=== PATIENT | male | born 1965 | race Caucasian/White ===

== ENCOUNTER 2017-01-15 14:51 | Inpatient (IN) | payer BC, OTHER ==
[2017-01-15 15:16] LABS: #Lymphocytes 0.6 thou/uL (1.20-3.40); #Monocytes 0.5 thou/uL (0.11-0.59); #Neutrophils 7.9 thou/uL (1.40-6.50); %Basophils 0.4 % (0.0-1.0); %Eosinophils 0.2 % (0.0-10.0); %Lymphocytes 6.9 % (21.0-51.0); Hematocrit 32.2 % (42.0-52.0); Mean Platelet Volume 7.2 fL (7.4-10.4); Red Blood Cell (RBC) Count 3.68 mill/uL (4.70-6.10); White Blood Cell (WBC) Count 9.1 thou/uL (4.8-10.8)
[2017-01-15 15:39] LABS: ALT (SGPT) 13 U/L (8-55); AST (SGOT) 13 U/L (5-34); Alkaline Phosphatase 118 U/L (40-150); Anion Gap 12 mmol/L (10-20); BUN (Urea Nitrogen) 31 mg/dL (8.9-20.6); Bilirubin, Total 1.4 mg/dL (0.2-1.2); Calc. Creatinine Clearance 0 mL/min (70-130); Calcium 8.9 mg/dL (7.8-10.44); Carbon Dioxide 18 mmol/L (22-29); Chloride 101 mmol/L (98-107); Estimated GFR-MDRD 32; Globulin 3.8 g/dL (2.4-3.5); Lipase 8 U/L (8-78); Protein, Total 7.1 g/dL (6.0-8.3)
[2017-01-15 17:23] LABS: Bilirubin Negative (Negative); Blood, Urine Large (Negative); Glucose, Urine (Dipstick) >=1000 mg/dL (Negative); Ketone, Urine Negative (Negative); Nitrite Negative (Negative); Protein, Urine (Dipstick) 300 mg/dL (Neg-Trace); Urobilinogen 0.2 mg/dL (0.2-1.0)
[2017-01-15 17:25] LABS: Squamous Epithelial 0-3 HPF (0-3); WBC/HPF 0-3 HPF (0-3)
[2017-01-15 17:35] LABS: Bacteria/HPF 1+ HPF (None Seen); Hyaline Casts/LPF 0-3 HYALINE CAST LPF (0-3 Hyaline); Yeast-All Forms None Seen HPF (None Seen)
[2017-01-15 17:51] LABS: PTT 38.9 SEC (22.9-36.1); Prothrombin Time 15.1 SEC (12.0-14.7)
[2017-01-15 17:53] LABS: Lactic Acid - Sepsis 1.8 mmol/L (0.5-2.2)
[2017-01-15] MEDS ORDERED: Insulin Regular 300 UNITS/3 ML VIAL ONE (17:59)
[2017-01-15] MEDS ORDERED: Piperacillin/Tazobactam 4.5 GM VIAL ONE ×2 (18:33→18:34)
[2017-01-15] MEDS ORDERED: Sodium Chloride 0.9% 100 ML ONE (18:35)
[2017-01-15] MEDS ORDERED: Vancomycin HCl 1.5 GM in Sodium Chloride 0.9% 250 ML 300 ML IVPB SCH (18:45)
--- NOTE | 2017-01-15 19:16 | RAD ---
SINGLE VIEW OF THE CHEST: 01/15/17 COMPARISON: 10/31/16 HISTORY: Vomiting and fever. FINDINGS: Single view of the chest shows a normal sized cardiomediastinal silhouette. There is no evidence of consolidation, mass, or pleural effusion. The bones are unremarkable. IMPRESSION: No evidence of acute cardiopulmonary disease. POS: [facility]
--- NOTE | 2017-01-15 19:39 | RAD ---
THREE VIEWS OF THE LEFT TOES: 01/15/17 COMPARISON: None. HISTORY: Ulcers on the toes with fever. FINDINGS: Three views of the left toes shows slight absence of the lateral aspect of the tuft of the distal ph alanx of the great toe. No other areas of potential osseous erosion are seen. There are soft tissue swelling of the toes. Vascular calcifications are present. IMPRESSION: Possible bone loss of the tuft of the distal phalanx of the great toe. POS: [facility]
--- NOTE | 2017-01-15 19:58 | RAD ---
THREE VIEWS RIGHT KNEE: 01/15/17 COMPARISON: None. HISTORY: Fever with ulcers on both legs. FINDINGS: Three views of the right knee shows the patient to be status post right below the knee amputation. H ypertrophic bone formation is seen at the amputation sites in the tibia and fibula. No obvious osseo us erosion is seen. Vascular calcifications are seen. There are mild degenerative changes in the rig ht knee joint. IMPRESSION: No evidence of acute osseous abnormality status post right below the knee amputation.. POS: [facility]
[2017-01-15] MEDS ORDERED: Dextrose 50% Abboject 50 ML SYRINGE IVP PRN (22:21)
[2017-01-15] MEDS ORDERED: Insulin Regular 300 UNITS/3 ML VIAL SC PRN (22:21)
[2017-01-15] MEDS ORDERED: Dextrose 5% in Water 1,000 ML IV PRN (22:21)
[2017-01-15 23:07] VITALS: BMI 34.4
[2017-01-16] MEDS: Piperacillin/Tazobactam 4.5 GM in Sodium Chloride 0.9% 100 ML IVPB SCH ×2 (00:05→05:30)
[2017-01-16] MEDS: Sodium Chloride 0.9% 1,000 ML IV SCH ×2 (00:05→02:51)
[2017-01-16] MEDS ORDERED: Vancomycin HCl 1.5 GM in Sodium Chloride 0.9% 250 ML 300 ML IVPB SCH (08:00)
[2017-01-16] MEDS ORDERED: Nystatin Powder 15 GM BOT TOP PRN (08:15)
--- NOTE | 2017-01-16 09:06 | HP ---
CHIEF COMPLAINT: Fever, nausea. HISTORY OF PRESENT ILLNESS: This is a 51-year-old gentleman with a history of uncontrolled type 2 d iabetes, hypertension, hyperlipidemia, history of diabetic retinopathy, neuropathy, peripheral vascu lar disease, history of Charcot joints in his right foot, status post right below knee amputation in June 2016 who presents to the emergency department with 2-3 days of weakness, nausea, and fever up to 103. He was seen by Dr. Livingston in the primary care office yesterday and was told to go to the hospital immediately due to his infected toe and skin infection in his right stump. The patient st ates that he was last seen by Dr. Tanner and Dr. Paniagua 2-3 weeks ago and he had no infections at th at time. He was started on IV vancomycin and Zosyn in the emergency department. He states that he is feeling some better now with no further nausea and his fever has resolved as well. PAST MEDICAL HISTORY: Type 2 diabetes insulin-dependent, poorly controlled blood pressure, hyperlip idemia, diabetic retinopathy, neuropathy, Charcot joints. History of depression and anxiety. MEDICATIONS: Amlodipine 10 mg daily, Levemir 30 units b.i.d., Humalog p.r.n., Nystatin p.r.n., Paxi l 40 mg daily, hydrochlorothiazide 25 mg daily. ALLERGIES: METFORMIN. PAST SURGICAL HISTORY: Right eye surgery for retinopathy, abdominal I\T\D, scleral I\T\D, I\T\D of right foot, right below knee amputation. 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 Denies smoking or alcohol use. FAMILY HISTORY: Positive for diabetes and hypertension. REVIEW OF SYSTEMS: As per the history of present illness. GENERAL: Positive for fevers. Positive for weakness. SKIN: Infections as described above. HEENT: Denies headache. Positive for blurred vision. He is followed by Dr. Francisco. CARDIOVASCULAR: Denies chest pain, shortness of breath. PULMONARY: Denies cough or hemoptysis. GASTROINTESTINAL: Positive for nausea and vomiting. No melena, no hematochezia, no diarrhea. GENITOURINARY: No dysuria or hematuria. MUSCULOSKELETAL: Positive for weakness. NEUROLOGIC: Positive for neuropathy. PSYCHIATRIC: Positive for anxiety and depression. PHYSICAL EXAMINATION: VITAL SIGNS: Temperature 98.0, pulse of 86, respirations 16, blood pressure 164/80, pulse ox is 99% on room air. GENERAL: He is awake and alert, no acute distress. HEENT: Mucosa is moist. NECK: Supple. HEART: Regular rate and rhythm. LUNGS: Clear. ABDOMEN: Obese, soft, nontender, nondistended. No hepatosplenomegaly. EXTREMITIES: He has a shallow ulcerated lesion in his right leg behind his knee, base of his left g reat toe and base of his second toe on the left with ulcerative lesions which are dark and black. N o discharge at this time but on his sock and dressing. LABORATORY AND X-RAY FINDINGS: White blood cell count 9.1, hemoglobin hematocrit 11.2 and 32.2, kareem telets of 223. PT, PTT elevated at 15.1 and 38.9, sodium 127, potassium 4.3, chloride 101, CO2 of 1 8, BUN and creatinine 31 and 2.19 with a GFR of 32. Serum glucose was elevated at 456. Last Accu-C hek was 250. Lactic acid was normal at 1.8, calcium 8.9, albumin 3.3, AST and ALT are normal. Toe x-ray revealed possible bone loss on the tuft of the distal phalanx of the great toe. Knee x-ra y reveals no evidence of osseous abnormality, status post right below knee amputation. ASSESSMENT AND PLAN: 1. This is a 51-year-old gentleman with uncontrolled diabetes, noncompliance, hypertension, status post right [id number] amputation for persistent osteomyelitis, now with a left toe infection. C stewart Paniagua and Dr. Vargas for evaluation for Orthopedics and Infectious Disease. We will con tinue Zosyn and vancomycin for methicillin-resistant Staphylococcus aureus coverage. We will obtain an MRI of his left foot, rule out osteomyelitis. 2. Type 2 diabetes. We will continue aggressive insulin therapy to try to keep his sugars under co ntrol. 3. Hypertension. We will continue his medications and follow closely. 4. Anxiety, depression. We will continue his Paxil.
[2017-01-16] MEDS: Multivit, Therapeutic 1 TAB PO SCH (10:14)
[2017-01-16] MEDS: PARoxetine 20 MG TAB PO SCH (10:15)
[2017-01-16] MEDS: Losartan Potassium 25 MG TAB PO SCH (10:15)
[2017-01-16] MEDS: Insulin Detemir 100 UNITS/ML 30 UNITS in Pre-Filled Syringe 1 EACH SC SCH ×2 (10:15→21:11)
[2017-01-16] MEDS: HumaLOG 300 UNITS/3 ML VIAL SC SCH ×3 (12:00→21:12)
--- NOTE | 2017-01-16 15:54 | MRI ---
LEFT LOWER EXTREMITY MRI WITHOUT IV CONTRAST: HISTORY: Nonhealing ulcer on great left toe with history of diabetes mellitus and fever. FINDINGS: There is some minimal nonspecific soft tissue swelling of the distal great toe. There is abnormal m arrow signal with T1 hypointensity and T2 and STIR hyperintensity in the distal phalanx, evidence fo r osteomyelitis. No evidence of a drainable abscess. There are some generalized degenerative and o steoarthrosis changes of the forefoot. The first metatarsophalangeal joint sesamoid bones appear wi thin normal limits. Minimal nonspecific subcutaneous fat stranding. There is some nonspecific T2 h yperintensity within the intrinsic muscles of the foot. No evidence for other significant acute int ernal derangement. IMPRESSION: 1. Abnormal T1 and T2 and STIR signal associated with the distal phalanx of the great toe, evidence for osteomyelitis. 2. Minimal soft tissue swelling. 3. No evidence for a drainable abscess. 4. Nonspecific STIR and T2 hyperintensity within the intrinsic muscles of the foot. POS: [facility]
[2017-01-16] MEDS ORDERED: metroNIDAZOLE 500 MG TAB PO SCH (16:00)
[2017-01-16] MEDS ORDERED: cloNIDine HCl 0.1 MG TAB ONE (16:52)
[2017-01-16] MEDS: cefTRIAXone\\ROCEPHIN 2 GM in Sodium Chloride 0.9% 100 ML IVPB SCH (16:56)
[2017-01-16] MEDS: cloNIDine HCl 0.1 MG TAB PO PRN (17:00)
[2017-01-16] MEDS: metroNIDAZOLE 500 MG TAB PO SCH (21:10)
--- NOTE | 2017-01-16 23:37 | CON ---
DATE OF CONSULTATION: 01/16/2017 REASON FOR CONSULTATION: Toe ulcer, possible osteomyelitis. HISTORY OF PRESENT ILLNESS: A 51-year-old is known to us from recent visit when he presented with a history of type 2 diabetes, neuropathy and right foot inflammatory process. The patient underwent fusion, but then this became infected and was treated with protracted antimicrobial therapy when unfortunately, the patient required a below knee amputation, which was carried out by Dr. Paniagua at [facility] recently I believe in September. Patient now presents with new onset of weakness, nausea, fever up to 103. Patient had been taking care of ulceration at the tip of the first and second toes of left foot in the outpatient setting until he developed the above symptoms. No headaches. No change in visual symptoms, sore throat, odynophagia, dysphagia. No cough or sputum production or chest pain. No abdominal pain. Voiding without difficulty. No back pain. PAST MEDICAL HISTORY: Type 2 diabetes mellitus, neuropathy, retinopathy, hypertension, Charcot's arthropathy, prior right BKA amputation after failure of foot fusion due to the infection superimposed. ALLERGIES: METFORMIN. MEDICATIONS: Norvasc, Levemir, Humalog, nystatin, Paxil, and hydrochlorothiazide. 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 FAMILY HISTORY: Diabetes. PHYSICAL EXAMINATION: VITAL SIGNS: T-max 99.1, blood pressure 170/80, pulse 78, respirations 16, O2 sat 97%. SKIN: Shows the areas of ulceration at the tip of the first and second toes with yellow base. I could not probe bone with a Q-tip, similar ulceration in the second toe distal aspect, again no bone appears exposed and he has the medial aspect ulceration with yellow tissue at the base, irregular shaped medial aspect of the BKA site skin proximal to the knee, probably from pressure and abrasion resulting from the prosthesis, peripheral IV access. No Glover catheter. HEENT: Ocular movements are conjugate. Oral cavity moist. Numerous teeth in place with some decay. NECK: Supple. No jugular venous distention or carotid bruits. LUNGS: With symmetric clear breath sounds. HEART: S1, S2, regular rate. ABDOMEN: Soft, not distended or tender. No ascites. No bladder distention. EXTREMITIES: No joint inflammatory activity. Pulses are 2+ in dorsalis pedis. LABORATORY AND X-RAY FINDINGS: Cap refill is normal. WBC count 9.1, hemoglobin 11, platelets 223,000 with 86% neutrophils. INR 1.2. Sodium 127, creatinine is 2.19, which is higher than his baseline of 1.06 in 08/2016. Urinalysis with 0-3 wbc's and protein 300. MRI of the lower extremity is pending. Toe x-ray showed irregularity at the tuft of the first toe left foot. Chest x-ray with no evidence of acute cardiopulmonary disease. ASSESSMENT: 1. Type 2 diabetes and neuropathy. 2. Ulceration tip of the first and second toes with inflammatory changes and systemic inflammatory response syndrome. DISCUSSION: MRI is pending and we will review the results of the study, but if there is evidence of osteomyelitis, then the patient will probably need amputation of the distal phalanx of the left foot. He was given Zosyn and vancomycin, but the doses being changed by the pharmacist, I believe, and will continue current regime. Since there is not extensive bone destruction and pt has excellent blood supply, one could attempt conservative treatment but it would require protracted IV antimicrobial administration and with uncertain results. MTDD
[2017-01-17 05:29] LABS: #Eosinphils 0.4 thou/uL (0.0-0.7); #Lymphocytes 1.2 thou/uL (1.20-3.40); #Monocytes 0.7 thou/uL (0.11-0.59); %Basophils 0.9 % (0.0-1.0); %Eosinophils 7.8 % (0.0-10.0); %Lymphocytes 21.6 % (21.0-51.0); %Monocytes 13.9 % (0.0-10.0); Hematocrit 28.8 % (42.0-52.0); Mean Platelet Volume 7.9 fL (7.4-10.4); Red Blood Cell (RBC) Count 3.24 mill/uL (4.70-6.10); White Blood Cell (WBC) Count 5.4 thou/uL (4.8-10.8)
[2017-01-17] MEDS: Insulin Detemir 100 UNITS/ML 30 UNITS in Pre-Filled Syringe 1 EACH SC SCH ×2 (08:22→19:59)
[2017-01-17] MEDS: PARoxetine 20 MG TAB PO SCH (08:22)
[2017-01-17] MEDS: Losartan Potassium 25 MG TAB PO SCH (08:22)
[2017-01-17] MEDS: HumaLOG 300 UNITS/3 ML VIAL SC SCH ×4 (08:23→20:00)
[2017-01-17] MEDS: Multivit, Therapeutic 1 TAB PO SCH (08:23)
[2017-01-17] MEDS: metroNIDAZOLE 500 MG TAB PO SCH ×3 (08:24→19:59)
--- NOTE | 2017-01-17 08:51 | PRG ---
DATE OF SERVICE: 01/17/2017 SUBJECTIVE: The patient is feeling some better. He denies fevers or chills. He has had improved pain in his foot. He is tolerating antibiotics. OBJECTIVE: VITAL SIGNS: Temperature 98.1, pulse 71, respirations 18, blood pressure 152/78 , pulse ox is 97% on room air. GENERAL: He is awake and alert, in no acute distress. Speech is clear. NECK: Supple. HEART: Regular rate and rhythm. LUNGS: Clear. ABDOMEN: Obese, soft, nontender, nondistended. EXTREMITIES: Right stump with a superficial abrasion with granulation tissue, slight redness. Left foot with dressing in place, discharge on the dressing. LABORATORY DATA: White blood cell count 5.4, hemoglobin and hematocrit 9.8 and 28.8, platelets 193. Accu-Cheks 158, 188. Microbiology; bacterial culture of the wound is growing moderate gram positive rods, gram negative coccobacilli, ID is pending. MRI of the lower extremity revealed abnormal signal of the distal phalanx of the great toe with evidence of osteomyelitis. ASSESSMENT AND PLAN: 1. This is a 51-year-old gentleman with a long history of uncontrolled type 2 diabetes, status post right below the knee amputation for persistent osteomyelitis status post scrotal abscesses with MRSA, now with a left great toe infection with osteomyelitis. I appreciate Dr. Vargas who has adjusted his antibiotics, awaiting Dr. Paniagua's evaluation for possible long-term antibiotics versus amputation. 2. Type 2 diabetes. We will continue aggressive insulin therapy. Sugars seem to be under control. 3. Hypertension. We will continue oral medicines as well as clonidine p.r.n. 4. Anxiety and depression, stable on Paxil. We will continue that as well. 5. We will hold off on Lovenox at this time in case of surgical intervention. 6. Anemia. Likely multifactorial. Will follow. Consider transfusion if worsens or he becomes symptomatic MTDD
[2017-01-17] MEDS: cefTRIAXone\\ROCEPHIN 2 GM in Sodium Chloride 0.9% 100 ML IVPB SCH (17:14)
[2017-01-17] MEDS ORDERED: Vancomycin HCl 1 GM in Premix Bag 1 BAG IVPB SCH (19:30)
--- NOTE | 2017-01-17 21:55 | PRG ---
DATE OF SERVICE: 01/17/2017 SUBJECTIVE: Mr. Ferraar is without any changes in symptoms, no shortness of breath or chest pain, n o abdominal pain or diarrhea. No genitourinary symptoms. PHYSICAL EXAMINATION: VITAL SIGNS: Normal: LUNGS: Clear. HEART: S1 and S2, regular rate. ABDOMEN: Soft, not distended. EXTREMITIES: Foot is unchanged, except for less erythema. LABORATORY DATA: White cell count is 5.4 and hemoglobin 9.8. No new chemistry. Microbiology with Staph aureus and Streptococcus viridans from the ulceration. IMAGINGS: The MRI showed abnormal T1 and T2 signal in the distal phalanx consistent with oste omyelitis. No abscess. ASSESSMENT AND DISCUSSION: Type 2 diabetes with neuropathy and ulceration at the tip of the first a nd second toes with first toe distal osteomyelitis. I discussed options for management. The patien t would like to try initially conservative management since there is not a lot of destruction of the bone on plain films that seems to be an early process, he has excellent blood supply and I think we could give it a shot. If that fails, then he will eventually need a distal left first toe amputati on. We will start probably with Rocephin unless it is methicillin-resistant Staphylococcus aureus, now we will have to switch him to daptomycin. He is currently receiving ceftriaxone and we will giv e him a dose of vancomycin until we have susceptibility results of few organism.
[2017-01-18 06:11] LABS: #Basophils 0.1 thou/uL (0.0-0.2); #Eosinphils 0.4 thou/uL (0.0-0.7); #Lymphocytes 1.4 thou/uL (1.20-3.40); #Monocytes 0.8 thou/uL (0.11-0.59); #Neutrophils 4.3 thou/uL (1.40-6.50); %Basophils 1.1 % (0.0-1.0); %Lymphocytes 19.8 % (21.0-51.0); Hematocrit 30.9 % (42.0-52.0); Mean Platelet Volume 7.2 fL (7.4-10.4); Red Blood Cell (RBC) Count 3.48 mill/uL (4.70-6.10); White Blood Cell (WBC) Count 6.9 thou/uL (4.8-10.8)
[2017-01-18 06:48] LABS: Anion Gap 14 mmol/L (10-20); BUN (Urea Nitrogen) 19 mg/dL (8.9-20.6); Calc. Creatinine Clearance 99 mL/min (70-130); Calcium 8.7 mg/dL (7.8-10.44); Carbon Dioxide 18 mmol/L (22-29); Chloride 112 mmol/L (98-107); Estimated GFR-MDRD 53
[2017-01-18] MEDS: HumaLOG 300 UNITS/3 ML VIAL SC SCH ×4 (07:02→20:10)
--- NOTE | 2017-01-18 08:06 | PRG ---
DATE OF SERVICE: 01/18/2017 SUBJECTIVE: The patient is feeling fine. He denies any complaints, denies chest pain, shortness of breath or palpitations. He is tolerating wound care to his foot, tolerating antibiotics with no co mplications. Has a good appetite. OBJECTIVE: VITAL SIGNS: Temperature 97.9, pulse of 76, respirations 18, blood pressure 157/85, pulse ox is 98% on room air. GENERAL: He is awake and alert, in no acute distress. Speech is clear. NECK: Supple. HEART: Regular rate and rhythm. LUNGS: Clear. ABDOMEN: Obese, soft. EXTREMITIES: Right stump with a healing superficial wound with granulation tissue, dressing was in placed, left toe continues with an ulcerative lesion with a foul odor. LABORATORY DATA: White blood cell count 6.9, hemoglobin and hematocrit 10.5 and 30.9, platelets of 234. Sodium 140, potassium 3.5, chloride 112, CO2 of 18, BUN and creatinine 19 and 1.41 with a GFR of 53, which is improved from yesterday when it was 32. Accu-Chek of 123. Serum glucose of 110. W ound cultures growing Staph aureus and Strep viridans with sensitivities pending. MEDICATIONS: He is continuing on his IV vancomycin and ceftriaxone until wound culture sensitivitie s result. ASSESSMENT AND PLAN: 1. This is a 51-year-old gentleman with type 2 diabetes, hypertension, hyperlipidemia, peripheral v ascular disease, status post right below knee amputation for persistent osteomyelitis, now with left great toe infection with distal tip osteomyelitis. Dr. Vargas is adjusting antibiotics based on his wound culture. We will attempt for conservative therapy with IV antibiotics long-term prior to any surgical procedure or amputation, IV antibiotics arranged for her outpatient therapy per Dr. Vargas. 2. Type 2 diabetes. We will continue insulin therapy. 3. Hypertension, stable on medications. 4. Anemia is improved. We will continue to follow as an outpatient. DISPOSITION: Possible discharge home if okay with Surgery and Infectious Disease once his IV antibi otics are arranged.
[2017-01-18] MEDS: Insulin Detemir 100 UNITS/ML 30 UNITS in Pre-Filled Syringe 1 EACH SC SCH ×2 (08:10→20:09)
[2017-01-18] MEDS: metroNIDAZOLE 500 MG TAB PO SCH ×3 (08:11→20:08)
[2017-01-18] MEDS: Losartan Potassium 25 MG TAB PO SCH (08:11)
[2017-01-18] MEDS: PARoxetine 20 MG TAB PO SCH (08:12)
[2017-01-18] MEDS: Multivit, Therapeutic 1 TAB PO SCH (08:12)
--- NOTE | 2017-01-18 12:51 | SPC ---
ULTRASOUND GUIDED LEFT UPPER EXTREMITY PICC LINE PLACEMENT: 01/18/2017 HISTORY: Sepsis. Toe infection. FLUOROSCOPY: Total fluoroscopy time is 1 minute with a total dose of 2731 mGy per cm2. TECHNIQUE: After informed consent was obtained, the patient was placed on the angiography table in the supine p osition. The left upper extremity was meticulously prepped and draped in the usual sterile fashion. The skin and subcutaneous tissues were infiltrated with buffered 1% Lidocaine for local anesthesia . The left basilic vein was accessed utilizing a micropuncture technique and concurrent real-time u ltrasound guidance. A 5 Martiniquais sheath was unable to be placed. As a result, a 5 Martiniquais introducer sheath was placed, fo llowed by the dilator for the introducer sheath, followed by placement of the 5 Martiniquais peel-away she ath. The catheter was measured and cut to the appropriate length. The catheter was placed over the guide wire with the tip position overlying the cavoatrial junction. The guide wire and peel-away s jose carlos were removed. The catheter was accessed and aspirated/flushed easily. The catheter was secur ed to the skin utilizing a StatLock device, and a dry, sterile dressing was placed. The patient tolerated the procedure well and without immediate complication. FINDINGS: Technically successful placement of a single lumen, 5 Martiniquais, 39 cm PICC via the left basilic vein. The tip of the catheter overlies the cavoatrial junction. The PICC line at the skin surface was pl aced at the zero patito on the PICC line. IMPRESSION: Technically successful left upper extremity peripherally inserted central catheter line placement. POS: [facility]
--- NOTE | 2017-01-18 13:42 | PQF ---
CLINICAL DOCUMENTATION IMPROVEMENT CLARIFICATION FORM: ICD-10 Updated PLEASE DO AN ADDENDUM TO THE PROGRESS NOTE WITH ANY DOCUMENTATION UPDATES OR ADDITIONS AND CARRY THROUGH TO DC SUMMARY. THANK YOU. DATE: 01/18/17 ATTN: Dr. Hill 01/21/17 Please exercise your independent, professional judgment in responding to the clarification form. Clinical indicators are provided on the bottom of this form for your review Please check appropriate box(s): ___x___ I (concur) with the Wound Care findings as stated below. [ ] Pressure Ulcer: (Stage I: Erythema; Stage II: Partial thickness; Stage III : Full thickness; Stage IV: Necrosis to muscle/bone) [ ] Location: POA: [ ] Yes [ ] No[ ] Unable to determine Stage (I to IV): (Left Right Bilateral N /A ) [ ] Location: POA: [ ] Yes [ ] No[ ] Unable to determine Stage (I to IV): (Left Right Bilateral N/ A ) [ ] No pressure ulcer diagnosis [ ] Deep tissue injury [ ] Other diagnosis [ ] Unable to determine For continuity of documentation, please document condition throughout progress notes and discharge summary. Thank You. The following CLINICAL INDICATORS - SIGNS / SYMPTOMS are present in the medical record: WOUND CARE ASSESS. 01/17: R POSTERIOR UPPER THIGH PRESSURE ULCER. STAGE III RISKS: H&P: S/P R BKA IN JUNE 2016. HX OF UNCONTROLLED TYPE 2 DM, HTN, DIABETIC RETINOPATHY, NEUROPATHY, PVD. CHARCOT JOINTS. HE HAS A SHALLOW ULCERATED LESION IN HIS R LEG BEHIND HIS KNEE TREATMENT: CONSULT 01/16: WOUND CARE EVAL/ TREAT. (This form is maintained as a part of the permanent medical record) 2014 [employer]. All Rights Reserved Yue Bryan, RN, [email or web address] [email or web address] Office: [phone] CARIDAD
[2017-01-18] MEDS: cefTRIAXone\\ROCEPHIN 2 GM in Sodium Chloride 0.9% 100 ML IVPB SCH (14:44)
[2017-01-18] MEDS ORDERED: Mag-Al Plus 1200 MG/1200 MG/120 MG/30 ML UDCUP PO PRN (17:54)
[2017-01-18] MEDS: Vancomycin HCl 1.75 GM in Sodium Chloride 0.9% 500 ML IVPB SCH (20:08)
[2017-01-19 05:07] LABS: #Basophils 0.1 thou/uL (0.0-0.2); #Eosinphils 0.4 thou/uL (0.0-0.7); #Lymphocytes 1.6 thou/uL (1.20-3.40); #Monocytes 0.7 thou/uL (0.11-0.59); #Neutrophils 3.7 thou/uL (1.40-6.50); %Basophils 1.2 % (0.0-1.0); %Eosinophils 6.3 % (0.0-10.0); %Lymphocytes 24.8 % (21.0-51.0); %Monocytes 10.8 % (0.0-10.0); Mean Platelet Volume 8.2 fL (7.4-10.4); Red Blood Cell (RBC) Count 3.36 mill/uL (4.70-6.10); White Blood Cell (WBC) Count 6.4 thou/uL (4.8-10.8)
[2017-01-19] MEDS: HumaLOG 300 UNITS/3 ML VIAL SC SCH ×4 (07:30→20:17)
[2017-01-19] MEDS: Insulin Detemir 100 UNITS/ML 30 UNITS in Pre-Filled Syringe 1 EACH SC SCH ×2 (10:47→20:10)
[2017-01-19] MEDS: Losartan Potassium 25 MG TAB PO SCH (10:47)
[2017-01-19] MEDS: Multivit, Therapeutic 1 TAB PO SCH (10:47)
[2017-01-19] MEDS: metroNIDAZOLE 500 MG TAB PO SCH ×3 (10:47→20:10)
[2017-01-19] MEDS: PARoxetine 20 MG TAB PO SCH (10:47)
[2017-01-19] MEDS: cefTRIAXone\\ROCEPHIN 2 GM in Sodium Chloride 0.9% 100 ML IVPB SCH (17:05)
--- NOTE | 2017-01-19 17:30 | CON ---
DATE OF CONSULTATION: 01/19/2017 CHIEF COMPLAINT: Left foot infection. HISTORY OF PRESENT ILLNESS: This is a 51-year-old male previously known to me from right below knee amputation for right foot osteomyelitis. He had been doing relatively well with his below knee amp utation, has had a temporary prosthesis, minor skin irritation behind the knee. He has developed so me blister lesions under the great toe and second toe distally which became erythematous and with in creased drainage. The patient was admitted to the hospital, has been on IV antibiotic therapy. Den ies any fever or chills. No other constitutional symptoms. PAST MEDICAL HISTORY: Documented significant for neuropathy in lower extremities secondary to diabe burt along with longstanding adult onset diabetes. CURRENT MEDICATIONS: Listed. ALLERGIES: Listed. FAMILY HISTORY: Noncontributory. SOCIAL HISTORY: Noncontributory. PHYSICAL EXAMINATION: GENERAL: He is alert, in no distress. VITAL SIGNS: Stable. He is afebrile. EXTREMITIES: His left lower extremity has minimal swelling in ankle and foot. Alignment is neutral . The midfoot has normal transmetatarsal motion with no skin lesions or deformity. In the forefoot , he has hammertoe deformities of the lesser toes, he has second and third are fairly fixed, rigid. The second toe has bolus lesions with erythema to the base. There is some purulent drainage in dis jose callus with central ulceration. The great toe has a mallet deformity with similar large callus on the distal phalanx with a central ulceration and purulent drainage. No significant fluctuance, n o proximal erythema. His vascular is intact. NEUROLOGIC: He has no protective sensation in the foot. X-RAY FINDINGS: Radiographs are reviewed which shows some lytic changes in the distal phalanx of th e great toe, possibly on the second toe. There are hammertoe deformities. No other acute changes. MRI also shows evidence of bone involvement of the great and second toe with infectious etiology. IMPRESSION AND PLAN: Neuropathic ulcers, left great and second toe with evidence of bone involvemen t. The patient is currently on IV antibiotic therapy with no progression of the infection proximall y. I discussed options with him, he most likely require partial amputation of the great and second toes. Would also consider flexor tenotomies to avoid additional distal erosions in the future. The patient would like to continue IV therapy at this time and would recommend that he follow up in the office in 3-4 days. We will assess the progression if no improvement. We will schedule for amputa tion. Prognosis is guarded.
[2017-01-19 19:25] LABS: Vancomycin, Trough 15.4 ug/mL
[2017-01-19] MEDS: Vancomycin HCl 1.75 GM in Sodium Chloride 0.9% 500 ML IVPB SCH (20:09)
[2017-01-20] MEDS: Losartan Potassium 25 MG TAB PO SCH (09:01)
[2017-01-20] MEDS: metroNIDAZOLE 500 MG TAB PO SCH ×3 (09:01→20:21)
[2017-01-20] MEDS: PARoxetine 20 MG TAB PO SCH (09:02)
[2017-01-20] MEDS: Multivit, Therapeutic 1 TAB PO SCH (09:02)
[2017-01-20] MEDS: Insulin Detemir 100 UNITS/ML 30 UNITS in Pre-Filled Syringe 1 EACH SC SCH ×2 (09:03→20:28)
[2017-01-20] MEDS: HumaLOG 300 UNITS/3 ML VIAL SC SCH ×4 (09:04→20:30)
[2017-01-20] MEDS: cefTRIAXone\\ROCEPHIN 2 GM in Sodium Chloride 0.9% 100 ML IVPB SCH (16:28)
[2017-01-20] MEDS ORDERED: Loperamide HCl 2 MG CAP PO PRN ×2 (19:54)
[2017-01-20] MEDS ORDERED: Acetaminophen 325 MG TAB PO PRN ×2 (19:58)
[2017-01-20] MEDS: Vancomycin HCl 1.75 GM in Sodium Chloride 0.9% 500 ML IVPB SCH (20:21)
[2017-01-20] MEDS: cloNIDine HCl 0.1 MG TAB PO PRN (20:28)
[2017-01-20] MEDS ORDERED: Loratadine 10 MG TAB PO SCH (21:00)
[2017-01-21] MEDS: HumaLOG 300 UNITS/3 ML VIAL SC SCH ×2 (07:11→14:00)
[2017-01-21] MEDS ORDERED: Ondansetron HCl/PF 4 MG/2 ML Vial SLOW IVP PRN (08:01)
[2017-01-21] MEDS: metroNIDAZOLE 500 MG TAB PO SCH ×2 (08:07→14:36)
[2017-01-21] MEDS: Losartan Potassium 25 MG TAB PO SCH (08:07)
[2017-01-21] MEDS: Multivit, Therapeutic 1 TAB PO SCH (08:07)
[2017-01-21] MEDS: PARoxetine 20 MG TAB PO SCH (08:07)
[2017-01-21] MEDS ORDERED: Citrucel 500 MG TAB PO SCH (09:00)
[2017-01-21] MEDS ORDERED: Loratadine 10 MG TAB PO SCH (09:00)
[2017-01-21] MEDS ORDERED: Isosorbide Mononitrate 20 MG TAB PO SCH (09:00)
[2017-01-21] MEDS: Insulin Detemir 100 UNITS/ML 30 UNITS in Pre-Filled Syringe 1 EACH SC SCH (09:56)
--- NOTE | 2017-01-21 12:17 | DIS ---
DATE OF ADMISSION: 01/16/2017 DATE OF DISCHARGE: 01/21/2017 ADMISSION DIAGNOSES: 1. Left toe infection, rule out sepsis syndrome. 2. Uncontrolled diabetes. 3. Noncompliance. 4. Status post right below-knee amputation. 5. History of Staph aureus osteomyelitis. DISCHARGE DIAGNOSES: 1. Left toe infection, rule out sepsis syndrome. 2. Uncontrolled diabetes. 3. Noncompliance. 4. Status post right below-knee amputation. 5. History of Staph aureus osteomyelitis. OTHER DIAGNOSES 1. Clostridium difficile antigen positive. 2. Diarrhea. 3. Hypertension. CONSULTATIONS: Dr. Huan Vargas for Infectious Disease. Dr. Austen Paniagua for Orthopedics. PROCEDURE: IV antibiotics. HOSPITAL COURSE: This is a 51-year-old gentleman with a history of uncontrolled type 2 diabetes, hy pertension, hyperlipidemia, diabetic retinopathy, neuropathy, peripheral vascular disease, history o f Charcot joint in his right foot, status post right below knee amputation in 06/2016, and history o f MRSA, who presented to the Emergency Department with 2-3 days of weakness, nausea, and fever up to 103. He was admitted and he was started on IV vancomycin and Zosyn. He was followed by Dr. Vargas, who adjusted his antibiotics and had been improving on IV vancomycin and Rocephin. His cultures of his wounds have grown MRSA and Strep viridans. He was seen by Dr. Paniagua, who agreed with therapy , feels like he was likely going to need an amputation, but not imminent at this time and agrees wit h conservative therapy with outpatient antibiotics for the osteomyelitis and close followup. During his hospitalization, his diabetes was better controlled on increasing doses of insulin and diet con trol. His blood pressure remained difficult to control and medications for added. He is stable for discharge on the day of discharge, once outpatient antibiotics were arranged. DISCHARGE PHYSICAL EXAMINATION: VITAL SIGNS: Temperature 98.1, pulse of 76, respirations 16, blood pressure 162/78, and pulse ox 98 % on room air. GENERAL: He is awake and alert, in no acute distress. Speech is clear. NECK: Supple. HEART: Regular rate and rhythm. LUNGS: Clear. ABDOMEN: Obese, soft. EXTREMITIES: Left foot with dressing in place, clean, dry, and intact. Right stump has improving w ound. DISCHARGE LABORATORY DATA: White blood cell count 6,400, hemoglobin and hematocrit are 10.2 and 31. 0, and platelets of 215. Microbiology was growing MRSA and Strep viridans from his stump wound. C. diff antigen was positive and toxin was negative. DISCHARGE MEDICATIONS: Include, IV vancomycin per Dr. Huan Vargas, oral Flagyl 500 mg t.i.d. for 10 more days, Tylenol p.r.n., Maalox p.r.n., Norvasc 10 mg daily, Catapres 0.1 mg p.r.n., Levemir 30 units b.i.d., Humalog p.r.n., Imdur 30 mg daily, losartan 25 mg daily, and Paxil 40 mg daily. FOLLOWUP INSTRUCTIONS: The patient to follow up with Dr. Austen Paniagua in 3-4 days, Dr. Huan Britt for outpatient antibiotics and with myself in 2 weeks.
--- NOTE | 2017-01-21 14:00 | PQF ---
CLINICAL DOCUMENTATION IMPROVEMENT CLARIFICATION FORM: ICD-10 Updated PLEASE DO AN ADDENDUM TO THE PROGRESS NOTE WITH ANY DOCUMENTATION UPDATES OR ADDITIONS AND CARRY THROUGH TO DC SUMMARY. THANK YOU. DATE: 01/21/17 ATTN: Dr. Hill Please exercise your independent, professional judgment in responding to the clarification form. Clinical indicators are provided on the bottom of this form for your review Please check appropriate box(s): [ ] Sepsis due to: (Pna, UTI, gangrenous gall bladder, etc.) [ x ] SIRS due to non-infectious process (please specify etiology) __left toe infection with osteomyelitis [ ] with organ dysfunction [ ] without organ dysfunction [ ] Localized infection without sepsis [ ] Other diagnosis [ ] Unable to determine The following CLINICAL INDICATORS - SIGNS / SYMPTOMS are present in the medical record: ER RECORD: SEPSIS H&P: FEVER UP TO 103 INFECTED TOE & SKIN INFECTION R STUMP LEFT TOE INFECTION ID CONSULT: ULCERATION TIP OF FIRST AND SECOND TOES W/ INFLAMMATORY CHANGES & SIRS DC SUMMARY 01/21: ADMISSION DX: LEFT TOE INFECTION R/O SEPSIS SYNDROME DISCHARGE DX: LEFT TOE INFECTION R/O SEPSIS SYNDROME RISKS: H&P: HX OF UNCONTROLLED TYPE 2 DIABETES, HTN, PVD, S/P R BKA IN JUNE 2016. PN 01/17: BACTERIAL CULTURE OF WOUND GROWING MODERATE GRAM POSITIVE RODS, GRAM NEGATIVE COCCOBACILLI TREATMENTS: ID CONSULT. CPOE 01/16: ROCEPHIN 2 GM IV CPOE 01/16: FLAGYL 500 MG PO TID ORDER 01/17: IV VANCOMYCIN (This form is maintained as a part of the permanent medical record) 2014 [employer]. All Rights Reserved Yue Bryan RN, BSN [email or web address] Office: [phone] [facility]
[2017-01-21 16:11] VITALS: BP 167/85; TEMP 97.6
== END 2017-01-21 16:45 | disposition home or self-care (01) | DRG 637 ==
LOC: ERS 14:51 → T4-A 22:15
PROVIDERS: ADMIT Family Medicine; ATTEND Family Medicine
PROC: 02HV33Z Insertion of Infusion Device into Superior Vena Cava, Percutaneous Approach (ICD-10-PCS; principal; 2017-01-18)
PROC: B548ZZA Ultrasonography of Superior Vena Cava, Guidance (ICD-10-PCS; 2017-01-18)
DX: E11.69 Type 2 diabetes mellitus with other specified complication (principal); L89.893 Pressure ulcer of other site, stage 3; M86.8X7 Other osteomyelitis, ankle and foot; E11.40 Type 2 diabetes mellitus with diabetic neuropathy, unspecified; R65.10 Systemic inflammatory response syndrome (SIRS) of non-infectious origin without acute organ dysfunction; E11.65 Type 2 diabetes mellitus with hyperglycemia; Z91.14 Patient's other noncompliance with medication regimen; I10 Essential (primary) hypertension; E78.5 Hyperlipidemia, unspecified; E11.319 Type 2 diabetes mellitus with unspecified diabetic retinopathy without macular edema; I73.9 Peripheral vascular disease, unspecified; Z86.14 Personal history of Methicillin resistant Staphylococcus aureus infection; Z89.511 Acquired absence of right leg below knee
CPT/HCPCS: 36415; 36416; 36569; 71010; 80048; 80053; 80202; 81003; 81015; 83605; 83690; 85025; 85610; 85652; 85730; 87040; 87070; 87077; 87086; 87186; 87205; 87324; 87449; 96361; 96365; 96366; 96367; 96372; C1751; J0696; J1815; J2543; J3370; J7050

== ENCOUNTER 2017-05-17 09:40 | Outpatient (CLI) | payer BC ==
--- NOTE | 2017-05-17 11:27 | RAD ---
UPPER GI AIR CONTRAST: History: Vomiting, abdominal pain. FINDINGS: Air contrast and single column barium evaluation shows normal anatomic appearance of the esophagus, s tomach, and duodenum. Mild tertiary contractions of the distal esophagus are apparent. There is a lar ge amount of gastroesophageal reflux. While esophageal peristalsis is within normal limits, there is marked decrease in motility of the stomach and proximal bowel. No filling defect is apparent. Fluoro time = 1.6 minutes. IMPRESSION: 1. Large amount of gastroesophageal reflux without significant hernia apparent. 2. Marked decrease in motility of the stomach and proximal small bowel. POS: [facility]
== END 2017-05-17 09:41 | disposition home or self-care (01) ==
LOC: RAD 09:40
PROVIDERS: ATTEND Family Medicine
DX: G43.A1 Cyclical vomiting, in migraine, intractable (principal); K21.9 Gastro-esophageal reflux disease without esophagitis
CPT/HCPCS: 74247

== ENCOUNTER 2017-07-17 08:22 | Outpatient (CLI) | payer BC | END 2017-07-17 08:23 | disposition home or self-care (01) | LOC: BICCT 08:22 | PROVIDERS: ATTEND Family Medicine | DX: R41.0 Disorientation, unspecified (principal) | CPT/HCPCS: 70450 ==

== ENCOUNTER 2017-10-25 12:25 | Outpatient (CLI) | payer BC | END 2017-10-25 12:26 | disposition home or self-care (01) | LOC: ULT 12:25 | PROVIDERS: ATTEND Family Medicine | DX: I50.21 Acute systolic (congestive) heart failure (principal); R06.09 Other forms of dyspnea; I08.1 Rheumatic disorders of both mitral and tricuspid valves | CPT/HCPCS: 93306 ==

== ENCOUNTER 2017-11-15 14:32 | Outpatient (CLI) | payer BC | END 2017-11-15 14:33 | disposition home or self-care (01) | LOC: BICULT 14:32 | PROVIDERS: ATTEND Family Medicine | DX: N18.4 Chronic kidney disease, stage 4 (severe) (principal); K80.20 Calculus of gallbladder without cholecystitis without obstruction; J90 Pleural effusion, not elsewhere classified | CPT/HCPCS: 76770 ==

== ENCOUNTER 2018-03-26 09:28 | Day surgery (SDC) | payer BC ==
[2018-03-25 17:31] VITALS: BMI 33.0
[2018-03-26] MEDS ORDERED: CEFAZOLIN 2 GM/50 ML BAG ONE (10:55)
[2018-03-26] MEDS ORDERED: PROPOFOL 200 MG/20 ML VIAL ONE (11:02)
[2018-03-26] MEDS ORDERED: Glycopyrrolate 0.2 MG/ML 5 ML SYRINGE ONE (11:02)
[2018-03-26] MEDS ORDERED: Heparin 10,000 UNITS/ 10 ML VIAL ONE ×2 (11:02→21:48)
[2018-03-26] MEDS ORDERED: Lidocaine 1% PF 5 ML VIAL ONE (11:02)
[2018-03-26 11:21] LABS: #Basophils 0.1 thou/uL (0.0-0.2); #Eosinphils 0.4 thou/uL (0.0-0.7); #Lymphocytes 1.3 thou/uL (1.20-3.40); #Monocytes 0.9 thou/uL (0.11-0.59); #Neutrophils 8.6 thou/uL (1.40-6.50); %Basophils 0.8 % (0.0-1.0); %Eosinophils 3.7 % (0.0-10.0); %Lymphocytes 11.3 % (21.0-51.0); %Monocytes 8.1 % (0.0-10.0); %Neutrophils 76.1 % (42.0-75.0); Hemoglobin 12.4 g/dL (14.0-18.0); Mean Corpuscular HGB CONC 31.7 g/dL (32.0-36.0); Mean Corpuscular Hemoglobin 29.6 pg (27.0-31.0); Mean Corpuscular Volume 93.4 fL (78.0-98.0); Mean Platelet Volume 8.3 fL (7.4-10.4); Platelet Count 249 thou/uL (130-400); RBC Distribution Width 14.6 % (11.5-14.5); White Blood Cell (WBC) Count 11.3 thou/uL (4.8-10.8)
[2018-03-26 11:36] LABS: Anion Gap 13 mmol/L (10-20); BUN (Urea Nitrogen) 31 mg/dL (8.4-25.7); Calc. Creatinine Clearance 26 mL/min (70-130); Calcium 8.4 mg/dL (7.8-10.44); Carbon Dioxide 25 mmol/L (22-29); Chloride 106 mmol/L (98-107); Estimated GFR-MDRD 12; Glucose 111 mg/dL (70-105); Potassium 3.6 mmol/L (3.5-5.1); Sodium 140 mmol/L (136-145)
[2018-03-26] MEDS ORDERED: Bacitracin Zinc Ointment 30 gm TUBE ONE (17:49)
[2018-03-26] MEDS ORDERED: Lidocaine 2% PF 5 ML VIAL ONE (18:24)
[2018-03-26] MEDS ORDERED: Bupivacaine HCl 0.5%/Epinephrine 1:200,000/PF 30 ml Vial ONE (18:24)
[2018-03-26] MEDS ORDERED: Heparin 5,000 UNITS/ML VIAL ONE (18:24)
[2018-03-26] MEDS ORDERED: Heparin 10,000 UNITS/1 ML VIAL ONE (18:24)
[2018-03-26] MEDS ORDERED: Bupivacaine/Epinephrine 0.25% 30 ML VIAL ONE (18:24)
[2018-03-26] MEDS ORDERED: Protamine Sulfate 50 MG/5 ML VIAL ONE (18:24)
[2018-03-26] MEDS ORDERED: Midazolam HCl 2 mg/2 ml Vial ONE (18:26)
[2018-03-26] MEDS ORDERED: Fentanyl 100 MCG/2 ML VIAL ONE ×2 (18:26→21:11)
[2018-03-26] MEDS ORDERED: SUGAMMADEX SODIUM 200 MG/2 ML VIAL ONE (20:36)
[2018-03-26] MEDS ORDERED: Promethazine HCl 25 MG/ML VIAL ONE (21:11)
--- NOTE | 2018-03-28 09:56 | OP ---
DATE OF PROCEDURE: 03/26/2018 PREOPERATIVE DIAGNOSIS: End-stage renal disease. POSTOPERATIVE DIAGNOSIS: End-stage renal disease. PROCEDURE PERFORMED: Laparoscopic peritoneal dialysis catheter, laparoscopic omentopexy, laparoscopic sling suture and direct the peritoneal dialysis catheter into the pelvis. Left Rick fistula. Note, thrombus from prior IV access cleaned out and hopefully this will mature. ANESTHESIA: General and local 0.25% Marcaine with epinephrine 30 mL mixed with 2% Xylocaine 10 mL. DESCRIPTION OF PROCEDURE: The patient was taken to the operating room where under general anesthesia, abdomen was prepared with ChloraPrep and left upper extremity was prepared with ChloraPrep and draped in routine fashion. Bilateral subcostal on incision was made and pneumoperitoneum to 15 mmHg was obtained with a Veress needle contralateral 5 mm port was placed. A stab incision was made in the planned exit site in the left lower quadrant for the peritoneal dialysis catheter. Just superior to this immediately slightly above the umbilical level, a counterincision was made with an 11 blade and an 8 mm port directed through the subcutaneous tissue caudally into the rectus sheath, visualized laparoscopically abdominal cavity caudally into the pelvis. Peritoneal dialysis catheter was inserted, an internal cuff placed in the rectus sheath and the port removed through the planned exit site. A [place] dissector was inserted and connected to the counterincision, grasping the catheter and pulling out through the planned exit site. External cuff was placed beneath the skin. Subcutaneous tissue was approximated with 3-0 Monocryl and skin with subdermal 4-0 Monocryl. The port was then flushed with heparinized saline solution and flushed well. A sling suture of 2-0 Ethilon was placed, transabdominal fixation to fixate the directed catheter into the pelvis. Laparoscopic omentopexy was performed with a 2-0 Vicryl suture, fixating the omentum to the upper abdomen with transabdominal wall fixation suture. Good hemostasis was noted. Pneumoperitoneum was reduced. All instruments removed. No hernias noted. The patient tolerated the procedure well. All laparoscopic incisions were closed with interrupted subdermal 4-0 Monocryl and [place] glue, and sterile dressings applied. Incision was made in the proximal volar forearm below the antecubital fossa longitudinally and carried down the skin and subcutaneous tissue, and excellent size cephalic and antecubital vein identified. This wound was thus closed by approximating the subcutaneous tissue with 3-0 Monocryl, skin with subdermal 4-0 Monocryl and then stab incision was made in left wrist longitudinally freeing the radial artery and cephalic vein, finding the cephalic vein to be adequate despite vein mapping. Vein dissected free with a silastic vessel loop. The patient was given 6000 units of heparin intravenously and the vein was dissected free and on the hand side, the vein was ligated with 3-0 silk suture. Vein spatulated and interrogated with coronary dye 2 mm to a 3.5 mm coronary dye unobstructed. It was flushed with heparinized saline solution. After adequate heparin circulation time, the radial artery, which was of good quality, although small, was clamped proximally and distally with vascular clamp made sharply for a anastomosis. There were some thrombus removed from the cephalic vein, but hopefully this will function well. End vein to side radial artery anastomosis was created with hand suture of 6-0 Prolene. Good Doppler signal was noted in the cephalic vein outflow. Subcutaneous tissue was approximated with 3-0 Monocryl, skin with subdermal 4-0 Monocryl, and [place] glue applied. thrombosis, then a more proximal fistula could be formed as he has excellent veins more proximally. Job ID: [id number]
== END 2018-03-26 22:10 | disposition home or self-care (01) ==
LOC: SDC 09:28
PROVIDERS: ATTEND Specialist
PROC: 0WHG43Z Insertion of Infusion Device into Peritoneal Cavity, Percutaneous Endoscopic Approach (ICD-10-PCS; principal; 2018-03-26)
DX: I12.0 Hypertensive chronic kidney disease with stage 5 chronic kidney disease or end stage renal disease (principal); E11.22 Type 2 diabetes mellitus with diabetic chronic kidney disease; N18.6 End stage renal disease; Z89.519 Acquired absence of unspecified leg below knee; Z79.4 Long term (current) use of insulin; Z79.899 Other long term (current) drug therapy; Z88.8 Allergy status to other drugs, medicaments and biological substances
CPT/HCPCS: 36415; 36416; 80048; 85025; 96374; J0670; J1644; J2001; J2250; J2550; J2704; J2720; J3010

== ENCOUNTER 2018-03-29 15:09 | Emergency (ER) | payer BC | END 2018-03-29 16:58 | disposition home or self-care (01) | LOC: ERS 15:09 | DX: K91.841 Postprocedural hemorrhage of a digestive system organ or structure following other procedure (principal); I12.0 Hypertensive chronic kidney disease with stage 5 chronic kidney disease or end stage renal disease; N18.6 End stage renal disease; Z99.2 Dependence on renal dialysis; E11.9 Type 2 diabetes mellitus without complications; F32.9 Major depressive disorder, single episode, unspecified; Z79.4 Long term (current) use of insulin; Z79.899 Other long term (current) drug therapy | CPT/HCPCS: 99283 ==

== ENCOUNTER 2018-06-11 15:02 | Observation (INO) | payer BC ==
[2018-06-11 16:25] LABS: #Basophils 0.1 thou/uL (0.0-0.2); #Eosinphils 0.1 thou/uL (0.0-0.7); #Lymphocytes 0.6 thou/uL (1.20-3.40); #Monocytes 0.5 thou/uL (0.11-0.59); #Neutrophils 5.5 thou/uL (1.40-6.50); %Basophils 0.8 % (0.0-1.0); %Lymphocytes 9.6 % (21.0-51.0); %Neutrophils 81.6 % (42.0-75.0); Mean Corpuscular HGB CONC 33.6 g/dL (32.0-36.0); Mean Corpuscular Hemoglobin 30.3 pg (27.0-31.0); Mean Corpuscular Volume 90.4 fL (78.0-98.0); Mean Platelet Volume 8.7 fL (7.4-10.4); Platelet Count 207 thou/uL (130-400); RBC Distribution Width 13.4 % (11.5-14.5); Red Blood Cell (RBC) Count 2.98 mill/uL (4.70-6.10); White Blood Cell (WBC) Count 6.7 thou/uL (4.8-10.8)
[2018-06-11 16:53] LABS: ALT (SGPT) 11 U/L (8-55); AST (SGOT) 17 U/L (5-34); Albumin 3.1 g/dL (3.5-5.0); Alkaline Phosphatase 72 U/L (40-150); Anion Gap 21 mmol/L (10-20); BUN (Urea Nitrogen) 95 mg/dL (8.4-25.7); Calc. Creatinine Clearance 0 mL/min (70-130); Calcium 8.4 mg/dL (7.8-10.44); Carbon Dioxide 14 mmol/L (22-29); Chloride 100 mmol/L (98-107); Estimated GFR-MDRD 5; Globulin 3.6 g/dL (2.4-3.5); Glucose 101 mg/dL (70-105); Lipase 13 U/L (8-78); Magnesium 1.5 mg/dL (1.6-2.6); Potassium 5.1 mmol/L (3.5-5.1); Protein, Total 6.7 g/dL (6.0-8.3); Sodium 130 mmol/L (136-145)
--- NOTE | 2018-06-11 16:53 | RAD ---
FOUR VIEWS RIGHT KNEE: 06/11/18 HISTORY: Erythema. Wound infection. FINDINGS: There is soft tissue swelling at the level of the amputation. The visualized proximal tibia and fibul a do not demonstrate any erosive or destructive changes. No periosteal reaction. Extensive vascular c alcifications. No joint effusion. There appears to be an ulcerative focus in the soft tissues measuri ng approximately 2 cm. IMPRESSION: Soft tissue swelling with ulceration. No radiographic evidence of osteomyelitis. POS: [facility]
[2018-06-11 17:32] LABS: Bilirubin Negative (Negative); Blood, Urine Large (Negative); Clarity TURBID (Clear); Glucose, Urine (Dipstick) Negative (Negative); Leukocyte Moderate (Negative); Nitrite Negative (Negative); Protein, Urine (Dipstick) 300 mg/dL (Neg-Trace); Specific Gravity, Urine 1.015 (1.002-1.036); Urobilinogen 0.2 mg/dL (0.2-1.0); pH, Urine 5.5 (5.0-9.0)
[2018-06-11 17:34] LABS: Bacteria/HPF 4+ HPF (None Seen); Hyaline Casts/LPF 0-3 HYALINE CAST LPF (0-3 Hyaline); RBC/HPF GREATER THAN 50-TNTC HPF (0-3); Squamous Epithelial 0-3 HPF (0-3)
[2018-06-11] MEDS ORDERED: Sodium Chloride 0.9% 100 ML ONE (17:59)
[2018-06-11] MEDS ORDERED: cefTRIAXone\\ROCEPHIN 1 GM VIAL ONE (17:59)
[2018-06-11] MEDS ORDERED: traMADol HCl 50 MG TAB ONE (19:50)
[2018-06-11] MEDS ORDERED: Epoetin (ESRD) 20,000 UNITS/ML SC SCH (22:00)
[2018-06-11 22:42] VITALS: BMI 32.5
[2018-06-12] MEDS ORDERED: traMADol HCl 50 MG TAB PO PRN (00:24)
--- NOTE | 2018-06-12 01:28 | CON ---
DATE OF CONSULTATION: HISTORY OF PRESENT ILLNESS: Mr. Ferrara is a 53-year-old white male with known history of ESRD and admitted for possible right stump foot infection. The patient has not been doing well for the last 2 days. He has been lethargic and essentially no energy. He noted his right thigh stump, where he had a right BKA, looks infected. However, he denies any overt fever. X-ray of the right knee showed a soft tissue swelling with ulceration, but no radiographic evidence of osteomyelitis. He is now being admitted for initiation of IV antibiotics. Furthermore, we are being consulted for his maintenance peritoneal dialysis. Of note, the patient has not done his peritoneal dialysis for the last 2 days. REVIEW OF SYSTEMS: Positive for decreased appetite, decreased energy level. Denies any fever. No syncopal episode. No productive cough. No gross hematuria. No dysuria. Right thigh stump erythema. No abdominal pain. No chest pain. No headache. No diplopia. No shortness of breath. No gross hematuria. No dysuria. No urinary frequency. No melena. No hematemesis. MEDICATIONS: 1. Hydralazine 25 mg two tablets p.o. t.i.d. 2. Clonidine 0.1 mg p.o. t.i.d. 3. Protonix 40 mg tablet once a day. 4. Reglan 10 mg p.o. t.i.d. 5. Losartan 50 mg daily. 6. Lantus insulin 20 units subcu q.p.m. and 24 units subcu q.a.m. 7. Humalog sliding scale. 8. Cymbalta 60 mg daily. 9. Calcitriol 0.25 mcg daily. 10. Amlodipine 10 mg tablet once a day. PAST MEDICAL HISTORY: 1. ESRD from diabetic nephropathy. 2. Type 2 diabetes mellitus. 3. Long-standing hypertension. 4. Peripheral vascular disease. 5. Diabetic gastroparesis. 6. Diabetic retinopathy. 7. Hypertension. 8. History of sarcoidosis. 9. Cholelithiasis. 10. Depression. 11. Status post scrotal abscess. 12. Hypogonadism. 13. Status post nephrolithiasis. PAST SURGICAL HISTORY: Status post right BKA, status post cuffed hemodialysis catheter placement, status post PD catheter placement, status post I and D of scrotal abscess, status post colonoscopy, and status post left toe amputation. ALLERGIES: NONE, BUT ADVERSE REACTION TO METFORMIN, LISINOPRIL. TRAUMA: None. IMMUNIZATION: Up-to-date. HOSPITALIZATIONS: Please see past medical history. FAMILY HISTORY: No family history of ESRD. SOCIAL HISTORY: The patient originally from [place], but currently lives in [place]. He is single. No children. 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 No cigarette smoking. Alcohol rarely. No blood transfusion. Education, master's degree. No IV drug abuse. PHYSICAL EXAMINATION: VITAL SIGNS: Blood pressure is noted at 150/70 and heart rate 70. GENERAL: Awake, alert, comfortable, not in overt distress. SKIN: Adequate turgor. HEENT: He has had slightly pale conjunctivae. Anicteric sclerae. No neck mass. No carotid bruits. No JVD. CHEST: No deformities. LUNGS: Clear breath sounds. No wheezing. No crackles. HEART: Normal sinus rhythm. No murmurs, gallops, or rubs. ABDOMEN: Globular, soft, nontender. No masses. Positive for PD catheter. EXTREMITIES: No edema, status post right BKA. NEUROLOGIC: Oriented to 3 spheres. Moving all extremities. No tremors. No asterixis. IMAGING STUDIES: X-ray of the right knee shows soft tissue swelling with ulceration with no evidence of osteomyelitis. LABORATORY DATA: On 06/11/2018; white count 6.7 and hemoglobin 9. Sodium 130, potassium 5.1, chloride 100, carbon dioxide 14, BUN 95, creatinine 11.66, glucose 101, magnesium 1.5, and calcium 8.4. AST 17, ALT 11. ASSESSMENT AND PLAN: 1. Infected right knee stump - status post ceftriaxone 1 g. 2. End-stage renal disease, stable. We will continue current CCPD regimen. We will do a 9-hour peritoneal dialysis treatment using 2 L fill volume and using a 2.5% PD solution. Ultrafiltration will be done as depending if the patient is able to tolerate this. If he is unable to tolerate ultrafiltration, we can adjust the PD solution. 3. Anemia. We will start Epogen 7500 units subcu every week. Start ferrous sulfate 325 mg p.o. b.i.d. 4. Type 2 diabetes mellitus. Continue current insulin regimen. Thank you for the consult. We will continue to follow. Job ID: [id number]
[2018-06-12] MEDS ORDERED: HumaLOG 300 UNITS/3 ML VIAL SC PRN (07:49)
--- NOTE | 2018-06-12 08:45 | HP ---
CHIEF COMPLAINT: Weakness, chills, and possible infection. HISTORY OF PRESENT ILLNESS: This is a 53-year-old male with a history of type 2 diabetes, hypertension, end-stage renal disease, on peritoneal dialysis, gastroesophageal reflux disease, diabetic retinopathy, status post amputation of his right lower extremity due to a Charcot foot with gangrene, presents to my office yesterday with increased weakness, chills. No fevers, but some nausea and vomiting. As an outpatient, he had been started on Reglan in the past for possible gastroparesis and this has not been helping. In my office, his right stump appeared to be infected with a foul odor. He was then sent to the emergency department for further evaluation. In the ED, he was found to have urinary tract infection as well as possible wound on his right stump and has been started on antibiotics including IV Rocephin. He has some improvement of his symptoms now. He was dialyzed last night as well. He is feeling some better, but his cultures are still pending. PAST MEDICAL HISTORY: 1. Type 2 diabetes with complications including retinopathy, neuropathy, nephropathy, coronary artery disease, peripheral vascular disease, and history of Charcot foot leading to amputation of his right below-knee. 2. Hyperlipidemia. 3. History of scrotal abscess. 4. Depression and anxiety. 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 Francisco for retinopathy, and peritoneal dialysis catheter placement. MEDICATIONS: Include; 1. Norvasc 10 mg daily. 2. Calcitriol 0.25 mcg daily. 3. Clonidine 0.1 mg t.i.d. 4. Cymbalta 60 mg daily. 5. Iron sulfate 325 b.i.d. 6. Hydralazine 50 mg t.i.d. 7. Lantus insulin 24 units in the morning, 20 units in the evening. 8. Cozaar 50 mg daily. 9. Protonix 40 mg daily. 10. Tramadol 50 mg p.r.n. pain. ALLERGIES: TO METFORMIN AND LISINOPRIL. SOCIAL HISTORY: No smoking. Rare alcohol. He lives at home with his family in [place]. 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 FAMILY HISTORY: Positive for diabetes and hypertension. REVIEW OF SYSTEMS: As per the history of present illness. GENERAL: He admits to increased weakness, difficulty even caring his peritoneal bags at home. No fevers or chills. No upper respiratory symptoms. HEENT: Decreased vision due to his retinopathy. No hearing changes. No upper respiratory symptoms. CARDIAC: Denies chest pain, shortness of breath, or palpitations. PULMONARY: Denies cough or hemoptysis. GASTROINTESTINAL: Some nausea on and off. No melena. No hematochezia. GENITOURINARY: History of infections. Denies dysuria or hematuria. NEUROLOGIC: Positive weakness. No seizures or syncope. MUSCULOSKELETAL: Pain in his right stump at times. PSYCHIATRIC: History of depression, feels overwhelmed often. OBJECTIVE: VITAL SIGNS: Temperature now 97.5, pulse is 72, respirations 18, blood pressure 162/83, and pulse ox is 98% on room air. GENERAL: He is awake and alert. No acute distress. Yesterday, he appeared pale and acutely ill. HEENT: Mucosa is moist. NECK: Supple. HEART: Regular rate and rhythm with 2/6 systolic ejection murmur. LUNGS: Clear. ABDOMEN: Soft, nontender, and nondistended. Peritoneal catheter sites appear clear. Right upper chest has a little bit of redness around the catheter. No discharge. No oozing. No sign of infection. EXTREMITIES: Right leg stump with foul odor, yesterday was macerated with surrounding redness and open wound, today is more dry. Continues to have the open wound. NEUROLOGIC: Decreased sensation in his left leg. LABORATORY DATA: White blood cell count 6.7, hemoglobin and hematocrit of 9.0 and 26.9, and platelets of 207. Sodium 130, potassium 5.1, chloride 100, CO2 of 14, BUN and creatinine 95 and 11.66 with a GFR of 5, serum glucose of 101. AST and ALT are normal. Albumin of 3.1. Lipase of 13. Urinalysis was positive for protein and large blood, moderate leukocyte esterase, 4+ bacteria. IMAGING DATA: Knee x-ray showed soft tissue ulceration, but no signs of osteomyelitis. ASSESSMENT AND PLAN: This is a 53-year-old gentleman with multiple medical problems, mostly resulting from complications of his type 2 diabetes, now with acute illness, likely secondary to infectious origin either or both of his right stump wound and urinary tract infection. 1. We will continue IV Rocephin until cultures from both urine and the wound return. 2. End-stage renal disease. We will continue peritoneal dialysis as per Dr. Tuttle. I will consult Dr. Singh for removal of his right peritoneal catheter, which is not used and cultured the catheter as well. 3. Type 2 diabetes. We will continue his outpatient regimen. 4. Hypertension. We will continue his oral medications. 5. Right stump wound. We will consult Wound Care and arrange for followup for outpatient wound care. Job ID: [id number]
[2018-06-12] MEDS ORDERED: Lidocaine 1% (PF) 30 ML VIAL ONE (08:49)
[2018-06-12] MEDS ORDERED: Non-Formulary Item 1 EACH (Insulin Glargine,Hum.Rec.Anlog [Lantus Solostar] 24 UNIT) SQ SCH (09:00)
[2018-06-12] MEDS ORDERED: Non-Formulary Item 1 EACH (Losartan Potassium [Cozaar] 50 MG) PO SCH (09:00)
[2018-06-12] MEDS ORDERED: hydrALAZINE 25 MG TAB PO SCH (09:00)
[2018-06-12] MEDS: DULoxetine 60 MG CAP PO SCH (09:14)
[2018-06-12] MEDS: cloNIDine 0.1 MG TAB PO SCH ×3 (09:14→20:59)
[2018-06-12] MEDS: hydrALAZINE 25 MG TAB PO SCH ×3 (09:14→20:59)
[2018-06-12] MEDS: Calcitriol 0.25 MCG CAP PO SCH (09:14)
[2018-06-12] MEDS: Ferrous Sulfate 325 MG TAB PO SCH ×2 (09:14→16:55)
[2018-06-12] MEDS: Amlodipine 10 MG TAB PO SCH (09:14)
[2018-06-12] MEDS: Losartan 25 MG TAB PO SCH (09:15)
[2018-06-12] MEDS: Insulin Glargine 24 UNITS in Pre-Filled Syringe 1 EACH SC SCH (09:16)
--- NOTE | 2018-06-12 10:22 | HP ---
HISTORY OF PRESENT ILLNESS: Zacarias Ferrara is a 53-year-old male, status post right BKA by Dr. Paniagua, has a wound over his BKA stump. This is about 2.5 cm in diameter, healthy, granulating. It is not in need of debridement. He needs to see his vocational teacher regarding evaluation of his prosthetic below the knee to prevent this friction problem. Current wound care, washing with soap and water daily and apply antibiotic ointment, Band-Aid, or other dressings, such as silver can be performed appropriate. The patient was seen by me in 02/2018, underwent left Rick fistula, laparoscopic peritoneal dialysis catheter, and omentopexy. He is effectively doing dialysis. He was to have an appointment to see me this week to remove his hemodialysis catheter in the office; however, he is admitted to the hospital. Urine cultures are not reported this hospitalization. Blood cultures not reported this hospitalization. Dr. Tuttle has seen him in consultation and management of peritoneal dialysis during this hospitalization. There is suspect UTI. I do not have any records of fevers as an outpatient nor positive cultures as an outpatient. He has been afebrile in the hospital. ALLERGIES: 1. METFORMIN. 2. LISINOPRIL. TOBACCO: None. ALCOHOL: None. PAST SURGICAL HISTORY: 1. Right below-knee amputation by Dr. Paniagua [facility]. 2. Previous amputations of toes and partial foot. 3. On 03/26/2018, left Rick fistula, laparoscopic peritoneal dialysis catheter. PAST MEDICAL HISTORY: 1. Diabetes mellitus, insulin dependent. 2. Hypertension. 3. BKA status prosthesis. 4. 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 MEDICATIONS: 1. Calcitriol. 2. Amlodipine 10 mg daily. 3. Insulin. 4. Cymbalta 60 mg daily. 5. Protonix daily. 6. Reglan t.i.d. 7. Losartan. 8. Cozaar 50 mg daily. 9. Hydralazine two tablets t.i.d. 10. Catapres 0.1 mg t.i.d. PHYSICAL EXAMINATION: VITAL SIGNS: Height 5 feet 9 inches, 220 pounds, 32 BMI, temperature 97.5, heart rate 72, and blood pressure 162/83. HEAD, EARS, EYES, NOSE, AND THROAT: Unremarkable. LUNGS: Clear to auscultation. CARDIAC: Regular rate and rhythm without murmur or gallop. ABDOMEN: Soft and nontender. EXTREMITIES: Right BKA amputation stump fairly well healed. No evidence of infection. He has an open wound just above his incision, made an amputation stump anteriorly. It is about 2.5 to 3 cm in diameter. He has healthy granulation tissue. There is no purulence. No infection. No need for debridement. Good thrill and bruit in left Rick fistula. It is available for use in the future. Peritoneal dialysis catheter in place and functional. LABORATORY DATA: White count 6 and hemoglobin 9. Basic metabolic profile unremarkable with changes of chronic renal failure, end-stage renal disease, on dialysis. Sodium 130 and potassium 5.1. ASSESSMENT AND PLAN: 1. Right below-knee amputation wound. A visit to his vocational teacher to adjust his below-knee amputation prosthesis is in order. There is no evidence of infection. No need to debride the right below-knee amputation wound. We will wash daily with soap and water, apply antibiotic ointment, Band-Aid, or silver. This is not the source of any infection. Antibiotics not required for the below-knee amputation stump. 2. Functioning left Rick fistula, available for use in the future. This has not been accessed today. 3. Functioning peritoneal dialysis catheter and now not in need of hemodialysis catheter right IJ. We will plan removal at bedside under local today. Job ID: [id number]
[2018-06-12] MEDS ORDERED: Ondansetron ODT 8 MG TAB SL PRN (12:25)
[2018-06-12] MEDS ORDERED: cefTRIAXone\\ROCEPHIN 1 GM in Sodium Chloride 0.9% 100 ML IVPB SCH (17:00)
[2018-06-12] MEDS ORDERED: Insulin Glargine 20 UNITS in Pre-Filled Syringe 1 EACH SC SCH (21:00)
[2018-06-13 05:59] LABS: Anion Gap 19 mmol/L (10-20); BUN (Urea Nitrogen) 84 mg/dL (8.4-25.7); Calc. Creatinine Clearance 11 mL/min (70-130); Calcium 8.1 mg/dL (7.8-10.44); Carbon Dioxide 18 mmol/L (22-29); Chloride 101 mmol/L (98-107); Estimated GFR-MDRD 5; Glucose 98 mg/dL (70-105); Potassium 3.7 mmol/L (3.5-5.1); Sodium 134 mmol/L (136-145)
[2018-06-13 06:18] LABS: Band 15 % (5-11); Eosinophils 5 % (0-10); Hemoglobin 9.9 g/dL (14.0-18.0); Lymphocytes 12 % (21-51); MDiff Complete? YES; Mean Corpuscular HGB CONC 33.6 g/dL (32.0-36.0); Mean Corpuscular Hemoglobin 30.6 pg (27.0-31.0); Mean Platelet Volume 8.2 fL (7.4-10.4); Monocytes 12 % (0-10); Neutrophil 56 % (42-75); Platelet Count 219 thou/uL (130-400); RBC Distribution Width 13.6 % (11.5-14.5); Red Blood Cell (RBC) Count 3.23 mill/uL (4.70-6.10); White Blood Cell (WBC) Count 6.3 thou/uL (4.8-10.8)
[2018-06-13 08:03] VITALS: BP 163/73; TEMP 97.5
--- NOTE | 2018-06-13 08:22 | OP ---
DATE OF PROCEDURE: 06/12/2018 PREOPERATIVE DIAGNOSES: End-stage renal disease, functioning left Rick fistula that has not been accessed, functioning peritoneal dialysis catheter, urinary tract infection, in need of removal of hemodialysis catheter (was to see me in my office soon to have this done, but has been hospitalized). POSTOPERATIVE DIAGNOSES: End-stage renal disease, functioning left Rick fistula that has not been accessed, functioning peritoneal dialysis catheter, urinary tract infection, in need of removal of hemodialysis catheter (was to see me in my office soon to have this done, but has been hospitalized). PROCEDURE PERFORMED: Removal of right IJ cuffed tunneled hemodialysis catheter. ANESTHESIA: 1% Xylocaine. DESCRIPTION OF PROCEDURE: With the patient at bedside, the exit site of the hemodialysis catheter was prepared with alcohol. Local anesthetic was infiltrated into the skin and subcutaneous tissue. Catheter and cuff were resected intact and hemostasis gained with local pressure. Catheter removed, discarded. The patient tolerated the procedure well. There was no evidence of exit site infection. Job ID: [id number]
[2018-06-13] MEDS: Amlodipine 10 MG TAB PO SCH (09:11)
[2018-06-13] MEDS: Ferrous Sulfate 325 MG TAB PO SCH (09:11)
[2018-06-13] MEDS: DULoxetine 60 MG CAP PO SCH (09:12)
[2018-06-13] MEDS: hydrALAZINE 25 MG TAB PO SCH (09:12)
[2018-06-13] MEDS: Losartan 25 MG TAB PO SCH (09:12)
[2018-06-13] MEDS: Calcitriol 0.25 MCG CAP PO SCH (09:12)
[2018-06-13] MEDS: cloNIDine 0.1 MG TAB PO SCH (09:12)
[2018-06-13] MEDS: Insulin Glargine 24 UNITS in Pre-Filled Syringe 1 EACH SC SCH (09:13)
--- NOTE | 2018-06-13 10:52 | DIS ---
DATE OF ADMISSION: 06/11/2018 DATE OF DISCHARGE: 06/13/2018 ADMISSION DIAGNOSES: 1. Fever and chills, rule out sepsis. 2. Right leg stump wound. DISCHARGE DIAGNOSIS: Urinary tract infection. OTHER DIAGNOSES: End-stage renal disease on dialysis, type 2 diabetes, hypertension, and hyperlipidemia. CONSULTATIONS: Dr. Singh for surgery. PROCEDURES: IV antibiotics and peritoneal dialysis catheter removal. HOSPITAL COURSE: This is a 53-year-old gentleman with a history of type 2 diabetes, hypertension, hyperlipidemia with diabetic complications including end-stage renal failure, diabetic retinopathy, diabetic nephropathy, and right below-knee amputation, who presented to my office with worsening weakness, chills, nausea, and vomiting. He had noted an increased odor from his right stump, where the amputation was. He has a history of infections in the past. He was seen in my office and transferred to the Emergency Department for admission for rule out sepsis. He was started on IV Rocephin, had significant improvement of his symptoms. He was seen by Dr. Singh for surgery to check the wound and ensure that debridement was not necessary. He removed the right subclavian peritoneal dialysis catheter due to nonuse. Debridement was not needed. His cultures returned. His urine culture was positive for E. coli, which was sensitive to cephalosporins. Blood cultures were negative x2. Wound culture was negative and he was stable for discharge on the day of discharge. DISCHARGE PHYSICAL EXAMINATION: VITAL SIGNS: Temperature 97.6, pulse is 62, respirations 18, blood pressure 170/63, and pulse ox 98% on room air. GENERAL: He is awake and alert. No acute distress. He is well appearing. Mucosa is moist. NECK: Supple. HEART: Regular rate and rhythm. LUNGS: Clear. Chest wall with dressing on right upper chest. No sign of infection. ABDOMEN: Soft. Peritoneal catheter in his left lower abdomen was clean and intact. EXTREMITIES: Left extremity with no edema. Right stump with no redness. Continues to have open wound. DISCHARGE LABS: Again, blood cultures are negative x2. Urine culture growing E. coli. Flu tests were negative. Wound culture was negative. X-ray of the right knee revealed soft tissue wound, but no signs of osteomyelitis. DISCHARGE MEDICATIONS: Include; 1. Norvasc 10 mg daily. 2. Calcitriol 0.25 mcg daily. 3. Clonidine 0.1 mg t.i.d. 4. Cymbalta 60 mg daily. 5. Procrit 7500 units weekly. 6. Iron sulfate 325 b.i.d. 7. Hydralazine 50 mg t.i.d. 8. Lantus 24 units in the morning and 20 units in the evening with a Humalog sliding scale. 9. Losartan 50 mg daily. 10. Zofran 4 mg q.6 p.r.n. nausea and vomiting. 11. Protonix 40 mg daily. 12. Cefdinir 300 mg daily for 7 more days. FOLLOWUP INSTRUCTIONS: The patient to follow up in my office in 1 week. Follow up with Dr. Tuttle for Nephrology. Job ID: [id number]
--- NOTE | 2018-06-21 14:05 | EKG ---
Test Reason : Blood Pressure : / mmHG Vent. Rate : 074 BPM Atrial Rate : 074 BPM P-R Int : 156 ms QRS Dur : 096 ms QT Int : 416 ms P-R-T Axes : 026 -30 052 degrees QTc Int : 461 ms Normal sinus rhythm Left axis deviation Abnormal ECG Confirmed by TYLER Brooks, CHRISTINE ([id number]), book or script editor JACQUE LALA ([id number] on 06/21/2018 2:04:49 PM Referred By: Confirmed By:CHRISTINE SCOTT M.D.
== END 2018-06-13 10:55 | disposition home or self-care (01) ==
LOC: ERS 15:02 → 2SW 22:12
PROVIDERS: ADMIT Family Medicine; ATTEND Family Medicine
PROC: 05PYX3Z Removal of Infusion Device from Upper Vein, External Approach (ICD-10-PCS; principal; 2018-06-12)
DX: N39.0 Urinary tract infection, site not specified (principal); B96.20 Unspecified Escherichia coli [E. coli] as the cause of diseases classified elsewhere; I12.0 Hypertensive chronic kidney disease with stage 5 chronic kidney disease or end stage renal disease; E11.22 Type 2 diabetes mellitus with diabetic chronic kidney disease; N18.6 End stage renal disease; D63.1 Anemia in chronic kidney disease; E11.21 Type 2 diabetes mellitus with diabetic nephropathy; K21.9 Gastro-esophageal reflux disease without esophagitis; E11.319 Type 2 diabetes mellitus with unspecified diabetic retinopathy without macular edema; E11.40 Type 2 diabetes mellitus with diabetic neuropathy, unspecified; F41.9 Anxiety disorder, unspecified; F32.9 Major depressive disorder, single episode, unspecified; S71.101A Unspecified open wound, right thigh, initial encounter; E11.43 Type 2 diabetes mellitus with diabetic autonomic (poly)neuropathy; K31.84 Gastroparesis; E11.51 Type 2 diabetes mellitus with diabetic peripheral angiopathy without gangrene; Z99.2 Dependence on renal dialysis; E78.5 Hyperlipidemia, unspecified; Z79.4 Long term (current) use of insulin; Z79.899 Other long term (current) drug therapy; Z88.8 Allergy status to other drugs, medicaments and biological substances; Z89.511 Acquired absence of right leg below knee
CPT/HCPCS: 36415; 36416; 80048; 80053; 81003; 81015; 83605; 83690; 83735; 85025; 87040; 87070; 87077; 87086; 87186; 87205; 87804; 90945; 93005; 96361; 96365; 96366; G0257; G0378; J0696; J1825; J2001; J3490; J7050; Q4081

== ENCOUNTER 2018-10-08 14:06 | Inpatient (IN) | payer BC ==
[2018-10-08 14:36] LABS: #Basophils 0.1 thou/uL (0.0-0.2); #Eosinphils 0.2 thou/uL (0.0-0.7); #Lymphocytes 0.9 thou/uL (1.20-3.40); #Monocytes 1.2 thou/uL (0.11-0.59); #Neutrophils 11.7 thou/uL (1.40-6.50); %Basophils 0.4 % (0.0-1.0); %Eosinophils 1.3 % (0.0-10.0); %Lymphocytes 6.6 % (21.0-51.0); %Monocytes 8.4 % (0.0-10.0); %Neutrophils 83.3 % (42.0-75.0); Hemoglobin 8.9 g/dL (14.0-18.0); Mean Corpuscular HGB CONC 31.6 g/dL (32.0-36.0); Mean Corpuscular Hemoglobin 28.6 pg (27.0-31.0); Mean Corpuscular Volume 90.5 fL (78.0-98.0); Mean Platelet Volume 7.2 fL (7.4-10.4); Platelet Count 394 thou/uL (130-400); RBC Distribution Width 14.1 % (11.5-14.5)
[2018-10-08 15:09] LABS: ALT (SGPT) Less than 7 U/L (8-55); AST (SGOT) 11 U/L (5-34); Albumin 2.3 g/dL (3.5-5.0); Alkaline Phosphatase 75 U/L (40-150); Anion Gap 20 mmol/L (10-20); BUN (Urea Nitrogen) 78 mg/dL (8.4-25.7); Bilirubin, Total 0.3 mg/dL (0.2-1.2); Calc. Creatinine Clearance 0 mL/min (70-130); Calcium 6.3 mg/dL (7.8-10.44); Carbon Dioxide 20 mmol/L (22-29); Chloride 100 mmol/L (98-107); Estimated GFR-MDRD 5; Globulin 3.1 g/dL (2.4-3.5); Glucose 97 mg/dL (70-105); Protein, Total 5.4 g/dL (6.0-8.3); Sodium 136 mmol/L (136-145)
[2018-10-08] MEDS ORDERED: Piperacillin/Tazobactam 2.25 GM VIAL ONE (16:01)
--- NOTE | 2018-10-08 16:34 | ULT ---
ULTRASOUND WITH DOPPLER DUPLEX VENOUS LOWER EXTREMITY LEFT 10/08/18 CPT: 51791 ICD-10-PCS: B54D HISTORY: Edema of left lower extremity. TECHNIQUE: Color flow Doppler, spectral waveform analysis of pulsed Doppler, and amezquita-scale imaging with antonella brenda and augmentation, were used to evaluate the left common femoral, femoral, popliteal, posterior t ibial, and superficial femoral, veins; and the proximal portions of the profunda femoral and greater saphenous, veins. FINDINGS: There is appropriate compressibility and flow within the imaged deep vein system of the left lower ex tremity. Note is made that the distal aspect of the femoral vein is not visualized for comment. IMPRESSION: No DVT of the imaged left lower extremity deep vein system. Incidental note of prominent left inguinal region lymph nodes. Correlate with clinical evaluation. POS: LAURIE
[2018-10-08] MEDS ORDERED: diphenhydrAMINE 50 MG/ML VIAL ONE (17:09)
[2018-10-08] MEDS ORDERED: Sodium Chloride 0.9% 1,000 ML IV SCH (19:05)
[2018-10-08] MEDS ORDERED: Ondansetron ODT 4 MG TAB SL PRN (19:05)
[2018-10-08] MEDS ORDERED: Ondansetron PF 4 MG/2 ML Vial IVP PRN (19:05)
[2018-10-08] MEDS ORDERED: HumaLOG 300 UNITS/3 ML VIAL SC PRN ×2 (21:47→22:03)
[2018-10-08] MEDS ORDERED: traMADol HCl 50 MG TAB PO PRN (21:47)
[2018-10-08] MEDS ORDERED: Diazepam 5 MG TAB PO PRN ×2 (21:51→22:21)
[2018-10-08] MEDS ORDERED: Epoetin (ESRD) 20,000 UNITS/ML SC SCH (22:00)
[2018-10-08] MEDS ORDERED: Loperamide HCl 2 MG CAP PO PRN (22:21)
[2018-10-08] MEDS ORDERED: EPOETIN ALFA-EPBX (ESRD) 4,000 UNIT/ML VIAL SC SCH (22:30)
[2018-10-09] MEDS: diphenhydrAMINE 50 MG/ML VIAL IVP PRN ×3 (00:09→22:41)
--- NOTE | 2018-10-09 01:31 | HP ---
CHIEF COMPLAINT: Left leg redness, swelling, and rash. HISTORY OF PRESENT ILLNESS: This is a 53-year-old gentleman, with a long history of type 2 diabetes, recurrent skin infections, hypertension, end-stage renal disease on peritoneal dialysis, diabetic retinopathy with complications, status post amputation of his right lower extremity due to Charcot foot with gangrene, who presented to the emergency department from Dr. Tuttle's office with worsening redness and swelling and infection in his left leg. The patient states that he presented for dialysis and a followup with Dr. Tuttle's office, was found to have redness and swelling and open wounds on his left leg and was started on oral antibiotics and then IV cephalosporin as an outpatient. He has followed up with Dr. Tuttle recently who recommended admission for broad-spectrum IV antibiotics for worsening infection. He states that he has had some chills, some weakness, and more fatigue over the past few days, which have improved with starting the IV antibiotics the last few days. He stated that he was having increased weakness and difficulty going to the bathroom because he could not get up off the toilet or even standing from his recliner seats. About 2 days, he developed a rash all over his body, worse around his trunk and arms with severe itching all the way up to his head. He presented to the emergency department for evaluation. He has had some improvement of the itching with IV Benadryl. Continues to have the rash what seems to be related to a new medication, possibly the antibiotics as an outpatient. Right now, he is feeling some better, itching is better controlled. States that he feels little bit stronger since he has been on antibiotics and is now being admitted for further evaluation and treatment. PAST MEDICAL HISTORY: 1. Type 2 diabetes with complications including retinopathy, neuropathy, nephropathy, peripheral vascular disease, coronary artery disease, Charcot foot resulting in amputation of his right below-knee. 2. Hyperlipidemia. 3. History of Rodrigo's abscess of the scrotum, requiring incision and drainage. 4. History of anxiety and depression. 5. Chronic anemia due to chronic disease as well as renal failure. 6. Gastroesophageal reflux disease. 7. History of gastroparesis, may have been improved with metoclopramide. PAST SURGICAL HISTORY: Colonoscopy, I and D of scrotal abscess due to Rodrigo's gangrene, multiple eye surgeries by Dr. Francisco for retinopathy, and peritoneal dialysis catheter placement. MEDICATIONS: Include; 1. Norvasc 10 mg daily. 2. Calcitriol 0.25 mcg daily. 3. Clonidine 0.1 t.i.d. 4. Cymbalta 60 mg daily. 5. Iron sulfate 325 b.i.d. 6. Hydralazine 50 mg t.i.d. 7. Lantus insulin, ranging from 24 units in the morning and 20 units in the evening. 8. Losartan 50 mg daily. 9. Protonix 40 mg daily. 10. Tramadol 50 mg p.r.n. pain. ALLERGIES: TO METFORMIN AND LISINOPRIL. 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 No smoking or alcohol. Lives either here in [place] or at home with his father in [place]. FAMILY HISTORY: Positive for diabetes and hypertension. REVIEW OF SYSTEMS: As per the history of present illness. GENERAL: He admits to increased weakness, difficulty caring for himself. Some chills, but no fevers at this time. HEENT: Decreased vision due to retinopathy. No hearing changes. CARDIAC: Denies chest pain, shortness of breath or palpitations. PULMONARY: Denies cough or hemoptysis. No upper respiratory symptoms. GI: Nausea on and off. Positive diarrhea, which he states is watery at times. : As described above. History of scrotal abscess. No dysuria or hematuria. NEUROLOGIC: Positive weakness. No seizures or syncope. MUSCULOSKELETAL: Increased weakness in his upper and lower extremities. Significant deconditioning. PSYCHIATRIC: History of depression and anxiety, seems to be worse, starting to have some panic attacks. Difficulty sleeping at night, which seems to be bothering him more often. OBJECTIVE: VITAL SIGNS: Temperature 98.6, pulse of 89, respirations 18, blood pressure 146/61, pulse ox is 97% on room air. GENERAL: He is awake and alert. No acute distress. Speech is clear. HEENT: Mucosa is moist. NECK: Supple. HEART: Regular rate and rhythm. LUNGS: Clear bilaterally. ABDOMEN: Obese, soft, nontender, nondistended. EXTREMITIES: Right below-knee amputation, left leg with significant edema, redness, open wounds with excoriations, likely the source of the infection. Decreased pulses on the left. SKIN: Again excoriations and redness and swelling in his left lower extremity from his ankles up to his knees. Scattered patches of maculopapular lesions with lichenification trunk with a large patch of redness with excoriations and scattered maculopapular lesions on his trunk as well as his arms. PSYCHIATRIC: Appears to have depressed mood. NEUROLOGICAL: Speech is clear and fluent. LABORATORY DATA: Sodium 136, potassium 4.0, chloride 100, CO2 of 20, BUN and creatinine 78 and 11.42 with a GFR of 5, serum glucose of 97, calcium at 6.3, AST and ALT of 11 and 0.7, alkaline phosphatase of 75, serum protein of 5.2, albumin of 2.3. White blood cell count elevated at 14.0, hemoglobin and hematocrit 8.9 and 28.1, platelets of 394. IMAGING STUDIES: Vascular ultrasound was negative for DVT. ASSESSMENT AND PLAN: 1. This is a 53-year-old gentleman with multiple medical problems and recurrent episodes of skin infections and cellulitis and now with a left lower extremity cellulitis. He appears to have improved with IV antibiotics. We will continue Zosyn and vancomycin. Consult Dr. Vargas for evaluation and consult Wound Care as well. 2. Type 2 diabetes. We will continue basal insulin as well as insulin sliding scale. 3. End-stage renal disease. Continue peritoneal dialysis as per Dr. Tuttle. 4. Drug rash, possibly secondary to outpatient antibiotics. We will find out which antibiotic Dr. Tuttle had him on. Possible allergy to cephalosporins. 5. Diarrhea. Await stool studies. I will continue vancomycin and consider oral vancomycin if C. diff is positive. We will start probiotics as well. 6. Anxiety, depression, and insomnia. We will continue Cymbalta and diazepam p.r.n. panic. I will start temazepam at bedtime for sleep and monitor closely. Job ID: [id number]
[2018-10-09] MEDS ORDERED: Piperacillin/Tazobactam 2.25 GM in Sodium Chloride 0.9% 100 ML IVPB SCH ×2 (04:00→14:00)
[2018-10-09 06:18] LABS: #Basophils 0.1 thou/uL (0.0-0.2); #Eosinphils 0.3 thou/uL (0.0-0.7); #Lymphocytes 0.9 thou/uL (1.20-3.40); #Monocytes 1.2 thou/uL (0.11-0.59); #Neutrophils 10.3 thou/uL (1.40-6.50); %Basophils 0.4 % (0.0-1.0); %Eosinophils 2.6 % (0.0-10.0); %Lymphocytes 7.1 % (21.0-51.0); %Monocytes 9.5 % (0.0-10.0); %Neutrophils 80.5 % (42.0-75.0); Hemoglobin 8.2 g/dL (14.0-18.0); Mean Corpuscular HGB CONC 32.7 g/dL (32.0-36.0); Mean Corpuscular Hemoglobin 29.5 pg (27.0-31.0); Mean Corpuscular Volume 90.4 fL (78.0-98.0); Mean Platelet Volume 7.4 fL (7.4-10.4); Platelet Count 341 thou/uL (130-400); RBC Distribution Width 13.9 % (11.5-14.5); Red Blood Cell (RBC) Count 2.78 mill/uL (4.70-6.10); White Blood Cell (WBC) Count 12.8 thou/uL (4.8-10.8)
[2018-10-09 06:36] LABS: Anion Gap 19 mmol/L (10-20); BUN (Urea Nitrogen) 71 mg/dL (8.4-25.7); Calc. Creatinine Clearance 7 mL/min (70-130); Calcium 6.1 mg/dL (7.8-10.44); Carbon Dioxide 18 mmol/L (22-29); Chloride 103 mmol/L (98-107); Estimated GFR-MDRD 5; Glucose 108 mg/dL (70-105); Potassium 3.7 mmol/L (3.5-5.1); Sodium 136 mmol/L (136-145)
[2018-10-09] MEDS ORDERED: Insulin Glargine 24 UNITS in Pre-Filled Syringe 1 EACH SC SCH (09:00)
[2018-10-09] MEDS ORDERED: Non-Formulary Item 1 EACH (Insulin Glargine,Hum.Rec.Anlog [Lantus Solostar] 24 UNIT) SQ SCH (09:00)
[2018-10-09] MEDS ORDERED: Amlodipine 10 MG TAB PO SCH (09:00)
[2018-10-09] MEDS ORDERED: Vancomycin HCl 750 MG in Sodium Chloride 0.9% 250 ML 250 ML IVPB SCH (09:00)
[2018-10-09] MEDS ORDERED: Vancomycin HCl 1 GM in Premix Bag 1 BAG IVPB SCH (09:00)
[2018-10-09] MEDS ORDERED: PARoxetine 20 MG TAB PO SCH (09:00)
[2018-10-09] MEDS ORDERED: Vancomycin HCl 1.25 GM in Sodium Chloride 0.9% 250 ML 250 ML IVPB SCH (09:00)
[2018-10-09] MEDS ORDERED: HOLD VANCOMYCIN FOR LEVEL >20 FS PRN (09:00)
[2018-10-09] MEDS ORDERED: Calcitriol 0.25 MCG CAP PO SCH (09:00)
[2018-10-09] MEDS ORDERED: Vancomycin HCl 1.5 GM in Sodium Chloride 0.9% 250 ML 300 ML IVPB SCH (09:00)
[2018-10-09] MEDS ORDERED: hydrALAZINE 25 MG TAB PO SCH (09:00)
[2018-10-09] MEDS ORDERED: DULoxetine 60 MG CAP PO SCH (09:00)
[2018-10-09] MEDS: Saccharomyces boulardii 250 MG CAP PO SCH (09:09)
[2018-10-09] MEDS: hydrALAZINE 25 MG TAB PO SCH ×6 (09:09→20:22)
[2018-10-09] MEDS: Losartan 25 MG TAB PO SCH (09:09)
[2018-10-09] MEDS: Loratadine 10 MG TAB PO SCH (09:09)
[2018-10-09] MEDS: DULoxetine 60 MG CAP PO SCH (09:09)
[2018-10-09] MEDS: Calcitriol 0.25 MCG CAP PO SCH (09:10)
[2018-10-09] MEDS: Ferrous Sulfate 325 MG TAB PO SCH ×2 (09:10→17:36)
[2018-10-09] MEDS: Amlodipine 10 MG TAB PO SCH (09:10)
[2018-10-09] MEDS: Pantoprazole 40 MG GRANULES PACKET PO SCH (09:11)
[2018-10-09] MEDS: Piperacillin/Tazobactam 2.25 GM in Sodium Chloride 0.9% 100 ML IVPB SCH ×2 (09:11→20:21)
[2018-10-09 09:12] LABS: Vancomycin, Random 10.2 ug/mL (See Comment)
--- NOTE | 2018-10-09 09:48 | PRG ---
DATE OF SERVICE: 10/09/2018 SUBJECTIVE: The patient is feeling some better. He slept better with sleeping medicines and Benadryl. Feels like his anxiety is better controlled. He was able to rest well last night. Denies fevers, chills. Had nausea and vomiting with some diarrhea. Still awaiting final stool cultures. States that his leg is feeling fine. OBJECTIVE: VITAL SIGNS: Temperature 98.0, T-max is 98.4, pulse is 79, respirations 17, blood pressure 148/74, and pulse ox is 95% on room air. GENERAL: He is sleepy, in no acute distress. HEENT: Mucosa is moist. NECK: Supple. HEART: Regular rate and rhythm. LUNGS: Clear. ABDOMEN: With positive bowel sounds. Soft, nontender, and nondistended. EXTREMITIES: Decreased edema on the left leg. Positive redness. Positive excoriations. Open wounds on both left lower leg as well as the right stump, but decreased redness as well. LABORATORY DATA: White blood cell count 12.8 thousand, down from 14,000 yesterday, hemoglobin and hematocrit 8.2 and 25.1, platelets of 341. Sodium 136, potassium 3.7, chloride 103, CO2 of 18, BUN and creatinine 71 and 10.86 with a GFR of 5, serum glucose of 121. Calcium level low at 6.1, but albumin of only 2.3. I will calculate corrected calcium. Wound cultures are pending, but stool cultures are negative for C. diff, negative for Campylobacter, negative for E. coli. ASSESSMENT AND PLAN: 1. This is a 53-year-old gentleman with multiple medical problems including type 2 diabetes with multiple complications as well as end-stage kidney disease, now with recurrence of cellulitis now on his left lower extremity and right stump. We will continue broad-spectrum antibiotics including vancomycin and Zosyn. Awaiting cultures. Dr. Vargas for evaluation and continue wound care. 2. Type 2 diabetes. We will continue basal insulin and sliding scale, and monitor closely. 3. End-stage renal disease. Continue peritoneal dialysis as per Dr. Tuttle. 4. Drug rash, appears to have improved. We will continue to monitor closely. Continue current antibiotics, and continue Benadryl for itching. Job ID: [id number] [facility]
[2018-10-09] MEDS: Ondansetron ODT 4 MG TAB PO PRN ×2 (11:02→17:36)
[2018-10-09] MEDS ORDERED: Dextrose 50% Abboject 50 ML SYRINGE ONE (13:05)
[2018-10-09] MEDS: Dextrose 5 % And 0.9 % NaCl 1,000 ML IV SCH (14:04)
[2018-10-09 14:16] VITALS: BMI 33.4
--- NOTE | 2018-10-09 15:41 | CON ---
DATE OF CONSULTATION: HISTORY OF PRESENT ILLNESS: Mr. Ferrara is a 53-year-old white male with ESRD from diabetic nephropathy, currently on CCPD/CAPD and admitted for cellulitis of the lower extremity. He was recently started on Ancef for an exit site infection. However, he developed rash several days after that antibiotic. It is not clear if he has an allergy to Ancef. Currently, he is on vancomycin and Zosyn. We are now consulted for his maintenance peritoneal dialysis. I will resume back this patient on CCPD. He did well with peritoneal dialysis last night. REVIEW OF SYSTEMS: No chest pain. No shortness of breath. Appetite is decreased. Energy level is fair. No headache. No syncopal episode. No fever or chills. No gross hematuria. Positive for rash of lower extremities. No sore throat. No hematochezia. No melena. No hematemesis. PAST MEDICAL HISTORY: 1. Status post scrotal abscess. 2. ESRD from diabetic nephropathy. 3. Type 2 diabetes mellitus, recent diagnosis of cellulitis, diabetic gastroparesis, peripheral vascular disease, longstanding hypertension, diabetic retinopathy, history of sarcoidosis status post cholelithiasis, history of depression, hypogonadism status post nephrolithiasis. PAST SURGICAL HISTORY: Status post BKA, status post PD catheter placement, status post cuffed hemodialysis catheter placement, status post AV fistula, status post I and D of scrotal abscess, status post colonoscopy, status post left toe amputation. ALLERGIES: ? ANCEF. ADVERSE REACTION TO METFORMIN AND LISINOPRIL. TRAUMA: None. IMMUNIZATION: Up-to-date. HOSPITALIZATIONS: Please see past medical history. FAMILY HISTORY: No family history of ESRD. 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 Originally from [place], but currently lives in [place]. Single. No children. No cigarette smoking. Alcohol, none. Status post blood transfusion. Education master's degree. No IV drug use. PHYSICAL EXAMINATION: VITAL SIGNS: Blood pressure 148/74, heart rate 79, respiratory rate 17, temperature 98, and pulse ox 95%. GENERAL: Awake, alert, and comfortable, not in distress. SKIN: Adequate turgor. HEENT: He has slightly pale conjunctivae. Anicteric sclerae. NECK: No neck mass. No carotid bruits. No JVD. CHEST: No deformities. LUNGS: Clear breath sounds. No wheezing. No crackles. HEART: Normal sinus rhythm. No murmurs. No gallops. No rubs. ABDOMEN: Globular, soft, and nontender. No masses. Positive for PD catheter. Mild discharge from the exit site. EXTREMITIES: No edema. No deformities, status post left BKA. NEUROLOGIC: Moving all extremities. No tremors. No asterixis. No ataxia. MEDICATIONS: Currently on: 1. Norvasc 10 mg daily. 2. Calcitriol 0.25 mcg daily. 3. Valium 5 mg p.o. t.i.d. p.r.n. 4. Cymbalta 60 mg daily. 5. Epogen 7500 units subcu q.7 days. 6. Ferrous sulfate 325 mg p.o. b.i.d. 7. Hydralazine 50 mg p.o. t.i.d. 8. Insulin glargine 24 units subcu q.a.m. 9. Humalog sliding scale. 10. Losartan 100 mg daily, status post vancomycin. 11. Zosyn 2.25 g IV q.8. 12. Temazepam 15 mg at bedtime p.r.n. 13. Tramadol 50 mg q.6 p.r.n. LABORATORY DATA: Laboratories of October 09, 2018; white count 12.8, hemoglobin 8.2. Sodium 136, potassium 3.7, chloride 103, carbon dioxide 18, BUN 71, creatinine 10.86, and calcium 6.1. ASSESSMENT AND PLAN: 1. End-stage renal disease. We will continue current CCPD regimen with this patient. 2. I had a long discussion with the patient. He has been noncompliant with his peritoneal dialysis. I offered him hemodialysis. He is unable to decide whether he wants to pursue peritoneal or hemodialysis. I told him we will support him whatever his dialysis modality will be. 3. Cellulitis, currently on IV Zosyn and vancomycin. 4. Exit site infection. The patient is receiving Zosyn and vancomycin. 5. Anemia, continuing weekly Epogen with this patient. 6. Hypertension. Continue current BP medications. 7. Overall agree with current management. Job ID: [id number]
[2018-10-09] MEDS: Calcium Carbonate 500 MG ChewTAB PO SCH (20:23)
[2018-10-09] MEDS: Temazepam 15 MG CAP PO PRN (21:12)
--- NOTE | 2018-10-09 23:24 | CON ---
DATE OF CONSULTATION: 10/09/2018 REASON FOR CONSULTATION: Left leg inflammatory changes and diffuse skin rash after administration of cephalexin. HISTORY OF PRESENT ILLNESS: A 53-year-old with history of type 2 diabetes, neuropathy, retinopathy, hypertension, Charcot's arthropathy, prior right BK amputation, who has noticed erythematous changes in the left leg associated with fever. This was treated with oral antimicrobial therapy. After initiation of the treatment, the patient developed diarrhea, diffuse pruritic and erythematous rash that led to admission. No headaches. No visual symptoms, sore throat, odynophagia, or dysphagia. No cough, sputum production, or diarrhea. No genitourinary symptoms. PAST MEDICAL HISTORY: Type 2 diabetes, retinopathy, neuropathy, nephropathy, peripheral vascular disease, coronary artery disease, Charcot foot with right BKA, hyperlipidemia; Rodrigo's abscess in scrotum, incision and drainage; anxiety and depression, anemia, GERD, gastroparesis. PAST SURGICAL HISTORY: Colonoscopy, I and D of scrotal abscess, multiple surgeries in the right foot which eventually culminated in BKA. ALLERGIES: METFORMIN. MEDICATIONS: Norvasc, Levemir insulin, and NPH. FAMILY HISTORY: Diabetes. 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 PHYSICAL EXAMINATION: VITAL SIGNS: Normal temperature, BP 140/74, O2 sats 96. GENERAL: Mr. Ferrara appears chronically ill, but in no acute distress, pleasant. SKIN: Shows the area of erythema with some exfoliation in the left anterior leg. The patient has scattered erythematous papular plaques in the abdomen, upper extremities, and proximal aspect of lower extremities, which developed after initiation of cephalexin and antimicrobial therapy. GENERAL: Awake, alert, oriented, follows commands. Appears in to be in no distress. NEURO: He is able to move extremities with little limitations. Speech is normal. Recollection is fairly normal. LABORATORY DATA: White cell count 14.0 and 12.8, hemoglobin 8.9, platelets 394 with 82% neutrophils. Sodium 136, creatinine 10.86. Bilirubin 0.3. Transaminases normal. Albumin 2.3. Toxicology with random vancomycin at 10.2. C diff negative and 2 sets of blood cultures pending. IMAGING STUDIES: Venous ultrasound with no evidence of deep vein thrombosis. ASSESSMENT: Type 2 diabetes, neuropathy, retinopathy, peripheral vascular disease, coronary artery disease. Rodrigo's abscess in the scrotum, resolved with antimicrobial therapy and debridement. Now inflammatory process in left leg which evolved into diffuse hypersensitivity reaction in chest, abdomen, and back. DISCUSSION: The patient appears to have cellulitis in the left leg, although stasis dermatitis can have similar features. The main distinguishing factor that helps the differential diagnosis is the presence of pain, but in his case, the patient has very advanced neuropathy which prevents him to perceive pain. He has the hypersensitivity reaction with lichenification and that can be treated with topical corticosteroids and antihistaminics. The left lower extremity has been managed with vancomycin and Zosyn. Organisms associated with left leg cellulitis most commonly include beta-hemolytic streptococci, Staphylococcus aureus is less likely. Gram-negative rods sometimes are seen in patients with chronic liver disease and diabetes. He does have a hypersensitivity reaction to cephalexin, so we cannot use cephalosporins and would advise continuation of vancomycin and sliding scale, maybe add quinolone to his regimen to cover the gram negatives, topical corticosteroids for the hypersensitivity eruption plus his antihistaminic drugs as needed. Job ID: [id number] [facility]
[2018-10-10] MEDS: Dextrose 5 % And 0.9 % NaCl 1,000 ML IV SCH ×3 (02:27→20:59)
[2018-10-10] MEDS: Ondansetron ODT 4 MG TAB PO PRN (05:14)
[2018-10-10] MEDS: hydrALAZINE 25 MG TAB PO SCH ×6 (08:26→21:01)
[2018-10-10] MEDS: Loratadine 10 MG TAB PO SCH (08:26)
[2018-10-10] MEDS: Saccharomyces boulardii 250 MG CAP PO SCH (08:26)
[2018-10-10] MEDS: Calcitriol 0.25 MCG CAP PO SCH (08:26)
[2018-10-10] MEDS: Losartan 25 MG TAB PO SCH (08:26)
[2018-10-10] MEDS: Ferrous Sulfate 325 MG TAB PO SCH ×2 (08:26→15:38)
[2018-10-10] MEDS: Calcium Carbonate 500 MG ChewTAB PO SCH ×2 (08:26→21:00)
[2018-10-10] MEDS: DULoxetine 60 MG CAP PO SCH (08:26)
[2018-10-10] MEDS: Insulin Glargine 15 UNITS in Pre-Filled Syringe 1 EACH SC SCH (08:27)
[2018-10-10] MEDS: Amlodipine 10 MG TAB PO SCH (08:27)
[2018-10-10] MEDS: Piperacillin/Tazobactam 2.25 GM in Sodium Chloride 0.9% 100 ML IVPB SCH ×2 (08:27→21:57)
[2018-10-10] MEDS: Pantoprazole 40 MG GRANULES PACKET PO SCH (08:28)
--- NOTE | 2018-10-10 08:48 | PRG ---
DATE OF SERVICE: 10/10/2018 SUBJECTIVE: The patient feels better. His sugars are better controlled, not having hypoglycemic episodes. He states that he is sleeping better. Anxiety feels more controlled, now that he is in the hospital. Denies fevers or chills. Denies pain in his legs. Still complains of itching, but improves with Benadryl. OBJECTIVE: VITAL SIGNS: Temperature 97.8, pulse of 80, respirations 16, blood pressure 139/69, and pulse ox 97% on room air. GENERAL: He is awake and alert. No acute distress. Speech is clear. NECK: Supple. HEART: Regular rate and rhythm. LUNGS: Clear. ABDOMEN: Soft. Peritoneal dialysis port appears clean and dry. EXTREMITIES: Left leg with scattered excoriations, decreased redness, decreased swelling, open wounds, right stump with dressing in place over open wound. SKIN: Continues to have scattered large patches on his abdomen, maculopapular lesions on his arms and legs with excoriations and lichenification consistent with a drug rash. LABORATORY DATA: Accu-Cheks of 114, 116, 125, yesterday 46 and 50. Other labs are pending this morning. ASSESSMENT AND PLAN: 1. This is a 53-year-old gentleman with several complications from type 2 diabetes, uncontrolled, including end-stage renal disease, now with cellulitis of his left lower extremity. Plan, we will continue broad-spectrum antibiotics including vancomycin and Zosyn. I appreciate Dr. Vargas evaluation. We will continue wound care as well, possibly switch to oral quinolones prior to discharge. 2. Type 2 diabetes. Continue to wean basal insulin to prevent hypoglycemia. Monitor closely for good controlled aid in healing of his infections. 3. End-stage renal disease. Continue dialysis as per Dr. Tuttle. 4. Drug rash. Continue Benadryl and start topical steroids. 5. Anxiety and depression, appears to be improved. We will continue medications and ensure outpatient counseling due to difficulty coping with his medical issues. Job ID: [id number]
[2018-10-10] MEDS ORDERED: Enoxaparin Sodium 40 MG/0.4 ML SYRINGE SC SCH (09:00)
[2018-10-10] MEDS: Betamethasone 0.1% Cream 15 GM TUBE TOP SCH ×2 (09:42→21:00)
--- NOTE | 2018-10-10 10:17 | PRG ---
DATE OF SERVICE: 10/10/2018 SUBJECTIVE: Mr. Ferrara is a 53-year-old white male with ESRD, currently on peritoneal dialysis, who was admitted for cellulitis. He is receiving IV antibiotics. His fistula is also not matured. For that reason, we will try to make arrangements for AV fistulogram to be done today or next week. No other complaints today. No chest pain or shortness of breath. OBJECTIVE: VITAL SIGNS: Blood pressure is 139/69, heart rate os 68, respiratory rate 16, temperature 97.8, and pulse ox 97%. GENERAL: Noted to be awake, alert, comfortable, not in distress. SKIN: Adequate turgor. HEENT: Pale conjunctivae. Anicteric sclerae. NECK: No neck mass. No carotid bruits. No JVD. CHEST: No deformities. LUNGS: Clear breath sounds. HEART: Normal sinus rhythm. No murmurs, gallops, or rubs. ABDOMEN: Globular, soft, nontender. No masses. EXTREMITIES: No edema. No deformities. Positive for PD catheter on the abdomen. MEDICATIONS: Medications of October 10, 2018, reviewed. LABORATORY DATA: Laboratories of October 09, 2018, hemoglobin 8.2. October 10, 2018, glucose 114. October 09, 2018, BUN 71, creatinine 10.86, calcium 6.1. ASSESSMENT AND PLAN: 1. Hypocalcemia. The patient was started on Tums. 2. Nonfunctioning arteriovenous fistula-we will schedule for arteriovenous fistulogram. 3. End-stage renal disease, stable. Continue current CCPD regimen. Tolerating said treatment. 4. Anemia, on weekly Epogen. 5. I agree with current management. Job ID: [id number] [facility]
--- NOTE | 2018-10-10 18:18 | PRG ---
DATE OF SERVICE: 10/10/2018 SUBJECTIVE: Mr. Ferrara is feeling better. The rash is resolving. The area of the pruritus is resolving. The left leg erythema is resolving as well. OBJECTIVE: VITAL SIGNS: Normal. LUNGS: Clear. ABDOMEN: Soft, not distended. EXTREMITIES: Left leg with scab over area in the anterior miranda. LABORATORY DATA: White cell count 12.8, hemoglobin 8.2, platelets 341, 80% neutrophils. Sodium 136. Microbiology with negative C diff test noted previously. ASSESSMENT AND DISCUSSION: Type-2 diabetes, neuropathy, retinopathy, peripheral vascular disease, coronary artery disease, Rodrigo abscess in scrotum resolved with treatment and surgical debridement, now inflammatory process in left leg with diffuse hypersensitivity reaction to cephalosporin, which is improving. Consider discharge planning on penicillin VK 250 mg 3 times daily for about 10 days. Job ID: [id number]
[2018-10-10] MEDS: diphenhydrAMINE 50 MG/ML VIAL IVP PRN (21:59)
[2018-10-11] MEDS: Dextrose 5 % And 0.9 % NaCl 1,000 ML IV SCH ×2 (00:01→12:05)
[2018-10-11 08:13] LABS: #Eosinphils 0.4 thou/uL (0.0-0.7); #Lymphocytes 1.1 thou/uL (1.20-3.40); #Neutrophils 9.2 thou/uL (1.40-6.50); %Basophils 0.4 % (0.0-1.0); %Eosinophils 3.3 % (0.0-10.0); %Lymphocytes 9.3 % (21.0-51.0); %Monocytes 8.2 % (0.0-10.0); %Neutrophils 78.8 % (42.0-75.0); Hemoglobin 9.3 g/dL (14.0-18.0); Mean Corpuscular HGB CONC 31.8 g/dL (32.0-36.0); Mean Corpuscular Hemoglobin 28.7 pg (27.0-31.0); Mean Corpuscular Volume 90.3 fL (78.0-98.0); Mean Platelet Volume 7.2 fL (7.4-10.4); Platelet Count 408 thou/uL (130-400); RBC Distribution Width 14.2 % (11.5-14.5); Red Blood Cell (RBC) Count 3.22 mill/uL (4.70-6.10); White Blood Cell (WBC) Count 11.6 thou/uL (4.8-10.8)
[2018-10-11 08:34] LABS: Vancomycin, Random 18.2 ug/mL (See Comment)
[2018-10-11 08:36] LABS: Anion Gap 16 mmol/L (10-20); BUN (Urea Nitrogen) 55 mg/dL (8.4-25.7); Calc. Creatinine Clearance 12 mL/min (70-130); Calcium 6.5 mg/dL (7.8-10.44); Carbon Dioxide 21 mmol/L (22-29); Chloride 105 mmol/L (98-107); Estimated GFR-MDRD 6; Glucose 192 mg/dL (70-105); Potassium 3.4 mmol/L (3.5-5.1); Sodium 139 mmol/L (136-145)
[2018-10-11] MEDS: Piperacillin/Tazobactam 2.25 GM in Sodium Chloride 0.9% 100 ML IVPB SCH ×2 (09:03→20:29)
[2018-10-11] MEDS: Calcium Carbonate 500 MG ChewTAB PO SCH ×2 (09:04→20:29)
[2018-10-11] MEDS: Insulin Glargine 15 UNITS in Pre-Filled Syringe 1 EACH SC SCH (09:04)
[2018-10-11] MEDS: Saccharomyces boulardii 250 MG CAP PO SCH (09:05)
[2018-10-11] MEDS: Losartan 25 MG TAB PO SCH (09:05)
[2018-10-11] MEDS: Calcitriol 0.25 MCG CAP PO SCH (09:05)
[2018-10-11] MEDS: hydrALAZINE 25 MG TAB PO SCH ×3 (09:05→20:29)
[2018-10-11] MEDS: Ferrous Sulfate 325 MG TAB PO SCH ×2 (09:06→16:58)
[2018-10-11] MEDS: Loratadine 10 MG TAB PO SCH (09:06)
[2018-10-11] MEDS: Betamethasone 0.1% Cream 15 GM TUBE TOP SCH ×2 (09:06→20:28)
[2018-10-11] MEDS: DULoxetine 60 MG CAP PO SCH (09:06)
[2018-10-11] MEDS: Amlodipine 10 MG TAB PO SCH (09:06)
[2018-10-11] MEDS: Enoxaparin Sodium 30 MG/0.3 ML SYRINGE SC SCH (09:07)
[2018-10-11] MEDS: Pantoprazole 40 MG GRANULES PACKET PO SCH (09:19)
[2018-10-11] MEDS ORDERED: Potassium Chloride 20 MEQ TAB PO SCH (11:30)
--- NOTE | 2018-10-11 12:35 | PRG ---
DATE OF SERVICE: HISTORY: Mr. Ferrara is a 53-year-old white male, who was admitted for right leg cellulitis. Antibiotics had been given with the patient. The plan is to eventually place him on oral penicillin as an outpatient. His cellulitis is improving. We are following him up for his maintenance peritoneal dialysis. He is doing well. He is tolerating said treatment. REVIEW OF SYSTEMS: The patient denies any chest pain or shortness of breath. Denies any fever. No abdominal pain. No syncopal episode. No nausea. No vomiting. No dysuria. No urinary frequency. MEDICATIONS: Medications of October 11, 2018, was reviewed. LABORATORY DATA: Laboratories of October 11, 2018, white count 11.6 and hemoglobin 9.3. Sodium 139, potassium 3.4, chloride 105, carbon dioxide 21, BUN 55, creatinine 9.8, and calcium 6.5. ASSESSMENT/PLAN: 1. Anemia, currently on weekly Epogen. Continue current management, slowly improving. 2. End-stage renal disease, stable, tolerating current peritoneal dialysis regimen. No changes will be made with the current peritoneal dialysis regimen. I had long discussion with the patient. He still wants to pursue peritoneal dialysis. He does have 5 exchanges at home. He does not use the CCPD. 3. Cellulitis, clinically improving on IV antibiotics. ID is following. 4. Mild hypokalemia. K-Dur 40 mEq one tab given. Job ID: [id number]
[2018-10-11] MEDS ORDERED: Dextrose 50% Abboject 50 ML SYRINGE SLOW IVP PRN (16:56)
[2018-10-11] MEDS ORDERED: Dextrose 5% in Water 1,000 ML IV PRN (16:56)
--- NOTE | 2018-10-11 17:47 | PRG ---
DATE OF SERVICE: 10/11/2018 HISTORY OF PRESENT ILLNESS: The patient states he is tolerating peritoneal dialysis at proper volumes while at inpatient. He was only doing 3/5 bags outpatient. He is tolerating antibiotics following pruritic reaction with rash to cephalosporin. Dr. Vargas is recommending transition to penicillin. The patient states that possible venogram to be performed on Saturday. There are no other acute complaints other than pruritus. Nursing staff reports repeated hypoglycemia despite D5 fluids as well as Coke, peanut butter crackers, etc., requesting D5 IV bolus. The patient is on no diabetic medications. I reviewed medications, no apparent drug reactions listed. PHYSICAL EXAMINATION: VITAL SIGNS: This morning, temperature 97.5, pulse of 73, respiratory rate of 16, oxygen saturation 98% on room air, and blood pressure of 150/74. GENERAL: The patient is alert and oriented, in no acute distress. HEENT: Head is normocephalic and atraumatic. Extraocular movements are intact. Sclerae are white. Oral mucosa is moist. NECK: Supple. HEART: Regular rate and rhythm. No murmurs auscultated. LUNGS: Clear to auscultation bilaterally. No rubs or wheezes. ABDOMEN: Protuberant with peritoneal dialysis intact. SKIN: Scaling over a prior rash is pruritic throughout the patient's trunk and thighs, remains present. Some excoriation adame are noted. No warmth, erythema, or pallor present. EXTREMITIES: Right lower extremity with amputation site remotely. The patient has a prosthesis in place. Left lower extremity with a nonadherent dressing overlying yellow slough to left lower extremity, improved erythema and pallor per prior physical exam documentation. No exudates noted over slough over left miranda. LABORATORY DATA: White blood cell count of 11.6, hemoglobin 9.3, MCV of 90, and platelet count of 408. Chemistry of 139 sodium, 3.4 of potassium, 9.8 of creatinine, BUN of 55, blood glucose ranging from 51 to 192 last 16 hours. ASSESSMENT AND PLAN: Left lower extremity cellulitis and superficial wound; end-stage renal disease, on peritoneal dialysis; hypertension; status post right lower extremity amputation remotely; hypokalemia; allergic reaction; pruritus to cephalosporins; hypoglycemia; and normocytic anemia. I added Santyl ointment for wound care to left lower extremity. We will look to bridge to oral antibiotics and potentially help to look for discharge on Saturday. We will check C-peptide, cortisol in the morning. Acute hepatitis panel as well as CT scan for any evidence of insulinoma. I instructed nurses to give an amp of D50 and recheck blood sugar this evening. If needed, we will support with exogenous steroids. We will continue with peritoneal dialysis. At this point in time, Nephrology and Infectious Disease are following. Job ID: [id number]
--- NOTE | 2018-10-11 19:03 | CT ---
CT abdomen and pelvis with IV contrast. Oral contrast was administered. INDICATIONS: Abdominal pain. Hypoglycemia. Diarrhea. Peritoneal dialysis. COMPARISON: None FINDINGS: Bilateral pleural effusions, larger on the right with dense right basilar atelectasis/consolidation. Liver, spleen, and pancreas appear unremarkable. Numerous small calcified gallstones are layering dependently in the gallbladder. Stomach and duodenum appear unremarkable. Adrenal glands appear normal. Kidneys appear unremarkable. Collecting structures and urinary bladder appear unremarkable. Small bowel loops are normal caliber and exhibit normal fold pattern. Appendix not identified. Colon is unremarkable. Aorta is normal caliber. No evidence of retroperitoneal or mesenteric adenopathy. Peritoneal dialysis catheter is coiled within the deep pelvis. Small amount of free fluid in the deep pelvis. Diffuse haziness throughout the subcutaneous adipose tissue suggest edema. Osseous structures appear unremarkable. IMPRESSION: 1. Bilateral pleural effusions, larger on the right with dense right basilar atelectasis/consolidatio n 2. Cholelithiasis 3. Adipose haziness suggesting anasarca
[2018-10-11] MEDS: Temazepam 15 MG CAP PO PRN (20:35)
[2018-10-12] MEDS: Dextrose 5 % And 0.9 % NaCl 1,000 ML IV SCH ×3 (00:58→23:45)
[2018-10-12 05:56] LABS: #Basophils 0.1 thou/uL (0.0-0.2); #Eosinphils 0.6 thou/uL (0.0-0.7); #Lymphocytes 1.1 thou/uL (1.20-3.40); #Monocytes 1.1 thou/uL (0.11-0.59); #Neutrophils 9.8 thou/uL (1.40-6.50); %Basophils 0.6 % (0.0-1.0); %Eosinophils 4.6 % (0.0-10.0); %Lymphocytes 8.9 % (21.0-51.0); %Monocytes 8.4 % (0.0-10.0); %Neutrophils 77.6 % (42.0-75.0); Hemoglobin 9.7 g/dL (14.0-18.0); Mean Corpuscular HGB CONC 31.7 g/dL (32.0-36.0); Mean Corpuscular Hemoglobin 28.8 pg (27.0-31.0); Mean Corpuscular Volume 90.8 fL (78.0-98.0); Mean Platelet Volume 7.2 fL (7.4-10.4); Platelet Count 402 thou/uL (130-400); RBC Distribution Width 14.1 % (11.5-14.5); Red Blood Cell (RBC) Count 3.39 mill/uL (4.70-6.10); White Blood Cell (WBC) Count 12.6 thou/uL (4.8-10.8)
[2018-10-12 06:18] LABS: Anion Gap 19 mmol/L (10-20); BUN (Urea Nitrogen) 48 mg/dL (8.4-25.7); Calc. Creatinine Clearance 14 mL/min (70-130); Calcium 6.6 mg/dL (7.8-10.44); Carbon Dioxide 19 mmol/L (22-29); Chloride 102 mmol/L (98-107); Estimated GFR-MDRD 6; Glucose 167 mg/dL (70-105); Potassium 3.5 mmol/L (3.5-5.1); Sodium 136 mmol/L (136-145)
[2018-10-12 06:40] LABS: HBCM Index 0.32 S/CO (0-0.79); HBSAg Index 0.33 S/CO (0-0.99); Hep A IgM AB Non-Reactive (NonReactive); Hep A IgM S/CO 0.26 S/CO (0-0.79); Hep B Surf Ag Non-Reactive S/CO (NonReactive); Hep C IgG Ab Non-Reactive (NonReactive); Hep C Index 0.07 S/CO (0-0.79); Hepatitis B Core IgM Abs Non-Reactive (NonReactive); Thyroid Stimulating Hormone 8.3145 uIU/mL (0.35-4.94)
[2018-10-12] MEDS ORDERED: methylPREDNISolone Sod Succ/PF 125 MG/2 ML VIAL IVP SCH (07:30)
[2018-10-12] MEDS ORDERED: Bacteriostatic Water 30 ML VIAL FS PRN (07:50)
[2018-10-12] MEDS: Piperacillin/Tazobactam 2.25 GM in Sodium Chloride 0.9% 100 ML IVPB SCH (09:04)
[2018-10-12] MEDS: Thyroid 30 MG TAB PO SCH (09:06)
[2018-10-12] MEDS: Insulin Glargine 15 UNITS in Pre-Filled Syringe 1 EACH SC SCH (09:06)
[2018-10-12] MEDS: Calcium Carbonate 500 MG ChewTAB PO SCH ×2 (09:06→20:23)
[2018-10-12] MEDS: Saccharomyces boulardii 250 MG CAP PO SCH (09:07)
[2018-10-12] MEDS: DULoxetine 60 MG CAP PO SCH (09:07)
[2018-10-12] MEDS: Penicillin V Potassium 250 MG TAB PO SCH ×3 (09:07→20:22)
[2018-10-12] MEDS: Calcitriol 0.25 MCG CAP PO SCH (09:07)
[2018-10-12] MEDS: Losartan 25 MG TAB PO SCH (09:07)
[2018-10-12] MEDS: Ferrous Sulfate 325 MG TAB PO SCH ×2 (09:08→16:26)
[2018-10-12] MEDS: hydrALAZINE 25 MG TAB PO SCH ×3 (09:08→20:23)
[2018-10-12] MEDS: Loratadine 10 MG TAB PO SCH (09:08)
[2018-10-12] MEDS: Amlodipine 10 MG TAB PO SCH (09:09)
[2018-10-12] MEDS: Enoxaparin Sodium 30 MG/0.3 ML SYRINGE SC SCH (09:09)
[2018-10-12] MEDS: Collagenase 250 UNITS/GM Ointment 30 GM TUBE TOP SCH ×2 (09:12→11:39)
--- NOTE | 2018-10-12 10:14 | PRG ---
DATE OF SERVICE: 10/12/2018 SUBJECTIVE: Mr. Ferrara is a 53-year-old white male with ESRD and followed up by the [facility] for his maintenance peritoneal dialysis. He is tolerating his peritoneal dialysis. He was complaining of abdominal pain with some decreased blood sugar. CT scan of the abdomen and pelvis was done and it showed bilateral pleural effusion and some degree of anasarca. He has also an incidental finding of cholelithiasis. No new complaints this morning. Please note, this patient was initially admitted due to cellulitis. OBJECTIVE: VITAL SIGNS: Blood pressure 170/79, heart rate 85, respiratory rate 18, temperature 97.6, and pulse ox 98%. GENERAL: Awake, alert, comfortable, sitting, not in distress. SKIN: Adequate turgor. HEENT: He has a slightly pale conjunctivae. Anicteric sclerae. NECK: No neck mass. No carotid bruits. No JVD. CHEST: No deformities. LUNGS: Decreased breath sounds. HEART: Normal sinus rhythm. No murmur. No gallops. No rubs. ABDOMEN: Globular, soft, and nontender. No masses. EXTREMITIES: No edema. Positive for PD catheter, status post left BKA. MEDICATIONS: Medications of October 12, 2018, were reviewed. LABORATORY DATA: Laboratories of October 12, 2018, white count 12.6 and hemoglobin 9.7. Sodium 136, potassium is 3.5, chloride 102, carbon dioxide 19, BUN 48, creatinine 8.84, calcium 6.6, cortisol 10, and TSH 8.3. ASSESSMENT AND PLAN: 1. End-stage renal disease, stable, tolerating current CCPD regimen. No changes will be made with the current peritoneal dialysis regimen. 2. Hypocalcemia-the patient currently on supportive care. He is on TUMS 1000 mg t.i.d. We will also be rechecking PTH tomorrow. 3. Cellulitis, clinically improving. 4. Nonfunctioning AV fistula for AV fistulogram tomorrow. Job ID: [id number]
[2018-10-12] MEDS: Betamethasone 0.1% Cream 15 GM TUBE TOP SCH ×2 (11:37→20:24)
--- NOTE | 2018-10-12 19:31 | PRG ---
DATE OF SERVICE: 10/12/2018 HISTORY OF PRESENT ILLNESS: The patient verbalized understanding regarding findings of hypothyroidism. The patient denies any prior issues with thyroid. He verbalized understanding regarding elevated hyperparathyroidism. Continued to have hypoglycemia yesterday, was refusing sliding scale insulin which he was started on Accu-Cheks admission with slightly elevated blood sugars given left lower extremity cellulitis. Otherwise, the patient largely remains stable, tolerating peritoneal dialysis well. Has a pending venogram of the left forearm for possible more permanent access and transitioned to hemodialysis given the patient's poor compliance of peritoneal dialysis at home tomorrow. Vital signs; temperature 97.5, pulse of 82, respiratory rate of 18, oxygen saturation 96% on room air, blood pressure 151/75. White blood cell count of 12.6, hemoglobin 9.7, platelet count of 402. Acute hepatitis panel is negative and normal. Sodium of 136, potassium 3.5, creatinine of 8.8, glucose of 167, calcium of 6.6, cortisol of 10, TSH of 8.3, parathyroid hormone of 362. Abdomen and pelvis CT without acute findings of the pancreas or liver. PHYSICAL EXAMINATION: GENERAL: The patient is alert, oriented, no acute distress. HEENT: Head is normocephalic and atraumatic. Extraocular movements are intact. Sclerae white. Oral mucosa is moist. NECK: Supple. HEART: Regular rate and rhythm at time of exam. No murmurs auscultated. LUNGS: Clear to auscultation bilaterally. No rubs or wheezes. ABDOMEN: Protuberant. Pruritus and excoriations present across abdomen and lower extremities. EXTREMITIES: Right lower extremity amputation is at baseline with prosthesis in place. Left lower extremity with non-adherent dressing overlying skin wound with yellow slough, unchanged today. No exudates. No extending erythema or edema. NEUROLOGIC: The patient is alert and oriented x3. No focal deficits. Speech is normal. ASSESSMENT AND PLAN: 1. Left lower extremity cellulitis and wound. Continuing wound care, transitioned over to oral penicillin per Dr. Vargas' recommendations. 2. End-stage renal disease, continuing peritoneal dialysis, has venogram tomorrow of forearm for possible transition to hemodialysis. 3. Hypertension, continuing current medications. 4. Hypokalemia, currently improved following replacement. The patient still has hypocalcemia likely secondary to hyperparathyroidism followed by Nephrology, currently on Tums for calcium replacement. 5. Hyperglycemia, possibly secondary to hypothyroidism. No signs of any insulinoma present, ordering thyroid ultrasound to help rule out any adenomas. We will follow up on decision to transition the patient's forearm to venous arterial axis, this hospitalization would be coming near conclusion of hospitalization likely potential discharge on the next 1 to 2 days. Thank you very much. Job ID: [id number] [facility]
[2018-10-12] MEDS: diphenhydrAMINE 50 MG/ML VIAL IVP PRN (20:18)
[2018-10-12] MEDS: Temazepam 15 MG CAP PO PRN (20:22)
--- NOTE | 2018-10-12 23:43 | ULT ---
THYROID ULTRASOUND: HISTORY: Hypothyroidism. FINDINGS: Both lobes of the thyroid are homogeneous and appear unremarkable. Both lobes have normal size. The left lobe measures 3.6 x 1.7 x 2 cm. The right lobe measures 4.3 x 1.4 x 1.6 cm. No mass or nodule identified in either lobe. IMPRESSION: Unremarkable thyroid ultrasound. POS: [facility]
[2018-10-13 05:17] LABS: INR-International Normal Ratio 1.3; PTT 33.1 SEC (22.9-36.1); Prothrombin Time 15.8 SEC (12.0-14.7)
[2018-10-13 05:23] LABS: #Eosinphils 0.1 thou/uL (0.0-0.7); #Lymphocytes 0.9 thou/uL (1.20-3.40); #Monocytes 0.7 thou/uL (0.11-0.59); #Neutrophils 10.5 thou/uL (1.40-6.50); %Basophils 0.2 % (0.0-1.0); %Eosinophils 0.6 % (0.0-10.0); %Neutrophils 86.3 % (42.0-75.0); Hemoglobin 10.1 g/dL (14.0-18.0); Mean Corpuscular HGB CONC 29.7 g/dL (32.0-36.0); Mean Corpuscular Hemoglobin 27.5 pg (27.0-31.0); Mean Corpuscular Volume 92.4 fL (78.0-98.0); Mean Platelet Volume 7.4 fL (7.4-10.4); Platelet Count 443 thou/uL (130-400); RBC Distribution Width 14.1 % (11.5-14.5); Red Blood Cell (RBC) Count 3.68 mill/uL (4.70-6.10); White Blood Cell (WBC) Count 12.2 thou/uL (4.8-10.8)
[2018-10-13 05:33] LABS: Anion Gap 20 mmol/L (10-20); BUN (Urea Nitrogen) 44 mg/dL (8.4-25.7); Calc. Creatinine Clearance 14 mL/min (70-130); Calcium 6.7 mg/dL (7.8-10.44); Carbon Dioxide 17 mmol/L (22-29); Chloride 101 mmol/L (98-107); Estimated GFR-MDRD 6; Glucose 227 mg/dL (70-105); Potassium 3.6 mmol/L (3.5-5.1); Sodium 134 mmol/L (136-145)
[2018-10-13 05:53] LABS: Free T4 (Free Thyroxine) 0.79 ng/dL (0.70-1.48)
[2018-10-13] MEDS: Enoxaparin Sodium 30 MG/0.3 ML SYRINGE SC SCH (06:56)
[2018-10-13] MEDS: hydrALAZINE 25 MG TAB PO SCH ×3 (07:02→20:44)
[2018-10-13] MEDS: Losartan 25 MG TAB PO SCH (07:04)
[2018-10-13] MEDS: Amlodipine 10 MG TAB PO SCH (07:04)
[2018-10-13] MEDS: Dextrose 5 % And 0.9 % NaCl 1,000 ML IV SCH ×2 (08:13→16:38)
[2018-10-13] MEDS: Saccharomyces boulardii 250 MG CAP PO SCH (08:14)
[2018-10-13] MEDS: Thyroid 30 MG TAB PO SCH (08:14)
[2018-10-13] MEDS: Insulin Glargine 15 UNITS in Pre-Filled Syringe 1 EACH SC SCH (08:14)
[2018-10-13] MEDS: DULoxetine 60 MG CAP PO SCH (08:14)
[2018-10-13] MEDS: Calcitriol 0.25 MCG CAP PO SCH (08:14)
[2018-10-13] MEDS: Betamethasone 0.1% Cream 15 GM TUBE TOP SCH ×2 (08:15→20:45)
[2018-10-13] MEDS: Ferrous Sulfate 325 MG TAB PO SCH ×2 (08:15→16:38)
[2018-10-13] MEDS: Loratadine 10 MG TAB PO SCH (08:15)
[2018-10-13] MEDS: Calcium Carbonate 500 MG ChewTAB PO SCH ×2 (08:15→20:44)
[2018-10-13] MEDS: Collagenase 250 UNITS/GM Ointment 30 GM TUBE TOP SCH (08:21)
--- NOTE | 2018-10-13 08:55 | PRG ---
DATE OF SERVICE: 10/13/2018 SUBJECTIVE: The patient is feeling much better. He states that his energy level is improved. His appetite is improved since the infections have been clearing out. He states that he is ready to go home. He is in process of getting his fistula checked. He and Dr. Tuttle are discussing going back to hemodialysis instead of the peritoneal dialysis. He states that the itching is improved. The rash is improved. Events of the weekend are noted. He is tolerating the new medication with Shasta Thyroid. OBJECTIVE: VITAL SIGNS: Temperature 97.6, pulse of 87, respirations 16, blood pressure 168/84, and pulse ox is 99% on room air. GENERAL: He is awake, alert, in no acute distress. Speech is clear. HEENT: Mucosa is moist. HEART: Regular rate and rhythm. LUNGS: Clear. ABDOMEN: Soft, obese, and nontender. Peritoneal port is intact. No sign of infection. EXTREMITIES: Clearing edema on his left leg. Continues to have excoriations and open wounds. Dressing is in place. Decreased edema. SKIN: On his abdomen with decreased rash. No redness. Decreased excoriations. Appears to be healing well. LABORATORY DATA: Sodium 134, potassium 3.6, chloride 101, CO2 of 17, BUN and creatinine of 44 and 8.67 with a GFR of 6, serum glucose of 227, corrected calcium 7.7. Glucose 213, 194, and 193. White blood cell count 12.2, hemoglobin hematocrit of 10.1 and 34.0, and platelets of 443. Blood cultures remain negative. Stool cultures were negative. ASSESSMENT AND PLAN: 1. This is a 53-year-old gentleman with multiple medical problems including type 2 diabetes with multiple complications including end-stage renal disease on dialysis, admitted for left lower extremity cellulitis with history of methicillin-resistant Staphylococcus aureus. He has completed his broad-spectrum antibiotics with vancomycin and Zosyn. He is now on likely a long-term course of penicillin per Dr. Vargas. We will continue wound care and further plan per Dr. Vargas. 2. Type 2 diabetes, requiring less insulin due to decreased appetite. His appetite is improving. We will continue to monitor closely. May need to restart his basal insulin. 3. End-stage renal disease on dialysis as per Dr. Tuttle. He is to have a fistulogram today to check his left fistula in case they start back on hemodialysis. 4. Drug rash is improved. 5. Anxiety and depression are stable. We will continue medications. 6. New-onset hypothyroidism. Thyroid ultrasound was normal, likely secondary to autoimmune thyroiditis. I will continue Shasta Thyroid. 7. Disposition. Hopefully home either later today or tomorrow once the fistula was evaluated and will discharge home on long-term antibiotics. Job ID: [id number]
[2018-10-13] MEDS: Penicillin V Potassium 250 MG TAB PO SCH ×3 (09:05→20:44)
--- NOTE | 2018-10-13 09:52 | PRG ---
DATE OF SERVICE: 10/13/2018 SUBJECTIVE: Mr. Ferrara is a 53-year-old white male with ESRD and currently on CCPD. Tolerating current peritoneal dialysis. He was initially admitted for leg cellulitis. He is much improved. He is on antibiotics. ID is following. He is tolerating his peritoneal dialysis. No new complaints. OBJECTIVE: VITAL SIGNS: Blood pressure 171/81, heart rate 74, respiratory rate 18, temperature 97.7, and pulse ox 94%. GENERAL: Noted to be awake, comfortable, not in distress. SKIN: Adequate turgor. HEENT: Slightly pale conjunctivae. Anicteric sclerae. NECK: No neck mass. No carotid bruits. No JVD. CHEST: No deformities. LUNGS: Clear breath sounds. No wheezing. No crackles. HEART: Normal sinus rhythm. No murmur. No gallops. No rubs. ABDOMEN: Globular, soft, nontender. No masses. EXTREMITIES: No edema. No deformities. Please note, he has a PD catheter. MEDICATIONS: Medications of October 13, 2018, reviewed. LABORATORY DATA: Laboratories of October 13, 2018; white count 12.2, hemoglobin 10.1. Sodium 134, potassium 3.6, chloride 101, carbon dioxide 17, BUN 44, creatinine 8.67, glucose 227, and calcium 6.7. ASSESSMENT AND PLAN: 1. End-stage renal disease, stable, tolerating current peritoneal dialysis. Continue current CCPD regimen, tolerating ultrafiltration. 2. Mild hypocalcemia, currently on Tums. 3. Right leg cellulitis - the patient is currently on antibiotics. ID is following. 4. Anemia. Continuing weekly Epogen with the patient at 7500 units subcu q.7 days. Agree with current management. Job ID: [id number]
[2018-10-13] MEDS ORDERED: HEPARIN FS SCH ×2 (11:30→21:00)
[2018-10-13] MEDS ORDERED: DIANEAL FS SCH (11:30)
--- NOTE | 2018-10-13 12:04 | SPC ---
Left upper extremity dialysis fistulogram Sonographic guided vascular access left upper extremity fistula HISTORY: Renal failure. Difficulty in accessing left upper extremity dialysis fistula. FINDINGS: After explaining the procedure and answering all questions, the left upper extremity was pr epped and draped in usual sterile fashion. Sterile technique, buffered local anesthesia, sonographic guidance, and a 22-gauge needle were used to carefully access the left median vein at the level of the distal forearm. Sonographic evaluation showed the median vein to the much larger than the cephalic and basilic veins. A 4 Romansh micropuncture sheath was placed for serial imaging. There is gentle smoothly marginated narrowing of the median vein the level of the proximal radial sha ft, presumably due to muscular compression. Gentle narrowing at the level of the mid forearm is related to blood collection from unsuccessful venous access. Good flow still seen through this level and into patent venous outflow of the left upper extremity and to the superior vena cava. No focal narrowing. Reflux angiography shows flow into small cephalic and basilic veins. Faint arterial anastomosis reflu x was achieved, although vigorous inflow precluded optimal evaluation. Catheter was removed and hemostasis obtained using pressure. Patient tolerated the procedure well and was returned in good condition. Fluoroscopy time 0.9 minutes. IMPRESSION: Good flow and function of the left forearm dialysis fistula with primary fistula flow thr ough the median vein.
[2018-10-13 12:45] LABS: EliA Thy New Method **** NEW METHOD ****; Thyroglobulin Antibody Less than 12.0 IU/mL (<40 Normal); Thyroid Peroxidase IgG Ab Less than 4.0 IU/mL (<25 Normal)
[2018-10-13] MEDS: Gentamicin TOPICAL Ointment 0.1% 15 gm Tube TOP SCH ×2 (14:34→20:45)
[2018-10-13] MEDS ORDERED: [UNRECOGNIZED DRUG - OTHER] FS SCH (21:00)
[2018-10-14 08:01] VITALS: BP 166/85; TEMP 97.5
[2018-10-14] MEDS: hydrALAZINE 25 MG TAB PO SCH (08:26)
[2018-10-14] MEDS: Amlodipine 10 MG TAB PO SCH (08:26)
[2018-10-14] MEDS: Enoxaparin Sodium 30 MG/0.3 ML SYRINGE SC SCH (08:26)
[2018-10-14] MEDS: Loratadine 10 MG TAB PO SCH (08:27)
[2018-10-14] MEDS: DULoxetine 60 MG CAP PO SCH (08:27)
[2018-10-14] MEDS: Calcitriol 0.25 MCG CAP PO SCH (08:27)
[2018-10-14] MEDS: Losartan 25 MG TAB PO SCH (08:27)
[2018-10-14] MEDS: Ferrous Sulfate 325 MG TAB PO SCH (08:27)
[2018-10-14] MEDS: Calcium Carbonate 500 MG ChewTAB PO SCH (08:27)
[2018-10-14] MEDS: Saccharomyces boulardii 250 MG CAP PO SCH (08:27)
[2018-10-14] MEDS: Penicillin V Potassium 250 MG TAB PO SCH (08:27)
[2018-10-14] MEDS: Thyroid 30 MG TAB PO SCH (08:31)
[2018-10-14] MEDS: Dextrose 5 % And 0.9 % NaCl 1,000 ML IV SCH (08:35)
[2018-10-14] MEDS: Insulin Glargine 15 UNITS in Pre-Filled Syringe 1 EACH SC SCH (08:35)
[2018-10-14] MEDS: Betamethasone 0.1% Cream 15 GM TUBE TOP SCH (08:37)
[2018-10-14] MEDS: Gentamicin TOPICAL Ointment 0.1% 15 gm Tube TOP SCH (08:37)
[2018-10-14] MEDS: Collagenase 250 UNITS/GM Ointment 30 GM TUBE TOP SCH (08:38)
--- NOTE | 2018-10-14 10:00 | PRG ---
DATE OF SERVICE: 10/14/2018 SUBJECTIVE: Mr. Ferrara is a 53-year-old white male, who was admitted for cellulitis. We are following him up for his maintenance peritoneal dialysis. He is doing well with this peritoneal dialysis. The patient voices no new complaints. He has been tolerating the IV antibiotics. No complaints of chest pain or shortness of breath. OBJECTIVE: VITAL SIGNS: Blood pressure is noted at 166/85, heart rate 84, respiratory rate 18, temperature 97.5, and pulse ox 95%. GENERAL: He is noted to be awake, alert, sitting comfortable, not in distress. SKIN: Adequate turgor. HEENT: Pinkish conjunctivae. Anicteric sclerae. NECK: No neck mass. No carotid bruits. No JVD. CHEST: No deformities. LUNGS: Clear breath sounds. HEART: Normal sinus rhythm. No murmur. No gallops. No rubs. ABDOMEN: Globular, soft, and nontender. No masses. Positive for PD catheter. MEDICATIONS: Medications of October 14, 2018, were reviewed. LABORATORY DATA: Laboratories of October 13, 2018, white count 12.2 and hemoglobin 10.1. October 14, 2018, glucose 167. October 13, 2018; BUN 44, creatinine 8.67, and potassium 3.6. ASSESSMENT AND PLAN: 1. Left leg cellulitis - clinically improved on antibiotics. 2. End-stage renal disease, stable, tolerating current CCPD regimen. Please note, the patient has been counseled regarding compliance with his peritoneal dialysis. He also underwent an AV fistulogram of the left upper extremity. Finding showed no stenosis. The access may just be deeper and for that reason, the cannulation previously was not successful. 3. We will again re-attempt to use the AV fistula once he gets back to the outpatient clinic. Overall agree with current management. Job ID: [id number]
--- NOTE | 2018-10-15 01:19 | DIS ---
DATE OF ADMISSION: 10/08/2018 DATE OF DISCHARGE: 10/14/2018 ADMISSION DIAGNOSES: 1. Severe cellulitis, bilateral legs, failed outpatient therapy. 2. End-stage renal disease, on dialysis. 3. Drug rash. 4. Diarrhea. 5. Uncontrolled type 2 diabetes with hypoglycemia. 6. Anxiety, depression. DISCHARGE DIAGNOSES: 1. Cellulitis, improved. 2. Open wounds, improved. 3. End-stage renal disease. 4. Hypothyroidism. 5. Hypoglycemia, resolved. 6. Drug rash, improved. CONSULTATIONS: Dr. Tuttle for Nephrology, Dr. Vargas for Infectious Disease. PROCEDURES: IV antibiotics, abdominal CT, thyroid ultrasound, AV shunt angiogram. HOSPITAL COURSE: This is a 53-year-old gentleman with a history of severe infections including MRSA, Rodrigo disease, Charcot foot with gangrene, who presented to the emergency department with worsening skin infections of his left lower leg and right stump. He failed outpatient therapy with antibiotics. He became more and more weak and was admitted for IV broad-spectrum antibiotics for cellulitis and rule out sepsis. He had slow improvement of the infection with IV vancomycin and Zosyn. Dr. Vargas saw the patient in evaluation and upon review of the patient, he agreed with broad-spectrum antibiotics and then gradually switched him to oral penicillin for likely strep erysipelas of his legs. Wound care was caring for the open wounds likely from excoriations from his scratching. He had developed a drug rash, possibly from cephalosporins. Those antibiotics were discontinued and this improved with topical steroids. Due to his fatigue, thyroid was checked. He was found to be hypothyroid with elevated TSH and low T3. He tolerated the initiation of [place] Thyroid therapy. He continued to have gradual improvement both of his mood and energy as well as the rash, the swelling of his left leg improved. He tolerated switching to oral antibiotics. He did have 2-3 days of hypoglycemia. When his appetite was decreased, his insulin level was decreased and his sugar levels stabilized. His appetite continued to improve and he was able to wean off the dextrose IV and tolerating just oral diet and was stable for discharge on the day of discharge. He did have AV fistulogram in case he goes back to hemodialysis and cystogram was normal per Radiology. He was discharged home in good condition. DISCHARGE PHYSICAL EXAMINATION: VITAL SIGNS: Temperature 97.6, pulse is 79, respirations 16, blood pressure 136/67, and pulse ox 92% to 97% on room air. GENERAL: He is awake and alert. No acute distress. Speech is clear. NECK: Supple. Mucosa is moist. HEART: Regular rate and rhythm. LUNGS: Clear. ABDOMEN: Soft. EXTREMITIES: With no edema. SKIN: With resolving rash on his left leg and right stump. Open wounds are healing, but continued to be red and inflamed. Abdominal wall with resolving rash, continues to have some scaliness and pink but no maculopapular lesions anymore. DISCHARGE LABORATORY DATA: White blood cell count 12,200, hemoglobin and hematocrit 10.1 and 34, platelets of 443. Accu-Cheks of 167, 171, 61, 16. DISCHARGE MEDICATIONS: 1. Amlodipine 10 mg. 2. Betamethasone topical b.i.d. 3. Calcitriol 0.25 mcg daily. 4. Tums b.i.d. 5. Collagenase topical for wound care. 6. Valium p.r.n. back strain. 7. Benadryl p.r.n. itching. 8. Cymbalta 60 mg daily. 9. Procrit weekly. 10. Iron sulfate 325 b.i.d. 11. Gentamicin t.i.d. topically for 1 more week to open wounds. 12. Hydralazine 50 mg t.i.d. 13. Insulin glargine 15 units once daily. 14. Losartan 100 mg daily. 15. Protonix 40 mg daily. 16. Penicillin VK 250 mg t.i.d. for 14 days. 17. Florastor once daily. 18. [place] Thyroid 30 mg daily. 19. Tramadol p.r.n. pain. FOLLOWUP INSTRUCTIONS: The patient to follow up in my office in 1 week, with Dr. Tuttle in 1 to 2 weeks, and Dr. Vargas in 2 weeks. Job ID: [id number]
== END 2018-10-14 10:26 | disposition home or self-care (01) | DRG 602 ==
LOC: ERS 14:06 → T4-B 17:00
PROVIDERS: ADMIT Family Medicine; ATTEND Family Medicine
DX: L03.116 Cellulitis of left lower limb (principal); N18.6 End stage renal disease; I12.0 Hypertensive chronic kidney disease with stage 5 chronic kidney disease or end stage renal disease; T82.590A Other mechanical complication of surgically created arteriovenous fistula, initial encounter; E78.5 Hyperlipidemia, unspecified; K21.9 Gastro-esophageal reflux disease without esophagitis; E11.51 Type 2 diabetes mellitus with diabetic peripheral angiopathy without gangrene; R19.7 Diarrhea, unspecified; E11.22 Type 2 diabetes mellitus with diabetic chronic kidney disease; D64.9 Anemia, unspecified; L27.0 Generalized skin eruption due to drugs and medicaments taken internally; T50.905A Adverse effect of unspecified drugs, medicaments and biological substances, initial encounter; E83.51 Hypocalcemia; Z98.890 Other specified postprocedural states; Z79.899 Other long term (current) drug therapy; Z79.84 Long term (current) use of oral hypoglycemic drugs; Z79.4 Long term (current) use of insulin; Z99.2 Dependence on renal dialysis
CPT/HCPCS: 36415; 36416; 36901; 74177; 76536; 76937; 80048; 80053; 80074; 80202; 82533; 83605; 83970; 84439; 84443; 84481; 84681; 85025; 85610; 85730; 86376; 86800; 87040; 87045; 87046; 87324; 87449; 87899; 90945; G0257; J1200; J1644; J1650; J1825; J2543; J2930; J3370; J3490; J7050; Q0162; Q5105

== ENCOUNTER 2018-10-29 12:54 | Inpatient (IN) | payer BC ==
[~2018-10-29 12:54] MED LIST: ISOVUE-370 76%-LOCM 1 ML ONE
[2018-10-29] MEDS ORDERED: Piperacillin/Tazobactam 4.5 GM VIAL ONE (14:29)
[2018-10-29 14:41] LABS: #Basophils 0.1 thou/uL (0.0-0.2); #Eosinphils 0.5 thou/uL (0.0-0.7); #Lymphocytes 0.7 thou/uL (1.20-3.40); #Monocytes 0.7 thou/uL (0.11-0.59); #Neutrophils 13.6 thou/uL (1.40-6.50); %Basophils 0.5 % (0.0-1.0); %Eosinophils 3.1 % (0.0-10.0); %Lymphocytes 4.5 % (21.0-51.0); %Monocytes 4.3 % (0.0-10.0); %Neutrophils 87.7 % (42.0-75.0); Hemoglobin 8.1 g/dL (14.0-18.0); Mean Corpuscular HGB CONC 32.7 g/dL (32.0-36.0); Mean Corpuscular Hemoglobin 29.3 pg (27.0-31.0); Mean Corpuscular Volume 89.5 fL (78.0-98.0); Mean Platelet Volume 7.4 fL (7.4-10.4); Platelet Count 327 thou/uL (130-400); RBC Distribution Width 16.5 % (11.5-14.5); Red Blood Cell (RBC) Count 2.78 mill/uL (4.70-6.10); White Blood Cell (WBC) Count 15.5 thou/uL (4.8-10.8)
[2018-10-29 15:14] LABS: ALT (SGPT) 15 U/L (8-55); AST (SGOT) 14 U/L (5-34); Albumin 2.4 g/dL (3.5-5.0); Alkaline Phosphatase 132 U/L (40-150); Anion Gap 22 mmol/L (10-20); Bilirubin, Total 0.4 mg/dL (0.2-1.2); Calc. Creatinine Clearance 0 mL/min (70-130); Calcium 6.9 mg/dL (7.8-10.44); Carbon Dioxide 13 mmol/L (22-29); Chloride 99 mmol/L (98-107); Estimated GFR-MDRD 6; Globulin 3.3 g/dL (2.4-3.5); Glucose 135 mg/dL (70-105); Potassium 4.3 mmol/L (3.5-5.1); Protein, Total 5.7 g/dL (6.0-8.3); Sodium 130 mmol/L (136-145)
[2018-10-29 15:25] LABS: BUN (Urea Nitrogen) 133 mg/dL (8.4-25.7)
[2018-10-29] MEDS ORDERED: diphenhydrAMINE 50 MG/ML VIAL ONE (16:23)
--- NOTE | 2018-10-29 17:03 | CT ---
CTA ABDOMEN AND PELVIS AND LOWER EXTREMITIES: 10/29/18 Axial tomograms obtained following angio protocol with multiplanar reconstructions and 3D post proces sing. INDICATIONS: Lower extremity pain and edema. Redness. BK amputation on the right. FINDINGS: Suboptimal evaluation due to body habitus and soft tissue attenuation. Arterial opacification is subo ptimal especially in the extremities. The abdominal aorta shows no evidence of aneurysm. Major abdominal arteries including celiac artery, superior mesenteric, and renal arteries are patent without evidence of significant stenosis. Aortic bifurcation is patent. Left lower extremity: Left common iliac appears patent. Left internal and external iliacs are patent with atherosclerotic changes seen in the internal iliac. Left common femoral is patent. Diffuse calcification with numerous areas of stenosis throughout the left superficial femoral artery. Left profunda is patent with diffuse calcification. The popliteal is patent with calcification and focal areas of stenosis. The popliteal trifurcates. The arteries below the knee are densely calcified and patency cannot be ad equately assessed due to the dense calcification throughout these arteries. Right lower extremity: The right common iliac and internal and external iliacs are patent. The right common femoral is patent. There is calcification involving the right superficial femoral artery and profunda. Areas of stenosis throughout the right SFA and popliteal. BK amputation below the knee on the right. Soft tissues: Right pleural effusion, some of which may be loculated. Dense right basilar atelectasis or consolidat ion. Small left effusion. Liver, spleen and pancreas unremarkable. Kidneys unremarkable. Bowel loops appear normal caliber. Peritoneal catheter enters at the lower left abdomen. There is calcific density seen layering dependently in a mildly distended gallbladder consistent with gallstones. Images of the lower extremities show diffuse edema throughout the subcutaneous adipose tissue consist ent with anasarca. IMPRESSION: 1. Suboptimal CT angiogram of the lower extremities due to dense arterial calcification and subo ptimal arterial opacification. Suboptimal evaluation of the abdominal arteries due to soft tissue att enuation from body habitus. Diffuse atherosclerotic changes and stenosis throughout both superficial femoral arteries as described above. 2. Right pleural effusion with dense right basilar atelectasis and consolidation. This effusion does not layer dependently and may be partially loculated. 3. Cholelithiasis. POS: OFF
[2018-10-29] MEDS: Sodium Chloride 0.9% 1,000 ML IV SCH ×2 (20:53→22:20)
[2018-10-29] MEDS: Gentamicin TOPICAL Ointment 0.1% 15 gm Tube TOP SCH ×2 (21:28→22:33)
[2018-10-29 21:29] VITALS: BMI 37.5
[2018-10-29] MEDS ORDERED: Dextrose 50% Abboject 50 ML SYRINGE IVP PRN (21:59)
[2018-10-29] MEDS ORDERED: Dextrose 5% in Water 1,000 ML IV PRN (21:59)
[2018-10-29] MEDS ORDERED: Piperacillin/Tazobactam 2.25 GM in Sodium Chloride 0.9% 100 ML IVPB SCH (22:00)
[2018-10-29] MEDS: Piperacillin/Tazobactam 2.25 GM in Sodium Chloride 0.9% 100 ML IVPB SCH (22:19)
[2018-10-29] MEDS ORDERED: Amitriptyline HCl 25 MG TAB PO SCH (22:30)
[2018-10-29] MEDS ORDERED: Calcium Carbonate 500 MG ChewTAB PO SCH (22:30)
--- NOTE | 2018-10-29 22:37 | RAD ---
EXAM: Single view of the chest HISTORY: Cough COMPARISON: 03/17/2018 FINDINGS: Single view of the chest shows an enlarged but stable cardiomediastinal silhouette. There is a small to moderate right pleural effusion. No consolidation is seen. The bones are unremarkable. IMPRESSION: Cardiomegaly and right pleural effusion
[2018-10-30] MEDS: Sodium Chloride 0.9% 1,000 ML IV SCH ×2 (02:14→05:54)
--- NOTE | 2018-10-30 03:17 | HP ---
CHIEF COMPLAINT: Weakness with known infections. HISTORY OF PRESENT ILLNESS: This is a 53-year-old male patient of Dr. Dillon Hill, who was recently discharged from the hospital after a 6-day stay for Rodrigo gangrene and groin abscess I and D with worsening bilateral leg cellulitis. While at home, he fell, could not stand, could not get back up, became more weak, so was brought to emergency room by ambulance and gets peritoneal dialysis. In his recent admission, he was on vancomycin and Zosyn. The vancomycin was not continued this admission and it was just the Zosyn put on. His social problems are his parents live in [place] that is where he had been staying previously and he knows now that he cannot take care of himself at home, so he knows it is not safe for him to go home and eventually will need placement after this hospital stay. PAST MEDICAL HISTORY: Type 2 diabetes with retinopathy, neuropathy, nephropathy, severe peripheral vascular disease, coronary artery disease with a diabetic Charcot joint previously on the right leg which has been amputated now. 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 History of anxiety and depression. History of gastroparesis and periodic esophageal spasms. History of gastroesophageal reflux disease. Also chronic anemia due to renal failure and has end-stage renal disease from the diabetes and he is on peritoneal dialysis. Sees Dr. Tuttle. PAST SURGICAL HISTORY: I and D of scrotum and scrotal abscess due to Rodrigo gangrene. He has had multiple eye surgeries with Dr. Francisco for his diabetic retinopathy, peritoneal dialysis catheter in place. MEDICATIONS: Since late been on Lantus 24 units in the morning and 20 units in the evening. His discharge medicines from the previous admission shows: 1. Amlodipine 10 mg a day. 2. Betamethasone topical twice a day. 3. Calcitriol 0.25 mcg daily. 4. Tums b.i.d. 5. Collagenase topical for wound care. 6. Valium as needed for back strain. 7. Benadryl as needed for itching. 8. He has been on Cymbalta 60 mg daily. 9. He is on Procrit weekly injections. 10. He is on iron sulfate 325 mg b.i.d. 11. Gentamicin t.i.d. topically, stopped a week ago. The prescription was final. 12. Hydralazine 50 mg t.i.d. 13. He is on insulin glargine 15 units daily. 14. Losartan 100 mg daily. 15. Protonix 40 mg daily. 16. Penicillin VK 250 mg t.i.d., prescription is also finalized at its end. 17. He is on Florastor once daily. 18. He is on [place] Thyroid 30 mg daily. ALLERGIES: HIS ALLERGIES ARE TO METFORMIN AND LISINOPRIL. APPARENTLY ALSO HAD A BAD REACTION TO CEPHALEXIN. 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 Has no toxic habits. He has a joint residence, lives both here and also in [place] with his parents. FAMILY HISTORY: There is diabetes and hypertension throughout his family. REVIEW OF SYSTEMS: Denied any headaches. His chronic visual disturbance is nothing new with his eye problems. No troubles with hearing. Denies any troubles chewing. Has chronic intermittent trouble swallowing. Denies any chest pain or shortness of breath. His abdomen is mid and protuberant, but he has been getting peritoneal dialysis. Denies any changes in bowel habits. No dysuria or hematuria. No constipation or diarrhea. His legs, right leg has BKA. His left leg is intact, but he has wounds on skin of both legs. His left leg is definitely pink and indurated throughout the leg. There is multiple surface vascular insufficiency type wounds on the left leg and they are not painful due to his neuropathy. He has a healing wound to his groin from an I and D of an abscess several weeks ago. Neurologically, he has weakness in strength of both upper and lower extremities, 3/5 strength, maximal at best. He has some sensation to his left foot to touch and proprioception. He is alert and oriented x4. PHYSICAL EXAMINATION: VITAL SIGNS: His temperature is 97.5, pulse 84, respirations 20, O2 sats 96%, BP is 178/80. HEENT: His pupils are round, reactive to light and accommodation, but sluggish. Mucosa is dry. He has anicteric sclera. NECK: Supple. No JVD. No bruits. No thyromegaly. LUNGS: Bibasilar rales but poor respiratory effort. HEART: S1 and S2 with no rubs, murmurs, or gallops. ABDOMEN: Protuberant. Peritoneal dialysis is currently being done. Bowel sounds are hypoactive. EXTREMITIES: Superficial wounds throughout the left leg down, definitely getting worse below the knee and to the foot, and he has thickening of the skin when he gets to the foot closer to the toes. His left leg is [id number] amputation and above the knee, there are some similar wounds to the skin. His groin has a healing abscess incision and drainage wound. NEUROLOGIC: He is alert and oriented x4. Cranial nerves 2 through 12 are equal and symmetrical. Sensation to his left leg is diminished, but he does sense touch to his feet and has some proprioception. Strength is diminished, 3/5 at best on upper extremities and lower extremities. PSYCHIATRIC: Psychologically, he denies any hallucinations, auditory or visual. He is alert and oriented x4, has fairly good judgment, states he is aware that he is not able to take care of himself at home. I think he is going to need to have some type of placement after this hospital stay. LABORATORY DATA: His white count is 15,500 with a hemoglobin of 8.1, hematocrit 24.9, platelet count of 324,000, neutrophils 87%, lymphocytes at 4.5. Chemistry shows sodium 130, potassium 4.3, chloride 99, bicarb is 13, BUN is 133, creatinine is 9.36. GFR is estimated at 6, glucose of 135, lactic acid was 1.0, calcium 6.9, AST is 14, ALT is 15. He had an aorta CT angiogram or arteriogram with runoff, which showed dense arterial calcification throughout the left lower extremity. The iliac was patent. Internal and external iliacs showed atherosclerotic changes in the internal iliac. Left common femoral artery was patent with diffuse calcifications in numerous areas of stenosis throughout the left superficial femoral artery. The left profunda is patent, but with diffuse calcifications. The popliteal is patent with calcifications and focal areas of stenosis throughout the popliteal trifurcate and the arteries below the knee are densely calcified with poor patency and difficult to assess how much patency due to the denseness of the calcification throughout the arteries. He also was found on the CT scan to have a right pleural effusion with some dense atelectasis, also having found an incidental gallstone. This peritoneal catheter was in the left lower abdominal space. ASSESSMENT: General debility, weakness, chronic cellulitis, chronic peripheral artery disease with worsening progression, mild hyponatremia, end-stage renal disease on peritoneal dialysis. He is maintaining and continuing that elevated white count, chronic anemia with no bandemia seen. PLAN: Readmit to the hospital, restart IV antibiotics. We will ask Vascular Surgery to come by given evaluation of the viability of his left lower leg. We will also ask for Wound Care to do TCOMs. Dr. Tuttle from Nephrology has already been consulted to maintain his peritoneal dialysis. Dr. Hill for the holiday and Dr. Yee will see him in the morning and Dr. Livingston will see him throughout the weekend. Job ID: [id number]
[2018-10-30 05:17] LABS: #Basophils 0.1 thou/uL (0.0-0.2); #Eosinphils 0.9 thou/uL (0.0-0.7); #Lymphocytes 0.7 thou/uL (1.20-3.40); #Monocytes 0.7 thou/uL (0.11-0.59); #Neutrophils 12.8 thou/uL (1.40-6.50); %Basophils 0.8 % (0.0-1.0); %Eosinophils 5.9 % (0.0-10.0); %Lymphocytes 4.7 % (21.0-51.0); %Monocytes 4.7 % (0.0-10.0); %Neutrophils 83.9 % (42.0-75.0); Hemoglobin 7.7 g/dL (14.0-18.0); Mean Corpuscular HGB CONC 32.8 g/dL (32.0-36.0); Mean Corpuscular Hemoglobin 29.9 pg (27.0-31.0); Mean Corpuscular Volume 91.1 fL (78.0-98.0); Mean Platelet Volume 7.1 fL (7.4-10.4); Platelet Count 304 thou/uL (130-400); RBC Distribution Width 16.2 % (11.5-14.5); Red Blood Cell (RBC) Count 2.56 mill/uL (4.70-6.10); White Blood Cell (WBC) Count 15.2 thou/uL (4.8-10.8)
[2018-10-30 05:38] LABS: Anion Gap 23 mmol/L (10-20); CRP (Inflammatory) 8.14 mg/dL (= or < 0.5); Calc. Creatinine Clearance 17 mL/min (70-130); Calcium 6.5 mg/dL (7.8-10.44); Carbon Dioxide 12 mmol/L (22-29); Chloride 101 mmol/L (98-107); Estimated GFR-MDRD 6; Glucose 145 mg/dL (70-105); Potassium 3.7 mmol/L (3.5-5.1); Sodium 132 mmol/L (136-145)
[2018-10-30 05:49] LABS: BUN (Urea Nitrogen) 120 mg/dL (8.4-25.7)
[2018-10-30] MEDS: Piperacillin/Tazobactam 2.25 GM in Sodium Chloride 0.9% 100 ML IVPB SCH ×3 (05:54→22:12)
[2018-10-30] MEDS ORDERED: Calcium Carbonate 500 MG ChewTAB PO SCH ×2 (09:00)
[2018-10-30] MEDS: Ferrous Sulfate 325 MG TAB PO SCH ×2 (09:10→18:26)
[2018-10-30] MEDS: Losartan 25 MG TAB PO SCH (09:10)
[2018-10-30] MEDS: Amlodipine 10 MG TAB PO SCH (09:11)
[2018-10-30] MEDS: DULoxetine 60 MG CAP PO SCH (09:11)
[2018-10-30] MEDS: hydrALAZINE 25 MG TAB PO SCH ×3 (09:11→22:13)
[2018-10-30] MEDS: Calcitriol 0.25 MCG CAP PO SCH (09:12)
[2018-10-30] MEDS: Insulin Glargine 15 UNITS in Pre-Filled Syringe 1 EACH SC SCH (09:12)
[2018-10-30] MEDS ORDERED: Epoetin (ESRD) 20,000 UNITS/ML SC SCH (09:45)
--- NOTE | 2018-10-30 10:15 | PRG ---
DATE OF SERVICE: 10/30/2018 SUBJECTIVE: Mr. Ferrara is a 53-year-old white male with known history of ESRD, who was readmitted due to left leg cellulitis. He was also noted to be in mild volume overload. He is not able to do his peritoneal dialysis adequately since he needs some support. He currently lives in [place] intermittently. The patient voices no other complaints. I have a discussion about considering converting to hemodialysis. He is still uncertain about it. He had a left AV fistulogram that was done recently and was shown to be patent. However, there was difficulty cannulating it due to the small size. He may need a surgical referral for possible revision? No other complaints today. No chest pain or shortness of breath. OBJECTIVE: VITAL SIGNS: Blood pressure is 172/80, heart rate 80, respiratory rate 20, temperature 97.8, and pulse ox 93%. GENERAL: Noted to be awake, supine, comfortable, not in distress. SKIN: Adequate turgor. HEENT: Slightly pale conjunctivae. Anicteric sclerae. No neck mass. No carotid bruits. Positive for periorbital edema. LUNGS: Decreased breath sounds. HEART: Normal sinus rhythm. No murmur. No gallops or rubs. ABDOMEN: Globular, soft, nontender. No masses. Positive for PD catheter. EXTREMITIES: No edema. Left leg dressing. NEUROLOGICAL: Awake, oriented to 3 spheres. Moving all extremities. No tremors. No asterixis. MEDICATIONS: Medication of October 30, 2018, was reviewed. LABORATORY DATA: Laboratories of October 30, 2018, white count 15.2, hemoglobin 7.7, sodium 132, potassium 3.7, chloride 101, carbon dioxide 12, BUN is 120, creatinine 8.73, glucose 145, calcium is 6.5. ASSESSMENT AND PLAN: 1. End-stage renal disease, stable. The patient has missed doing peritoneal dialysis due to inability to leave off the heavy plugs. I did discuss about considering hemodialysis. He would like to think about it. His last Kt/V showed a borderline Kt/V due to noncompliance with the peritoneal dialysis. 2. Anemia. Start Epogen 29849 units subcu q.week, ferrous sulfate 325 mg tablet b.i.d. 3. Left leg cellulitis, on IV antibiotics. 4. Hypocalcemia. Consider starting the patient on Tums. 5. He will also continue his calcitriol dosing. 6. Recheck basic metabolic CBC and phosphorus in a.m. as well as the PTH. 7. The patient underwent peritoneal dialysis last night without any difficulty. We will continue current peritoneal dialysis regimen. Job ID: [id number]
--- NOTE | 2018-10-30 11:35 | PRG ---
DATE OF SERVICE: 10/30/2018 cellulitis of the left leg . Job ID: [id number]
[2018-10-30] MEDS: Calcium Carbonate 500 MG ChewTAB PO SCH ×2 (11:40→18:26)
[2018-10-30] MEDS: Betamethasone 0.1% Cream 15 GM TUBE TOP SCH ×2 (11:40→22:19)
--- NOTE | 2018-10-30 11:41 | PRG ---
DATE OF SERVICE: 10/30/2018 SUBJECTIVE: The patient was admitted last night by Dr. Alicea. He is a patient of Dr. Hill. He has known history of peripheral vascular disease. He is status post right lower extremity amputation. He was admitted due to recurrent cellulitis of the left lower extremity. He apparently had been in the hospital for this last week. Additionally, he has been noted to have a groin abscess. Nurses have pointed out to me that there is some purulent drainage of the penile are. He reports today, he is feeling tired. He reports no fever. No nausea, vomiting, or diarrhea. No other medical complaints are noted. OBJECTIVE: VITAL SIGNS: Temperature 97.8, pulse 80, respirations 20, O2 saturation 93%, and blood pressure 172/80. GENERAL: He is alert, does not appear in any distress. LUNGS: Clear. HEART: Reveals no murmur. Regular rate and rhythm. No murmurs, gallops, or rubs. ABDOMEN: Soft. Bowel sounds are present. It is some protuberant. There is no tenderness noted. EXTREMITIES: In the left lower extremity, he is covered in a wound gauze today. Penile area does show an area of redness with some purulent drainage to the glans and shaft of penis. There is some secondary swelling. LABORATORY DATA: His white blood count is 15.2, hemoglobin 7.7, and hematocrit 23.3. Sodium 132, potassium 3.7, chloride 101, CO2 of 12, BUN 20, and creatinine 8.73. IMPRESSION: 1. Cellulitis of the left lower extremity. 2. Apparent penile infection of unknown etiology. PLAN: The patient is currently on Zosyn at this time. We will continue that. We will go ahead and get Infectious Disease consult as well as Urology consult for further treatment recommendations. At this time, we will continue Zosyn. I have asked the nurse to do some hygiene management of the penile area. Job ID: [id number]
[2018-10-30] MEDS: EPOETIN ALFA-EPBX (ESRD) 10,000 UNIT/ML VIAL SC SCH (11:43)
[2018-10-30] MEDS: Ondansetron PF 4 MG/2 ML Vial IVP PRN (12:33)
--- NOTE | 2018-10-30 17:47 | CON ---
DATE OF CONSULTATION: 10/30/2018 HISTORY OF PRESENT ILLNESS: Mr. Ferrara is a 53-year-old gentleman, who has been on chronic peritoneal dialysis for end-stage renal disease. He is status post right below-knee amputation in the past-it is unclear to me what the reason for his amputation was. I have tried to have a discussion with the patient, but he is nauseated and does not feel like talking at this point. I was asked to see him for left leg ulcers. He has recently been in the hospital with Rodrigo gangrene and is receiving IV antibiotics. He says ulcers have been present for a period of time, but again, he is not willing to have an extended discussion. He has a wrap on his leg from the knee to the ankle. This wrap was removed and he has thickened venous stasis type skin with ulcerations over the anterior tibial area. He has palpable dorsalis pedis pulse in his foot. PAST MEDICAL HISTORY: 1. End-stage renal disease with chronic hemodialysis. 2. Type 2 diabetes mellitus. 3. Neuropathy. 4. Nephropathy. 5. Retinopathy. 6. Peripheral vascular disease. 7. Coronary artery disease. 8. Dyslipidemia. 9. History of Rodrigo gangrene. 10. Depression and anxiety. 11. Gastroparesis. 12. Gastroesophageal reflux disease. PAST SURGICAL HISTORY: 1. I and D of the scrotum. 2. Multiple retinal procedures. MEDICATIONS: Noted. ALLERGIES: NONE. 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 PHYSICAL EXAMINATION: GENERAL: This is an obese man resting in bed. Nauseated and occasionally vomiting. CHEST: Clear. ABDOMEN: Obese and soft. EXTREMITIES: His right extremity has multiple areas that have dressings on it. The stump is healed. On his left leg, the wrap was removed and he has chronic venous stasis changes with ulceration, which will need an Unna boot applied tomorrow. VASCULAR: He has palpable pedal pulse on the left. ASSESSMENT AND PLAN: Venous stasis disease Job ID: [id number]
--- NOTE | 2018-10-30 21:51 | CON ---
DATE OF CONSULTATION: 10/30/2018 REASON FOR CONSULTATION: Penile infection. HISTORY OF PRESENT ILLNESS: Mr. Ferrara is a 53-year-old male on peritoneal dialysis for end-stage renal disease. He has multiple chronic medical problems including type 2 diabetes, severe peripheral vascular disease, end-stage renal disease, coronary artery disease, and history of Rodrigo gangrene in the past. The patient is status post right [id number] amputation and he has had several episodes of lower extremity cellulitis and was recently hospitalized for this. The patient was readmitted for this and is currently on IV Zosyn. The patient denies any penile pain. He states that given his obesity, he is unable to see his penis. He reports having surgery for Rodrigo gangrene approximately 20 years ago. He makes very little urine. He currently has no urologic complaints. REVIEW OF SYSTEMS: The patient is somewhat uncooperative in answering questions and therefore complete review of systems was not performed. PAST MEDICAL HISTORY: End-stage renal disease on peritoneal dialysis, type 2 diabetes mellitus, peripheral neuropathy, retinopathy, peripheral vascular disease, coronary artery disease, dyslipidemia, depression and anxiety, gastroparesis, gastroesophageal reflux disease. PAST SURGICAL HISTORY: I and D of the scrotum, multiple retinal procedures, placement of peritoneal dialysis catheter, [id number] amputation. MEDICATIONS: See home medication list. These were reviewed. There are no changes. ALLERGIES: KEFLEX, METFORMIN, AND LISINOPRIL. 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 FAMILY HISTORY: Noncontributory. PHYSICAL EXAMINATION: VITAL SIGNS: Temperature is 97.4, pulse 85, respirations 18, oxygen saturation 93% on room air, blood pressure 137/70. GENERAL: He is alert and oriented x3, in no apparent distress. HEENT: Normocephalic, atraumatic. CARDIOVASCULAR: Regular rate and rhythm. PULMONARY: Breathing unlabored. ABDOMEN: Obese, soft, nontender, and nondistended. No masses or organomegaly. Peritoneal dialysis catheter in place. No suprapubic tenderness to palpation. No CVA tenderness. GENITOURINARY: Circumcised penis. Dorsally, there are two areas of necrotic tissue approximately 5 mm in diameter each. The tissue easily slop soft. There is no surrounding erythema, induration, fluctuance, or purulence. Scrotum is normal. Testes atrophied, but otherwise normal. EXTREMITIES: Right [id number] amputation. Left lower extremity with multiple venous stasis ulcers. NEUROLOGIC: No focal deficits. LABORATORY DATA: White blood cell count 15.2, hemoglobin 7.7, hematocrit 23.3, platelets 304. Sodium 132, potassium 3.7, chloride 101, bicarb 12, BUN 120, creatinine 8.73. ASSESSMENT: A 53-year-old male with multiple medical problems and no evidence of penile infection. PLAN: The patient does not appear to have active infection. He has signs of chronic inflammation subcoronally and has two areas of necrotic tissue, which are usually sloughing off. There is no evidence of surrounding infection. There is no indication for urologic intervention at this time. Instructed the patient to clean this twice a day with warm soapy water. Job ID: [id number]
[2018-10-30] MEDS: Amitriptyline HCl 25 MG TAB PO SCH (22:13)
[2018-10-30] MEDS: Gentamicin TOPICAL Ointment 0.1% 15 gm Tube TOP SCH (22:19)
[2018-10-31] MEDS: Ondansetron PF 4 MG/2 ML Vial IVP PRN (04:20)
[2018-10-31 05:16] LABS: #Basophils 0.1 thou/uL (0.0-0.2); #Eosinphils 0.5 thou/uL (0.0-0.7); #Lymphocytes 0.8 thou/uL (1.20-3.40); #Monocytes 0.8 thou/uL (0.11-0.59); #Neutrophils 10.8 thou/uL (1.40-6.50); %Basophils 0.5 % (0.0-1.0); %Eosinophils 3.6 % (0.0-10.0); %Lymphocytes 6.3 % (21.0-51.0); %Monocytes 6.1 % (0.0-10.0); %Neutrophils 83.4 % (42.0-75.0); Hemoglobin 7.8 g/dL (14.0-18.0); Mean Corpuscular HGB CONC 31.7 g/dL (32.0-36.0); Mean Corpuscular Hemoglobin 28.9 pg (27.0-31.0); Mean Corpuscular Volume 91.4 fL (78.0-98.0); Mean Platelet Volume 7.3 fL (7.4-10.4); Platelet Count 338 thou/uL (130-400); RBC Distribution Width 16.4 % (11.5-14.5)
[2018-10-31 05:41] LABS: Anion Gap 22 mmol/L (10-20); Calc. Creatinine Clearance 16 mL/min (70-130); Carbon Dioxide 16 mmol/L (22-29); Chloride 101 mmol/L (98-107); Estimated GFR-MDRD 6; Glucose 135 mg/dL (70-105); Potassium 3.8 mmol/L (3.5-5.1); Sodium 135 mmol/L (136-145)
[2018-10-31 05:45] LABS: Phosphorus 9.3 mg/dL (2.3-4.7)
[2018-10-31] MEDS: Piperacillin/Tazobactam 2.25 GM in Sodium Chloride 0.9% 100 ML IVPB SCH ×2 (05:48→13:37)
[2018-10-31 05:52] LABS: BUN (Urea Nitrogen) 123 mg/dL (8.4-25.7)
--- NOTE | 2018-10-31 08:34 | PRG ---
DATE OF SERVICE: 10/31/2018 SUBJECTIVE: The patient feels about the same. He continues to have some nausea and weakness. He is tolerating antibiotics and peritoneal dialysis. Continues to have poor appetite due to some nausea, improved from whenever he came in. Denies fevers or chills. Denies pain in his legs. Wound care did an evaluation 2 days ago. OBJECTIVE: VITAL SIGNS: Temperature 97.6, pulse is 78, respirations 16, blood pressure 152/80, pulse ox is 96% on room air. GENERAL: He is awake and alert, in no acute distress, resting comfortably. Mucosa is moist. NECK: Supple. HEART: Regular rate and rhythm. LUNGS: Distant. ABDOMEN: Protuberant, soft, nontender, and nondistended. Peritoneal dialysis catheter is in place. No sign of infection. EXTREMITIES: Left leg with chronic stasis ulcers. Minimal erythema. Some dried wounds. 1+ peripheral pulses on the left lower extremity. : Groin shallow penile granulation tissue. No redness. LABORATORY DATA: Accu-Cheks of 157, 142, 132. Sodium 135, potassium 3.8, chloride 101, CO2 of 16, BUN and creatinine 123 and 8.85 with a GFR of 6, calcium 7.0, phosphorus 9.3, albumin 2 days ago was 2.4. White blood cell count down to 13, 000, hemoglobin and hematocrit 7.8 and 24.7, platelets of 338. IMAGING STUDIES: Aorta runoff. CT angiogram was suboptimal, revealed diffuse atherosclerotic changes and stenosis of superficial femoral arteries. Did appear that the left common iliac was patent, left common femoral was patent, popliteal calcifications and focal areas of stenosis. ASSESSMENT AND PLAN: This is a 53-year-old gentleman with end-stage diabetes with retinopathy, nephropathy, neuropathy, severe peripheral vascular disease, admitted with chronic left leg wound, penile ulcerations, and failure to thrive. 1. Chronic left leg wounds. We will continue wound care and Unna boots as per Dr. Yee. Dr. Vargas to evaluate and give recommendation on antibiotic therapy 2. End-stage renal disease on peritoneal dialysis with hypocalcemia, hypophosphatemia, and chronic anemia. Appreciate Dr. Tuttle's assistance, and we will continue recommendations as per him. 3. Chronic wound. Wound care to provide dressing changes. Likely some component of arterial insufficiency preventing healing. May be able to switch back to oral antibiotics. 4. Chronic depression. No longer improved with Cymbalta. We will add Wellbutrin at this time. 5. Type 2 diabetes. Continue meds and tight glucose control. 6. Disposition. Consult Case Management for placement. We will likely need a detention facility until his wounds are cleared and he is stronger. Consult PT evaluation as well. Job ID: [id number] [facility]TD[facility]
--- NOTE | 2018-10-31 09:24 | PRG ---
DATE OF SERVICE: 10/31/2018 SUBJECTIVE: Mr. Ferrara is a 53-year-old white male with ESRD from diabetic nephropathy admitted for left leg cellulitis. We are following this patient for his maintenance peritoneal dialysis. He is currently receiving IV antibiotics. No new complaints today. He denies any chest pain or shortness of breath. OBJECTIVE: VITAL SIGNS: Blood pressure is 152/80, heart rate 78, respiratory rate 16, temperature 97.6, pulse ox 96%. GENERAL: Noted to be awake, alert, comfortable, not in overt distress. SKIN: Adequate turgor. HEENT: He has slightly pale conjunctivae. Anicteric sclerae. No neck mass. No carotid bruits. No JVD. CHEST: No deformities. LUNGS: Clear breath sounds. HEART: Normal sinus rhythm. No murmur. No gallops. No rubs. ABDOMEN: Globular, soft, nontender. No masses. EXTREMITIES: Positive for edema. Positive for left leg dressing. MEDICATIONS: Medications of October 31, 2018, reviewed. LABORATORY DATA: Laboratories of October 31, 2018, sodium 135, potassium 3.8, chloride 101, carbon dioxide 16, BUN 123, creatinine 8.85, glucose 135, calcium is 7, phosphorus 9.3, PTH 443. ASSESSMENT AND PLAN: 1. End-stage renal disease-stable. I will probably adjust the time with this patient. Considering extending his dialysis time by another 0.5 hour to 1 hour. Continue the 2 L of fill volume as tolerated and increase if needed. 2. Anemia. Started on weekly Epogen. 3. Hyperphosphatemia/hypocalcemia-Tums 1000 mg one tablet t.i.d. with meals was started. In addition, I have decided to start also Renvela 800 mg 3 tablets t.i.d. with meals. Please note, this patient has history of noncompliance. 4. Left leg cellulitis on IV antibiotics. ID following. Job ID: [id number]
[2018-10-31] MEDS: hydrALAZINE 25 MG TAB PO SCH ×3 (11:08→22:07)
[2018-10-31] MEDS: Calcium Carbonate 500 MG ChewTAB PO SCH ×3 (11:08→17:04)
[2018-10-31] MEDS: Sevelamer Carbonate 800 MG TAB PO SCH ×3 (11:09→17:04)
[2018-10-31] MEDS: Losartan 25 MG TAB PO SCH (11:10)
[2018-10-31] MEDS: Ferrous Sulfate 325 MG TAB PO SCH ×2 (11:10→17:04)
[2018-10-31] MEDS: DULoxetine 60 MG CAP PO SCH (11:10)
[2018-10-31] MEDS: Bupropion 100 MG SR TAB PO SCH (11:11)
[2018-10-31] MEDS: Insulin Glargine 15 UNITS in Pre-Filled Syringe 1 EACH SC SCH (11:11)
[2018-10-31] MEDS: Amlodipine 10 MG TAB PO SCH (11:17)
[2018-10-31] MEDS: Calcitriol 0.25 MCG CAP PO SCH (11:17)
[2018-10-31] MEDS: Betamethasone 0.1% Cream 15 GM TUBE TOP SCH (15:27)
--- NOTE | 2018-10-31 16:43 | CON ---
DATE OF CONSULTATION: 10/31/2018 REASON FOR CONSULT: Penile and leg changes, concern with cellulitis. HISTORY OF PRESENT ILLNESS: A 53-year-old known to me from prior visits. History of type 2 diabetes, neuropathy and retinopathy, hypertension, Charcot arthropathy, and prior right BKA, who I had last saw him with erythematous changes in the left leg as well as hypersensitivity reaction in the remainder aspects of his body skin due to cephalosporin. He was treated with antimicrobials for a while and released after improvement. He has had difficulty with his dialysis. He cannot lift his peritoneal dialysis bags to the machine, so he is doing them manually and it has a hard time in completing the treatments on a daily basis. He has to run through five bags a day and sometimes is not doing all the bags and I think that is contributing to the way he is feeling right now. Dr. Tuttle has mentioned the possibility of switching him back to hemodialysis, but I do not think he is interested in that just yet. This time, he is back in the hospital because of the leg changes, which includes erythema and I think, in addition to that he is just feeling poorly in general with nausea and intermittent vomiting. No headaches. No change of visual symptoms. He has severe vision impairment from diabetic retinopathy. No sore throat, odynophagia, or dysphagia. He has quite a bit of dental decay and some pain intermittently. No back pain. No dyspnea or chest pain. No cough or sputum production. No abdominal pain. He has had intermittent loose stools. No bleeding. He was able to bear weight in his left lower extremity, but of late has become weak with increasing difficulty in weightbearing. 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 PAST SURGICAL HISTORY: Colonoscopy, I and D, scrotal abscess, peritoneal dialysis access placement, and BKA right side. ALLERGIES: METFORMIN. FAMILY HISTORY: Diabetes type 2. SOCIAL HISTORY: Lives with father in [place]. 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 Never smoker. CURRENT MEDICATIONS: 1. Elavil. 2. Norvasc. 3. Valisone. 4. Rocaltrol. 5. Tums. 6. Cymbalta. 7. Epoetin. 8. Feosol. 9. Garamycin. 10. Glucagon. 11. Insulin. 12. Losartan. 13. Mycostatin. 14. Zofran. 15. Zosyn. PHYSICAL EXAMINATION: VITAL SIGNS: Temperature has been normal. Other vital signs are within normal limits. O2 saturation 97. SKIN: Shows the very superficial scabbed over irregular ulcerations in the left leg. Surrounding it, there is this chronic area of hyperemia, which is about the same as it had been previously. He has an element of dermal atrophy, dermatosclerosis as well. There is an obvious toenail dystrophy. No lymphadenopathy. HEENT: Some element of blepharitis. The pupils are equal. No jugular vein distention. LUNGS: Symmetric air entry. HEART: S1 and S2. Regular rate. ABDOMEN: Soft, not distended. Peritoneal dialysis with normal-appearing exit site. EXTREMITIES: He is able to move all extremities, but he is diffusely weak. NEUROLOGIC: His cognitive function appears to be perfectly normal. LABORATORY DATA: His white cell count was 15,000 and now it is 13,000, hemoglobin 7.8, and platelets 338. Sodium 135, creatinine 8.85, BUN 123, potassium 3.8, phosphorus 9.3, and calcium 7.0. PTH was 443. His liver functions within normal findings. Albumin 2.4. Microbiology with 2 sets of blood cultures, no growth thus far. Also, he has an area of penile drainage, but no evidence of active infection at this point in time. Arterial ultrasound is pending at this time. There is a chest x-ray from admission with cardiomegaly and pleural effusion, but no infiltrates. There is an aortic CTA runoff and it shows a suboptimal angiogram due to dense arterial calcification and suboptimal arterial opacification. ASSESSMENT: 1. Type 2 diabetes. 2. Peripheral vascular disease. 3. Chronic ulcerations and erythema in the left lower extremity. 4. Recent hypersensitivity reaction to cephalosporin, which resolved. 5. Nausea, probably secondary to inadequate dialytic therapy due to technical issues in the home setting. DISCUSSION: This patient will have to resolve his inability to administer adequate peritoneal dialysis. Either, he will have to get an aide to help lift the bags into the machine, to be able to cycle all the bags that he needs on a daily basis or switch to hemodialysis. The left lower extremity, I believe is a combination of peripheral arterial insufficiency plus venous insufficiency. I think he does have a probably significant arterial insufficiency. In that regard, I am not ready yet to recommend compression dressing until we have the results of the arterial duplex ultrasound, since the CT angio with runoff was not technically readable. It is my bias that at this time, there is not unequivocal evidence of infectious process, but that there could be some element particularly in view of the leukocytosis. I do not think there is evidence to suggest peritonitis at this point in time and we will switch him to meropenem from Zosyn since it has better streptococcal coverage and see how he does. Job ID: [id number] [facility]
[2018-10-31] MEDS ORDERED: Nystatin Cream 30 GM TUBE TOP SCH (21:00)
[2018-10-31] MEDS: Amitriptyline HCl 25 MG TAB PO SCH (22:07)
[2018-10-31] MEDS: Nystatin Powder 15 GM BOT TOP SCH (22:08)
[2018-10-31] MEDS: Gentamicin TOPICAL Ointment 0.1% 15 gm Tube TOP SCH (23:08)
[2018-10-31] MEDS ORDERED: Gentamicin TOPICAL Ointment 0.1% 15 gm Tube TOP PRN (23:19)
[2018-11-01 04:31] LABS: #Basophils 0.1 thou/uL (0.0-0.2); #Eosinphils 0.7 thou/uL (0.0-0.7); #Lymphocytes 0.8 thou/uL (1.20-3.40); #Monocytes 0.9 thou/uL (0.11-0.59); #Neutrophils 10.6 thou/uL (1.40-6.50); %Basophils 0.6 % (0.0-1.0); %Eosinophils 5.7 % (0.0-10.0); %Lymphocytes 6.1 % (21.0-51.0); %Monocytes 6.9 % (0.0-10.0); %Neutrophils 80.8 % (42.0-75.0); Hemoglobin 8.6 g/dL (14.0-18.0); Mean Corpuscular HGB CONC 32.1 g/dL (32.0-36.0); Mean Corpuscular Hemoglobin 29.4 pg (27.0-31.0); Mean Corpuscular Volume 91.6 fL (78.0-98.0); Mean Platelet Volume 7.1 fL (7.4-10.4); Platelet Count 327 thou/uL (130-400); RBC Distribution Width 16.2 % (11.5-14.5); Red Blood Cell (RBC) Count 2.94 mill/uL (4.70-6.10); White Blood Cell (WBC) Count 13.1 thou/uL (4.8-10.8)
[2018-11-01 05:03] LABS: ALT (SGPT) 9 U/L (8-55); AST (SGOT) 6 U/L (5-34); Albumin 2.3 g/dL (3.5-5.0); Alkaline Phosphatase 99 U/L (40-150); Anion Gap 22 mmol/L (10-20); BUN (Urea Nitrogen) 120 mg/dL (8.4-25.7); Bilirubin, Total 0.4 mg/dL (0.2-1.2); Calc. Creatinine Clearance 16 mL/min (70-130); Calcium 6.8 mg/dL (7.8-10.44); Carbon Dioxide 16 mmol/L (22-29); Chloride 101 mmol/L (98-107); Estimated GFR-MDRD 6; Globulin 3.2 g/dL (2.4-3.5); Glucose 165 mg/dL (70-105); Potassium 3.7 mmol/L (3.5-5.1); Protein, Total 5.5 g/dL (6.0-8.3); Sodium 135 mmol/L (136-145)
[2018-11-01] MEDS: Fluconazole 100 MG TAB PO SCH (08:46)
[2018-11-01] MEDS: DULoxetine 60 MG CAP PO SCH (08:46)
[2018-11-01] MEDS: Sevelamer Carbonate 800 MG TAB PO SCH ×3 (08:47→17:36)
[2018-11-01] MEDS: Insulin Glargine 15 UNITS in Pre-Filled Syringe 1 EACH SC SCH (08:47)
[2018-11-01] MEDS: Calcium Carbonate 500 MG ChewTAB PO SCH ×3 (08:47→17:35)
[2018-11-01] MEDS: hydrALAZINE 25 MG TAB PO SCH ×3 (08:47→20:42)
[2018-11-01] MEDS: Ferrous Sulfate 325 MG TAB PO SCH ×2 (08:47→17:35)
[2018-11-01] MEDS: Amlodipine 10 MG TAB PO SCH (08:47)
[2018-11-01] MEDS: Bupropion 100 MG SR TAB PO SCH (08:48)
[2018-11-01] MEDS: Calcitriol 0.25 MCG CAP PO SCH (08:48)
[2018-11-01] MEDS: Meropenem 500 MG in Sodium Chloride 0.9% 100 ML IVPB SCH (08:51)
[2018-11-01] MEDS: Losartan 25 MG TAB PO SCH (08:51)
[2018-11-01] MEDS: Nystatin Powder 15 GM BOT TOP SCH ×2 (08:52→20:44)
--- NOTE | 2018-11-01 12:19 | PRG ---
DATE OF SERVICE: 11/01/2018 SUBJECTIVE: Mr. Ferrara is a 53-year-old white male with ESRD-currently on peritoneal dialysis. He was admitted for left leg cellulitis. ID is following. Recently, meropenem changed to Zosyn. He is tolerating his peritoneal dialysis. Due to improved numbers, I have decided yesterday to extend his PD time to 11 hours, and this evening, I will be increasing his fill volume from 2.5 L to 2.6 L. No other complaints today. He tells me he is feeling better. He was also started on combination of Tums and Renvela for his hyperphosphatemia. No complaints of chest pain. No shortness of breath. OBJECTIVE: VITAL SIGNS: Blood pressure 137/63, heart rate 81, respiratory rate 18, temperature 97.8, and pulse ox 94%. GENERAL: The patient is awake, alert, comfortable, not in distress. SKIN: Adequate turgor. HEENT: He has pinkish conjunctivae. Anicteric sclerae. NECK: No neck mass. No carotid bruits. No JVD. CHEST: No deformities. LUNGS: Clear breath sounds. No wheezing. No crackles. HEART: Normal sinus rhythm. No murmur. No gallops. No rubs. ABDOMEN: Globular, soft, nontender. No masses. Positive for PD catheter. EXTREMITIES: No edema. Left leg cellulitis. MEDICATIONS: Medications of November 01, 2018, were reviewed. LABORATORY DATA: Laboratories of November 01, 2018, white count 13.1, hemoglobin 8.6. Sodium 135, potassium 3.7, chloride 101, carbon dioxide 16, BUN 120, creatinine 9.12, calcium is 6.8, AST 6, ALT 9, albumin 2.3. October 31, 2018, phosphorus was 9.3. ASSESSMENT AND PLAN: 1. End-stage renal disease, stable. We will continue current CCPD regimen, except we will be increasing the PD fill volume from 2.5 L to 2.6 L. He will continue the same 11 hours PD treatment time. 2. Anemia, on weekly Epogen at the present time. No indication for any blood transfusion. 3. Hyperphosphatemia. The patient is currently on calcium carbonate and Renvela. 4. Hypocalcemia. The patient is on calcitriol and on calcium carbonate. Continue to observe. 5. Left leg cellulitis, on IV Zosyn. 6. Recheck basic metabolic profile, CBC in a.m. Job ID: [id number]
--- NOTE | 2018-11-01 18:06 | PRG ---
DATE OF SERVICE: 11/01/2018 HISTORY OF PRESENT ILLNESS: The patient has no acute complaints and is maintained on antibiotics, has not had any severe reactions. Currently, on meropenem and Zosyn. Followed by Infectious Disease. Continuing on peritoneal dialysis, followed by Nephrology. The patient readily admits to noncompliance with peritoneal dialysis both in quantity of bags and frequency duration of use. The patient is also reporting the matter simply too lazy to take off his prosthesis of his lower extremity, which marries to his lower leg prosthetic metal screw. The patient routinely scrapes against his other lower extremity causing chronic lower extremity wound, for which the patient is maintained on antibiotics at this point in time. For this reason, the patient has pending a case management for disposition, likely placement needed for continued care for better wound care as well as ministers in peritoneal dialysis as well of antibiotics continued to be IV. Question of whether or not true cellulitis per Infectious Disease versus peripheral vascular disease. Dr. Ricki Yee was consulted for arterial disease opinion. The patient otherwise has no acute complaints. Temperature of 97.8, pulse of 81, respiratory rate of 18, oxygen saturation 94% on room air, and blood pressure 157/63. LABORATORY DATA: White blood cell count of 13.1, hemoglobin of 8.6, platelet count of 327, neutrophil percent of 80. Sodium of 135, potassium of 3.7, carbon dioxide of 16, creatinine of 9.1, glucose of 165, calcium of 6.0. Last check on the phosphorus was actually 9.3 yesterday. AST of 6, ALT of 9, and albumin of 2.3. Current microbiology of blood cultures x2 are negative at 48 hours. Official read of arterial ultrasound still pending from yesterday. PHYSICAL EXAMINATION: GENERAL: The patient is alert and oriented, in no acute distress. HEENT: Head is normocephalic and atraumatic. Extraocular movements are intact. Sclerae white. Oral mucosa is moist. NECK: Supple. HEART: Regular rate and rhythm at time of exam. No murmurs are auscultated. LUNGS: Clear to auscultation bilaterally. No rubs or wheezes. ABDOMEN: Soft, generalized tenderness. No rebound or guarding. EXTREMITIES: The left lower extremity chronic wound differential of peripheral vascular disease versus cellulitis. Right lower extremity is status post amputation with prosthesis. NEUROLOGIC: The patient is alert and oriented x3. No focal deficits. Speech is normal. ASSESSMENT AND PLAN: Left lower extremity chronic wounds, peripheral vascular disease, questionable cellulitis present on admission, end-stage renal disease, on peritoneal dialysis, hypocalcemia, hyperphosphatemia, type 2 diabetes, depression, noncompliant behavior, anemia of chronic disease, status post right lower extremity amputation, remote. PLAN: Continue recommendations per Nephrology and Infectious Disease. Awaiting a formal arterial ultrasound read, but unless the patient decides to engage fully in his care and then complete his peritoneal dialysis, which he has been noncompliant with, and also simply now being lazy enough not to take off his right prosthetic that is causing his wounds of his left lower extremity. His long-term prognosis is guarded. Dr. Hill had added in Wellbutrin to help stabilize his mood. The patient is continued on amitriptyline in that regard as well as Cymbalta. Blood sugars remain reasonably well controlled, currently with sliding scale insulin. The patient maintained on meropenem and Zosyn, and has wound care consultation to follow. Likely will reach placement depending on if any further need for wound debridement or talk of compression stockings following our arterial Doppler read. We will continue to follow over the weekend for Dr. Dillon Hill. Job ID: [id number] [facility]
[2018-11-01] MEDS: Amitriptyline HCl 25 MG TAB PO SCH (20:42)
[2018-11-02 05:12] LABS: Anion Gap 21 mmol/L (10-20); BUN (Urea Nitrogen) 108 mg/dL (8.4-25.7); Calc. Creatinine Clearance 16 mL/min (70-130); Calcium 6.9 mg/dL (7.8-10.44); Carbon Dioxide 19 mmol/L (22-29); Chloride 99 mmol/L (98-107); Estimated GFR-MDRD 6; Glucose 173 mg/dL (70-105); Potassium 3.6 mmol/L (3.5-5.1); Sodium 135 mmol/L (136-145)
[2018-11-02 05:16] LABS: #Basophils 0.1 thou/uL (0.0-0.2); #Eosinphils 0.8 thou/uL (0.0-0.7); #Lymphocytes 0.6 thou/uL (1.20-3.40); #Monocytes 0.9 thou/uL (0.11-0.59); #Neutrophils 11.9 thou/uL (1.40-6.50); %Basophils 0.5 % (0.0-1.0); %Eosinophils 5.6 % (0.0-10.0); %Lymphocytes 4.3 % (21.0-51.0); %Monocytes 6.6 % (0.0-10.0); Hemoglobin 8.9 g/dL (14.0-18.0); Mean Corpuscular HGB CONC 31.5 g/dL (32.0-36.0); Mean Corpuscular Hemoglobin 28.8 pg (27.0-31.0); Mean Corpuscular Volume 91.5 fL (78.0-98.0); Mean Platelet Volume 7.1 fL (7.4-10.4); Platelet Count 335 thou/uL (130-400); RBC Distribution Width 16.3 % (11.5-14.5); Red Blood Cell (RBC) Count 3.09 mill/uL (4.70-6.10); White Blood Cell (WBC) Count 14.4 thou/uL (4.8-10.8)
[2018-11-02] MEDS: Bupropion 100 MG SR TAB PO SCH (09:44)
[2018-11-02] MEDS: Sevelamer Carbonate 800 MG TAB PO SCH ×3 (09:44→17:10)
[2018-11-02] MEDS: Amlodipine 10 MG TAB PO SCH (09:44)
[2018-11-02] MEDS: Ferrous Sulfate 325 MG TAB PO SCH ×2 (09:44→17:11)
[2018-11-02] MEDS: Calcium Carbonate 500 MG ChewTAB PO SCH ×3 (09:45→17:11)
[2018-11-02] MEDS: Losartan 25 MG TAB PO SCH (09:45)
[2018-11-02] MEDS: Fluconazole 100 MG TAB PO SCH (09:45)
[2018-11-02] MEDS: DULoxetine 60 MG CAP PO SCH (09:45)
[2018-11-02] MEDS: Nystatin Powder 15 GM BOT TOP SCH ×2 (09:46→21:00)
[2018-11-02] MEDS: Calcitriol 0.25 MCG CAP PO SCH (09:46)
[2018-11-02] MEDS: Meropenem 500 MG in Sodium Chloride 0.9% 100 ML IVPB SCH (09:46)
[2018-11-02] MEDS: hydrALAZINE 25 MG TAB PO SCH ×3 (09:46→21:14)
[2018-11-02] MEDS: Insulin Glargine 15 UNITS in Pre-Filled Syringe 1 EACH SC SCH (09:59)
--- NOTE | 2018-11-02 11:18 | PRG ---
DATE OF SERVICE: 11/02/2018 SUBJECTIVE: Mr. Ferrara is a 53-year-old white male with ESRD, admitted for left leg cellulitis, currently on antibiotics. ID is following. We are following this patient for maintenance peritoneal dialysis. We have been adjusting his PD regimen recently. I noted that the BUN was unimproved, but this morning it has improved after adjustment of his dialysis time as well as increasing the fill volume from 2.5 to 2.6 L per session. No other complaints today. No chest pain or shortness of breath. OBJECTIVE: VITAL SIGNS: Blood pressure 159/77, heart rate 84, respiratory rate 16, temperature 97.9, and pulse ox 98% on room air. GENERAL EXAM: Awake, alert, comfortable, not in distress. SKIN: Adequate turgor. HEENT: Slightly pale conjunctivae. Anicteric sclerae. NECK: No neck mass. No carotid bruits. No JVD. CHEST: No deformities. LUNGS: Clear breath sounds. No wheezing. No crackles. HEART: Normal sinus rhythm. No murmurs, gallops, or rubs. ABDOMEN: Globular, soft, nontender. No masses. Positive for PD catheter. EXTREMITIES: Positive for left leg cellulitis. MEDICATIONS: Medications of November 02, 2018, was reviewed. LABORATORY DATA: Laboratories of November 02, 2018, white count 14.4, hemoglobin 8.9. Sodium 135, potassium 3.6, chloride 99, carbon dioxide 19, BUN 108, creatinine 8.93, glucose 173, and calcium 6.9. ASSESSMENT AND PLAN: 1. End-stage renal disease, stable. Improving biochemical parameters with adjustment of his PD regimen. 2. We will continue current peritoneal dialysis. I will try to use his AV fistula tomorrow and I will do a short 2-hour hemodialysis to see, if it is going to be viable. If it is not viable, he may need to have a revision of this AV fistula in the near future. 3. Anemia. Continuing weekly Epogen. 4. Hyperphosphatemia, currently on Renvela as well as Tums. 5. Hypocalcemia-on Tums and calcitriol. 6. Left leg cellulitis, on antibiotics. I agree with current management. Job ID: [id number]
--- NOTE | 2018-11-02 16:22 | PRG ---
DATE OF SERVICE: 11/02/2018 HISTORY OF PRESENT ILLNESS: The patient continues on peritoneal dialysis with signs of lower calcium. The patient states he spoke with Dr. Tuttle and is planning to move forward with hemodialysis going forward in the at least short-term future. Has no new acute complaints. No questions. Verbalized understanding. Likely placement is necessary to continue wound care and IV antibiotics. Review of vital signs this morning, temperature of 97.9, pulse of 84, respiratory rate of 16, oxygen saturation 98% on room air, blood pressure of 159/79. LABORATORY DATA: White blood cell count of 14.4, hemoglobin of 8.9, neutrophil percent of 83. Sodium 135, potassium 3.6, creatinine of 8.9, blood glucose of 94 to 173 in the last 12 hours, calcium of 6.9. PHYSICAL EXAMINATION: GENERAL: The patient is alert and oriented, in no acute distress. HEENT: Head is normocephalic and atraumatic. Extraocular movements are intact. Sclerae white. Oral mucosa is moist. HEART: Regular rate and rhythm. No murmurs auscultated. LUNGS: Clear to auscultation bilaterally. No rubs or wheezes. ABDOMEN: Soft, nontender. EXTREMITIES: Right lower extremity status post amputation remotely. Left lower extremity wrapped by wound care. NEUROLOGIC: The patient is alert and oriented x3. No focal deficits. Speech is normal. ASSESSMENT AND PLAN: 1. Left lower extremity chronic wound, possible cellulitis versus peripheral vascular disease for nonhealing nature, continued on IV antibiotics. 2. End-stage renal disease, on peritoneal dialysis. Plans for transition during the workweek for hemodialysis. 3. Hypocalcemia. 4. Hyperphosphatemia. 5. Status post right lower extremity amputation remotely. 6. Type 2 diabetes. 7. Depression. 8. Noncompliant behavior. 9. Anemia of chronic disease. 10. No new treatment recommended at this point in time. Continue current therapies and likely placement and hemodialysis to come next week. Job ID: [id number]
[2018-11-02] MEDS: Ondansetron PF 4 MG/2 ML Vial IVP PRN (19:20)
[2018-11-02] MEDS: Amitriptyline HCl 25 MG TAB PO SCH (21:14)
[2018-11-03 06:29] LABS: #Basophils 0.1 thou/uL (0.0-0.2); #Lymphocytes 0.9 thou/uL (1.20-3.40); #Monocytes 1.1 thou/uL (0.11-0.59); #Neutrophils 12.4 thou/uL (1.40-6.50); %Basophils 0.4 % (0.0-1.0); %Eosinophils 6.4 % (0.0-10.0); %Lymphocytes 5.8 % (21.0-51.0); %Monocytes 7.3 % (0.0-10.0); %Neutrophils 80.1 % (42.0-75.0); Hemoglobin 9.1 g/dL (14.0-18.0); Mean Corpuscular HGB CONC 31.5 g/dL (32.0-36.0); Mean Platelet Volume 7.3 fL (7.4-10.4); Platelet Count 329 thou/uL (130-400); Red Blood Cell (RBC) Count 3.13 mill/uL (4.70-6.10); White Blood Cell (WBC) Count 15.5 thou/uL (4.8-10.8)
[2018-11-03 06:53] LABS: Anion Gap 20 mmol/L (10-20); BUN (Urea Nitrogen) 100 mg/dL (8.4-25.7); Calc. Creatinine Clearance 16 mL/min (70-130); Calcium 7.1 mg/dL (7.8-10.44); Carbon Dioxide 20 mmol/L (22-29); Chloride 99 mmol/L (98-107); Estimated GFR-MDRD 6; Glucose 151 mg/dL (70-105); Potassium 3.5 mmol/L (3.5-5.1); Sodium 135 mmol/L (136-145)
[2018-11-03] MEDS: Meropenem 500 MG in Sodium Chloride 0.9% 100 ML IVPB SCH (09:16)
[2018-11-03] MEDS: Calcitriol 0.25 MCG CAP PO SCH (09:16)
[2018-11-03] MEDS: hydrALAZINE 25 MG TAB PO SCH ×3 (09:16→20:57)
[2018-11-03] MEDS: Sevelamer Carbonate 800 MG TAB PO SCH ×3 (09:16→16:53)
[2018-11-03] MEDS: Insulin Glargine 15 UNITS in Pre-Filled Syringe 1 EACH SC SCH (09:16)
[2018-11-03] MEDS: DULoxetine 60 MG CAP PO SCH (09:16)
[2018-11-03] MEDS: Calcium Carbonate 500 MG ChewTAB PO SCH ×3 (09:17→18:00)
[2018-11-03] MEDS: Fluconazole 100 MG TAB PO SCH (09:17)
[2018-11-03] MEDS: Amlodipine 10 MG TAB PO SCH (09:17)
[2018-11-03] MEDS: Ferrous Sulfate 325 MG TAB PO SCH ×2 (09:17→18:00)
[2018-11-03] MEDS: Bupropion 100 MG SR TAB PO SCH (09:17)
[2018-11-03] MEDS: Losartan 25 MG TAB PO SCH (09:18)
[2018-11-03] MEDS: Nystatin Powder 15 GM BOT TOP SCH ×2 (09:18→21:00)
--- NOTE | 2018-11-03 09:26 | PRG ---
DATE OF SERVICE: 11/03/2018 SUBJECTIVE: The patient is doing stably. He denies pain. Denies chest pain, shortness of breath. Denies fevers or chills. He is tolerating peritoneal dialysis through the weekend and Dr. Tuttle is giving a trial of hemodialysis today to check on the viability of his fistula. They are still deciding whether to pursue hemodialysis or continue peritoneal dialysis with assistance such as at a [facility] facility. The patient is tolerating wound care. States that the left leg wounds seem to be improving. OBJECTIVE: VITAL SIGNS: Temperature 97.0, pulse of 89, respirations 16, blood pressure 140/65, pulse ox 97% on room air. GENERAL: He is awake and alert. No acute distress. Speech is clear. HEENT: Mucosa is moist. NECK: Supple. HEART: Regular rate and rhythm. LUNGS: Clear. ABDOMEN: Obese, nontender, and nondistended. EXTREMITIES: Left extremity with decreased edema, minimal redness, scabbing over his lower extremity wounds. Feet are warm to touch. LABORATORY DATA: White blood cell count 15.5 thousand, hemoglobin and hematocrit 9.1 and 28.8 with normocytic indices, and platelets of 329. Sodium 135, potassium 3.5, chloride 99, CO2 of 20, BUN and creatinine 100 and 8.79 with a GFR of 6. Serum glucose of 151. Calcium of 7.1, which is improved from 6.9. His albumin level was 2.3, therefore giving a higher corrected calcium. Arterial ultrasound of his left lower extremity is pending final report. ASSESSMENT AND PLAN: This is a 53-year-old gentleman with end-stage diabetes with retinopathy, nephropathy, neuropathy, admitted for persistent lower extremity wound. 1. Continue broad-spectrum antibiotics as per Dr. Vargas. Awaiting final report on vascular status of his left leg. 2. End-stage renal disease. Continue dialysis as per Dr. Tuttle, giving a trial of hemodialysis today. 3. Abnormal electrolytes of hypocalcemia and hyperphosphatemia, likely will improve with dialysis. Continue replacement therapy. 4. Type 2 diabetes. We will continue current regimen with good control to help with healing. 5. Depression, seems to be some better with Wellbutrin and Cymbalta. Job ID: [id number]
--- NOTE | 2018-11-03 09:43 | PRG ---
DATE OF SERVICE: 11/03/2018 SUBJECTIVE: Mr. Ferrara is a 53-year-old white male with ESRD, admitted for left leg cellulitis. Currently, on antibiotics. We are following up this patient with his peritoneal dialysis. We are attempting this morning to do hemodialysis to see if his AV fistula will be functional. On examination, the AV fistula is small, but the fistulogram showed it was patent. If not successful in cannulating this patient, he may eventually need further revision of his AV fistula with his surgeon. No other complaints today. The patient denies any chest pain or shortness of breath. OBJECTIVE: VITAL SIGNS: Blood pressure is 140/65, heart rate 89, respiratory rate 16, temperature 97, and pulse ox 97%. GENERAL: Noted to be awake, alert, comfortable, not in distress. SKIN: Adequate turgor. HEENT: Slightly pale conjunctivae. Anicteric sclerae. NECK: No neck mass. No carotid bruits. No JVD. CHEST: No deformities. LUNGS: Clear breath sounds. HEART: Normal sinus rhythm. No murmur. No gallops. No rubs. ABDOMEN: Globular, soft, and nontender. No masses. Positive for PD catheter. EXTREMITIES: No edema. MEDICATIONS: Medications of November 03, 2018, reviewed. LABORATORY DATA: Laboratories of November 03, 2018; white count 15.5 and hemoglobin 9.1. Sodium 135, potassium 3.5, chloride 99, carbon dioxide 20, BUN 100, creatinine 8.79, calcium 7.1, and glucose 151. ASSESSMENT AND PLAN: 1. End-stage renal disease, stable currently, continue current peritoneal dialysis. No changes will be made with the current PD regimen. This was recently adjusted. We are extended at this time to a total of 11 hours using a 2.6 L fill volume. This morning, I am attempting to cannulate his AV fistula to see if this could be functional. If that functional, we may need to refer back the patient to surgery for further revision. 2. Anemia, continuing weekly Epogen with this patient. 3. Left leg cellulitis, on antibiotics. 4. Hyperphosphatemia/hypocalcemia, currently on calcitriol and phosphate binders. Job ID: [id number]
[2018-11-03] MEDS: Loperamide HCl 2 MG CAP PO PRN (16:53)
--- NOTE | 2018-11-03 18:07 | PRG ---
DATE OF SERVICE: 11/03/2018 SUBJECTIVE: Having liquid stools frequently. No respiratory symptoms. The legs are not as swollen. OBJECTIVE: VITAL SIGNS: Essentially normal. His O2 saturations are 93. GENERAL: He appears in no distress, chronically ill appearing. LUNGS: Clear. HEART: S1 and S2, regular rate. ABDOMEN: Soft, not distended or tender. EXTREMITIES: The legs are about the same, right and left side with superficial ulcers with scabs covering them. LABORATORY DATA: White cell count 15.5, hemoglobin 9.1, platelets 329, and 80% neutrophils. Sodium 135, creatinine 8.79. Two sets of blood cultures, final, no growth in 5 days. ASSESSMENT AND DISCUSSION: 1. Type 2 diabetes. 2. Peripheral vascular disease. 3. Chronic ulcerations and erythema, left lower extremity, also on the right side. 4. Hypersensitivity reaction to cephalosporin, which resolved nausea, probably associated with inadequate dialytic therapy. The patient will have a C diff test done. We will go ahead and discontinue antimicrobial therapy since the appearance of the legs are more consistent with stasis dermatitis than cellulitis. Job ID: [id number] [facility]
[2018-11-03] MEDS: Amitriptyline HCl 25 MG TAB PO SCH (20:57)
[2018-11-04 05:59] LABS: #Basophils 0.1 thou/uL (0.0-0.2); #Eosinphils 1.1 thou/uL (0.0-0.7); #Lymphocytes 0.9 thou/uL (1.20-3.40); #Monocytes 1.1 thou/uL (0.11-0.59); #Neutrophils 12.3 thou/uL (1.40-6.50); %Basophils 0.4 % (0.0-1.0); %Lymphocytes 5.8 % (21.0-51.0); %Monocytes 6.9 % (0.0-10.0); %Neutrophils 79.9 % (42.0-75.0); Hemoglobin 9.2 g/dL (14.0-18.0); Mean Corpuscular HGB CONC 31.7 g/dL (32.0-36.0); Mean Corpuscular Hemoglobin 29.3 pg (27.0-31.0); Mean Corpuscular Volume 92.3 fL (78.0-98.0); Mean Platelet Volume 7.2 fL (7.4-10.4); Platelet Count 309 thou/uL (130-400); RBC Distribution Width 15.8 % (11.5-14.5); Red Blood Cell (RBC) Count 3.13 mill/uL (4.70-6.10); White Blood Cell (WBC) Count 15.4 thou/uL (4.8-10.8)
[2018-11-04 06:20] LABS: ALT (SGPT) Less than 7 U/L (8-55); AST (SGOT) 7 U/L (5-34); Albumin 2.2 g/dL (3.5-5.0); Alkaline Phosphatase 92 U/L (40-150); Anion Gap 20 mmol/L (10-20); BUN (Urea Nitrogen) 90 mg/dL (8.4-25.7); Bilirubin, Total 0.4 mg/dL (0.2-1.2); Calc. Creatinine Clearance 16 mL/min (70-130); Calcium 6.7 mg/dL (7.8-10.44); Carbon Dioxide 21 mmol/L (22-29); Chloride 99 mmol/L (98-107); Estimated GFR-MDRD 6; Globulin 3.1 g/dL (2.4-3.5); Glucose 140 mg/dL (70-105); Potassium 3.5 mmol/L (3.5-5.1); Protein, Total 5.3 g/dL (6.0-8.3); Sodium 136 mmol/L (136-145)
--- NOTE | 2018-11-04 08:36 | PRG ---
DATE OF SERVICE: 11/04/2018 SUBJECTIVE: The patient is doing okay. He denies pain. Denies chest pain or shortness of breath. His trial of hemodialysis revealed that his fistula was not functional. He and Dr Tuttle are deciding whether to pursue hemodialysis with a new port versus continue peritoneal dialysis. He has continued to have diarrhea. Appreciate Dr. Vargas. He is now off antibiotics. C difficile repeat test is pending. He denies fevers or chills. OBJECTIVE: VITAL SIGNS: Temperature 98.2, pulse of 84, respirations 16, and blood pressure 143/68. GENERAL: He is awake and alert, in no acute distress. Speech is clear. Mood is appropriate. Affect is appropriate. HEART: Regular rate and rhythm. LUNGS: Clear. ABDOMEN: Soft. EXTREMITIES: Decreased edema. Positive redness in the left lower extremity as well as the right stump. No induration. Wounds are dried and healing. LABORATORY DATA: Sodium 136, potassium 3.5, chloride 99, CO2 of 21, BUN and creatinine of 90 and 8.84 with a GFR of 6. Accu-Cheks of 160, 107, 92, and 106. Calcium is 6.7 with a corrected calcium of 8.1. White blood cell count 15.4, hemoglobin and hematocrit of 9.2 and 28.8, and platelets of 309. IMAGING DATA: Vascular ultrasound is pending. ASSESSMENT AND PLAN: This is a 53-year-old gentleman with end-stage type 2 diabetes, admitted with left lower extremity cellulitis and failed peritoneal dialysis. 1. Cellulitis, appears to be improved or resolved. He is now off antibiotics as per Dr. Vargas. It appears like he does have chronic stasis dermatitis and inflammation. Awaiting final report from vascular ultrasound. 2. End-stage renal disease, dialysis as per Dr. Tuttle. Possible placement of new dialysis port versus continue peritoneal dialysis. 3. Electrolyte abnormalities. Continue replacement therapy. 4. Type 2 diabetes. We will continue to wean insulin as his appetite is decreased. 5. Depression, a stress reaction. We will discontinue Wellbutrin due to nightmares. We will give trial of continuing Cymbalta and adding Risperdal at bedtime. 6. Disposition. Awaiting plan as per dialysis, possible halfway facility here locally if he is able to continue the peritoneal dialysis. Able to do the hemodialysis versus halfway in [place] if he is going to continue the peritoneal dialysis. Job ID: [id number] [facility]
[2018-11-04] MEDS: Insulin Glargine 8 UNITS in Pre-Filled Syringe 1 EACH SC SCH (09:25)
[2018-11-04] MEDS: Losartan 25 MG TAB PO SCH (09:26)
[2018-11-04] MEDS: Calcitriol 0.25 MCG CAP PO SCH (09:26)
[2018-11-04] MEDS: Amlodipine 10 MG TAB PO SCH (09:26)
[2018-11-04] MEDS: hydrALAZINE 25 MG TAB PO SCH ×3 (09:26→21:25)
[2018-11-04] MEDS: Fluconazole 100 MG TAB PO SCH (09:27)
[2018-11-04] MEDS: Sevelamer Carbonate 800 MG TAB PO SCH ×3 (09:27→16:00)
[2018-11-04] MEDS: DULoxetine 60 MG CAP PO SCH (09:27)
[2018-11-04] MEDS: Nystatin Powder 15 GM BOT TOP SCH ×2 (09:28→21:26)
--- NOTE | 2018-11-04 09:29 | PRG ---
DATE OF SERVICE: 11/04/2018 SERVICE: Renal Medicine. SUBJECTIVE: Mr. Ferrara is a 53-year-old white male, followed up for his maintenance peritoneal dialysis. He was initially admitted for left leg cellulitis. He has been doing well. He is on IV antibiotics. We attempted to use his AV fistula, but this was not viable. We will be consulting Surgery for placement of a tunneled dialysis catheter as well as revision of his AV fistula. He is being considered for [facility] facility placement. He did well with his peritoneal dialysis last night. He voices no new complaints today. He denies any chest pain or shortness of breath. OBJECTIVE: VITAL SIGNS: Blood pressure is 143/68, heart rate 84, respiratory rate 16, temperature 98.2, and pulse ox 97%. GENERAL: The patient is awake, alert, comfortable, not in distress. SKIN: Adequate turgor. HEENT: Pinkish conjunctivae. Anicteric sclerae. NECK: No neck mass. No carotid bruits. No JVD. CHEST: No deformities. LUNGS: Clear breath sounds. No wheezing. No crackles. HEART: Normal sinus rhythm. No murmur. No gallops. No rubs. ABDOMEN: Globular, soft, and nontender. No masses. He is positive for PD catheter. EXTREMITIES: No edema. MEDICATIONS: Medications of November 04, 2018, reviewed. LABORATORY DATA: Laboratories of November 04, 2018; white count 15.4, hemoglobin 9.2. Sodium 136, potassium 3.5, chloride 99, carbon dioxide 21, BUN 90, creatinine 8.84, calcium is 6.7, and albumin is 2.2. ASSESSMENT AND PLAN: 1. End-stage renal disease, stable. We will continue current CCPD regimen. We will be converting this patient to hemodialysis. I have consulted Surgery for placement of a tunneled dialysis catheter as well as for revision of this arteriovenous fistula. 2. Anemia, continuing weekly Epogen. 3. Left leg cellulitis, much improved. Recheck basic metabolic profile and CBC in a.m. Job ID: [id number]
[2018-11-04] MEDS: Calcium Carbonate 500 MG ChewTAB PO SCH ×4 (10:12→16:00)
[2018-11-04] MEDS: Ferrous Sulfate 325 MG TAB PO SCH ×2 (10:24→16:46)
--- NOTE | 2018-11-04 10:56 | ULT ---
Ultrasound Doppler duplex bilateral upper extremity venous mapping: DATE: 11/04/2018 HISTORY: 53-year-old male with end-stage renal disease requiring hemodialysis access. Surgical planning study. FINDINGS: All caliber is given in millimeters. RIGHT: Brachial artery: 4.5 Radial artery: 2 Ulnar artery: 2 Cephalic vein proximal arm: 4.5 Mid arm: 4 Distal arm: 4 Antecubital: 4.5 Proximal forearm: 3 Mid forearm: 2.5 Distal forearm: 3 Basilic vein: Proximal arm: 5.5 Mid arm: 6 Distal arm: 5.5 Antecubital: 4 Proximal forearm: 2.5 Mid forearm: 0.5 Distal forearm: 1.5 LEFT: Brachial artery: 4.5 Radial artery: 2.5 Ulnar artery: 2.5 Cephalic vein: Proximal arm: 6 Mid arm: 7 Distal arm: 3 Antecubital: 2.5 Proximal forearm: 3.5 Mid forearm: 2.5 Distal forearm: 2.5 Basilic vein: Proximal arm: 9 : 7.5 Distal arm: 7.5 Antecubital: 6 Proximal forearm: 4 Mid forearm: 2 Distal forearm: 2.5 IMPRESSION: Large calibers of bilateral basilic veins of the arms, especially left. Large calibers of bilateral cephalic veins, especially left.
--- NOTE | 2018-11-04 13:09 | ULT ---
LOWER EXTREMITY ARTERIAL EVALUATION USING DOPPLER WAVEFORM ANALYSIS AND SEGMENTAL LIMB PRESSURES 10/31/18 Segmental limb pressures could not be obtained on the right due to absence of the right leg and the l eft could not be obtained due to noncompressible heavily calcified tibial vessels. Waveform analysis demonstrated slightly diminished femoral waveform with monophasic waveforms distall y in the leg. Two-brachial index is depressed at 0.25. This study is consistent with severe PAD left lower extremity and would not be consistent with the ab ility to heal a lesion in the left foot.
[2018-11-04] MEDS: Ondansetron PF 4 MG/2 ML Vial IVP PRN (13:36)
[2018-11-04] MEDS: risperiDONE 1 MG TAB PO SCH (21:25)
[2018-11-05 04:54] LABS: #Basophils 0.1 thou/uL (0.0-0.2); #Neutrophils 11.6 thou/uL (1.40-6.50); %Basophils 0.5 % (0.0-1.0); %Eosinophils 6.9 % (0.0-10.0); %Lymphocytes 6.5 % (21.0-51.0); %Monocytes 6.7 % (0.0-10.0); %Neutrophils 79.3 % (42.0-75.0); Hemoglobin 9.4 g/dL (14.0-18.0); Mean Corpuscular HGB CONC 30.4 g/dL (32.0-36.0); Mean Corpuscular Hemoglobin 28.3 pg (27.0-31.0); Mean Corpuscular Volume 92.9 fL (78.0-98.0); Mean Platelet Volume 7.4 fL (7.4-10.4); Platelet Count 305 thou/uL (130-400); RBC Distribution Width 15.3 % (11.5-14.5); Red Blood Cell (RBC) Count 3.33 mill/uL (4.70-6.10); White Blood Cell (WBC) Count 14.6 thou/uL (4.8-10.8)
[2018-11-05 05:22] LABS: ALT (SGPT) Less than 7 U/L (8-55); AST (SGOT) 8 U/L (5-34); Albumin 2.1 g/dL (3.5-5.0); Alkaline Phosphatase 94 U/L (40-150); Anion Gap 18 mmol/L (10-20); BUN (Urea Nitrogen) 85 mg/dL (8.4-25.7); Bilirubin, Total 0.5 mg/dL (0.2-1.2); Calc. Creatinine Clearance 16 mL/min (70-130); Calcium 6.8 mg/dL (7.8-10.44); Carbon Dioxide 23 mmol/L (22-29); Chloride 98 mmol/L (98-107); Estimated GFR-MDRD 6; Globulin 3.1 g/dL (2.4-3.5); Glucose 114 mg/dL (70-105); Potassium 3.4 mmol/L (3.5-5.1); Protein, Total 5.2 g/dL (6.0-8.3); Sodium 136 mmol/L (136-145)
--- NOTE | 2018-11-05 07:50 | CON ---
DATE OF CONSULTATION: 11/04/2018 HISTORY OF PRESENT ILLNESS: Zacarias Ferrara is a 53-year-old male, whom I have seen in the past on March 17, 2018. He had a right IJ cuffed tunneled dialysis catheter to initiate dialysis for diabetic nephropathy and end-stage renal disease. He subsequently underwent on 03/26/2018 laparoscopic peritoneal dialysis catheter, laparoscopic omentopexy, laparoscopic sling suture to direct PD catheter into the pelvis, left Rick fistula. His proximal volar forearm below the antecubital fossa was explored and his vein was of excellent caliber. Thus, a Rick fistula wrist level was formed. At the time of that operation, he had thrombus from intravenous access and the thrombus was removed. The patient followed up with me, but on one occasion I believe, but subsequent hospitalizations, Dr. Tuttle has ordered a fistulogram in September of this year and this revealed a small Rick fistula. He has been successfully doing peritoneal dialysis. I did remove his hemodialysis catheter in May noting him to have functional PD catheter. The patient now has ambulation balance problems and is being transition to assisted living. He is not going to be able to do peritoneal dialysis in this setting. I have been asked by Dr. Tuttle to see him regarding placement of a hemodialysis catheter and also to assess his left arm fistula. His Rick fistula has a good thrill and bruit in the distal third of the forearm, but the proximal two-thirds of the fistula is not developed and based on his fistulogram in September, this will not develop and he needs more proximal fistula outflow, from his fistulogram, cephalic and basilic vein of upper arm looks good. Plan at this time is to place a hemodialysis catheter and to revise a left arm fistula to more proximal fistula. Anesthesia choice general LMA versus regional TIVA. We will leave this to Anesthesia decision. The patient is admitted by Dr. Porter Alicea. During this hospitalization, he has been seeing Dr. Ricki Yee documenting palpable pedal pulses and venous stasis ulceration. The patient is followed by Dr. Dillon Hill on an outpatient basis. 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 ALLERGIES: METFORMIN, CEPHALEXIN, AND LISINOPRIL. PAST MEDICAL HISTORY: Type 2 diabetes mellitus, retinopathy, neuropathy, nephropathy, end-stage renal disease, venous stasis disease. He has palpable pedal pulses without evidence of PAD documented by Dr. Ricki Yee, history of Charcot's joint of right leg, status post amputation of right leg, anxiety, depression, gastroparesis, GERD, and currently peritoneal dialysis status. 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 HOME MEDICATIONS: 1. Amlodipine. 2. Betamethasone. 3. Calcitriol. 4. Tums. 5. Collagenase. 6. Valium. 7. Benadryl. 8. Cymbalta. 9. Procrit. 10. Iron sulfate. 11. Gentamicin topically. 12. Hydralazine. 13. Insulin glargine 15 units daily. 14. Losartan. 15. Protonix. 16. Florastor. 17. [place] Thyroid. 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 Tobacco, none. Alcohol, none. PHYSICAL EXAMINATION: VITAL SIGNS: Height 5 feet and 10 inches, weight 261 pounds, and BMI 37. Temperature 97.8 degrees, pulse 84, and blood pressure 138/71. HEAD, EARS, EYES, NOSE, AND THROAT: Unremarkable. LUNGS: Clear to auscultation. CARDIAC: Regular rate and rhythm without murmur or gallop. ABDOMEN: Soft. Peritoneal dialysis catheter in place. Left Rick fistula. Well developed distal third forearm, poorly developed proximal two-thirds of forearm. Right BKA status. Venous stasis ulcer of left leg. LABORATORY DATA: White count 15 and hemoglobin 9.1. Basic metabolic profile consistent with end-stage renal disease status, potassium 3.4. ASSESSMENT AND PLAN: 1. Immature left Rick fistula. Plan revision to more proximal fistula. 2. Plan placement of a hemodialysis catheter. 3. Right below-knee amputation status. 4. History of Rodrigo's gangrene, status post debridement other hospitalization. 5. Status post multiple amputations, right foot, and below-knee amputation performed elsewhere. 6. Charcot's joint, right leg, status post below-knee amputation. 7. Insulin-dependent diabetes. 8. End-stage renal disease, on peritoneal dialysis, now transitioned to hemodialysis. Plan hemodialysis catheter. 9. Venous stasis disease, left leg. Compression dressing. Avoid prolonged dependency. Job ID: [id number]
[2018-11-05] MEDS: Amlodipine 10 MG TAB PO SCH (08:27)
[2018-11-05] MEDS: Losartan 25 MG TAB PO SCH (08:28)
[2018-11-05] MEDS: hydrALAZINE 25 MG TAB PO SCH ×3 (08:28→21:45)
--- NOTE | 2018-11-05 08:28 | CON ---
DATE OF CONSULTATION: HISTORY OF PRESENT ILLNESS: Zacarias Ferrara is a 53-year-old male patient who presents with balance problems and is now being discharged to go to rehab and most likely will be at [facility]. He is currently doing peritoneal dialysis, working well. The patient, however, unable to do peritoneal dialysis in the [facility] facility, and I have been asked to place hemodialysis catheter. I did place a left arm fistula on 03/26/2018, exploring his antecubital fossa, finding the vein did appear very excellent, but exploration made in the wrist to form a Rick fistula. This was performed in 02/2018. Attempts to access this fistula were unsuccessful and Dr. Tuttle ordered a fistulogram at [facility] in 09/2018 and this revealed small vein at the wrist. At the time of formation of Rick fistula, he was noted to have a thrombus from previous IV access, and although thrombectomy performed. There is probably some fibrous changes from prior IV access to make further attempts at salvage of Rick fistula, unwarranted and plan at this time is to form a new left arm fistula in the proximal volar forearm. His previous fistulogram demonstrated excellent outflow veins, basilic and cephalic vein. Plan tomorrow is placement of hemodialysis catheter and a new left arm fistula in the proximal volar forearm. Echocardiogram on 10/25/2017; EF 50% to 55%, moderate mitral regurg, mild tricuspid regurg noted. ALLERGIES: METFORMIN, CEPHALEXIN, AND LISINOPRIL. MEDICATIONS: 1. Cymbalta. 2. Cetirizine. 3. Calcium. 4. Calcitriol. 5. Amlodipine. 6. Ferrous sulfate. 7. Epoetin. 8. Diazepam. 9. Protonix. 10. Losartan. 11. Insulin. 12. Penicillin V. 13. Potassium. 14. Tramadol. 15. Hydralazine. 16. [place] Thyroid. 17. Benadryl. PAST SURGICAL HISTORY: 1. Hemodialysis catheter. 2. Left arm fistula. 3. PD catheter, laparoscopic with a sling suture placed last year. 4. Right below-knee amputation, Physician [place], Dr. Paniagua. 5. Partial foot amputation. 6. Toe amputation, left foot, Dr. Paniagua. PAST MEDICAL HISTORY: 1. Diabetes mellitus, insulin dependent. 2. Hypertension. 3. Peritoneal dialysis status, converted to hemodialysis prosthesis. REVIEW OF SYSTEMS: Noncontributory. PHYSICAL EXAMINATION: VITAL SIGNS: Height 5 feet 10 inches, 261 pounds, 37 BMI, temperature 98.2, heart rate 84, blood pressure 143/68. HEAD, EARS, EYES, NOSE, AND THROAT: Unremarkable. LUNGS: Clear to auscultation. CARDIAC: Regular rhythm without murmur or gallop. ABDOMEN: Soft and nontender. EXTREMITIES: Left arm Rick fistula, good thrill and bruit at the wrist, although not well formed in the proximal 2/3 of the forearm. Peritoneal dialysis catheter, left lower quadrant, exit site looks healthy. ASSESSMENT AND PLAN: End-stage renal disease, needs conversion to hemodialysis. We will plan placement of a hemodialysis catheter tomorrow Saturday and placement of a new fistula, left arm antecubital area. He understands risks and benefits, and consents. Job ID: [id number]
[2018-11-05] MEDS: Fluconazole 100 MG TAB PO SCH (08:30)
[2018-11-05] MEDS: Calcium Carbonate 500 MG ChewTAB PO SCH ×3 (08:30→17:53)
[2018-11-05] MEDS: Calcitriol 0.25 MCG CAP PO SCH (08:30)
[2018-11-05] MEDS: DULoxetine 60 MG CAP PO SCH (08:30)
[2018-11-05] MEDS: Insulin Glargine 8 UNITS in Pre-Filled Syringe 1 EACH SC SCH (08:31)
[2018-11-05] MEDS: Nystatin Powder 15 GM BOT TOP SCH ×2 (08:31→23:52)
[2018-11-05] MEDS: Sevelamer Carbonate 800 MG TAB PO SCH ×3 (08:31→17:53)
--- NOTE | 2018-11-05 08:35 | PRG ---
DATE OF SERVICE: 11/05/2018 SUBJECTIVE: The patient denies complaints. He denies chest pain, shortness of breath. Planning on having a new hemodialysis port placed today by Surgery. States that his appetite has improved some. He did sleep a little bit better last night with the Risperdal, tolerating peritoneal dialysis. He states his diarrhea has improved. He is really taking the Imodium at this point, and again, he states that his appetite has improved slightly. Seems to be somewhat in better spirits today than the past days. OBJECTIVE: VITAL SIGNS: Temperature 98.3, pulse of 81, respirations 18, blood pressure 128/63, pulse ox is 94% on room air. GENERAL: He is awake and alert, in no acute distress. Speech is clear. HEENT: Mucosa is moist. NECK: Supple. HEART: Regular rate and rhythm. LUNGS: Clear. ABDOMEN: Obese, soft. EXTREMITIES: Left extremity with slightly decreased redness, continues to have scabbing over his wounds. No sign of infection. No pain. No tenderness. LABORATORY DATA: Sodium 136, potassium 3.4, chloride 98, CO2 of 23, BUN and creatinine 85 and 9.12, with a GFR of 6, glucose of 114. AST and ALT are normal. Albumin continues to be low at 2.1, calcium 6.8 with a corrected calcium around 8.2. Accu-Cheks of 99, 86, 121. Arterial ultrasound of the left leg revealed severe peripheral artery disease, not consistent with ability to heal left foot infections. ASSESSMENT AND PLAN: This is a 53-year-old gentleman with end-stage type 2 diabetes with retinopathy, nephropathy, neuropathy, status post right below-knee amputation, admitted with left lower extremity cellulitis and failed peritoneal dialysis. 1. Cellulitis is resolved. He is now off antibiotics. 2. Peripheral arterial disease with chronic stasis dermatitis and inflammation. Continue wound management. May need left lower extremity amputation, if he continues to have repeat infections, not improving with antibiotics. Continue plan per Vascular Surgery. 3. End-stage renal disease. Dr. Tuttle wanted to pursue hemodialysis. He is to have hemodialysis port placed today and if functional, will be able to be transferred to a longterm facility. 4. Electrolyte abnormalities with slight hypokalemia. We will continue to replace as per Nephrology. 5. Type 2 diabetes. We will continue insulin at current status. We would decrease the dosage of the Lantus as he has decreased appetite and today is n.p.o. for surgery. 6. Depression with stress reaction. He seems to be doing better with Cymbalta and bedtime Risperdal. Continue to monitor closely. He will be needing counseling once he leaves the hospital. 7. Disposition: Hopefully placement to a longterm facility locally to continue his hemodialysis in special care hospital. Job ID: [id number]
[2018-11-05] MEDS: Ferrous Sulfate 325 MG TAB PO SCH ×2 (09:05→17:53)
--- NOTE | 2018-11-05 09:25 | PRG ---
DATE OF SERVICE: SUBJECTIVE: Mr. Ferrara is a 53-year-old white male with ESRD and followed up by the Renal Service for his maintenance peritoneal dialysis. In anticipation of him being placed in a halfway facility, he will be converted to hemodialysis once he is discharged to the nursing facility. He did undergo peritoneal dialysis last night without any difficulty. Surgical consult has been done for placement of a tunneled dialysis catheter as well as possible revision of the AV fistula. No other complaints today. He is doing well. Please note, he was admitted for left leg cellulitis. OBJECTIVE: VITAL SIGNS: Blood pressure 128/63, heart rate 81, respiratory rate 18, temperature 98.3, and pulse ox 94%. GENERAL: The patient is awake, alert, comfortable, not in distress. SKIN: Adequate turgor. HEENT: He has pinkish conjunctivae. Anicteric sclerae. NECK: No neck mass. No carotid bruits. No JVD. CHEST: No deformities. LUNGS: Clear breath sounds. HEART: Normal sinus rhythm. No murmurs. No gallops. No rubs. ABDOMEN: Globular, soft, and nontender. No masses. Positive for PD catheter. EXTREMITIES: Left leg dressing noted. MEDICATIONS: Medications of November 05, 2018, reviewed. LABORATORY DATA: Laboratories of November 05, 2018: White count 14.6, hemoglobin 9.4. Sodium 136, potassium 3.4, chloride 98, carbon dioxide 23, BUN 85, creatinine 9.12, glucose 114, calcium is 6.8, AST 8, and ALT 7. ASSESSMENT AND PLAN: 1. Anemia - on weekly Epogen. Continue current regimen. 2. End-stage renal disease, stable, tolerating current peritoneal dialysis. No changes will be made with the current peritoneal dialysis regimen. Once the patient is an outpatient, we will convert him to hemodialysis. 3. Left leg cellulitis - clinically improving. 4. Agree with current management. The patient has scheduled surgery for tunneled dialysis catheter placement. 5. Recheck basic metabolic and CBC in a.m. Job ID: [id number]
[2018-11-05] MEDS ORDERED: Levofloxacin 500 mg/D5W 100 ml Premix Bag ONE (11:27)
[2018-11-05] MEDS ORDERED: Lidocaine 2% PF 5 ML VIAL ONE (12:36)
[2018-11-05] MEDS ORDERED: Bupivacaine HCl 0.5%/Epinephrine 1:200,000/PF 30 ml Vial ONE (12:36)
[2018-11-05] MEDS ORDERED: Sodium Chloride 0.9% 20 ML ONE (12:36)
[2018-11-05] MEDS ORDERED: Heparin 5,000 UNITS/ML VIAL ONE (12:36)
[2018-11-05] MEDS ORDERED: Heparin 10,000 UNITS/1 ML VIAL ONE (12:36)
[2018-11-05] MEDS ORDERED: Protamine Sulfate 50 MG/5 ML VIAL ONE (12:40)
[2018-11-05] MEDS ORDERED: Ioversol 68 % 50 ML VIAL ONE (12:40)
[2018-11-05] MEDS ORDERED: Fentanyl 100 MCG/2 ML VIAL ONE (13:03)
[2018-11-05] MEDS ORDERED: traMADol HCl 50 MG TAB PO PRN (13:33)
[2018-11-05] MEDS ORDERED: Acetaminophen 500 MG TAB PO PRN (13:33)
[2018-11-05] MEDS ORDERED: Promethazine HCl 25 MG/ML VIAL IM PRN (15:21)
[2018-11-05] MEDS ORDERED: Promethazine HCl 25 MG/ML VIAL SLOW IVP PRN (15:21)
[2018-11-05] MEDS ORDERED: Ondansetron HCl/PF 4 MG/2 ML Vial IVP PRN (15:21)
--- NOTE | 2018-11-05 16:13 | RAD ---
SINGLE VIEW OF THE CHEST: COMPARISON: 10/29/2018. HISTORY: Central line placement. FINDINGS: A single view of the chest shows an enlarged but stable cardiomediastinal silhouette. There is a rig ht IJ central venous catheter with its tip in the superior vena cava. There is a small to moderate r ight pleural effusion with adjacent atelectasis. No pneumothorax is seen. IMPRESSION: 1. Right central line placement without evidence of complication. 2. Stable right pleural effusion. POS: C
[2018-11-05] MEDS ORDERED: Ondansetron PF 4 MG/2 ML Vial ONE (16:50)
[2018-11-05] MEDS ORDERED: Heparin 10,000 UNITS/ 10 ML VIAL ONE (16:50)
[2018-11-05] MEDS ORDERED: ePHEDrine 50 MG/ML VIAL ONE (16:50)
[2018-11-05] MEDS ORDERED: Glycopyrrolate 0.2 MG/ML 5 ML SYRINGE ONE (16:50)
[2018-11-05] MEDS ORDERED: PROPOFOL 200 MG/20 ML VIAL ONE (16:50)
[2018-11-05] MEDS ORDERED: Rocuronium Bromide 10 MG/ML (10ML VIAL) ONE (16:50)
[2018-11-05] MEDS ORDERED: Lidocaine 1% PF 5 ML VIAL ONE (16:50)
[2018-11-05] MEDS: risperiDONE 1 MG TAB PO SCH (21:45)
--- NOTE | 2018-11-05 21:50 | OP ---
DATE OF PROCEDURE: 11/05/2018 PREOPERATIVE DIAGNOSES: End-stage renal disease, in need of hemodialysis access with a dysfunctional left Rick fistula outflow occluded, failure to mature from previous thrombus from iatrogenic access in need of going to a long term procedure and not able to do peritoneal dialysis. POSTOPERATIVE DIAGNOSES: End-stage renal disease, in need of hemodialysis access with a dysfunctional left Rick fistula outflow occluded, failure to mature from previous thrombus from iatrogenic access in need of going to a long term procedure and not able to do peritoneal dialysis. PROCEDURES PERFORMED: Right internal jugular cuffed tunneled hemodialysis catheter, ultrasound and fluoroscopy use, left arm primary fistula, perforating branch of antecubital vein to the proximal radial artery which was of excellent caliber outflow primarily to cephalic vein due to anatomic reasons with retrograde communication to the basilic vein communication, ligation of old Rick fistula. ANESTHESIA: General, local 0.5% Marcaine with epinephrine 30 mL mixed with 2% Xylocaine 10 mL, total volume used. DESCRIPTION OF PROCEDURE: The patient was taken to the operating room, where under general anesthesia, neck and chest, left upper extremity, axilla prepared with ChloraPrep and draped in routine fashion. Local anesthetic was infiltrated in the skin and subcutaneous tissue about the operative site. Ultrasound used to cannulate the right internal jugular vein with trocar catheter, J-wire threaded, trocar catheter removed. Skin entrance site enlarged sharply the J-wire entry site. Stab incision was made over the right chest infraclavicular at the planned exit site. Tunneling device was used to tunnel pre-curved [employer] cuffed-tunneled hemodialysis catheter between the 2 incisions, placed the fabric cuff beneath the skin exit site and catheter was secured with 2 interrupted sutures of 3-0 nylon. Small and medium sized dilators were placed over the J-wire into the internal jugular vein and removed. Dilator and Peel-Away sheath placed over the J-wire into the superior vena cava. Dilator and J-wire were removed. Catheter placed through the Peel-Away sheath. Peel-Away sheath was removed. Platysma was approximated with 4-0 Monocryl, skin with subdermal 4-0 Monocryl, and Chipley glue applied. Each port was aspirated of blood, flushed with saline solution and heparinized saline solution 1000 units heparin per mL indicating volume of the port. Fluoroscopic images revealed good line placement. Sterile dressings were applied. Left upper extremity was then prepared and proximal volar forearm incision made below the antecubital fossa through an old scar, carried down through skin and subcutaneous tissue and excellent caliber. Cephalic vein identified, dissected free, identified a perforating branch. The perforating branch of antecubital vein was just proximal to the communication basilic vein and for anatomic reasons they preferentially fed the cephalic vein upper arm. Radial proximal artery dissected free and it was of excellent caliber. The patient was given 6000 units of heparin intravenously. After adequate circulation time, the proximal radial artery clamped proximally and distally. Longitudinal arteriotomy was made sharply, elongated with Lantigua scissors for 2.5 cm anastomosis. The perforating branch of antecubital vein had been dissected free and branches were divided between clips, it was spatulated over branch point, interrogated with coronary dilators, passing coronary dilators from 2 mm to 4 mm dilator out the cephalic vein outflow without obstruction. Perforating branch of antecubital vein anastomosed to the site of the proximal radial artery with continuous suture of 6-0 Prolene, completed anastomosis, gained hemostasis with 6-0 Prolene, noting good Doppler signal in the cephalic vein outflow. Good hemostasis obtained. The patient was given 25 mg protamine intravenously. Subcutaneous tissue was approximated with 3-0 Monocryl, skin with subdermal 4-0 Monocryl, and Chipley glue applied. Incision was made in the left wrist through the old scar and the old Rick fistula ligated with 2-0 silk ties. Subcutaneous tissue was approximated with 3-0 Monocryl, skin with subdermal 4-0 Monocryl, and Chipley glue applied. Job ID: [id number]
[2018-11-06 04:41] LABS: #Basophils 0.1 thou/uL (0.0-0.2); #Eosinphils 0.6 thou/uL (0.0-0.7); #Lymphocytes 0.6 thou/uL (1.20-3.40); #Monocytes 1.3 thou/uL (0.11-0.59); #Neutrophils 15.7 thou/uL (1.40-6.50); %Basophils 0.4 % (0.0-1.0); %Eosinophils 3.5 % (0.0-10.0); %Lymphocytes 3.3 % (21.0-51.0); %Monocytes 7.3 % (0.0-10.0); %Neutrophils 85.6 % (42.0-75.0); Hemoglobin 9.2 g/dL (14.0-18.0); Mean Corpuscular HGB CONC 30.7 g/dL (32.0-36.0); Mean Corpuscular Hemoglobin 28.5 pg (27.0-31.0); Mean Corpuscular Volume 92.7 fL (78.0-98.0); Mean Platelet Volume 7.5 fL (7.4-10.4); Platelet Count 285 thou/uL (130-400); RBC Distribution Width 15.1 % (11.5-14.5); Red Blood Cell (RBC) Count 3.23 mill/uL (4.70-6.10); White Blood Cell (WBC) Count 18.3 thou/uL (4.8-10.8)
[2018-11-06 05:02] LABS: ALT (SGPT) Less than 7 U/L (8-55); AST (SGOT) 10 U/L (5-34); Alkaline Phosphatase 99 U/L (40-150); Anion Gap 16 mmol/L (10-20); BUN (Urea Nitrogen) 79 mg/dL (8.4-25.7); Bilirubin, Total 0.4 mg/dL (0.2-1.2); Calc. Creatinine Clearance 16 mL/min (70-130); Calcium 6.9 mg/dL (7.8-10.44); Carbon Dioxide 25 mmol/L (22-29); Chloride 98 mmol/L (98-107); Estimated GFR-MDRD 6; Globulin 3.2 g/dL (2.4-3.5); Glucose 150 mg/dL (70-105); Potassium 3.7 mmol/L (3.5-5.1); Protein, Total 5.2 g/dL (6.0-8.3); Sodium 135 mmol/L (136-145)
--- NOTE | 2018-11-06 08:41 | PRG ---
DATE OF SERVICE: 11/06/2018 SUBJECTIVE: Mr. Ferrara is a 53-year-old white male, followed up by the Renal Service for his ESRD. He is currently on maintenance peritoneal dialysis. Yesterday, he underwent revision of his AV fistula as well as placement of a cuffed dialysis catheter. Once the patient is discharged, he will be placed temporarily on hemodialysis. He voices no new complaints. OBJECTIVE: VITAL SIGNS: Blood pressure 130/65, heart rate 89, respiratory rate 16, temperature 97.4, and pulse ox 94%. GENERAL: The patient is awake, alert, comfortable, not in distress. SKIN: Adequate turgor. HEENT: Slightly pale conjunctivae. Anicteric sclerae. NECK: No neck mass. No carotid bruits. No JVD. CHEST: No deformities. LUNGS: Clear breath sounds. No wheezing. No crackles. HEART: Normal sinus rhythm. No murmurs. No gallops. No rubs. ABDOMEN: Globular, soft, and nontender. No masses. EXTREMITIES: No edema. No deformities. Positive for left upper extremity AV fistula. Positive for a tunneled right IJ dialysis catheter. MEDICATIONS: Medications of November 06, 2018, were reviewed. LABORATORY DATA: Laboratories of November 06, 2018: White count 18.3, hemoglobin 9.2. Sodium 135, potassium 3.7, chloride 98, carbon dioxide 25, BUN 79, creatinine 8.8, glucose 150, calcium is 6.9, AST 10, and ALT 7. ASSESSMENT AND PLAN: 1. End-stage renal disease, stable, tolerating current peritoneal dialysis. Fluid removal is being tolerated. We will be starting hemodialysis with this patient as an outpatient. Currently, we are awaiting usp/snf facility placement. 2. Anemia, continuing weekly Epogen. 3. Hypocalcemia. The patient is currently on Tums 1000 mg p.o. t.i.d. with meals and also on calcitriol. Job ID: [id number]
[2018-11-06] MEDS: Ferrous Sulfate 325 MG TAB PO SCH ×2 (08:50→18:02)
[2018-11-06] MEDS: Calcium Carbonate 500 MG ChewTAB PO SCH ×3 (08:50→18:02)
[2018-11-06] MEDS: Sevelamer Carbonate 800 MG TAB PO SCH ×3 (08:50→18:02)
[2018-11-06] MEDS: DULoxetine 60 MG CAP PO SCH (08:50)
[2018-11-06] MEDS: Fluconazole 100 MG TAB PO SCH (08:51)
[2018-11-06] MEDS: Calcitriol 0.25 MCG CAP PO SCH (08:51)
[2018-11-06] MEDS: Insulin Glargine 8 UNITS in Pre-Filled Syringe 1 EACH SC SCH (08:51)
[2018-11-06] MEDS: Nystatin Powder 15 GM BOT TOP SCH ×2 (08:54→22:23)
--- NOTE | 2018-11-06 08:55 | PRG ---
DATE OF SERVICE: 11/06/2018 Postop day #1 from right internal jugular tunnel hemodialysis catheter and left primary fistula placement. SUBJECTIVE: He is doing well. Tolerated the procedure well. Denies chest pain, shortness of breath, or palpitations. States that his appetite is improved. Slept some better last night, maybe some side effects from the anesthesia and postoperatively, he is anxious to leave the hospital and move on to likely alf facility. Awaiting placement issues with Case Management. OBJECTIVE: VITAL SIGNS: Temperature 97.4, pulse of 89, respirations 16, blood pressure 130/65, pulse ox 94% to 96% on room air. GENERAL: He is awake and alert, in no acute distress. Speech is clear. Mood and affect are appropriate. He seems more talkative and engaged in the past few days, more upbeat as well. HEENT: Mucosa is moist. NECK: Supple. HEART: Regular rate and rhythm. LUNGS: Clear. ABDOMEN: Soft. EXTREMITIES: Left extremity, positive DP pulse. The wounds are clearing. No edema. Slight redness around the scabbed wounds, but no signs of active infection. Right IJ catheter intact. Left peritoneal dialysis catheter in abdomen intact. No signs of infection. Positive thrill over left fistula, but no sign of infection. LABORATORY DATA: Sodium 135, potassium 3.7, chloride 98, CO2 of 25, BUN and creatinine 79 and 8.8 with a GFR of 9. Accu-Cheks of 167, 88, 99. Albumin still low at 2.0. White blood cell count 18.3 thousand, hemoglobin and hematocrit 9.2 and 29.9, and platelets of 295. Chest x-ray postoperatively revealed no pneumothorax. Right central line placement without complications. Stable small right pleural effusion. ASSESSMENT AND PLAN: This is a 53-year-old gentleman with multiple medical problems including end-stage type 2 diabetes with retinopathy, nephropathy, neuropathy, status post right below-knee amputation. 1. Left leg cellulitis appears to be resolved. He is off all antibiotics. 2. Peripheral artery disease with chronic stasis dermatitis and inflammatory changes. Continue wound management. The patient is aware that he has a high likelihood of recurrent infections in that leg and the importance of wound care and hygiene discussed with him. No plans for Vascular Surgery at this time. 3. End-stage renal disease, on dialysis. He is able to pursue hemodialysis at this time, the plans for outpatient hemodialysis are being arranged. 4. Hypokalemia is improved. 5. Type 2 diabetes. We will continue to monitor status. May need to increase his insulin now that his appetite is improved. 6. Depression, stress reaction, and trauma. Seems to be doing better with Cymbalta and Risperdal. We will continue this regimen. 7. Disposition: Hopefully placement to alf facility today or tomorrow. Job ID: [id number]
[2018-11-06] MEDS: Losartan 25 MG TAB PO SCH (08:58)
[2018-11-06] MEDS: hydrALAZINE 25 MG TAB PO SCH ×3 (08:58→21:52)
[2018-11-06] MEDS: Amlodipine 10 MG TAB PO SCH (08:58)
[2018-11-06] MEDS: EPOETIN ALFA-EPBX (ESRD) 10,000 UNIT/ML VIAL SC SCH (13:02)
[2018-11-06] MEDS: risperiDONE 1 MG TAB PO SCH (21:49)
[2018-11-07] MEDS: Nystatin Powder 15 GM BOT TOP SCH ×2 (09:12→22:08)
[2018-11-07] MEDS: Amlodipine 10 MG TAB PO SCH (09:13)
[2018-11-07] MEDS: hydrALAZINE 25 MG TAB PO SCH ×3 (09:13→22:09)
[2018-11-07] MEDS: Sevelamer Carbonate 800 MG TAB PO SCH ×3 (09:14→17:11)
[2018-11-07] MEDS: Fluconazole 100 MG TAB PO SCH (09:14)
[2018-11-07] MEDS: Losartan 25 MG TAB PO SCH (09:14)
[2018-11-07] MEDS: DULoxetine 60 MG CAP PO SCH (09:14)
[2018-11-07] MEDS: Ferrous Sulfate 325 MG TAB PO SCH ×2 (09:15→17:11)
[2018-11-07] MEDS: Calcitriol 0.25 MCG CAP PO SCH (09:15)
[2018-11-07] MEDS: Insulin Glargine 8 UNITS in Pre-Filled Syringe 1 EACH SC SCH (09:15)
[2018-11-07] MEDS: Calcium Carbonate 500 MG ChewTAB PO SCH ×3 (09:15→17:11)
--- NOTE | 2018-11-07 09:27 | PRG ---
DATE OF SERVICE: 11/07/2018 SUBJECTIVE: The patient denies chest pain, shortness of breath, palpitations. States his appetite has improved. Continues to have occasional loose stool, but not frequent diarrhea anymore. No more watery stools either. He is feeling more down today since the passing of his mom last night. He did tolerate physical therapy. Yesterday, he walked about 10 feet with assistance. Stated he had a hard time even sitting at the end of the bed and sitting up again. Physical Therapy is recommending skilled PT to continue due to his severe deconditioning. OBJECTIVE: VITAL SIGNS: Temperature 97.9, pulse 87, respirations 18, blood pressure 118/67, pulse ox 96% on room air. GENERAL: He is awake and alert, in no acute distress. HEENT: Mucosa is dry. His mouth is dry. NECK: Supple. HEART: Regular rate and rhythm. LUNGS: Clear anteriorly. ABDOMEN: Soft. Peritoneal port is intact. CHEST: Chest wall, right hemodialysis catheter is intact. No sign of infection. EXTREMITIES: Left upper extremity with AV fistula with positive thrill. No sign of infection. Left lower extremity with no edema. Has slightly increased erythema and warmth to touch. Scabs are healing. No oozing. Faint DP pulse on the left. LABORATORY DATA: Accu-Cheks of 130, 135, 146, 120. ASSESSMENT AND PLAN: This is a 53-year-old gentleman with end-stage type 2 diabetes, admitted for left lower extremity cellulitis and failing outpatient peritoneal dialysis. 1. Left leg cellulitis. Continues to seem to resolve. May have more redness today. He has been off antibiotics for several days. May ask Dr. Vargas to take another look at it and see if he needs outpatient antibiotics. 2. Peripheral artery disease with chronic stasis dermatitis. Continue wound management. 3. End-stage renal disease on dialysis. Continue hemodialysis as per Dr. Tuttle. 4. Type 2 diabetes. Continue to monitor closely as his appetite has been changing. Continue basal insulin and insulin sliding scale. 5. Depression. Stress reaction, trauma and now grief from the passing of his mother. We will continue Cymbalta and Risperdal. He is not interested in counseling at this time, but we will pursue as an outpatient. 6. Disposition. Awaiting a long term facility placement. To be able to continue outpatient dialysis. Job ID: [id number]
--- NOTE | 2018-11-07 09:48 | PRG ---
DATE OF SERVICE: 11/07/2018 SUBJECTIVE: Mr. Ferrara is a 53-year-old white male with ESRD and followed up by the Renal Service for his maintenance peritoneal dialysis. He is doing well with the peritoneal dialysis. He is tolerating the ultrafiltration. He will be converted to hemodialysis once he gets discharged. He was initially admitted for left leg cellulitis. He is doing better. No other complaints today. He does mention about his mother passing away last night. The patient denies any chest pain or shortness of breath. OBJECTIVE: VITAL SIGNS: Blood pressure 118/67, heart rate 87, respiratory rate 18, temperature 97.9, and pulse ox 94%. GENERAL: Noted to be awake, alert, and comfortable, not in overt distress. SKIN: Adequate turgor. HEENT: He has pinkish conjunctivae. Anicteric sclerae. NECK: No neck mass. No carotid bruits. No JVD. CHEST: No deformities. LUNGS: Clear breath sounds. No wheezing. No crackles. HEART: Normal sinus rhythm. No murmur. No gallops. No rubs. ABDOMEN: Globular, soft, and nontender. No masses. EXTREMITIES: No edema. No deformities. Positive for left leg erythema. Please note, he has a PD catheter and cuff dialysis and a tunneled dialysis catheter. MEDICATIONS: Medications of November 07, 2018, were reviewed. LABORATORY DATA: Laboratories of November 06, 2018; white count 18.3, hemoglobin 9.2. Sodium 135, potassium 3.7, chloride 98, carbon dioxide 25, BUN 79, creatinine 8.8, and calcium is 6.9. ASSESSMENT AND PLAN: 1. End-stage renal disease - continue current CCPD regimen. The patient is tolerating his peritoneal dialysis. No changes will be made with his current peritoneal dialysis. As previously mentioned, we will convert him to hemodialysis once he is discharged. Currently, we are awaiting jail placement. 2. Anemia, continuing weekly Epogen. Job ID: [id number]
--- NOTE | 2018-11-07 14:44 | PRG ---
DATE OF SERVICE: 11/07/2018 SUBJECTIVE: The patient had surgical intervention on the with right IJ cuffed hemodialysis catheter and left arm primary fistula. The patient is feeling okay. He denies any headaches. No shortness of breath or cough. No vomiting and he does not have any pain in the left leg. PHYSICAL EXAMINATION: VITAL SIGNS: With a T-max of 98, blood pressure is 150/70, pulse 87. EXTREMITIES: The left leg has those areas of vascular dilatation in the lower extremity, which are not painful. I believe those are more vascular phenomena than true cellulitis. He does have some areas of superficial scabbing and ulceration in the legs, probably secondary to peripheral vascular disease and venous insufficiency. LUNGS: Clear. HEART: S1 and S2, regular rate. ABDOMEN: Soft, not distended. He has tunneled catheter in the right IJ position and the primary fistula in the left upper extremity. LABORATORY DATA: White cell count is 18.3, hemoglobin 9.2, platelets 285 with 85% neutrophils, this is from yesterday. C diff was negative from the . Diarrhea has improved. ASSESSMENT AND DISCUSSION: Type 2 diabetes, peripheral vascular disease, chronic ulcerations, erythema, hypersensitivity reaction to cephalosporin in the past, which has resolved, and inadequate dialytic therapy, which has led to transition to hemodialysis. The leg changes, I think, are vascular, not infectious in nature and that we will not recommend antimicrobial therapy at this point in time. Job ID: [id number]
[2018-11-07] MEDS ORDERED: Zolpidem Tartrate 5 MG TAB PO PRN (18:04)
[2018-11-07] MEDS: ALPRAZolam 0.25 MG TAB PO PRN (18:25)
[2018-11-07] MEDS: diphenhydrAMINE 25 MG CAP PO PRN (22:11)
[2018-11-07] MEDS: risperiDONE 1 MG TAB PO SCH (22:11)
--- NOTE | 2018-11-08 07:11 | PRG ---
DATE OF SERVICE: 11/08/2018 SERVICE: Renal Medicine. SUBJECTIVE: Mr. Ferrara is a 53-year-old white male with ESRD and followed by the Renal Service for his maintenance peritoneal dialysis. He is tolerating the said peritoneal dialysis regimen. In the interim, he had a right IJ cuffed dialysis catheter placed as well as revision of his AV fistula. He voices no new complaints. He denies any chest pain or shortness of breath. OBJECTIVE: VITAL SIGNS: Blood pressure is 135/68, heart rate 87, respiratory rate 18, temperature 97.9, and pulse ox 92%. GENERAL: Awake, alert, comfortable, not in overt distress. SKIN: Adequate turgor. HEENT: He has pinkish conjunctivae. Anicteric sclerae. NECK: No neck mass. No carotid bruits. No JVD. CHEST: No deformities. LUNGS: Clear breath sounds. HEART: Normal sinus rhythm. No murmur. No gallops. No rubs. ABDOMEN: Globular, soft, nontender. No masses. He has a PD catheter in the abdomen. EXTREMITIES: No edema. No deformities. Positive for mild erythema on the left leg. MEDICATIONS: Medications of November 08, 2018, reviewed. LABORATORY DATA: Laboratories of November 06, 2018; white count 18.3, hemoglobin 9.2. November 08, 2018, glucose 120. Awaiting November 08 lab work. ASSESSMENT AND PLAN: 1. End-stage renal disease, stable. We will continue current peritoneal dialysis regimen. Tolerating said treatment. No changes to be made with the peritoneal dialysis solution. As previously mentioned, he will be converted to hemodialysis as an outpatient. 2. Anemia, continuing weekly Epogen with the patient. 3. Awaiting detention placement. Job ID: [id number]
[2018-11-08 07:18] LABS: #Basophils 0.1 thou/uL (0.0-0.2); #Eosinphils 0.8 thou/uL (0.0-0.7); #Monocytes 1.5 thou/uL (0.11-0.59); #Neutrophils 13.4 thou/uL (1.40-6.50); %Basophils 0.8 % (0.0-1.0); %Eosinophils 4.9 % (0.0-10.0); %Monocytes 8.8 % (0.0-10.0); %Neutrophils 79.6 % (42.0-75.0); Hemoglobin 9.1 g/dL (14.0-18.0); Mean Corpuscular HGB CONC 30.2 g/dL (32.0-36.0); Mean Platelet Volume 7.6 fL (7.4-10.4); Platelet Count 286 thou/uL (130-400); RBC Distribution Width 14.5 % (11.5-14.5); Red Blood Cell (RBC) Count 3.26 mill/uL (4.70-6.10); White Blood Cell (WBC) Count 16.9 thou/uL (4.8-10.8)
[2018-11-08 07:46] LABS: ALT (SGPT) Less than 7 U/L (8-55); AST (SGOT) 11 U/L (5-34); Albumin 2.2 g/dL (3.5-5.0); Alkaline Phosphatase 94 U/L (40-150); Anion Gap 18 mmol/L (10-20); BUN (Urea Nitrogen) 71 mg/dL (8.4-25.7); Bilirubin, Total 0.5 mg/dL (0.2-1.2); Calc. Creatinine Clearance 17 mL/min (70-130); Calcium 7.2 mg/dL (7.8-10.44); Carbon Dioxide 25 mmol/L (22-29); Chloride 96 mmol/L (98-107); Estimated GFR-MDRD 7; Globulin 3.3 g/dL (2.4-3.5); Glucose 116 mg/dL (70-105); Potassium 3.7 mmol/L (3.5-5.1); Protein, Total 5.5 g/dL (6.0-8.3); Sodium 135 mmol/L (136-145)
[2018-11-08] MEDS: Calcium Carbonate 500 MG ChewTAB PO SCH ×3 (09:49→16:54)
[2018-11-08] MEDS: Losartan 25 MG TAB PO SCH (09:50)
[2018-11-08] MEDS: Fluconazole 100 MG TAB PO SCH (09:52)
[2018-11-08] MEDS: Ferrous Sulfate 325 MG TAB PO SCH ×2 (09:53→16:54)
[2018-11-08] MEDS: hydrALAZINE 25 MG TAB PO SCH ×4 (09:54→23:40)
[2018-11-08] MEDS: Amlodipine 10 MG TAB PO SCH (09:56)
[2018-11-08] MEDS: DULoxetine 60 MG CAP PO SCH (09:57)
[2018-11-08] MEDS: Calcitriol 0.25 MCG CAP PO SCH (09:57)
[2018-11-08] MEDS: Insulin Glargine 8 UNITS in Pre-Filled Syringe 1 EACH SC SCH (09:58)
[2018-11-08] MEDS: Nystatin Powder 15 GM BOT TOP SCH ×3 (10:02→21:00)
[2018-11-08] MEDS: Sevelamer Carbonate 800 MG TAB PO SCH ×3 (11:07→23:35)
--- NOTE | 2018-11-08 14:50 | PRG ---
DATE OF SERVICE: 11/08/2018 SUBJECTIVE: This morning, the patient has remained stable. No new issues. He is grieving over the of his mother, which occurred yesterday. She suddenly of acute myocardial infarction. She did have dementia. The patient has been depressed about this. OBJECTIVE: VITAL SIGNS: Temperature 97.9, pulse 89, respirations 18, and blood pressure 127/69. GENERAL: No acute distress. He is somewhat depressed. HEART: Regular rate and rhythm. LUNGS: Clear. ABDOMEN: Soft. EXTREMITIES: Right BKA present. Dry scabs of the lower extremities. LABORATORY DATA: White count 16.9, hemoglobin and hematocrit of 9.1 and 30.3. Sodium 135, potassium 3.7, creatinine 8.5, BUN 71, and blood sugar 116 and 118. ASSESSMENT: 1. Left leg cellulitis, resolved. Dr. Vargas feels there is no infectious process going on at this time. 2. Peripheral artery disease with chronic stasis dermatitis. 3. End-stage renal disease, was on peritoneal dialysis, changed over to hemodialysis. Additional reason for change is the patient will be going to intermediate, where they only do hemodialysis. 4. Diabetes. 5. Depression, on Cymbalta and Risperdal. PLAN: Plan is to continue wound care as well as hemodialysis and await SNF placement. Job ID: [id number]
[2018-11-08] MEDS: risperiDONE 1 MG TAB PO SCH ×2 (21:00→23:40)
[2018-11-08] MEDS: ALPRAZolam 0.25 MG TAB PO PRN (23:41)
[2018-11-08] MEDS: diphenhydrAMINE 25 MG CAP PO PRN (23:41)
[2018-11-09 04:35] LABS: #Basophils 0.1 thou/uL (0.0-0.2); #Eosinphils 0.3 thou/uL (0.0-0.7); #Lymphocytes 0.8 thou/uL (1.20-3.40); #Monocytes 1.6 thou/uL (0.11-0.59); #Neutrophils 16.8 thou/uL (1.40-6.50); %Basophils 0.5 % (0.0-1.0); %Eosinophils 1.6 % (0.0-10.0); %Lymphocytes 4.2 % (21.0-51.0); %Neutrophils 85.7 % (42.0-75.0); Hemoglobin 10.1 g/dL (14.0-18.0); Mean Corpuscular HGB CONC 28.7 g/dL (32.0-36.0); Mean Corpuscular Volume 97.4 fL (78.0-98.0); Mean Platelet Volume 7.5 fL (7.4-10.4); Platelet Count 285 thou/uL (130-400); RBC Distribution Width 14.4 % (11.5-14.5); Red Blood Cell (RBC) Count 3.61 mill/uL (4.70-6.10); White Blood Cell (WBC) Count 19.6 thou/uL (4.8-10.8)
[2018-11-09 04:53] LABS: Anion Gap 18 mmol/L (10-20); BUN (Urea Nitrogen) 66 mg/dL (8.4-25.7); Calc. Creatinine Clearance 17 mL/min (70-130); Calcium 7.6 mg/dL (7.8-10.44); Carbon Dioxide 23 mmol/L (22-29); Chloride 97 mmol/L (98-107); Estimated GFR-MDRD 7; Glucose 133 mg/dL (70-105); Potassium 3.7 mmol/L (3.5-5.1); Sodium 134 mmol/L (136-145)
[2018-11-09] MEDS: Sevelamer Carbonate 800 MG TAB PO SCH ×3 (08:41→17:45)
[2018-11-09] MEDS: Fluconazole 100 MG TAB PO SCH (08:41)
[2018-11-09] MEDS: Ferrous Sulfate 325 MG TAB PO SCH ×2 (08:41→17:45)
[2018-11-09] MEDS: Calcitriol 0.25 MCG CAP PO SCH (08:42)
[2018-11-09] MEDS: Calcium Carbonate 500 MG ChewTAB PO SCH ×3 (08:42→17:45)
[2018-11-09] MEDS: DULoxetine 60 MG CAP PO SCH (08:42)
[2018-11-09] MEDS: Insulin Glargine 8 UNITS in Pre-Filled Syringe 1 EACH SC SCH (08:43)
[2018-11-09] MEDS: Nystatin Powder 15 GM BOT TOP SCH ×2 (08:43→21:38)
--- NOTE | 2018-11-09 09:35 | PRG ---
DATE OF SERVICE: 11/09/2018 SERVICE: Renal Medicine. SUBJECTIVE: Mr. Ferrara is a 53-year-old white male, followed up by the Renal Service for his maintenance peritoneal dialysis. He is doing well. He is dialyzing well. No changes have been made with the PD regimen for the last several days. No complaints of chest pain or shortness of breath. OBJECTIVE: VITAL SIGNS: Blood pressure is noted at 135/78, heart rate 86, respiratory rate 18, temperature 97.6, and pulse ox 93% - room air. GENERAL: Awake, alert, supine, comfortable. SKIN: Adequate turgor. HEENT: Slightly pale conjunctivae. Anicteric sclerae. NECK: No neck mass. No carotid bruits. No JVD. CHEST: No deformities. LUNGS: Clear breath sounds. No wheezing. No crackles. HEART: Normal sinus rhythm. No murmur. No gallops. No rubs. ABDOMEN: Globular, soft, and nontender. No masses. Positive for PD catheter. EXTREMITIES: No edema. Mild erythema in the left leg. MEDICATIONS: Medications of November 09, 2018, reviewed. LABORATORY DATA: Laboratories of November 09, 2018; white count 19.6, hemoglobin 10.1. Sodium 134, potassium 3.7, chloride 97, carbon dioxide 23, BUN 66, creatinine 8.41, glucose 133, and calcium 7.6. ASSESSMENT AND PLAN: 1. End-stage renal disease, stable. We will continue current CCPD regimen. No changes to be made with the peritoneal dialysis. As previously mentioned, we will convert him to outpatient hemodialysis. 2. Anemia. Continuing weekly Epogen, stable. 3. Agree with current management. 4. [facility]wait[facility]. Job ID: [id number]
--- NOTE | 2018-11-09 11:53 | PRG ---
DATE OF SERVICE: 11/09/2018 SUBJECTIVE: The patient is doing well. He has completed morning dialysis. He is awaiting placement. OBJECTIVE: VITAL SIGNS: Temperature 97.6, pulse 86, respirations 18, pulse ox 93 on room air, and blood pressure 135/78. HEART: Regular rate and rhythm. LUNGS: Clear. ABDOMEN: Soft. LABORATORY DATA: White count 19.6, H and H of 10 and 35. Sodium 134, potassium 3.7, BUN 71 to 66, and blood sugar 133 and 160. ASSESSMENT: 1. Left leg cellulitis, resolved. 2. Peripheral artery disease with chronic stasis dermatitis. 3. End-stage renal disease, on peritoneal dialysis, changed to hemodialysis. 4. Diabetes. 5. Depression. PLAN: Awaiting placement to long term. Job ID: [id number]
[2018-11-09] MEDS ORDERED: Boudreaux's Butt Paste 16% Oin 30 GM TUBE TOP PRN (12:12)
[2018-11-09] MEDS: Amlodipine 10 MG TAB PO SCH (12:25)
[2018-11-09] MEDS: hydrALAZINE 25 MG TAB PO SCH ×3 (12:25→21:34)
[2018-11-09] MEDS: Losartan 25 MG TAB PO SCH (12:28)
[2018-11-09] MEDS ORDERED: Magnesium Citrate 300 ML BOT PO PRN (17:03)
[2018-11-09] MEDS: Boudreaux's Butt Paste 16% Oin 30 GM TUBE TOP SCH (21:00)
[2018-11-09] MEDS: Docusate 100 MG CAP PO SCH (21:34)
[2018-11-09] MEDS: ALPRAZolam 0.25 MG TAB PO PRN (21:38)
[2018-11-09] MEDS: risperiDONE 1 MG TAB PO SCH (21:38)
[2018-11-09] MEDS: diphenhydrAMINE 25 MG CAP PO PRN (21:44)
[2018-11-10] MEDS: Calcium Carbonate 500 MG ChewTAB PO SCH ×3 (09:08→16:00)
[2018-11-10] MEDS: Ferrous Sulfate 325 MG TAB PO SCH ×2 (09:08→15:59)
[2018-11-10] MEDS: Sevelamer Carbonate 800 MG TAB PO SCH ×3 (09:08→15:59)
[2018-11-10] MEDS: Docusate 100 MG CAP PO SCH ×2 (09:09→21:50)
[2018-11-10] MEDS: Polyethylene Glycol 3350 17 GM Packet PO SCH (09:09)
[2018-11-10] MEDS: DULoxetine 60 MG CAP PO SCH (09:09)
[2018-11-10] MEDS: hydrALAZINE 25 MG TAB PO SCH ×3 (09:10→21:50)
[2018-11-10] MEDS: Insulin Glargine 8 UNITS in Pre-Filled Syringe 1 EACH SC SCH (09:11)
[2018-11-10] MEDS: Nystatin Powder 15 GM BOT TOP SCH ×2 (09:12→21:00)
[2018-11-10] MEDS: Losartan 25 MG TAB PO SCH (09:12)
[2018-11-10] MEDS: Amlodipine 10 MG TAB PO SCH (09:13)
[2018-11-10] MEDS: Boudreaux's Butt Paste 16% Oin 30 GM TUBE TOP SCH ×2 (09:14→21:50)
[2018-11-10] MEDS: Calcitriol 0.25 MCG CAP PO SCH (09:14)
--- NOTE | 2018-11-10 09:50 | PRG ---
DATE OF SERVICE: 11/10/2018 SUBJECTIVE: Mr. Ferrara is a 53-year-old white male with ESRD followed up by the Renal Service for his maintenance peritoneal dialysis. No new complaints today. Currently still awaiting retirement facility placement. No complaints of chest pain or shortness of breath. OBJECTIVE: VITAL SIGNS: Blood pressure 143/91, heart rate 101, respiratory rate is 16, temperature 97.8, and pulse ox 92% on room air. GENERAL: Awake, comfortable, not in distress. SKIN: Adequate turgor. HEENT: He has a pinkish conjunctivae. Anicteric sclerae. No neck mass. No carotid bruits. No JVD. CHEST: No deformities. LUNGS: Clear breath sounds. No wheezing. No crackles. HEART: Normal sinus rhythm. No murmurs, gallops, or rubs. ABDOMEN: Globular, soft, nontender. No masses. Positive for PD catheter. EXTREMITIES: No edema. No deformities. MEDICATIONS: Medications of November 10, 2018, reviewed. LABORATORY DATA: Laboratories of November 09, 2018; white count 19.6, hemoglobin 10.1, sodium 134, potassium 3.7, chloride 97, carbon dioxide 23, BUN is 66, creatinine 8.41, calcium 7.6. ASSESSMENT AND PLAN: 1. End-stage renal disease, stable. Continue current CCPD regimen. Tolerating said treatment. Awaiting retirement facility placement. 2. Anemia, currently on weekly Epogen. Please note, this patient will be converted to outpatient hemodialysis. Job ID: [id number]
--- NOTE | 2018-11-10 10:00 | PRG ---
DATE OF SERVICE: 11/10/2018 SUBJECTIVE: The patient is feeling better. He had a good bowel movement after being constipated over the weekend. Denies abdominal pain. Denies nausea or vomiting. Denies chest pain, shortness of breath, or palpitations. States he feels like his mood is better on current regimen. He slept better last night. Feels less anxious, but he is ready to leave the hospital which is planned for tomorrow. OBJECTIVE: VITAL SIGNS: Temperature 97.8, pulse of 101, respirations 16, blood pressure 143/91, pulse ox 92% to 96% on room air. GENERAL: He is awake and alert. No acute distress. Speech is clear. NECK: Supple. HEART: Regular rate and rhythm. LUNGS: Distant, but clear. ABDOMEN: Soft. Peritoneal dialysis catheter is intact. Right IJ catheter is intact. No sign of infection. Left AV fistula with thrill. EXTREMITIES: Left leg with scattered erythematous areas. Healing wounds. No open. No drainage. LABORATORY DATA: Reviewed. White blood cell count yesterday 19,600, hemoglobin and hematocrit 10.1 and 35.1, platelets of 285. Sodium 134, potassium 3.7, chloride 97, CO2 of 23, BUN and creatinine 66 and 8.41 with a GFR of 7. Accu-Cheks of 123, 139, 94, 99. ASSESSMENT AND PLAN: This is a 53-year-old gentleman with end-stage type 2 diabetes, on peritoneal dialysis for renal failure, peripheral vascular disease, retinopathy, neuropathy. 1. Left leg cellulitis is resolved. Appreciate Dr. Vargas for evaluation. Does not need antibiotics at this time. 2. End-stage renal disease, on dialysis as per Nephrology, plan for outpatient hemodialysis, initiate tomorrow. 3. Peripheral artery disease with chronic stasis dermatitis. Continue wound care. 4. Type 2 diabetes. We will continue current regimen. 5. Depression. We will continue Cymbalta and Risperdal. 6. Disposition. Hopefully placement at [facility] tomorrow to initiate outpatient dialysis as well. Job ID: [id number]
[2018-11-10] MEDS: Loperamide HCl 2 MG CAP PO PRN (13:12)
[2018-11-10] MEDS: HumaLOG 300 UNITS/3 ML VIAL SC PRN (13:55)
[2018-11-10] MEDS: risperiDONE 1 MG TAB PO SCH (21:50)
[2018-11-10] MEDS: diphenhydrAMINE 25 MG CAP PO PRN (22:04)
[2018-11-10] MEDS: ALPRAZolam 0.25 MG TAB PO PRN (22:05)
[2018-11-11] MEDS: DULoxetine 60 MG CAP PO SCH (08:48)
[2018-11-11] MEDS: Calcium Carbonate 500 MG ChewTAB PO SCH ×3 (08:48→17:28)
[2018-11-11] MEDS: Sevelamer Carbonate 800 MG TAB PO SCH ×3 (08:48→17:28)
[2018-11-11] MEDS: Calcitriol 0.25 MCG CAP PO SCH (08:48)
[2018-11-11] MEDS: Ferrous Sulfate 325 MG TAB PO SCH ×2 (08:49→17:28)
[2018-11-11] MEDS: Losartan 25 MG TAB PO SCH (08:51)
[2018-11-11] MEDS: hydrALAZINE 25 MG TAB PO SCH ×3 (08:51→20:29)
[2018-11-11] MEDS: Amlodipine 10 MG TAB PO SCH (08:51)
[2018-11-11] MEDS: Docusate 100 MG CAP PO SCH ×2 (08:52→20:22)
[2018-11-11] MEDS: Polyethylene Glycol 3350 17 GM Packet PO SCH (08:52)
[2018-11-11] MEDS: Nystatin Powder 15 GM BOT TOP SCH ×2 (08:52→20:32)
[2018-11-11] MEDS: Insulin Glargine 8 UNITS in Pre-Filled Syringe 1 EACH SC SCH (08:55)
[2018-11-11] MEDS: Boudreaux's Butt Paste 16% Oin 30 GM TUBE TOP SCH ×2 (08:55→20:34)
--- NOTE | 2018-11-11 09:30 | PRG ---
DATE OF SERVICE: 11/11/2018 SUBJECTIVE: Mr. Ferrara is a 53-year-old white male with ESRD and followed up by the Renal Service for his maintenance peritoneal dialysis, doing well with the current PD regimen. We are awaiting placement for residential facility placement. He will be converted to hemodialysis once the patient is discharged. He tolerated last night's PD. No other complaints. OBJECTIVE: VITAL SIGNS: Blood pressure 132/71, heart rate 82, respiratory rate 18, temperature 97.5, and pulse ox 92%. GENERAL: Noted to be awake, alert, comfortable, not in distress. SKIN: Adequate turgor. HEENT: He has pinkish conjunctivae. Anicteric sclerae. NECK: No neck mass. No carotid bruits. No JVD. CHEST: No deformities. LUNGS: Clear breath sounds. No wheezing. No crackles. HEART: Normal sinus rhythm. No murmur. No gallops or rubs. ABDOMEN: Globular, soft, and nontender. No masses. Positive for PD catheter. EXTREMITIES: Left leg mildly positive for erythema. MEDICATIONS: Medications of November 11, 2018, were reviewed. LABORATORY DATA: Laboratories of November 11, 2018; glucose 124, on November 09, 2018, sodium 134; potassium 3.7; chloride 97; carbon dioxide 23; BUN 66; creatinine 8.41; and calcium is 7.6. Hemoglobin 10.1. ASSESSMENT AND PLAN: 1. End-stage renal disease, stable, continuing current CCPD regimen. Continue peritoneal dialysis. Tolerating ultrafiltration. We will recheck basic metabolic and CBC in a.m. 2. Anemia. Continuing weekly Epogen. Recheck CBC in a.m. Awaiting longterm placement. Job ID: [id number]
--- NOTE | 2018-11-11 10:10 | PRG ---
DATE OF SERVICE: 11/11/2018 SUBJECTIVE: The patient is feeling fine. He is tolerating peritoneal dialysis. Anxious to be transferred to intermediate unit. Constipation and diarrhea have resolved. He states his appetite is good. Denies nausea or vomiting. He denies chest pain, shortness of breath, or palpitations. Sleeping better at night, but continued to be anxious about where he will go from here. OBJECTIVE: VITAL SIGNS: Temperature 97.5, pulse of 82, respirations 18, blood pressure 132/71, and pulse ox 92% to 95% on room air. GENERAL: He is awake and alert. No acute distress. Speech is clear. HEENT: Mucosa is moist. NECK: Supple. HEART: Regular rate and rhythm. LUNGS: Clear. ABDOMEN: Positive bowel sounds. Soft, nontender, and nondistended. EXTREMITIES: Decreased redness and warmth in his left leg. No signs of active infection. Wounds are resolving. LABORATORY DATA: Accu-Cheks of 124, 178, 143, and 70. He did have one episode of hypoglycemia down to 51 yesterday afternoon. Blood cultures are negative. C. diff is negative. ASSESSMENT AND PLAN: This is a 53-year-old gentleman with type 2 diabetes with end-stage kidney disease, peripheral vascular disease, retinopathy, neuropathy, coronary artery disease. 1. Left leg cellulitis has resolved. No further antibiotics at this point. 2. End-stage renal disease, had peritoneal dialysis last night. Plan for next hemodialysis on as an outpatient. 3. Peripheral artery disease with chronic stasis dermatitis. Continue wound care. 4. Type 2 diabetes. We will monitor and adjust insulin with episodes of hypoglycemia. 5. Depression and anxiety, appears stable. Continue Cymbalta and Risperdal. We will arrange outpatient counseling with Psychology at intermediate. DISPOSITION: [facility] declined to accept the patient today. Awaiting decision with [facility] and will be ready for discharge at that time. Job ID: [id number]
[2018-11-11] MEDS: HumaLOG 300 UNITS/3 ML VIAL SC PRN (17:33)
[2018-11-11] MEDS: risperiDONE 1 MG TAB PO SCH (20:29)
[2018-11-12 06:29] LABS: #Basophils 0.1 thou/uL (0.0-0.2); #Eosinphils 0.5 thou/uL (0.0-0.7); #Lymphocytes 1.2 thou/uL (1.20-3.40); #Monocytes 1.2 thou/uL (0.11-0.59); #Neutrophils 10.2 thou/uL (1.40-6.50); %Basophils 0.8 % (0.0-1.0); %Lymphocytes 8.8 % (21.0-51.0); %Neutrophils 77.3 % (42.0-75.0); Hemoglobin 9.7 g/dL (14.0-18.0); Mean Corpuscular HGB CONC 31.3 g/dL (32.0-36.0); Mean Corpuscular Hemoglobin 28.7 pg (27.0-31.0); Mean Corpuscular Volume 91.7 fL (78.0-98.0); Mean Platelet Volume 7.6 fL (7.4-10.4); Platelet Count 247 thou/uL (130-400); RBC Distribution Width 14.1 % (11.5-14.5); Red Blood Cell (RBC) Count 3.38 mill/uL (4.70-6.10); White Blood Cell (WBC) Count 13.2 thou/uL (4.8-10.8)
[2018-11-12 06:30] LABS: Anion Gap 15 mmol/L (10-20); BUN (Urea Nitrogen) 58 mg/dL (8.4-25.7); Calc. Creatinine Clearance 17 mL/min (70-130); Calcium 7.5 mg/dL (7.8-10.44); Carbon Dioxide 25 mmol/L (22-29); Chloride 96 mmol/L (98-107); Estimated GFR-MDRD 7; Glucose 127 mg/dL (70-105); Potassium 3.3 mmol/L (3.5-5.1); Sodium 133 mmol/L (136-145)
--- NOTE | 2018-11-12 09:19 | PRG ---
DATE OF SERVICE: 11/12/2018 SERVICE: Renal Medicine. SUBJECTIVE: Mr. Ferrara is a 53-year-old white male with ESRD, followed by the Renal Service for his peritoneal dialysis. He underwent peritoneal dialysis without any difficulty yesterday. He has no new complaints. We are awaiting prison facility placement. He does have placement with outpatient dialysis. No chest pain or shortness of breath. OBJECTIVE: VITAL SIGNS: Blood pressure is 151/74, heart rate 87, respiratory rate 16, temperature 97.5, pulse ox 96%. GENERAL: The patient is awake, alert, comfortable, not in distress. SKIN: Adequate turgor. HEENT: He has pinkish conjunctivae. Anicteric sclerae. NECK: No neck mass. No carotid bruits. No JVD. CHEST: No deformities. LUNGS: Clear breath sounds. HEART: Normal sinus rhythm. No murmur. No gallops or rubs. ABDOMEN: Globular, soft, nontender. No masses. EXTREMITIES: No edema. No deformities. MEDICATIONS: Medications of November 12, 2018, reviewed. LABORATORY DATA: Laboratories of November 08, 2018; white count 13.2, hemoglobin 9.7. Sodium 133, potassium 3.3, chloride 96, carbon dioxide 25, BUN 58, creatinine 8.49, glucose 107, calcium 7.5. ASSESSMENT AND PLAN: 1. End-stage renal disease, stable. Continue current CCPD regimen. No changes to be made with the current peritoneal dialysis regimen. 2. Mild hypocalcemia, slowly improving. Continue calcitriol and calcium tablets. 3. Anemia. Continuing weekly Epogen. 4. Awaiting prison facility placement and approval. Job ID: [id number]
[2018-11-12] MEDS: Calcitriol 0.25 MCG CAP PO SCH (09:20)
[2018-11-12] MEDS: Losartan 25 MG TAB PO SCH (09:21)
[2018-11-12] MEDS: Ferrous Sulfate 325 MG TAB PO SCH ×2 (09:21→17:03)
[2018-11-12] MEDS: Calcium Carbonate 500 MG ChewTAB PO SCH ×3 (09:21→17:03)
[2018-11-12] MEDS: Sevelamer Carbonate 800 MG TAB PO SCH ×3 (09:21→17:03)
[2018-11-12] MEDS: Insulin Glargine 8 UNITS in Pre-Filled Syringe 1 EACH SC SCH (09:24)
[2018-11-12] MEDS: Amlodipine 10 MG TAB PO SCH (09:24)
[2018-11-12] MEDS: Docusate 100 MG CAP PO SCH ×2 (09:24→20:57)
[2018-11-12] MEDS: hydrALAZINE 25 MG TAB PO SCH ×3 (09:24→20:55)
[2018-11-12] MEDS: DULoxetine 60 MG CAP PO SCH (09:24)
[2018-11-12] MEDS: Nystatin Powder 15 GM BOT TOP SCH ×2 (09:34→20:57)
[2018-11-12] MEDS: Polyethylene Glycol 3350 17 GM Packet PO SCH (09:35)
[2018-11-12] MEDS: Boudreaux's Butt Paste 16% Oin 30 GM TUBE TOP SCH ×2 (09:35→20:58)
[2018-11-12] MEDS ORDERED: hydrOXYzine 25 MG TAB PO PRN (14:53)
[2018-11-12] MEDS ORDERED: Gentamicin TOPICAL Ointment 0.1% 15 gm Tube TOP PRN (15:17)
[2018-11-12] MEDS: risperiDONE 1 MG TAB PO SCH (20:57)
[2018-11-12] MEDS: ALPRAZolam 0.25 MG TAB PO PRN (21:00)
[2018-11-12] MEDS: diphenhydrAMINE 25 MG CAP PO PRN (21:00)
--- NOTE | 2018-11-13 04:15 | PRG ---
DATE OF SERVICE: 11/12/2018 HISTORY OF PRESENT ILLNESS: The patient continues to await placement, has been denied several times. Currently working on I believe at [employer]. Case Management following up. Continued on hemodialysis, antibiotic therapy for lower extremity wound, which is progressing nicely. The patient has no acute complaints, but did have a rough night sleep last night. Still reports intermittent watery diarrhea. Denies any blood. OBJECTIVE: On review of vital signs; temperature of 97.6, pulse of 89, respiratory rate of 16, oxygen saturation of 95% on room air, and blood pressure of 131/60. White blood cell count of 13.2, hemoglobin of 9.7, sodium 133, potassium of 3.3, creatinine of 8.9, blood glucose of 127, calcium of 7.5. Repeat C diff assay was not performed secondary to formed stool has been negative x3 now during hospitalization. PHYSICAL EXAMINATION: GENERAL: The patient is alert and oriented, no acute distress. HEENT: Head is normocephalic and atraumatic. Extraocular movements are intact. Sclerae are white. Oral mucosa is moist. NECK: Supple and nontender. HEART: Regular rate and rhythm at the time of exam. No murmurs auscultated. LUNGS: Clear to auscultation bilaterally. No rubs or wheezes. ABDOMEN: Soft, nontender. Positive bowel sounds throughout. LOWER EXTREMITIES: Without cyanosis or edema to left lower extremity. Right lower extremity status post amputation stump well healed ulcerations prior to right stump much improved from approximately 2 weeks ago when I followed the patient previously. Left lower extremity has dry slough to anterior aspect of miranda. No extending erythema or pallor. The patient currently has nystatin powder for gentamicin ointment topically to any ulcerations. Other oral and IV antibiotics have been discontinued. Has supplemental Nephro shakes to help wound healing. ASSESSMENT AND PLAN: Chronic lower extremity wound, improved cellulitis, end-stage renal disease, currently on hemodialysis, deconditioning, status post right lower extremity amputation, anemia of chronic disease, insomnia, mood disorder, consistent with severe depression versus bipolar. The patient is currently on Cymbalta, risperidone, trial of hydroxyzine. The patient is type 2 diabetic, currently on insulin sliding scale, insulin Lantus as well as ARB. No signs of hyperkalemia. To help boost calcium, currently on calciferol as well as Renvela. Waiting placement services. We will continue to follow. Job ID: [id number]
[2018-11-13] MEDS: Docusate 100 MG CAP PO SCH (08:26)
[2018-11-13] MEDS: Polyethylene Glycol 3350 17 GM Packet PO SCH (08:26)
[2018-11-13] MEDS: Ferrous Sulfate 325 MG TAB PO SCH (08:27)
[2018-11-13] MEDS: Calcium Carbonate 500 MG ChewTAB PO SCH ×2 (08:28→12:08)
[2018-11-13] MEDS: DULoxetine 60 MG CAP PO SCH (08:28)
[2018-11-13] MEDS: Sevelamer Carbonate 800 MG TAB PO SCH ×2 (08:28→12:07)
--- NOTE | 2018-11-13 08:51 | PRG ---
DATE OF SERVICE: 11/13/2018 SUBJECTIVE: Mr. Ferrara is a 53-year-old white male with ESRD, currently on peritoneal dialysis. Doing well with the peritoneal dialysis. Tolerating said treatment. No new complaints today. No chest pain or shortness of breath. OBJECTIVE: VITAL SIGNS: Blood pressure is 115/55, heart rate 81, respiratory rate 16, temperature 98, pulse ox 92%. GENERAL: Awake, alert, and comfortable, not in distress. SKIN: Adequate turgor. HEENT: Slightly pale conjunctivae. Anicteric sclerae. NECK: No neck mass. No carotid bruits. No JVD. CHEST: No deformities. LUNGS: Clear breath sounds. No wheezing. No crackles. HEART: Normal sinus rhythm. No murmur, no gallops, no rubs. ABDOMEN: Globular, soft, nontender. No masses. EXTREMITIES: Mild erythema in left leg. Please note he has a PD catheter in the belly. MEDICATIONS: Medications of November 13, 2018, was reviewed. LABORATORY DATA: Laboratories of November 12, 2018; white count 13.2, hemoglobin 9.7. Sodium 133, potassium 3.3, chloride 96, carbon dioxide 25, BUN 58, creatinine 8.49, calcium 7.5. November 13, 2018, glucose 124. ASSESSMENT AND PLAN: 1. End-stage renal disease, stable. Tolerated current peritoneal dialysis regimen. Ultrafiltration is being tolerated by the patient. No changes to be made with this current peritoneal dialysis regimen. 2. Anemia continuing weekly Epogen. 3. Mild hypercalcemia, improving. Please note, the patient will be converted to hemodialysis once he is discharged. Awaiting snf placement. Job ID: [id number]
[2018-11-13] MEDS: Amlodipine 10 MG TAB PO SCH (09:41)
[2018-11-13] MEDS: hydrALAZINE 25 MG TAB PO SCH ×2 (09:41→15:11)
[2018-11-13] MEDS: Losartan 25 MG TAB PO SCH (09:42)
[2018-11-13] MEDS: Calcitriol 0.25 MCG CAP PO SCH (10:30)
[2018-11-13] MEDS: Insulin Glargine 8 UNITS in Pre-Filled Syringe 1 EACH SC SCH (10:30)
[2018-11-13] MEDS: Nystatin Powder 15 GM BOT TOP SCH (10:34)
[2018-11-13] MEDS: Boudreaux's Butt Paste 16% Oin 30 GM TUBE TOP SCH (10:34)
[2018-11-13] MEDS: EPOETIN ALFA-EPBX (ESRD) 10,000 UNIT/ML VIAL SC SCH (12:10)
[2018-11-13 15:11] VITALS: BP 114/56
[2018-11-13 15:29] VITALS: TEMP 97.6
--- NOTE | 2018-11-14 05:14 | DIS ---
DATE OF ADMISSION: 10/29/2018 DATE OF DISCHARGE: 11/13/2018 PRIMARY CARE PHYSICIAN: Dillon Hill DO CHIEF COMPLAINT: Cellulitis of left lower extremity. HOSPITAL COURSE AND HISTORY OF PRESENT ILLNESS: The patient with recurrent episode of cellulitis to left lower extremity with exposed wound. The patient is status post right lower extremity amputation and has a two part prosthesis. The top part has metal threading. The patient states that he is too weak, but also somewhat too lazy to remove this metal prosthesis that crosses his legs routinely and has scraped his left miranda, causing ulceration with entry point for a cellulitis. Infectious Disease with Dr. Vargas was consulted recommending long-term antibiotics, which the patient progressed during his hospital stay and once wound finally sloughed over, was discontinued wound care with dressing changes, was aggressive to start with an ldr rn, simply left open to air. The patient on peritoneal dialysis originally, however, he was noncompliant with full number of bags and days of dialysis. The patient states he has difficulty with maneuvering bags in the machine, however, he is freely admitting that he is somewhat lazy and does not like to do it. The patient was transitioned to hemodialysis for a short stent with evaluation by Dr. Singh for potential transition to AV fistula. The patient is a type 2 diabetic, who suffered depression secondary to general medical condition leading to his apathy and lack of compliance with dialysis, as well as with his prosthesis. The patient had several electrolyte deficiencies including hypokalemia and hypophosphatemia secondary to poor dialysis practice prior to admission, as well as cellulitis. The patient was followed by Dr. Fady Tuttle, his outpatient student services dean, had evaluation by Dr. Ricki Yee as well for any need for vascular access. The patient was prepared for inpatient rehab, however, insurance placement struggled. Subsequently, the patient was accepted at [facility]. At time of discharge, the patient continued to be anemic but hemoglobin around 9.7, secondary to anemia of chronic disease, blood sugars were controlled. Calcium was 7.5. Sodium 133, creatinine 8.4. DISCHARGE MEDICATIONS: Include: 1. Xanax 0.25 mg p.o. b.i.d. 2. Hydralazine 50 mg t.i.d. 3. Calcium carbonate. 4. Calcitriol. 5. Amlodipine 10 mg. 6. Sliding scale insulin. 7. Lantus 8 units. 8. Losartan 100 mg. 9. Magnesium citrate 100 mg p.o. p.r.n. constipation. 10. Nystatin powder topically b.i.d. to folds and groin. 11. Protonix 40 mg daily. 12. Risperdal 1 mg one tablet p.o. at bedtime. 13. Renvela 2400 mg p.o. t.i.d. 14. Niles Thyroid 30 mg daily. 15. Florastor 250 mg daily. FOLLOWUP: Followup with Dr. Fady Tuttle for continuation of dialysis; with PCP, Dr. Dillon Hill; for approximately 3-[address] Singh for a followup of AV fistula placement. Orthopedic limitations per right amputation, remote, during this hospitalization. Physical therapy, occupational therapy, wound care, continued at inpatient rehab. DISCHARGE DIET: Diabetic heart healthy. DISCHARGE CONDITION: Fair. Job ID: [id number]
[2018-11-14 16:41] LABS: Allergen,A-Lactalbumin IgE Less than 0.10 kU/L (Less than 0.10); Allergen,B-lactoglobulin IgE 0.27 kU/L (Less than 0.10); Allergen,Casein IgE Less than 0.10 kU/L (Less than 0.10); Allergen,Egg white IgE Less than 0.10 kU/L (Less than 0.10); Allergen,Milk IgE 0.28 kU/L (Less than 0.10); Allergen,Peanut IgE Less than 0.10 kU/L (Less than 0.10); Allergen,Shrimp IgE 0.13 kU/L (Less than 0.10); Allergen,Soybean IgE Less than 0.10 kU/L (Less than 0.10); Allergen,Wheat IgE 0.12 kU/L (Less than 0.10)
== END 2018-11-13 16:23 | DRG 579 ==
LOC: ERS 12:54 → ONC 18:17
PROVIDERS: ADMIT Family Medicine; ATTEND Family Medicine
PROC: 0JH63XZ Insertion of Tunneled Vascular Access Device into Chest Subcutaneous Tissue and Fascia, Percutaneous Approach (ICD-10-PCS; principal; 2018-11-05)
PROC: 02HV33Z Insertion of Infusion Device into Superior Vena Cava, Percutaneous Approach (ICD-10-PCS; 2018-11-05)
PROC: B5181ZA Fluoroscopy of Superior Vena Cava using Low Osmolar Contrast, Guidance (ICD-10-PCS; 2018-11-05)
DX: L03.116 Cellulitis of left lower limb (principal); N18.6 End stage renal disease; I12.0 Hypertensive chronic kidney disease with stage 5 chronic kidney disease or end stage renal disease; E87.1 Hypo-osmolality and hyponatremia; E11.9 Type 2 diabetes mellitus without complications; F32.9 Major depressive disorder, single episode, unspecified; E87.6 Hypokalemia; E83.39 Other disorders of phosphorus metabolism; E11.319 Type 2 diabetes mellitus with unspecified diabetic retinopathy without macular edema; E11.40 Type 2 diabetes mellitus with diabetic neuropathy, unspecified; E11.21 Type 2 diabetes mellitus with diabetic nephropathy; I25.10 Atherosclerotic heart disease of native coronary artery without angina pectoris; E78.5 Hyperlipidemia, unspecified; E87.70 Fluid overload, unspecified; E83.51 Hypocalcemia; E11.610 Type 2 diabetes mellitus with diabetic neuropathic arthropathy; F41.9 Anxiety disorder, unspecified; K21.9 Gastro-esophageal reflux disease without esophagitis; D63.1 Anemia in chronic kidney disease; Z79.4 Long term (current) use of insulin; Z91.15 Patient's noncompliance with renal dialysis; Z89.511 Acquired absence of right leg below knee
CPT/HCPCS: 36415; 36416; 71045; 75635; 80048; 80053; 82785; 83605; 83970; 84100; 85025; 86140; 87040; 87324; 87449; 90945; 93922; 93970; 96365; 96366; 96367; 96375; C1752; C1769; G0257; G0365; J0670; J1200; J1644; J1815; J1956; J2001; J2185; J2405; J2543; J2704; J2720; J3010; J3370; J3490; Q0163; Q5105; Q9966; Q9967

== ENCOUNTER 2019-01-14 13:00 | Day surgery (SDC) | payer BC ==
[2019-01-13 16:26] VITALS: BMI 34.4
--- NOTE | 2019-01-14 07:06 | HP ---
HISTORY OF PRESENT ILLNESS: Zacarias Ferrara, 53-year-old male care home resident arrives today requesting removal of his PD catheter. We will plan this under IV sedation, local anesthesia. His left upper arm fistula is maturing. We will notify [facility] [address] [place] [address], where he dialyzes Saturday, , and Saturday, they can start using the fistula for dialysis access. Risks and benefits explained, he consents. MEDICATIONS: 1. Insulin. 2. Nystatin. 3. Hydralazine. 4. Clonidine. 5. Paroxetine. 6. Cozaar. 7. Isosorbide. 8. Imdur. PAST MEDICAL HISTORY: Hypertension, diabetes mellitus type 2, depression, hypogonadism, scrotal abscess history, urolithiasis history, history of cholelithiasis. PAST SURGICAL HISTORY: Colonoscopy; drainage of scrotal abscess; PD catheter; left Rick fistula, converted to an upper fistula, recent hospitalization. HABITS: Tobacco, none. Alcohol, none. PHYSICAL EXAMINATION: VITAL SIGNS: Weight 239 pounds, height 5 feet 9 inches, 35 BMI, blood pressure 155/70, heart rate 75, temperature 97.9 degrees. HEAD, EYES, EARS, NOSE, AND THROAT: Unremarkable. LUNGS: Clear to auscultation. CARDIAC: Regular rate and rhythm. No murmur or gallop. ABDOMEN: Soft. EXTREMITIES: Status post right BKA. PD catheter in place. Left upper arm fistula. Good thrill and bruit. ASSESSMENT AND PLAN: 1. End-stage renal disease. Notify [facility], begin using the left upper arm fistula for dialysis access. Hopefully, will remove his hemodialysis catheter in the future. 2. Undesired peritoneal dialysis catheter as he cannot do this in the care home. We will plan to remove this. Plan this as an outpatient with IV sedation, local anesthesia. Job ID: [id number]
[2019-01-14 13:47] LABS: #Basophils 0.1 thou/uL (0.0-0.2); #Eosinphils 0.3 thou/uL (0.0-0.7); #Lymphocytes 0.9 thou/uL (1.20-3.40); #Monocytes 0.9 thou/uL (0.11-0.59); %Eosinophils 2.8 % (0.0-10.0); %Lymphocytes 8.9 % (21.0-51.0); %Monocytes 9.2 % (0.0-10.0); %Neutrophils 78.1 % (42.0-75.0); Hemoglobin 13.5 g/dL (14.0-18.0); Mean Corpuscular HGB CONC 32.2 g/dL (32.0-36.0); Mean Corpuscular Hemoglobin 30.4 pg (27.0-31.0); Mean Corpuscular Volume 94.3 fL (78.0-98.0); Mean Platelet Volume 7.6 fL (7.4-10.4); Platelet Count 251 thou/uL (130-400); RBC Distribution Width 16.6 % (11.5-14.5); Red Blood Cell (RBC) Count 4.46 mill/uL (4.70-6.10); White Blood Cell (WBC) Count 10.3 thou/uL (4.8-10.8)
[2019-01-14] MEDS ORDERED: Levofloxacin 500 mg/D5W 100 ml Premix Bag ONE (13:50)
[2019-01-14 14:04] LABS: Anion Gap 18 mmol/L (10-20); BUN (Urea Nitrogen) 80 mg/dL (8.4-25.7); Calc. Creatinine Clearance 19 mL/min (70-130); Carbon Dioxide 23 mmol/L (22-29); Chloride 98 mmol/L (98-107); Estimated GFR-MDRD 8; Glucose 88 mg/dL (70-105); Potassium 5.4 mmol/L (3.5-5.1); Sodium 134 mmol/L (136-145)
[2019-01-14] MEDS ORDERED: Bupivacaine/Epinephrine 0.25% 30 ML VIAL ONE (16:30)
[2019-01-14] MEDS ORDERED: Lidocaine 2% PF 5 ML VIAL ONE (16:30)
[2019-01-14] MEDS ORDERED: Midazolam HCl 2 mg/2 ml Vial ONE (17:14)
[2019-01-14] MEDS ORDERED: Propofol 500 MG/50 ML VIAL ONE (17:14)
[2019-01-14] MEDS ORDERED: Fentanyl 100 MCG/2 ML VIAL ONE (17:14)
[2019-01-14] MEDS ORDERED: Heparin 10,000 UNITS/ 10 ML VIAL ONE (18:29)
--- NOTE | 2019-01-14 21:09 | OP ---
DATE OF PROCEDURE: 01/14/2019 PREOPERATIVE DIAGNOSES: End-stage renal disease and undesired peritoneal dialysis catheter, on hemodialysis. POSTOPERATIVE DIAGNOSES: End-stage renal disease and undesired peritoneal dialysis catheter, on hemodialysis. PROCEDURE PERFORMED: Removal of peritoneal dialysis catheter, double cuffed pigtail. ANESTHESIA: TIVA, local 0.5% Marcaine with epinephrine 30 mL with 2% Xylocaine, 10 mL. DESCRIPTION OF PROCEDURE: The patient was taken to the operating room where under intravenous sedation, abdominal PD catheter prepared with ChloraPrep and draped in routine fashion. Catheter and cuff dissected free after infiltrating the area with local anesthetic. Wound left open. Gauze dressing applied and will be changed daily after washing with soap and water. Follow up in my office in 2 weeks to 3 weeks. Job ID: [id number]
== END 2019-01-14 18:55 | disposition home or self-care (01) ==
LOC: SDC 13:00
PROVIDERS: ATTEND Specialist
PROC: 0JPT0XZ Removal of Tunneled Vascular Access Device from Trunk Subcutaneous Tissue and Fascia, Open Approach (ICD-10-PCS; principal; 2019-01-14)
DX: T82.49XA Other complication of vascular dialysis catheter, initial encounter (principal); I12.0 Hypertensive chronic kidney disease with stage 5 chronic kidney disease or end stage renal disease; E11.22 Type 2 diabetes mellitus with diabetic chronic kidney disease; N18.6 End stage renal disease; F32.9 Major depressive disorder, single episode, unspecified; Z79.899 Other long term (current) drug therapy; Z79.4 Long term (current) use of insulin; Z88.8 Allergy status to other drugs, medicaments and biological substances; Z91.011 Allergy to milk products
CPT/HCPCS: 80048; 85025; 93005; 93010; J1644; J1956; J2001; J2250; J2704; J3010

== ENCOUNTER 2019-02-19 09:06 | Inpatient (IN) | payer BC ==
[2019-02-19 10:33] LABS: #Basophils 0.1 thou/uL (0.0-0.2); #Eosinphils 0.2 thou/uL (0.0-0.7); #Lymphocytes 0.9 thou/uL (1.20-3.40); #Monocytes 0.9 thou/uL (0.11-0.59); #Neutrophils 10.5 thou/uL (1.40-6.50); %Basophils 0.6 % (0.0-1.0); %Eosinophils 1.7 % (0.0-10.0); %Lymphocytes 7.3 % (21.0-51.0); %Neutrophils 83.5 % (42.0-75.0); Hemoglobin 11.9 g/dL (14.0-18.0); Mean Corpuscular HGB CONC 30.6 g/dL (32.0-36.0); Mean Corpuscular Hemoglobin 29.3 pg (27.0-31.0); Mean Corpuscular Volume 95.8 fL (78.0-98.0); Mean Platelet Volume 7.6 fL (7.4-10.4); Platelet Count 250 thou/uL (130-400); RBC Distribution Width 16.2 % (11.5-14.5); Red Blood Cell (RBC) Count 4.05 mill/uL (4.70-6.10); White Blood Cell (WBC) Count 12.6 thou/uL (4.8-10.8)
[2019-02-19 10:36] LABS: ALT (SGPT) 10 U/L (8-55); AST (SGOT) 14 U/L (5-34); Albumin 3.1 g/dL (3.5-5.0); Alkaline Phosphatase 86 U/L (40-110); Anion Gap 20 mmol/L (10-20); BUN (Urea Nitrogen) 71 mg/dL (8.4-25.7); Bilirubin, Total 0.8 mg/dL (0.2-1.2); Calc. Creatinine Clearance 0 mL/min (70-130); Calcium 8.8 mg/dL (7.8-10.44); Carbon Dioxide 23 mmol/L (22-29); Chloride 93 mmol/L (98-107); Estimated GFR-MDRD 7; Globulin 4.1 g/dL (2.4-3.5); Glucose 98 mg/dL (70-105); Potassium 4.5 mmol/L (3.5-5.1); Protein, Total 7.2 g/dL (6.0-8.3); Sodium 131 mmol/L (136-145)
--- NOTE | 2019-02-19 10:37 | RAD ---
XR Chest 1 View Portable HISTORY: Preoperative evaluation COMPARISON: 11/05/2018 FINDINGS: Right-sided internal jugular central venous catheter remains in place with tip in the proje ction of the SVC. The heart size is stable. There is mild prominence of the pulmonary vascularity. A small right pleural effusion may be present.
[2019-02-19] MEDS ORDERED: Clindamycin/D5W 900 mg/50 ml Premix Bag ONE (10:53)
--- NOTE | 2019-02-19 10:57 | RAD ---
LEFT FOOT: Date: 02/19/19 HISTORY: Foot ulcer. FINDINGS: There has been previous amputation or lysis involving the tuft of the distal phalanx of the great toe . Recommend clinical correlation. There has also been amputation or lysis involving the tuft of the d istal phalanx of the second toe. The margins of the distal phalanx of the second toe are smooth. The margins of the distal phalanx of the great toe are somewhat irregular and I cannot exclude osteomyeli tis at this site. Degenerative changes at the first MTP joint. Degenerative change at the tarsometatarsal joints. Enthe sophytes from posterior and plantar calcaneus. Arterial calcification is prominent. IMPRESSION: Amputation or lysis involving the aries of the first and second digits. Erosive changes along the mar gin of the first digit could represent active infection. Recommend clinical correlation. POS: TPC
[2019-02-19] MEDS ORDERED: Heparin 1,000 UNITS/ML VIAL ONE (11:11)
[2019-02-19] MEDS ORDERED: Piperacillin/Tazobactam 4.5 GM VIAL ONE (11:50)
[2019-02-19] MEDS ORDERED: Vancomycin HCl 500 MG VIAL ONE (12:24)
[2019-02-19 12:55] VITALS: BMI 35.0
[2019-02-19] MEDS ORDERED: Ondansetron ODT 4 MG TAB PO PRN (14:14)
[2019-02-19] MEDS ORDERED: Docusate 100 MG CAP PO PRN (14:14)
[2019-02-19] MEDS ORDERED: traMADol HCl 50 MG TAB PO PRN (14:14)
[2019-02-19] MEDS ORDERED: Zolpidem Tartrate 5 MG TAB PO PRN (14:14)
[2019-02-19] MEDS ORDERED: Dextrose 5% in Water 1,000 ML IV PRN (14:14)
[2019-02-19] MEDS ORDERED: Dextrose 50% Abboject 50 ML SYRINGE SLOW IVP PRN (14:14)
[2019-02-19] MEDS ORDERED: Acetaminophen 325 MG TAB PO PRN (14:14)
[2019-02-19] MEDS ORDERED: HumaLOG 300 UNITS/3 ML VIAL SC PRN (14:14)
[2019-02-19] MEDS ORDERED: Non-Formulary Item 1 EACH (Arginine/Ascorbate Sod/Vite Ac [Arginaid Powder] 1 PACKET) PO SCH (14:15)
--- NOTE | 2019-02-19 15:18 | HP ---
PRIMARY CARE PROVIDER: Dr. Hill. COMPUTER RECYCLING WORKER: Dr. Tuttle. Referred to the [facility] Hospitalist Service by [facility]. HISTORY OF PRESENT ILLNESS: The patient presents with gangrene on his left foot. He has severe peripheral neuropathy. He notes no pain. He does note some foul smelling drainage. He denies fever or chills. He is essentially bed ridden. He has had a right BK amputation in the past for peripheral vascular disease. His foot is foul smelling. A large tennis ball size black lesion on his left heel. PAST MEDICAL HISTORY: Pertinent for; 1. Diabetes mellitus type 2, insulin dependent with end-stage renal disease. 2. Hypertension. 3. Anxiety. 4. Depression. 5. Peripheral vascular disease. 6. Peripheral neuropathy. CURRENT MEDICATIONS: 1. Xanax 0.25 mg p.o. b.i.d. p.r.n. 2. Tramadol 50 mg p.o. q.6 hours p.r.n. 3. Colace 100 mg daily p.r.n. 4. Multivitamin daily. 5. Arginaid powder 1 pack as directed. 6. Risperdal 1 mg at bedtime. 7. Renvela 2400 mg t.i.d. with meals. 8. Protonix 40 mg a day. 9. Cozaar 100 mg a day. 10. Apresoline 50 mg three times a day. 11. Florastor 250 mg a day. 12. Cymbalta 60 mg a day. 13. Ferrous sulfate 325 mg twice a day. 14. Tums 1000 mg p.o. t.i.d. 15. Milo Thyroid 30 mg a day. 16. Rocaltrol 0.25 mg p.o. daily. 17. Amlodipine 10 mg a day. 18. Lantus 8 units subcu every morning. 19. Moderate sliding scale with Humalog. ALLERGIES: METFORMIN, CEPHALEXIN, LISINOPRIL. PAST SURGICAL HISTORY: 1. Right BKA amputation. 2. Drainage of scrotal abscess. 3. Peritoneal dialysis catheter. 4. Left Rick fistula. FAMILY HISTORY: Positive for multiple members with diabetes, none on dialysis. SOCIAL HISTORY: Resident of custodial. No tobacco. No alcohol. CODE STATUS: Full. Brother, Margoth, is next of kin. REVIEW OF SYSTEMS: GENERAL: No headaches, dizziness, fainting, fever, or chills. EYES: No double vision, blurred vision, or flashing lights. EAR, NOSE, AND THROAT: No ear pain or drainage. No nasal bleeding. No trouble swallowing. CARDIAC: No chest pain, orthopnea, or paroxysmal nocturnal dyspnea. RESPIRATIONS: No cough, wheezing, or asthma. GASTROINTESTINAL: Has occasional diarrhea. No nausea, vomiting, abdominal pain, or blood in stools. GENITOURINARY: No urine output. MUSCULOSKELETAL: No pain or swelling in his arms or legs. He is essentially has no sensation below mid thigh. NEUROLOGICAL: He states he had a TIA a couple of years ago with no residual. PSYCHIATRIC: Anxiety and depression, on medications. SKIN: No bruising, bleeding, or rash. HEME/LYMPH: No tender or swollen lymph nodes in the axilla, inguinal, or cervical area. PHYSICAL EXAMINATION: GENERAL: He is alert, pleasant, cooperative gentleman, in no distress. VITAL SIGNS: Blood pressure 139/81, pulse 80, respirations 18, and temperature 98.4. HEAD, EYES, EARS, NOSE, AND THROAT: Revealed pupils are equal, round, and reactive. Extraocular movements are intact. Sclerae are white. Tympanic membranes are clear. Nose is clear. Oral mucous membranes are wet. No oral lesions noted. NECK: Supple without jugular venous distention, adenopathy, or thyromegaly. CHEST: Clear to auscultation and percussion. HEART: Had a regular rate and rhythm. First and second heart sounds are clear. There are no appreciated murmurs or gallops. ABDOMEN: Soft. Bowel sounds are normal. There is no hepatosplenomegaly. No masses. No rebound. EXTREMITIES: Right BKA amputation. Left tennis ball sized black necrotic foul smelling left heel. SKIN: See above. No bruises, bleeding, or rash. HEME/LYMPH: No tender or swollen lymph nodes. NEUROLOGICAL: Cranial nerves 2 through 12 are intact. Absent deep tendon reflexes at the knees. Does move all extremities. IMAGING STUDIES: EKG, normal, reviewed by me. Chest x-ray, poor inspiratory effort, supine film, poor quality. Left foot x-ray, possibility of bone infection. ASSESSMENT: 1. Gangrene of the left foot. 2. Diabetes mellitus type 2, insulin dependent with end-stage renal disease. 3. Hypertension. 4. Peripheral vascular disease. 5. Peripheral neuropathy. PLAN: We will start Cleocin 900 mg IV q.i.d. We will start Accu-Cheks sliding scale. We will continue home medicines. Dr. Tuttle consulted for hemodialysis. Dr. Singh will be consulted for amputation as I see no other viable option at this point. Job ID: [id number]
[2019-02-19] MEDS: hydrALAZINE 25 MG TAB PO SCH ×2 (15:45→20:58)
[2019-02-19] MEDS: Calcium Carbonate 500 MG ChewTAB PO SCH (17:27)
[2019-02-19] MEDS: Sevelamer Carbonate 800 MG TAB PO SCH (17:28)
[2019-02-19] MEDS: Ferrous Sulfate 325 MG TAB PO SCH (17:28)
[2019-02-19] MEDS: risperiDONE 1 MG TAB PO SCH (21:00)
[2019-02-19] MEDS: DULoxetine 60 MG CAP PO SCH (21:00)
[2019-02-19] MEDS ORDERED: Vancomycin HCl 1.5 GM in Sodium Chloride 0.9% 250 ML 300 ML IVPB SCH ×2 (22:15→22:30)
[2019-02-19] MEDS ORDERED: HOLD VANCOMYCIN FOR LEVEL >20 FS SCH (22:30)
[2019-02-19] MEDS ORDERED: Vancomycin HCl 1.25 GM in Sodium Chloride 0.9% 250 ML 250 ML IVPB SCH (22:30)
[2019-02-19] MEDS ORDERED: Vancomycin HCl 1 GM in Premix Bag 1 BAG IVPB SCH (22:30)
[2019-02-19] MEDS ORDERED: Vancomycin HCl 750 MG in Sodium Chloride 0.9% 250 ML 250 ML IVPB SCH (22:30)
[2019-02-19] MEDS: Piperacillin/Tazobactam 2.25 GM in Sodium Chloride 0.9% 100 ML IVPB SCH (22:51)
--- NOTE | 2019-02-19 23:02 | CON ---
DATE OF CONSULTATION: HISTORY: 53-year-old male patient, snf resident, status post right AKA, has a left heel decubitus. He has end-stage renal disease, on dialysis and is an insulin-dependent diabetic as well as hypertension. He has been attended by Wound Care in the snf. He has a foul-smelling, necrotic, full-thickness eschar, left heel. He has palpable pulses. He is on dialysis. I discover the consult per my computer list happened by it, although I was not notified by 1700 despite the patient's admission noon. Plan is for debridement of left heel decubitus and he likely need to be npuxl-fbr-pjut amputation. This decubitus appear full thickness. Foot x-ray at 9 o'clock this morning reveals erosive changes along the aries of the first digit. ALLERGIES: METFORMIN, CEPHALEXIN, AND LISINOPRIL. SOCIAL HISTORY: Tobacco, none. Alcohol, none. MEDICATIONS: No antibiotics listed. Xanax 0.25 mg p.r.n., tramadol p.r.n., Colace daily, Larisa's Butt Paste, Tylenol Extra Strength 1000 mg p.o. q.i.d. p.r.n., multivitamins daily, magnesium citrate as needed, glucagon p.r.n., arginate powder, Risperdal 1 mg at bedtime, Renvela 2400 mg t.i.d. with meals, Protonix 40 mg a day, losartan, Cozaar 100 mg daily, hydralazine 50 mg t.i.d., Florastor 250 mg daily, Cymbalta 60 mg at bedtime, iron sulfate 325 b.i.d., Thyroid [place]wood 30 mg a day, calcitriol 0.25 mcg daily, amlodipine 10 mg daily, insulin sliding scale. PAST SURGICAL HISTORY: Previous amputation, right swems-exi-dvex, has a prosthesis in the room. This was performed by Dr. Lopez after 2016, foot debridement and subsequent iqyxh-kcr-wxkm amputation in June 2016. May 17, 2017, right IJ hemodialysis catheter. 03/26/2018, laparoscopic peritoneal dialysis catheter, omentopexy, left Rick fistula with thrombectomy to enable fistula creation, 06/12/2018. Removal of right IJ hemodialysis catheter, 11/05/2018. Right IJ hemodialysis catheter, left arm fistula, perforating branch of antecubital vein to the proximal radial artery of excellent caliber outflow primary cephalic vein due to anatomic consideration with retrograde communication of basilic vein, ligation of old Rick fistula, which did not mature. 01/14/2019, removal of PD catheter, double cuffed pigtail. 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 PAST SURGICAL HISTORY: As noted above, I and D of scrotum,, scrotal abscesses, Rodrigo's gangrene, anxiety and depression, gastroparesis. PHYSICAL EXAMINATION: VITAL SIGNS: Height 5 feet 10 inches, 244 pounds, 35 BMI. Temperature 98.4, heart rate 80, blood pressure 139/81. HEAD, EYES, EARS, NOSE, AND THROAT: Unremarkable. LUNGS: Clear to auscultation. CARDIAC: Regular rate and rhythm without murmur or gallop. ABDOMEN: Soft and nontender. EXTREMITIES: Left arm fistula in upper arm, good thrill and bruit. Right IJ cuffed tunneled dialysis catheter present. Right ghkbo-sdy-odzz amputation wound well healed. Prosthesis at bedside. Left heel, large, black, full-thickness eschar with removal of the surface revealing purulent discharge, it is foul smelling. It is about 8 cm in diameter. There is surrounding cellulitis. ASSESSMENT AND PLAN: 1. Severe infection with gangrene of left heel. We will plan bedside debridement. Most likely, he will need a left bddaj-ppc-qrkk amputation. Risks and benefits discussed. He consents. 2. He has been using his right IJ cuffed dialysis catheter due to unreliable access in left upper arm fistula. We will obtain a fistulogram of the left upper arm fistula with inflow, proximal radial artery outflow, primary cephalic vein secondary to basilic vein to anatomic considerations. 3. Diabetes mellitus. 4. Hypertension. 5. End-stage renal disease, hemodialysis dependent. 6. assisted status. Job ID: [id number]
[2019-02-19] MEDS: Acetaminophen 500 MG TAB PO PRN (23:59)
[2019-02-20] MEDS: Acetaminophen 500 MG TAB PO PRN (04:59)
[2019-02-20] MEDS: Thyroid 30 MG TAB PO SCH (04:59)
[2019-02-20 06:08] LABS: #Basophils 0.1 thou/uL (0.0-0.2); #Eosinphils 0.2 thou/uL (0.0-0.7); #Neutrophils 10.2 thou/uL (1.40-6.50); %Basophils 0.5 % (0.0-1.0); %Eosinophils 1.8 % (0.0-10.0); %Lymphocytes 8.2 % (21.0-51.0); %Monocytes 7.6 % (0.0-10.0); %Neutrophils 81.9 % (42.0-75.0); Hemoglobin 10.9 g/dL (14.0-18.0); Mean Corpuscular Hemoglobin 31.2 pg (27.0-31.0); Mean Corpuscular Volume 97.2 fL (78.0-98.0); Mean Platelet Volume 7.8 fL (7.4-10.4); Platelet Count 222 thou/uL (130-400); Red Blood Cell (RBC) Count 3.48 mill/uL (4.70-6.10); White Blood Cell (WBC) Count 12.5 thou/uL (4.8-10.8)
[2019-02-20 06:18] LABS: Anion Gap 15 mmol/L (10-20); BUN (Urea Nitrogen) 43 mg/dL (8.4-25.7); Calc. Creatinine Clearance 21 mL/min (70-130); Calcium 8.3 mg/dL (7.8-10.44); Carbon Dioxide 26 mmol/L (22-29); Chloride 97 mmol/L (98-107); Estimated GFR-MDRD 9; Glucose 93 mg/dL (70-105); Potassium 3.8 mmol/L (3.5-5.1); Sodium 134 mmol/L (136-145)
[2019-02-20] MEDS: Piperacillin/Tazobactam 2.25 GM in Sodium Chloride 0.9% 100 ML IVPB SCH ×2 (07:36→15:24)
[2019-02-20] MEDS: Calcium Carbonate 500 MG ChewTAB PO SCH ×3 (07:38→17:01)
[2019-02-20] MEDS: Amlodipine 10 MG TAB PO SCH (07:39)
[2019-02-20] MEDS: Sevelamer Carbonate 800 MG TAB PO SCH ×3 (07:39→17:01)
[2019-02-20] MEDS: Calcitriol 0.25 MCG CAP PO SCH (07:39)
[2019-02-20] MEDS: Ferrous Sulfate 325 MG TAB PO SCH ×2 (07:39→17:01)
[2019-02-20] MEDS: Losartan 25 MG TAB PO SCH (07:40)
[2019-02-20] MEDS: Insulin Glargine 8 UNITS in Pre-Filled Syringe 1 EACH SC SCH (07:40)
[2019-02-20] MEDS: Enoxaparin Sodium 30 MG/0.3 ML SYRINGE SC SCH (07:40)
[2019-02-20] MEDS: hydrALAZINE 25 MG TAB PO SCH ×3 (07:40→20:05)
[2019-02-20] MEDS: Multivit, Therapeutic 1 TAB PO SCH (07:41)
[2019-02-20] MEDS: Saccharomyces boulardii 250 MG CAP PO SCH (07:41)
[2019-02-20] MEDS ORDERED: FLU VACC QS2019-20(6MOS UP)/PF 60 MCG/0.5 ML SYRINGE IM ONE (09:00)
--- NOTE | 2019-02-20 10:07 | CON ---
DATE OF CONSULTATION: HISTORY OF PRESENT ILLNESS: Mr. Ferrara is a 53-year-old white male with ESRD from diabetic nephropathy, currently on maintenance hemodialysis, who was admitted for left foot infection. His left foot was noted to be gangrenous. He has been evaluated by Surgery. Planned surgical debridement will be done on the left foot. However, he most likely will need a left BKA according to his surgeon. We are being consulted for his maintenance hemodialysis. He did undergo hemodialysis yesterday without any difficulty. REVIEW OF SYSTEMS: Nonhealing left foot ulcer. No nausea. No vomiting. No diarrhea. Decreased appetite. Decreased energy level. No abdominal pain. No fever or chills. No gross hematuria. No syncopal episode. Occasional joint pains. MEDICATIONS: Currently, the patient is on; 1. Xanax 0.5 mg p.o. b.i.d. p.r.n. 2. Amlodipine 10 mg tablet once a day. 3. Calcitriol 0.25 mcg tablet daily. 4. Calcium carbonate 1000 mg p.o. t.i.d. with meals. 5. Colace 100 mg p.o. b.i.d. 6. Lovenox 30 mg subcu daily. 7. Ferrous sulfate 325 mg p.o. b.i.d. 8. Hydralazine 50 mg p.o. t.i.d. 9. Insulin glargine 8 units subcu q.a.m. 10. Losartan 100 mg daily. 11. Multivitamin daily. 12. Protonix 40 mg tablet once a day. 13. Zosyn 2.25 g IV q.8. 14. Risperidone 1 mg p.o. at bedtime. 15. Sevelamer 800 mg 3 tablets t.i.d. with meals. 16. Thyroid Rudy 30 mg q.a.m. 17. Vancomycin sliding scale. 18. Ambien 5 mg p.o. at bedtime. PAST MEDICAL HISTORY: 1. ESRD from diabetic nephropathy, currently on maintenance hemodialysis. 2. Peripheral vascular disease. 3. Type 2 diabetes mellitus. 4. Hypertension. 5. Status post scrotal abscess. 6. Diabetic gastroparesis. 7. History of sarcoidosis. 8. Status post cholelithiasis. 9. History of depression. 10. Hypogonadism. 11. Status post cellulitis. PAST SURGICAL HISTORY: Status post right BKA, status post PD catheter placement with subsequent removal, status post cuffed hemodialysis catheter placement, status post AV fistula, status post I and D of scrotal abscess, status post colonoscopy, and status post left toe amputation. ALLERGIES: ? OF ANCEF. TRAUMA: None. Please note he has adverse reaction to lisinopril and metformin. IMMUNIZATIONS: Up-to-date. HOSPITALIZATIONS: Please see past medical history. FAMILY HISTORY: No family history of ESRD. 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 Originally from [place], but currently lives in [place] - currently in [facility]. He is single. No children. No cigarette smoking. No alcohol use. Status post multiple blood transfusion. Education, Master's degree. PHYSICAL EXAMINATION: VITAL SIGNS: Blood pressure is 117/76, heart rate 78, respiratory rate 18, temperature 98, and pulse ox 91%. GENERAL: Awake, alert, comfortable, not in distress. SKIN: Adequate turgor. HEENT: Pinkish conjunctivae. Anicteric sclerae. NECK: No neck mass. No carotid bruits. No JVD. CHEST: No deformities. LUNGS: Clear breath sounds. HEART: Normal sinus rhythm. No murmur. No gallops. No rubs. ABDOMEN: Globular, soft, and nontender. No masses. EXTREMITIES: Status post right BKA. He has a left foot gangrene. LABORATORY DATA: Laboratories of February 20, 2019; white count 12.5, hemoglobin 10.9. Sodium 134, potassium 3.8, chloride 97, carbon dioxide 28, BUN 43, creatinine 6.35, glucose 93, and calcium 8.3. ASSESSMENT AND PLAN: 1. End-stage renal disease, stable. We will continue current Saturday, , and Saturday dialysis regimen. Tolerating said treatment. Review of his last Kt/V suggests a borderline Kt/V. Minor changes will be made with the current dialysis regimen. We will do him a 4-hour treatment 3 times a week. 2. Left foot gangrene - for possible surgical debridement of the left foot gangrene as well as a possible left below-knee amputation. Surgery is following. 3. Anemia. Continue to observe. Resume Epogen once hemoglobin is less than 10. Overall, prognosis remains guarded. Job ID: [id number]
[2019-02-20] MEDS ORDERED: Fentanyl 100 MCG/2 ML VIAL ONE (12:32)
[2019-02-20] MEDS ORDERED: HYDROcodone/Acetaminophen 10/325 mg Tablet PO PRN (13:22)
[2019-02-20] MEDS ORDERED: Promethazine HCl 25 MG/ML VIAL SLOW IVP PRN (13:35)
[2019-02-20] MEDS ORDERED: Promethazine HCl 25 MG/ML VIAL IM PRN (13:35)
[2019-02-20] MEDS ORDERED: Ondansetron HCl/PF 4 MG/2 ML Vial IVP PRN (13:35)
[2019-02-20] MEDS ORDERED: PROPOFOL 200 MG/20 ML VIAL ONE (14:49)
--- NOTE | 2019-02-20 14:57 | OP ---
DATE OF PROCEDURE: 02/20/2019 PREOPERATIVE DIAGNOSES: End-stage renal disease, diabetes mellitus, previous right BKA now with gangrene left heel, full-thickness necrosis of the calcaneus. POSTOPERATIVE DIAGNOSES: End-stage renal disease, diabetes mellitus, previous right BKA now with gangrene left heel, full-thickness necrosis of the calcaneus. PROCEDURES PERFORMED: Exploration of left heel appreciating full-thickness necrosis to the calcaneus with a very large wound, foul smelling, and wet gangrene requiring guillotine amputation of the left leg above the ankle with plans to return to the operating room next week for formal BKA. ANESTHESIA: General. ESTIMATED BLOOD LOSS: 100 mL. DESCRIPTION OF PROCEDURE: The patient was taken to the operating room, where under general anesthesia, left heel was prepared with Betadine. Necrotic tissue debrided, and process was deep and extensive, thus guillotine amputation undertaken after sequestering the wound with wrap and performed with ChloraPrep. A guillotine amputation of the left leg above the ankle performed, carrying the incision down through skin and subcutaneous tissue vascular bundles between clamps and ligated with 2-0 Vicryl. Bones, tibia, and fibula were transected with a Gigli saw. Hemostasis gained with cautery and 2-0 Vicryl. Hemostasis noted. Xeroform sterile dressing was applied. The patient tolerated the procedure well. Job ID: [id number]
--- NOTE | 2019-02-20 15:13 | PDOC.EVN ---
Event Note - Event Note Event Note: Going to OR this afternoon for debridement vs amputation per Dr Singh. Will continue to follow as IM and aid as able in the debbie operative phase.
[2019-02-20] MEDS: Gabapentin 300 MG CAP PO SCH ×2 (15:23→20:04)
[2019-02-20] MEDS: DULoxetine 60 MG CAP PO SCH (20:04)
[2019-02-20] MEDS: risperiDONE 1 MG TAB PO SCH (20:04)
[2019-02-21] MEDS: Piperacillin/Tazobactam 2.25 GM in Sodium Chloride 0.9% 100 ML IVPB SCH ×3 (00:21→11:54)
[2019-02-21] MEDS: Thyroid 30 MG TAB PO SCH (05:13)
[2019-02-21] MEDS: Acetaminophen 500 MG TAB PO PRN (05:15)
[2019-02-21 05:17] LABS: #Basophils 0.1 thou/uL (0.0-0.2); #Eosinphils 0.2 thou/uL (0.0-0.7); #Lymphocytes 1.1 thou/uL (1.20-3.40); #Monocytes 0.8 thou/uL (0.11-0.59); #Neutrophils 7.3 thou/uL (1.40-6.50); %Basophils 0.9 % (0.0-1.0); %Eosinophils 2.3 % (0.0-10.0); %Lymphocytes 11.7 % (21.0-51.0); %Monocytes 8.7 % (0.0-10.0); %Neutrophils 76.3 % (42.0-75.0); Hemoglobin 10.2 g/dL (14.0-18.0); Mean Corpuscular HGB CONC 31.8 g/dL (32.0-36.0); Mean Corpuscular Hemoglobin 30.7 pg (27.0-31.0); Mean Corpuscular Volume 96.7 fL (78.0-98.0); Mean Platelet Volume 7.5 fL (7.4-10.4); Platelet Count 222 thou/uL (130-400); RBC Distribution Width 15.8 % (11.5-14.5); Red Blood Cell (RBC) Count 3.31 mill/uL (4.70-6.10); White Blood Cell (WBC) Count 9.5 thou/uL (4.8-10.8)
[2019-02-21 05:48] LABS: Anion Gap 16 mmol/L (10-20); BUN (Urea Nitrogen) 52 mg/dL (8.4-25.7); Calc. Creatinine Clearance 17 mL/min (70-130); Calcium 8.1 mg/dL (7.8-10.44); Carbon Dioxide 25 mmol/L (22-29); Chloride 97 mmol/L (98-107); Estimated GFR-MDRD 7; Glucose 84 mg/dL (70-105); Potassium 4.5 mmol/L (3.5-5.1); Sodium 133 mmol/L (136-145)
--- NOTE | 2019-02-21 08:26 | RAD ---
Frontal radiograph chest: 02/21/2019 COMPARISON: 02/19/2019 HISTORY: Hypoxia FINDINGS: Cardiac silhouette is enlarged. Stable right dialysis catheter. There is nonspecific bibasi lar airspace disease with small bilateral pleural effusions, right greater than left. IMPRESSION: No significant interval change.
[2019-02-21 08:30] LABS: Vancomycin, Random 11.1 ug/mL (See Comment)
[2019-02-21] MEDS: Calcium Carbonate 500 MG ChewTAB PO SCH ×3 (09:02→16:22)
[2019-02-21] MEDS: Sevelamer Carbonate 800 MG TAB PO SCH ×3 (09:02→16:22)
[2019-02-21] MEDS ORDERED: Epoetin (ESRD) 20,000 UNITS/ML SC SCH (10:15)
--- NOTE | 2019-02-21 10:32 | PRG ---
DATE OF SERVICE: 02/21/2019 SUBJECTIVE: Mr. Ferrara is a 53-year-old white male with ESRD, was admitted for left foot infection. He did undergo left foot amputation yesterday with Dr. Nathaniel Singh. In addition, the plan is to for him to undergo a formal BKA next week. He is undergoing dialysis. He is noted to be febrile. He is currently on IV antibiotics. No other complaints. No chest pain or shortness of breath. OBJECTIVE: VITAL SIGNS: Blood pressure 132/77, heart rate 77, respiratory rate 20, temperature 101, and pulse ox 95%. GENERAL: He is sleeping, arousable, and comfortable. SKIN: Adequate turgor. HEENT: He has a slightly pale conjunctivae. Anicteric sclerae. NECK: No neck mass. No carotid bruits. No JVD. CHEST: No deformities. LUNGS: Clear breath sounds. HEART: Normal sinus rhythm. No murmur. No gallops. No rubs. ABDOMEN: Globular, soft, and nontender. No masses. EXTREMITIES: Status post left foot amputation, status post right BKA. MEDICATIONS: Medications of February 21, 2019, reviewed. LABORATORY DATA: Laboratories of February 21, 2019; white count 9.5, hemoglobin 10.2. Sodium 133, potassium 4.5, chloride 97, carbon dioxide 25, BUN 52, creatinine 7.97, and calcium 8.1. ASSESSMENT AND PLAN: 1. End-stage renal disease, stable. We will continue current 3 times a week hemodialysis Saturday, , and Saturday. Attempt fluid removal of 3.5 L as tolerated. 2. Anemia. Start Epogen 7500 units subcu q.week. 3. Gangrenous left foot - status post left foot amputation. The plan is for left below-knee amputation next week. Overall continue supportive management. 4. Fever, on IV antibiotics. Job ID: [id number]
[2019-02-21] MEDS ORDERED: EPOETIN ALFA-EPBX (ESRD) 4,000 UNIT/ML VIAL SC SCH (10:45)
--- NOTE | 2019-02-21 11:33 | PRG ---
DATE OF SERVICE: 02/21/2019 Mr. Ferrara is doing well today. He is undergoing dialysis. His vital signs are stable. Hemoglobin 10. His dressings are dry. He was informed of the findings intraoperatively and the need for formal BKA, Saturday. He understands the risks and benefits, consents. Dressings do not need to be changed until the operation on Saturday. Job ID: [id number]
[2019-02-21] MEDS: Calcitriol 0.25 MCG CAP PO SCH (11:52)
[2019-02-21] MEDS: Multivit, Therapeutic 1 TAB PO SCH (11:52)
[2019-02-21] MEDS: Polyethylene Glycol 3350 17 GM Packet PO SCH (11:52)
[2019-02-21] MEDS: Saccharomyces boulardii 250 MG CAP PO SCH (11:52)
[2019-02-21] MEDS: Insulin Glargine 8 UNITS in Pre-Filled Syringe 1 EACH SC SCH (11:53)
[2019-02-21] MEDS: Ferrous Sulfate 325 MG TAB PO SCH ×2 (11:53→16:22)
[2019-02-21] MEDS: Enoxaparin Sodium 30 MG/0.3 ML SYRINGE SC SCH (11:53)
[2019-02-21] MEDS: Gabapentin 300 MG CAP PO SCH ×3 (11:55→21:35)
[2019-02-21] MEDS: Amlodipine 10 MG TAB PO SCH (12:07)
[2019-02-21] MEDS: hydrALAZINE 25 MG TAB PO SCH ×3 (12:08→21:35)
[2019-02-21] MEDS: Losartan 25 MG TAB PO SCH (12:08)
--- NOTE | 2019-02-21 13:10 | PDOC.HOSPP ---
- Subjective Subjective: Seen and examined. Back from hemodialysis. Patient is lethargic. Right below the knee amputation is well-heeled. Left amputation with clean and dry dressing intact, planned formal BKA on saturday. Patient denies pain. Breathing well and nasal cannula at low flow. Some mild shortness of breath overnight, chest x-ray does not show any acute cardiothoracic process. - Objective Vital Signs & Weight: Vital Signs (12 hours) Temp Pulse Resp BP BP BP Pulse Ox 02/21/19 12:08 69 107/70 02/21/19 12:07 69 107/70 02/21/19 12:00 98 F 69 18 107/70 94 L 02/21/19 11:35 94 L 02/21/19 04:00 101.0 F H 77 20 132/77 95 02/21/19 03:06 93 L Weight Admit Weight 244 lb 6 oz Weight 244 lb 6 oz I&O: 02/20/19 02/21/19 02/22/19 06:59 06:59 06:59 Intake Total 240 225 Balance 240 225 Result Diagrams: 02/21/19 04:52 02/21/19 04:52 Additional Labs: Accuchecks 02/21/19 02/21/19 02/20/19 04:50 00:16 19:30 POC Glucose 88 89 80 02/20/19 15:34 POC Glucose 96 Radiology Reviewed by me: Yes (CXR) Hospitalist ROS - Review of Systems All other systems reviewed; all pertinent +/- noted in HPI/Subj - Medication Medications: Active Medications Generic Name Dose Route Start Last Admin Trade Name Freq PRN Reason Stop Dose Admin Acetaminophen 1,000 mg 02/19/19 17:14 02/21/19 05:15 Tylenol PO 1,000 mg Q6H PRN Administration Moderate to Severe Pain (6-10) Amlodipine Besylate 10 mg 02/20/19 09:00 02/21/19 12:07 Norvasc PO Not Given DAILY BERNY Calcitriol 0.25 mcg 02/20/19 09:00 02/21/19 11:52 Rocaltrol PO 0.25 mcg DAILY BERNY Administration Calcium Carbonate 1,000 mg 02/19/19 17:00 02/21/19 11:52 Tums PO 1,000 mg TID- BERNY Administration Cholecalciferol 5,000 units 02/20/19 09:00 02/21/19 11:52 Vitamin D3 PO 5,000 units DAILY BERNY Administration Duloxetine HCl 60 mg 02/19/19 21:00 02/20/19 20:04 Cymbalta PO 60 mg HS BERNY Administration Enoxaparin Sodium 30 mg 02/20/19 09:00 02/21/19 11:53 Lovenox SC 30 mg 0900 BERNY Administration Epoetin Ashvin-epbx 7,500 unit 02/21/19 10:45 02/21/19 13:00 Retacrit SC 7,500 unit WILLCALL BERNY Administration Ferrous Sulfate 325 mg 02/19/19 17:00 02/21/19 11:53 Feosol PO 325 mg BID-WM BERNY Administration Gabapentin 300 mg 02/20/19 15:00 02/21/19 11:55 Neurontin PO 300 mg TID BERNY Administration Hydralazine HCl 50 mg 02/19/19 15:00 02/21/19 12:08 Apresoline PO Not Given TID [facility] Insulin Glargine 8 units/ 0.08 mls @ 0 mls/hr 02/20/19 09:00 02/21/19 11:53 Miscellaneous Medication SC 0.08 mls QAM BERNY Administration Piperacillin Sod/Tazobactam 100 mls @ 200 mls/hr 02/19/19 23:59 02/21/19 11: 54 Sod 2.25 gm/ Sodium Chloride IVPB 100 mls 0800,1600,2359 BERNY Administration Vancomycin HCl 1 gm/ Device 200 mls @ 200 mls/hr 02/19/19 22:30 02/21/19 09: 48 IVPB 200 mls WILLCALL BERNY Administration Losartan Potassium 100 mg 02/20/19 09:00 02/21/19 12:08 Cozaar PO Not Given DAILY [facility] Multivitamins 1 tab 02/20/19 09:00 02/21/19 11:52 Theragran PO 1 tab DAILY BERNY Administration Pantoprazole Sodium 40 mg 02/20/19 09:00 02/21/19 11:53 Protonix PO 40 mg DAILY BERNY Administration Polyethylene Glycol 17 gm 02/21/19 09:00 02/21/19 11:52 Miralax PO 17 gm DAILY BERNY Administration Risperidone 1 mg 02/19/19 21:00 02/20/19 20:04 Risperidone PO 1 mg HS BERNY Administration Saccharomyces Bendii 250 mg 02/20/19 09:00 02/21/19 11:52 Florastor PO 250 mg DAILY BERNY Administration Sevelamer Carbonate 2,400 mg 02/19/19 17:00 02/21/19 11:52 Renvela PO 2,400 mg TID-WM BERNY Administration Thyroid 30 mg 02/20/19 06:00 02/21/19 05:13 [place] Thyroid PO 30 mg 0600 BERNY Administration - Exam General Appearance: NAD, awake alert Eye: PERRL, anicteric sclera ENT: normocephalic atraumatic, moist mucosa Neck: supple, symmetric, no lymphadenopathy Heart: RRR, no murmur, no gallops Respiratory: CTAB, no wheezes, no rales, no ronchi Gastrointestinal: soft, non-tender, non-distended, no guarding, no rigidity Extremities: no edema Skin: no rashes Skin - other findings: Dressing clean, dry, intact - left stump Neurological: cranial nerve grossly intact, no focal deficits Musculoskeletal: generalized weakness Psychiatric: A&O x 3, somnolent Hosp A/P (1) Cellulitis of foot, left Code(s): L03.116 - CELLULITIS OF LEFT LOWER LIMB Status: Acute (2) Stasis ulcer due to type 2 diabetes mellitus Code(s): E11.59 - TYPE 2 DIABETES MELLITUS WITH OTH CIRCULATORY COMPLICATIONS; I87.2 - VENOUS INSUFFICIENCY (CHRONIC) (PERIPHERAL) Status: Acute (3) Charcot's joint of foot Code(s): M14.679 - CHARCOT'S JOINT, UNSPECIFIED ANKLE AND FOOT Status: Chronic Qualifiers: Laterality: right Qualified Code(s): M14.671 - Charcot's joint, right ankle and foot (4) Diabetes Code(s): E11.9 - TYPE 2 DIABETES MELLITUS WITHOUT COMPLICATIONS Status: Chronic Qualifiers: Diabetes mellitus type: type 2 Diabetes mellitus watcher automat long goods insulin use: with watcher automat long goods use Diabetes mellitus complication status: with neurologic complications Diabetes mellitus complication detail: with polyneuropathy Qualified Code(s): E11.42 - Type 2 diabetes mellitus with diabetic polyneuropathy; Z79.4 - watermelon inspector (current) use of insulin (5) Dyslipidemia Code(s): E78.5 - HYPERLIPIDEMIA, UNSPECIFIED Status: Chronic (6) Hypertension Code(s): I10 - ESSENTIAL (PRIMARY) HYPERTENSION Status: Chronic Qualifiers: Hypertension type: essential hypertension Qualified Code(s): I10 - Essential (primary) hypertension (7) Osteomyelitis Code(s): M86.9 - OSTEOMYELITIS, UNSPECIFIED Status: Acute - Plan Plan: medical/surgical unit general surgery consultation, recommendations appreciated nephrology consultation, recommendations appreciated plan for formal left leg below the knee amputation on Saturday hemodialysis per nephrology long and short acting insulin for glucose control blood pressure control continue home medications as able replace electrolytes as needed
[2019-02-21] MEDS: DULoxetine 60 MG CAP PO SCH (21:35)
[2019-02-21] MEDS: risperiDONE 1 MG TAB PO SCH (21:35)
[2019-02-22] MEDS: Piperacillin/Tazobactam 2.25 GM in Sodium Chloride 0.9% 100 ML IVPB SCH ×3 (00:31→16:05)
[2019-02-22] MEDS: Thyroid 30 MG TAB PO SCH (04:51)
[2019-02-22] MEDS: Sevelamer Carbonate 800 MG TAB PO SCH ×3 (07:56→17:26)
[2019-02-22] MEDS: Multivit, Therapeutic 1 TAB PO SCH (07:56)
[2019-02-22] MEDS: Polyethylene Glycol 3350 17 GM Packet PO SCH (07:56)
[2019-02-22] MEDS: Saccharomyces boulardii 250 MG CAP PO SCH (07:56)
[2019-02-22] MEDS: Calcitriol 0.25 MCG CAP PO SCH (07:56)
[2019-02-22] MEDS: Gabapentin 300 MG CAP PO SCH ×3 (07:56→20:34)
[2019-02-22] MEDS: Insulin Glargine 8 UNITS in Pre-Filled Syringe 1 EACH SC SCH (07:56)
[2019-02-22] MEDS: Calcium Carbonate 500 MG ChewTAB PO SCH ×3 (07:56→17:27)
[2019-02-22] MEDS: Ferrous Sulfate 325 MG TAB PO SCH ×2 (07:57→17:26)
[2019-02-22] MEDS: Enoxaparin Sodium 30 MG/0.3 ML SYRINGE SC SCH (07:57)
--- NOTE | 2019-02-22 11:53 | PRG ---
DATE OF SERVICE: 02/22/2019 SUBJECTIVE: Mr. Ferrara is a 53-year-old white male, who was ESRD, followed up for his maintenance hemodialysis. He underwent dialysis yesterday without any difficulty. The patient voices no new complaints. He also has undergone left foot amputation with Dr. Singh. The plan is for him to have a left BKA this coming week. OBJECTIVE: VITAL SIGNS: Blood pressure is 121/75, heart rate 76, respiratory rate 16, temperature 98.7, pulse ox 91%. GENERAL: The patient is sleeping, but arousable and comfortable, not in distress. SKIN: Adequate turgor. HEENT: He has pinkish, slightly pale conjunctivae. Anicteric sclerae. No neck mass. No carotid bruits. No JVD. CHEST: No deformities. LUNGS: Clear breath sounds. HEART: Normal sinus rhythm. No murmurs, gallops, or rubs. ABDOMEN: Globular, soft, nontender, no masses. EXTREMITIES: Status post right BKA, status post left foot amputation. MEDICATIONS: Medications of February 22, 2019, reviewed. LABORATORY DATA: February 21, 2019, white count 9.5, hemoglobin 10.2. Sodium 133, potassium 4.5, chloride 97, carbon dioxide 25, BUN 52, creatinine 7.9, glucose 84, and calcium 8.1. ASSESSMENT AND PLAN: 1. End-stage renal disease, stable, tolerating current hemodialysis regimen. I have scheduled him back for his regular Saturday hemodialysis next week. No indication for an emergent hemodialysis. We will check CBC and basic metabolic profile in a.m. 2. Left foot gangrene-status post left foot amputation. The plan is to further have the patient undergo left BKA next week. Surgery is following. 3. Anemia. Continue weekly Epogen. Job ID: [id number]
[2019-02-22] MEDS ORDERED: EPOETIN ALFA-EPBX (ESRD) 4,000 UNIT/ML VIAL SC SCH (15:00)
--- NOTE | 2019-02-22 15:19 | PDOC.HOSPP ---
- Subjective Subjective: Seen and examined. Patient lethargic. Blood pressure on the low side and blood pressure medications were appropriately held by nursing staff. Patient is asymptomatic. Had dialysis yesterday in a good session and now on the soft blood pressure side. Plan for amputation tomorrow a.m. per Dr. Singh. - Objective Vital Signs & Weight: Vital Signs (12 hours) Temp Pulse Resp BP BP Pulse Ox 02/22/19 08:15 98.7 F 76 16 121/75 91 L 02/22/19 08:00 93 L 02/22/19 04:00 97.6 F 68 16 119/76 93 L Weight Admit Weight 244 lb 6 oz Weight 244 lb 6 oz I&O: 02/21/19 02/22/19 02/23/19 06:59 06:59 06:59 Intake Total 225 240 240 Balance 225 240 240 Result Diagrams: 02/21/19 04:52 02/21/19 04:52 Hospitalist ROS - Review of Systems All other systems reviewed; all pertinent +/- noted in HPI/Subj - Medication Medications: Active Medications Generic Name Dose Route Start Last Admin Trade Name Freq PRN Reason Stop Dose Admin Acetaminophen 1,000 mg 02/19/19 17:14 02/21/19 05:15 Tylenol PO 1,000 mg Q6H PRN Administration Moderate to Severe Pain (6-10) Amlodipine Besylate 10 mg 02/20/19 09:00 02/21/19 12:07 Norvasc PO Not Given DAILY [facility] Calcitriol 0.25 mcg 02/20/19 09:00 02/22/19 07:56 Rocaltrol PO 0.25 mcg DAILY [facility] Administration Calcium Carbonate 1,000 mg 02/19/19 17:00 02/22/19 11:52 Tums PO 1,000 mg TID-WM BERNY Administration Cholecalciferol 5,000 units 02/20/19 09:00 02/22/19 07:56 Vitamin D3 PO 5,000 units DAILY [facility] Administration Duloxetine HCl 60 mg 02/19/19 21:00 02/21/19 21:35 Cymbalta PO 60 mg HS BERNY Administration Enoxaparin Sodium 30 mg 02/20/19 09:00 02/22/19 07:57 Lovenox SC 30 mg 0900 [facility] Administration Ferrous Sulfate 325 mg 02/19/19 17:00 02/22/19 07:57 Feosol PO 325 mg BID-WM BERNY Administration Gabapentin 300 mg 02/20/19 15:00 02/22/19 07:56 Neurontin PO 300 mg TID [facility] Administration Hydralazine HCl 50 mg 02/19/19 15:00 02/21/19 21:35 Apresoline PO Not Given TID [facility] Insulin Glargine 8 units/ 0.08 mls @ 0 mls/hr 02/20/19 09:00 02/22/19 07:56 Miscellaneous Medication SC 0.08 mls QAM [facility] Administration Piperacillin Sod/Tazobactam 100 mls @ 200 mls/hr 02/19/19 23:59 02/22/19 07: 56 Sod 2.25 gm/ Sodium Chloride IVPB 100 mls 0800,1600,2359 [facility] Administration Vancomycin HCl 1 gm/ Device 200 mls @ 200 mls/hr 02/19/19 22:30 02/21/19 09: 48 IVPB 200 mls WILLCALL BERNY Administration Losartan Potassium 100 mg 02/20/19 09:00 02/21/19 12:08 Cozaar PO Not Given DAILY [facility] Multivitamins 1 tab 02/20/19 09:00 02/22/19 07:56 Theragran PO 1 tab DAILY [facility] Administration Pantoprazole Sodium 40 mg 02/20/19 09:00 02/22/19 07:56 Protonix PO 40 mg DAILY [facility] Administration Polyethylene Glycol 17 gm 02/21/19 09:00 02/22/19 07:56 Miralax PO 17 gm DAILY [facility] Administration Risperidone 1 mg 02/19/19 21:00 02/21/19 21:35 Risperidone PO 1 mg HS [facility] Administration Saccharomyces Boulardii 250 mg 02/20/19 09:00 02/22/19 07:56 Florastor PO 250 mg DAILY [facility] Administration Sevelamer Carbonate 2,400 mg 02/19/19 17:00 02/22/19 11:52 Renvela PO 2,400 mg TID-WM BERNY Administration Thyroid 30 mg 02/20/19 06:00 02/22/19 04:51 [place] Thyroid PO 30 mg 0600 [facility] Administration - Exam General Appearance: NAD, awake alert Eye: PERRL ENT: normocephalic atraumatic, moist mucosa Neck: supple, symmetric, no lymphadenopathy Heart: no murmur, no gallops, no rubs Respiratory: CTAB, no wheezes, no rales Gastrointestinal: soft, non-tender, non-distended, normal bowel sounds, no palpable masses, no hepatomegaly, no splenomegaly Extremities: no edema Skin - other findings: Left leg bandage intact Neurological: cranial nerve grossly intact, no focal deficits Musculoskeletal: generalized weakness Psychiatric: normal affect, A&O x 3 Hosp A/P (1) Cellulitis of foot, left Code(s): L03.116 - CELLULITIS OF LEFT LOWER LIMB Status: Acute (2) Stasis ulcer due to type 2 diabetes mellitus Code(s): E11.59 - TYPE 2 DIABETES MELLITUS WITH OTH CIRCULATORY COMPLICATIONS; I87.2 - VENOUS INSUFFICIENCY (CHRONIC) (PERIPHERAL) Status: Acute (3) Charcot's joint of foot Code(s): M14.679 - CHARCOT'S JOINT, UNSPECIFIED ANKLE AND FOOT Status: Chronic Qualifiers: Laterality: right Qualified Code(s): M14.671 - Charcot's joint, right ankle and foot (4) Diabetes Code(s): E11.9 - TYPE 2 DIABETES MELLITUS WITHOUT COMPLICATIONS Status: Chronic Qualifiers: Diabetes mellitus type: type 2 Diabetes mellitus electrician manager insulin use: with electrician manager use Diabetes mellitus complication status: with neurologic complications Diabetes mellitus complication detail: with polyneuropathy Qualified Code(s): E11.42 - Type 2 diabetes mellitus with diabetic polyneuropathy; Z79.4 - group home (current) use of insulin (5) Dyslipidemia Code(s): E78.5 - HYPERLIPIDEMIA, UNSPECIFIED Status: Chronic (6) Hypertension Code(s): I10 - ESSENTIAL (PRIMARY) HYPERTENSION Status: Chronic Qualifiers: Hypertension type: essential hypertension Qualified Code(s): I10 - Essential (primary) hypertension (7) Osteomyelitis Code(s): M86.9 - OSTEOMYELITIS, UNSPECIFIED Status: Acute - Plan Plan: medical/surgical unit general surgery consultation, recommendations appreciated nephrology consultation, recommendations appreciated plan for formal left leg below the knee amputation on Saturday hemodialysis per nephrology long and short acting insulin for glucose control blood pressure control continue home medications as able replace electrolytes as needed
[2019-02-22] MEDS: Amlodipine 10 MG TAB PO SCH (17:32)
[2019-02-22] MEDS: hydrALAZINE 25 MG TAB PO SCH ×3 (17:32→20:34)
[2019-02-22] MEDS: Losartan 25 MG TAB PO SCH (17:33)
[2019-02-22] MEDS: risperiDONE 1 MG TAB PO SCH (20:34)
[2019-02-22] MEDS: DULoxetine 60 MG CAP PO SCH (20:34)
[2019-02-23] MEDS: Piperacillin/Tazobactam 2.25 GM in Sodium Chloride 0.9% 100 ML IVPB SCH ×3 (00:37→15:20)
[2019-02-23] MEDS: Thyroid 30 MG TAB PO SCH (05:09)
[2019-02-23 05:41] LABS: #Basophils 0.1 thou/uL (0.0-0.2); #Eosinphils 0.5 thou/uL (0.0-0.7); #Lymphocytes 1.2 thou/uL (1.20-3.40); #Monocytes 1.2 thou/uL (0.11-0.59); #Neutrophils 8.9 thou/uL (1.40-6.50); %Basophils 0.6 % (0.0-1.0); %Lymphocytes 9.9 % (21.0-51.0); %Neutrophils 75.5 % (42.0-75.0); Hemoglobin 10.9 g/dL (14.0-18.0); Mean Corpuscular HGB CONC 31.8 g/dL (32.0-36.0); Mean Corpuscular Hemoglobin 30.8 pg (27.0-31.0); Mean Corpuscular Volume 96.8 fL (78.0-98.0); Mean Platelet Volume 7.3 fL (7.4-10.4); Platelet Count 220 thou/uL (130-400); RBC Distribution Width 15.7 % (11.5-14.5); Red Blood Cell (RBC) Count 3.52 mill/uL (4.70-6.10); White Blood Cell (WBC) Count 11.7 thou/uL (4.8-10.8)
[2019-02-23 06:02] LABS: Anion Gap 17 mmol/L (10-20); BUN (Urea Nitrogen) 52 mg/dL (8.4-25.7); Calc. Creatinine Clearance 17 mL/min (70-130); Calcium 8.9 mg/dL (7.8-10.44); Carbon Dioxide 25 mmol/L (22-29); Chloride 96 mmol/L (98-107); Estimated GFR-MDRD 7; Glucose 91 mg/dL (70-105); Potassium 4.2 mmol/L (3.5-5.1); Sodium 134 mmol/L (136-145)
[2019-02-23] MEDS ORDERED: Midazolam HCl 2 mg/2 ml Vial ONE (09:40)
[2019-02-23] MEDS ORDERED: Fentanyl 100 MCG/2 ML VIAL ONE ×2 (09:40→10:22)
[2019-02-23] MEDS ORDERED: Phenylephrine HCL 10 MG/ML VIAL ONE (10:31)
[2019-02-23] MEDS ORDERED: Promethazine HCl 25 MG/ML VIAL IM PRN (11:55)
[2019-02-23] MEDS ORDERED: PACU-Morphine 4MG/ML VIAL SLOW IVP PRN (11:55)
[2019-02-23] MEDS ORDERED: Promethazine HCl 25 MG/ML VIAL SLOW IVP PRN (11:55)
[2019-02-23] MEDS: Ferrous Sulfate 325 MG TAB PO SCH ×2 (12:58→17:20)
[2019-02-23] MEDS: Calcium Carbonate 500 MG ChewTAB PO SCH ×2 (12:58→17:20)
[2019-02-23] MEDS: Saccharomyces boulardii 250 MG CAP PO SCH (12:59)
[2019-02-23] MEDS: Polyethylene Glycol 3350 17 GM Packet PO SCH (12:59)
[2019-02-23] MEDS: Sevelamer Carbonate 800 MG TAB PO SCH ×2 (13:01→17:20)
[2019-02-23] MEDS: Calcitriol 0.25 MCG CAP PO SCH (13:02)
[2019-02-23] MEDS: Gabapentin 300 MG CAP PO SCH ×3 (13:03→20:34)
[2019-02-23] MEDS: hydrALAZINE 25 MG TAB PO SCH ×3 (13:03→20:35)
[2019-02-23] MEDS: Losartan 25 MG TAB PO SCH (13:04)
[2019-02-23] MEDS: Multivit, Therapeutic 1 TAB PO SCH (13:05)
--- NOTE | 2019-02-23 14:04 | PDOC.HOSPP ---
- Subjective Subjective: Going down to the OR for amputation. Electrolytes in good repair. No acute overnight events. No new complaints. - Objective Vital Signs & Weight: Vital Signs (12 hours) Temp Pulse Resp BP Pulse Ox 02/23/19 13:03 68 02/23/19 08:33 96 02/23/19 07:56 97.5 F L 68 20 118/75 95 02/23/19 04:00 99.0 F 61 18 111/77 91 L 02/23/19 02:40 96 Weight Admit Weight 244 lb 6 oz Weight 244 lb 6 oz I&O: 02/22/19 02/23/19 02/24/19 06:59 06:59 06:59 Intake Total 240 2100 Balance 240 2100 Result Diagrams: 02/23/19 05:26 02/23/19 05:26 Hospitalist ROS - Review of Systems All other systems reviewed; all pertinent +/- noted in HPI/Subj - Medication Medications: Active Medications Generic Name Dose Route Start Last Admin Trade Name Freq PRN Reason Stop Dose Admin Acetaminophen 1,000 mg 02/19/19 17:14 02/21/19 05:15 Tylenol PO 1,000 mg Q6H PRN Administration Moderate to Severe Pain (6-10) Amlodipine Besylate 10 mg 02/20/19 09:00 02/22/19 17:32 Norvasc PO Not Given DAILY [facility] Calcitriol 0.25 mcg 02/20/19 09:00 02/23/19 13:02 Rocaltrol PO Not Given DAILY [facility] Calcium Carbonate 1,000 mg 02/19/19 17:00 02/23/19 12:58 Tums PO Not Given TID[facility] Cholecalciferol 5,000 units 02/20/19 09:00 02/23/19 13:03 Vitamin D3 PO Not Given DAILY [facility] Duloxetine HCl 60 mg 02/19/19 21:00 02/22/19 20:34 Cymbalta PO 60 mg HS [facility] Administration Ferrous Sulfate 325 mg 02/19/19 17:00 02/23/19 12:58 Feosol PO Not Given BID-WM [facility] Gabapentin 300 mg 02/20/19 15:00 02/23/19 13:03 Neurontin PO Not Given TID [facility] Hydralazine HCl 50 mg 02/19/19 15:00 02/23/19 13:03 Apresoline PO Not Given TID [facility] Insulin Glargine 8 units/ 0.08 mls @ 0 mls/hr 02/20/19 09:00 02/22/19 07:56 Miscellaneous Medication SC 0.08 mls QAM [facility] Administration Piperacillin Sod/Tazobactam 100 mls @ 200 mls/hr 02/19/19 23:59 02/23/19 09: 10 Sod 2.25 gm/ Sodium Chloride IVPB 02/25/19 09:00 Not Given 0800,1600,2359 [facility] Losartan Potassium 100 mg 02/20/19 09:00 02/23/19 13:04 Cozaar PO Not Given DAILY [facility] Multivitamins 1 tab 02/20/19 09:00 02/23/19 13:05 Theragran PO Not Given DAILY [facility] Pantoprazole Sodium 40 mg 02/20/19 09:00 02/23/19 13:05 Protonix PO Not Given DAILY [facility] Polyethylene Glycol 17 gm 02/21/19 09:00 02/23/19 12:59 Miralax PO Not Given DAILY [facility] Risperidone 1 mg 02/19/19 21:00 02/22/19 20:34 Risperidone PO 1 mg HS [facility] Administration Saccharomyces Boulardii 250 mg 02/20/19 09:00 02/23/19 12:59 Florastor PO Not Given DAILY [facility] Sevelamer Carbonate 2,400 mg 02/19/19 17:00 02/23/19 13:01 Renvela PO Not Given TID-WM [facility] Thyroid 30 mg 02/20/19 06:00 02/23/19 05:09 [place] Thyroid PO 30 mg 0600 BERNY Administration - Exam General Appearance: NAD, awake alert Eye: anicteric sclera ENT: normocephalic atraumatic, moist mucosa Neck: supple, no lymphadenopathy Heart: no murmur, no gallops, no rubs Respiratory: CTAB, no wheezes, no rales, no ronchi Gastrointestinal: soft, non-tender, no guarding, no rigidity Extremities: 1+ LE edema Skin - other findings: See wound care pictures for details, wounds with dressing in position Neurological: cranial nerve grossly intact, no focal deficits Musculoskeletal: generalized weakness Psychiatric: A&O x 3, somnolent Hosp A/P (1) Cellulitis of foot, left Code(s): L03.116 - CELLULITIS OF LEFT LOWER LIMB Status: Acute (2) Stasis ulcer due to type 2 diabetes mellitus Code(s): E11.59 - TYPE 2 DIABETES MELLITUS WITH OTH CIRCULATORY COMPLICATIONS; I87.2 - VENOUS INSUFFICIENCY (CHRONIC) (PERIPHERAL) Status: Acute (3) Charcot's joint of foot Code(s): M14.679 - CHARCOT'S JOINT, UNSPECIFIED ANKLE AND FOOT Status: Chronic Qualifiers: Laterality: right Qualified Code(s): M14.671 - Charcot's joint, right ankle and foot (4) Diabetes Code(s): E11.9 - TYPE 2 DIABETES MELLITUS WITHOUT COMPLICATIONS Status: Chronic Qualifiers: Diabetes mellitus type: type 2 Diabetes mellitus intermediate accountant insulin use: with long-term use Diabetes mellitus complication status: with neurologic complications Diabetes mellitus complication detail: with polyneuropathy Qualified Code(s): E11.42 - Type 2 diabetes mellitus with diabetic polyneuropathy; Z79.4 - adjunct faculty for medical terminology (current) use of insulin (5) Dyslipidemia Code(s): E78.5 - HYPERLIPIDEMIA, UNSPECIFIED Status: Chronic (6) Hypertension Code(s): I10 - ESSENTIAL (PRIMARY) HYPERTENSION Status: Chronic Qualifiers: Hypertension type: essential hypertension Qualified Code(s): I10 - Essential (primary) hypertension (7) Osteomyelitis Code(s): M86.9 - OSTEOMYELITIS, UNSPECIFIED Status: Acute - Plan Plan: medical/surgical unit general surgery consultation, recommendations appreciated nephrology consultation, recommendations appreciated plan for formal left leg below the knee amputation on 02/23/19 hemodialysis per nephrology Saturday, , Saturday long and short acting insulin for glucose control blood pressure control continue home medications as able replace electrolytes as needed
[2019-02-23] MEDS: Amlodipine 10 MG TAB PO SCH (14:42)
[2019-02-23] MEDS: Insulin Glargine 8 UNITS in Pre-Filled Syringe 1 EACH SC SCH (14:43)
--- NOTE | 2019-02-23 14:44 | OP ---
DATE OF PROCEDURE: 02/23/2019 PREOPERATIVE DIAGNOSES: Gangrene, left foot; end-stage renal disease; diabetes, status post guillotine amputation above the ankle. POSTOPERATIVE DIAGNOSES: Gangrene, left foot; end-stage renal disease; diabetes, status post guillotine amputation above the ankle. PROCEDURE PERFORMED: Left below-knee amputation. ANESTHESIA: General, regional. ESTIMATED BLOOD LOSS: 200 mL. BLOOD TRANSFUSION: None. Preop hemoglobin 10. DESCRIPTION OF PROCEDURE: The patient was taken to the operating room, where under general anesthesia and regional anesthesia, left lower extremity was prepared with ChloraPrep and draped in routine fashion. Incision was made for the left BKA with a long posterior flap. Incision was carried down to skin and subcutaneous tissue, fascia circumferentially. Muscle layers were divided with cautery, vascular bundles between clamps, ligated with 2-0 silk ties. Tibia, periosteum raised proximally and tibia transected with a Gigli saw beveling anterior edge cephalad and smoothened the edges with a rasp. Fibula cut about an inch above the cut edge of the tibia. Good hemostasis was obtained with 2-0 Vicryl and cautery. Good hemostasis noted. Wound irrigated. Good hemostasis ensured. Fascia approximated with interrupted segmental continuous suture of 2-0 Vicryl. Skin with frannie. Sterile dressing applied. Job ID: [id number]
[2019-02-23] MEDS ORDERED: Bupivacaine HCl 0.5%/Epinephrine 1:200,000/PF 30 ml Vial ONE (15:26)
[2019-02-23] MEDS ORDERED: Glycopyrrolate 0.2 MG/ML 5 ML SYRINGE ONE (16:12)
[2019-02-23] MEDS ORDERED: Rocuronium Bromide 10 MG/ML (10ML VIAL) ONE (16:12)
[2019-02-23] MEDS ORDERED: Ondansetron PF 4 MG/2 ML Vial ONE (16:12)
[2019-02-23] MEDS ORDERED: Metoclopramide HCl 10 MG/2 ML VIAL ONE (16:12)
[2019-02-23] MEDS ORDERED: ePHEDrine 50 MG/ML VIAL ONE (16:12)
[2019-02-23] MEDS ORDERED: PHENYLEPHRINE-NS 100 MCG/ML 10 ML SYRINGE ONE (16:12)
[2019-02-23] MEDS: HYDROcodone/Acetaminophen 10/325 mg Tablet PO PRN (17:29)
[2019-02-23] MEDS: Enoxaparin Sodium 30 MG/0.3 ML SYRINGE SC SCH (19:21)
[2019-02-23] MEDS: DULoxetine 60 MG CAP PO SCH (20:34)
[2019-02-23] MEDS: Heparin 5,000 UNITS/ML VIAL SC SCH (20:34)
[2019-02-23] MEDS: risperiDONE 1 MG TAB PO SCH (20:36)
[2019-02-24] MEDS: Piperacillin/Tazobactam 2.25 GM in Sodium Chloride 0.9% 100 ML IVPB SCH ×4 (00:27→23:31)
[2019-02-24 05:26] LABS: #Basophils 0.1 thou/uL (0.0-0.2); #Eosinphils 0.4 thou/uL (0.0-0.7); #Lymphocytes 1.4 thou/uL (1.20-3.40); #Monocytes 1.2 thou/uL (0.11-0.59); #Neutrophils 11.1 thou/uL (1.40-6.50); %Basophils 0.7 % (0.0-1.0); %Lymphocytes 9.7 % (21.0-51.0); %Monocytes 8.4 % (0.0-10.0); %Neutrophils 78.2 % (42.0-75.0); Hemoglobin 8.6 g/dL (14.0-18.0); Mean Corpuscular HGB CONC 30.3 g/dL (32.0-36.0); Mean Corpuscular Hemoglobin 29.4 pg (27.0-31.0); Mean Platelet Volume 7.8 fL (7.4-10.4); Platelet Count 207 thou/uL (130-400); RBC Distribution Width 15.7 % (11.5-14.5); Red Blood Cell (RBC) Count 2.94 mill/uL (4.70-6.10); White Blood Cell (WBC) Count 14.2 thou/uL (4.8-10.8)
[2019-02-24] MEDS: Thyroid 30 MG TAB PO SCH (05:44)
[2019-02-24 05:51] LABS: Anion Gap 17 mmol/L (10-20); BUN (Urea Nitrogen) 58 mg/dL (8.4-25.7); Calc. Creatinine Clearance 14 mL/min (70-130); Calcium 8.2 mg/dL (7.8-10.44); Carbon Dioxide 26 mmol/L (22-29); Chloride 97 mmol/L (98-107); Estimated GFR-MDRD 6; Glucose 87 mg/dL (70-105); Potassium 4.7 mmol/L (3.5-5.1); Sodium 135 mmol/L (136-145)
--- NOTE | 2019-02-24 08:30 | PRG ---
DATE OF SERVICE: 02/24/2019 SUBJECTIVE: Mr. Ferrara is a 53-year-old white male with known ESRD from diabetic nephropathy, on maintenance hemodialysis and being followed by the [facility] for his dialysis sessions. He is undergoing hemodialysis. Due to the recent surgery, we are not using any heparin. No new complaints. No chest pain or shortness of breath. Please note, the patient underwent left BKA yesterday. OBJECTIVE: VITAL SIGNS: Blood pressure is 96/66, heart rate 72, respiratory rate 18, temperature 99.6, and pulse oximetry 93%. GENERAL: Awake, alert and comfortable, not in distress. SKIN: Adequate turgor. HEENT: Slightly pale conjunctivae. Anicteric sclerae. NECK: No neck mass. No carotid bruits. No JVD. CHEST: No deformities. LUNGS: Clear breath sounds. No wheezing. No crackles. HEART: Normal sinus rhythm. No murmur. No gallops or rubs. ABDOMEN: Globular, soft, nontender. No masses. EXTREMITIES: Bilateral BKA. MEDICATIONS: Medications of February 24, 2019, was reviewed. LABORATORY DATA: Laboratories of February 24, 2019; white count 14.2, hemoglobin 8.6, sodium 135, potassium 4.7, chloride 97, carbon dioxide 26, BUN 58, creatinine 9.4, calcium 8.2. ASSESSMENT AND PLAN: 1. End-stage renal disease, stable. We will continue current hemodialysis regimen. Fluid removal only as tolerated by the patient. Due to the recent surgery we will decrease dialysis time from 4 hours to 3 hours today only. Resume back 4 hour hemodialysis session this coming . 2. Anemia, continuing weekly Epogen. 3. Infected left foot - the patient is status post left below knee amputation. 4. Recheck CBC and basic metabolic panel in a.m. 5. Dec mentation -if persistent will discontinue gabapentin Job ID: [id number] [facility]
--- NOTE | 2019-02-24 08:59 | PDOC.GSPN ---
Surgery Progress Note: Subj - Subjective Narrative: Mr. Ferrara is POD day 1 left BKA. He is undergoing dialysis this morning. He reports pain is well controlled, and he is comfortable. It has been at a 4/10 most of the time, occasionally going up to 8/10. He ate well yesterday. He denies nausea, vomiting, or chest pain. Surgery Progress Note: Obj - Vital signs Vital signs: Vital Signs - Most Recent Temp Pulse Resp BP Pulse Ox 99.6 F 72 18 96/66 93 L 02/24/19 04:00 02/24/19 04:00 02/24/19 04:00 02/24/19 04:00 02/24/19 04:00 - Physical Exam General: no distress Cardiovascular: regular rate and rhythm Respiratory: clear to auscultation Musculoskeletal: other (Right & left BKA amputation.) Wound: dressing clean,dry,intact Surgery Progress Note: Results - Labs Result Diagrams: 02/24/19 04:33 02/24/19 04:33 Lab results: Laboratory Results - last 24 hr Surgery Progress Note: A/P - Problem (1) S/P BKA (below knee amputation) Current Visit: Yes Code(s): Z89.519 - ACQUIRED ABSENCE OF UNSPECIFIED LEG BELOW KNEE Status: Acute Qualifiers: Laterality: left Qualified Code(s): Z89.512 - Acquired absence of left leg below knee - Plan Plan: Continue to monitor pain, continue wound care. Diet as tolerated. Discussion as to where patient will be placed post discharge is needed.
--- NOTE | 2019-02-24 10:28 | EKG ---
Test Reason : Blood Pressure : / mmHG Vent. Rate : 081 BPM Atrial Rate : 081 BPM P-R Int : 168 ms QRS Dur : 100 ms QT Int : 384 ms P-R-T Axes : -07 -17 076 degrees QTc Int : 446 ms Normal sinus rhythm Normal ECG When compared with ECG of 14-JAN-2019 13:37, QRS axis Shifted left Confirmed by SABRINA BLANKENSHIP MD ([id number]) on 02/24/2019 10:27:37 AM Referred By: Confirmed By:SABRINA BLANKENSHIP MD
[2019-02-24] MEDS: Calcium Carbonate 500 MG ChewTAB PO SCH ×3 (12:05→16:36)
[2019-02-24] MEDS: Sevelamer Carbonate 800 MG TAB PO SCH ×3 (12:06→16:36)
[2019-02-24] MEDS: Heparin 5,000 UNITS/ML VIAL SC SCH ×2 (12:06→20:06)
[2019-02-24] MEDS: Gabapentin 300 MG CAP PO SCH ×3 (12:06→20:04)
[2019-02-24] MEDS: Amlodipine 10 MG TAB PO SCH (12:06)
[2019-02-24] MEDS: hydrALAZINE 25 MG TAB PO SCH ×3 (12:06→20:13)
[2019-02-24] MEDS: Polyethylene Glycol 3350 17 GM Packet PO SCH (12:07)
[2019-02-24] MEDS: Losartan 25 MG TAB PO SCH (12:07)
[2019-02-24] MEDS: Insulin Glargine 8 UNITS in Pre-Filled Syringe 1 EACH SC SCH (12:08)
[2019-02-24] MEDS: Multivit, Therapeutic 1 TAB PO SCH (12:26)
[2019-02-24] MEDS: Saccharomyces boulardii 250 MG CAP PO SCH (12:26)
[2019-02-24] MEDS: Calcitriol 0.25 MCG CAP PO SCH (12:26)
[2019-02-24] MEDS: Ferrous Sulfate 325 MG TAB PO SCH ×2 (12:26→16:36)
--- NOTE | 2019-02-24 14:55 | PDOC.HOSPP ---
- Subjective Subjective: Seen and examined. This afternoon after dialysis he is doing well. Sitting up in the bed. Eating his lunch. Pain controlled. Progressing well postoperatively. Patient is chronic resident of skilled nursing and will plan to go back when cleared by surgery. - Objective Vital Signs & Weight: Vital Signs (12 hours) Temp Pulse Resp BP Pulse Ox 02/24/19 07:30 98.9 F 78 16 117/70 95 02/24/19 04:00 99.6 F 72 18 96/66 93 L Weight Admit Weight 244 lb 6 oz Weight 244 lb 6 oz I&O: 02/23/19 02/24/19 02/25/19 06:59 06:59 06:59 Intake Total 2100 300 Output Total 0 Balance 2100 300 Result Diagrams: 02/24/19 04:33 02/24/19 04:33 Hospitalist ROS - Review of Systems All other systems reviewed; all pertinent +/- noted in HPI/Subj - Medication Medications: Active Medications Generic Name Dose Route Start Last Admin Trade Name Freq PRN Reason Stop Dose Admin Acetaminophen 1,000 mg 02/19/19 17:14 02/21/19 05:15 Tylenol PO 1,000 mg Q6H PRN Administration Moderate to Severe Pain (6-10) Hydrocodone Bitart/Acetaminophen 1 tab 02/20/19 13:22 02/23/19 17:29 [place] 10/325 PO 1 tab Q4H PRN Administration Moderate Pain (4-6) Amlodipine Besylate 10 mg 02/20/19 09:00 02/24/19 12:06 Norvasc PO Not Given DAILY [facility] Calcitriol 0.25 mcg 02/20/19 09:00 02/24/19 12:26 Rocaltrol PO 0.25 mcg DAILY [facility] Administration Calcium Carbonate 1,000 mg 02/19/19 17:00 02/24/19 12:30 Tums PO 1,000 mg TID-WM BERNY Administration Cholecalciferol 5,000 units 02/20/19 09:00 02/24/19 12:30 Vitamin D3 PO 5,000 units DAILY [facility] Administration Duloxetine HCl 60 mg 02/19/19 21:00 02/23/19 20:34 Cymbalta PO 60 mg HS [facility]Y Administration Ferrous Sulfate 325 mg 02/19/19 17:00 02/24/19 12:26 Feosol PO 325 mg BID-WM BERNY Administration Gabapentin 300 mg 02/20/19 15:00 02/24/19 12:06 Neurontin PO Not Given TID [facility] Heparin Sodium (Porcine) 5,000 units 02/23/19 21:00 02/24/19 12:06 Heparin SC Not Given BID [facility] Hydralazine HCl 50 mg 02/19/19 15:00 02/24/19 12:06 Apresoline PO Not Given TID [facility] Insulin Glargine 8 units/ 0.08 mls @ 0 mls/hr 02/20/19 09:00 02/24/19 12:08 Miscellaneous Medication SC Not Given QAM [facility] Piperacillin Sod/Tazobactam 100 mls @ 200 mls/hr 02/19/19 23:59 02/24/19 12: 05 Sod 2.25 gm/ Sodium Chloride IVPB 02/25/19 09:00 Not Given 0800,1600,2359 [facility] Losartan Potassium 100 mg 02/20/19 09:00 02/24/19 12:07 Cozaar PO Not Given DAILY [facility] Multivitamins 1 tab 02/20/19 09:00 02/24/19 12:26 Theragran PO 1 tab DAILY [facility] Administration Pantoprazole Sodium 40 mg 02/20/19 09:00 02/24/19 12:26 Protonix PO 40 mg DAILY [facility] Administration Polyethylene Glycol 17 gm 02/21/19 09:00 02/24/19 12:07 Miralax PO Not Given DAILY [facility] Risperidone 1 mg 02/19/19 21:00 02/23/19 20:36 Risperidone PO Not Given HS [facility] Saccharomyces Boulardii 250 mg 02/20/19 09:00 02/24/19 12:26 Florastor PO 250 mg DAILY [facility] Administration Sevelamer Carbonate 2,400 mg 02/19/19 17:00 02/24/19 12:26 Renvela PO 2,400 mg TID-WM BERNY Administration Thyroid 30 mg 02/20/19 06:00 02/24/19 05:44 [place] Thyroid PO 30 mg 0600 [facility]ERNY Administration - Exam General Appearance: NAD, awake alert Eye: PERRL, anicteric sclera ENT: normocephalic atraumatic, moist mucosa Neck: supple, symmetric, no lymphadenopathy Heart: no murmur, no gallops, no rubs Respiratory: CTAB, no wheezes, no rales, no ronchi Gastrointestinal: soft, non-tender, non-distended, no guarding, no rigidity Extremities: no edema Skin: no rashes Skin - other findings: Dressings clean and dry Neurological: cranial nerve grossly intact, no focal deficits Musculoskeletal: normal tone, generalized weakness Psychiatric: normal affect, A&O x 3 Hosp A/P (1) Cellulitis of foot, left Code(s): L03.116 - CELLULITIS OF LEFT LOWER LIMB Status: Acute (2) Stasis ulcer due to type 2 diabetes mellitus Code(s): E11.59 - TYPE 2 DIABETES MELLITUS WITH OTH CIRCULATORY COMPLICATIONS; I87.2 - VENOUS INSUFFICIENCY (CHRONIC) (PERIPHERAL) Status: Acute (3) Charcot's joint of foot Code(s): M14.679 - CHARCOT'S JOINT, UNSPECIFIED ANKLE AND FOOT Status: Chronic Qualifiers: Laterality: right Qualified Code(s): M14.671 - Charcot's joint, right ankle and foot (4) Diabetes Code(s): E11.9 - TYPE 2 DIABETES MELLITUS WITHOUT COMPLICATIONS Status: Chronic Qualifiers: Diabetes mellitus type: type 2 Diabetes mellitus intermediate card tender insulin use: with prison use Diabetes mellitus complication status: with neurologic complications Diabetes mellitus complication detail: with polyneuropathy Qualified Code(s): E11.42 - Type 2 diabetes mellitus with diabetic polyneuropathy; Z79.4 - halfway (current) use of insulin (5) Dyslipidemia Code(s): E78.5 - HYPERLIPIDEMIA, UNSPECIFIED Status: Chronic (6) Hypertension Code(s): I10 - ESSENTIAL (PRIMARY) HYPERTENSION Status: Chronic Qualifiers: Hypertension type: essential hypertension Qualified Code(s): I10 - Essential (primary) hypertension (7) Osteomyelitis Code(s): M86.9 - OSTEOMYELITIS, UNSPECIFIED Status: Acute - Plan Plan: medical/surgical unit general surgery consultation, recommendations appreciated nephrology consultation, recommendations appreciated S/p left leg below the knee amputation on 02/23/19 hemodialysis per nephrology Saturday, , Saturday long and short acting insulin for glucose control blood pressure control continue home medications as able replace electrolytes as needed
--- NOTE | 2019-02-24 15:55 | PRG ---
DATE OF SERVICE: 02/24/2019 SUBJECTIVE: Zacarias Ferrara is doing well today. He reports good pain control. His dressing is dry. OBJECTIVE: VITAL SIGNS: Temperature 98.9 degrees, pulse 78, blood pressure 117/70. LABORATORY DATA: White count is 14 and hemoglobin 8.6. ASSESSMENT AND PLAN: Doing well after BKA. We will plan to remove his dressing tomorrow and tomorrow he will be transferred to the shelter. He will follow up in my office in 2 weeks for his staple removal. After removing the dressing tomorrow, they should wash his wound daily with soap and water, apply antibiotic ointment, Telfa, and a stump general inspector which has been ordered. I will see him tomorrow. Job ID: [id number]
--- NOTE | 2019-02-24 16:01 | SPC ---
Dialysis fistulogram left upper extremity HISTORY: Renal failure. Periodic difficulty of access of dialysis fistula. FINDINGS: After explaining the procedure and answering all questions, the left upper extremity was pr epped and draped in usual sterile fashion. Sterile technique, buffered local anesthesia, and a 22-gauge needle were used to carefully access the left upper extremity dialysis fistula at the antecu bital fossa. This proves to be the cephalic vein. A 4 Kinyarwanda micropuncture sheath was placed for imaging. Serial imaging shows vigorous flow throughout a widely patent left cephalic vein with good outflow to a patent superior vena cava. There are 2 medium sized collaterals projecting superiorly from the cephalic fistula at the level of the upper humeral shaft. No evidence of stenosis. Reflux angiography shows collateral flow to a widely patent basilic vein. There was also reflux into the slightly narrowed median vein of the forearm. Arterial anastomosis was not refluxed. It appeared to be at the wrist on the prior exam. Catheter was removed and hemostasis obtained using direct pressure. Patient tolerated the procedure w ell and was returned in unchanged condition. Fluoroscopy time 0.6 minutes. IMPRESSION: Left upper arm dialysis fistula is widely patent. No evidence of stenosis. Good arterial flow
[2019-02-24] MEDS: ALPRAZolam 0.25 MG TAB PO PRN (20:04)
[2019-02-24] MEDS: risperiDONE 1 MG TAB PO SCH (20:04)
[2019-02-24] MEDS: DULoxetine 60 MG CAP PO SCH (20:04)
[2019-02-24] MEDS: HYDROcodone/Acetaminophen 10/325 mg Tablet PO PRN (20:05)
[2019-02-25] MEDS: Thyroid 30 MG TAB PO SCH (05:13)
[2019-02-25 05:38] LABS: #Basophils 0.1 thou/uL (0.0-0.2); #Eosinphils 0.3 thou/uL (0.0-0.7); #Lymphocytes 1.6 thou/uL (1.20-3.40); #Monocytes 1.4 thou/uL (0.11-0.59); #Neutrophils 11.8 thou/uL (1.40-6.50); %Basophils 0.7 % (0.0-1.0); %Eosinophils 2.2 % (0.0-10.0); %Lymphocytes 10.6 % (21.0-51.0); %Monocytes 9.2 % (0.0-10.0); %Neutrophils 77.2 % (42.0-75.0); Hemoglobin 8.5 g/dL (14.0-18.0); Mean Corpuscular HGB CONC 32.2 g/dL (32.0-36.0); Mean Corpuscular Hemoglobin 31.1 pg (27.0-31.0); Mean Corpuscular Volume 96.6 fL (78.0-98.0); Mean Platelet Volume 7.8 fL (7.4-10.4); Platelet Count 219 thou/uL (130-400); RBC Distribution Width 15.9 % (11.5-14.5); Red Blood Cell (RBC) Count 2.73 mill/uL (4.70-6.10); White Blood Cell (WBC) Count 15.2 thou/uL (4.8-10.8)
[2019-02-25 06:01] LABS: Anion Gap 16 mmol/L (10-20); BUN (Urea Nitrogen) 35 mg/dL (8.4-25.7); Calc. Creatinine Clearance 18 mL/min (70-130); Calcium 8.3 mg/dL (7.8-10.44); Carbon Dioxide 27 mmol/L (22-29); Chloride 97 mmol/L (98-107); Estimated GFR-MDRD 8; Glucose 105 mg/dL (70-105); Sodium 136 mmol/L (136-145)
[2019-02-25] MEDS: Sevelamer Carbonate 800 MG TAB PO SCH ×3 (09:02→17:55)
[2019-02-25] MEDS: Calcitriol 0.25 MCG CAP PO SCH (09:03)
[2019-02-25] MEDS: Calcium Carbonate 500 MG ChewTAB PO SCH ×3 (09:03→17:57)
[2019-02-25] MEDS: Amlodipine 10 MG TAB PO SCH (09:03)
[2019-02-25] MEDS: Piperacillin/Tazobactam 2.25 GM in Sodium Chloride 0.9% 100 ML IVPB SCH ×3 (09:03→23:54)
[2019-02-25] MEDS: Ferrous Sulfate 325 MG TAB PO SCH ×2 (09:03→17:55)
[2019-02-25] MEDS: Heparin 5,000 UNITS/ML VIAL SC SCH ×2 (09:04→20:33)
[2019-02-25] MEDS: Saccharomyces boulardii 250 MG CAP PO SCH (09:04)
[2019-02-25] MEDS: Losartan 25 MG TAB PO SCH (09:04)
[2019-02-25] MEDS: hydrALAZINE 25 MG TAB PO SCH ×3 (09:04→20:30)
[2019-02-25] MEDS: Gabapentin 300 MG CAP PO SCH ×3 (09:04→20:29)
[2019-02-25] MEDS: Multivit, Therapeutic 1 TAB PO SCH (09:04)
[2019-02-25] MEDS: Polyethylene Glycol 3350 17 GM Packet PO SCH (09:08)
--- NOTE | 2019-02-25 09:18 | PRG ---
DATE OF SERVICE: 02/25/2019 SUBJECTIVE: Mr. Ferrara is a 53-year-old white male with ESRD and admitted for left foot infection. He has undergone left foot surgery as well as a left BKA. He is doing well this morning. He feels tired. He was noted to be sleepy. No complaints of chest pain or shortness of breath. He underwent dialysis yesterday without any difficulty. OBJECTIVE: VITAL SIGNS: Blood pressure 107/61, heart rate 78, respiratory rate 20, temperature 98.6, and pulse ox 97%. GENERAL EXAM: The patient is sleepy, but arousable and comfortable, not in distress. SKIN: Adequate turgor. HEENT: Slightly pale conjunctivae. Anicteric sclerae. NECK: No neck mass. No carotid bruits. No JVD. CHEST: No deformities. LUNGS: Clear breath sounds. No wheezing. No crackles. HEART: Normal sinus rhythm. No murmur. No gallops. No rubs. ABDOMEN: Globular, soft, nontender. No masses. EXTREMITIES: Status post left BKA-dressings noted to be dry and intact. He is status post right BKA also. MEDICATIONS: Medications of February 25, 2019, reviewed. LABORATORY DATA: Laboratories of February 25, 2019; white count 15.2, hemoglobin 8.5. Sodium 136, potassium 4, chloride 97, carbon dioxide 27, BUN 35, creatinine 7.5, calcium 8.3. ASSESSMENT AND PLAN: 1. End-stage renal disease, stable. We will continue current Saturday, , and Saturday hemodialysis regimen using no heparin due to the recent surgery. Fluid removal as tolerated. 2. Anemia. Continuing weekly Epogen. 3. Infected left foot-the patient is status post left BKA. Surgery is following. 4. Agree with current management. Job ID: [id number]
--- NOTE | 2019-02-25 09:50 | PRG ---
DATE OF SERVICE: 02/25/2019 SUBJECTIVE: Zacarias Ferrara is doing well today. His BKA wound looks good. Dressings removed. Staple line is intact. I have asked the nurses to begin today daily washing the wound with soap and water, apply antibiotic ointment and a Telfa pad. The patient is status post BKA and a stump design lead has been ordered to prepare the stump for future prosthesis. LABORATORY DATA: White count 15, hemoglobin 8.5. Basic metabolic profile normal consistent with end-stage renal disease. ASSESSMENT AND PLAN: 1. End-stage renal disease. Continue hemodialysis. 2. Status post left BKA, wound is doing well after acquired stump design lead, daily wound care. It is okay to transfer the patient to [facility] at anytime. Job ID: [id number]
[2019-02-25] MEDS: Insulin Glargine 8 UNITS in Pre-Filled Syringe 1 EACH SC SCH (13:15)
--- NOTE | 2019-02-25 14:21 | PDOC.HOSPP ---
- Subjective Subjective: Seen and examined. Was planning for retirement facility, however the patient clinically is doing worse today. Less awake and alert. Less interactive this afternoon. Patient with low-grade fever. Patient's WBC count has trended up to 15,000. Will add blood cultures. Continue IV antibiotics. Will reassess for the possibility of discharge tomorrow if the patient is clinically improving and cultures remain negative. Waiting for stump shrinking prosthetic. - Objective Vital Signs & Weight: Vital Signs (12 hours) Temp Pulse Resp BP BP Pulse Ox 02/25/19 13:11 99.9 F H 82 16 93/62 92 L 02/25/19 09:04 78 02/25/19 09:03 78 02/25/19 08:00 97 02/25/19 07:00 98.6 F 78 20 107/61 97 02/25/19 06:29 96 02/25/19 03:00 97.8 F 89 20 104/66 96 Weight Admit Weight 244 lb 6 oz Weight 244 lb 6 oz I&O: 02/24/19 02/25/19 02/26/19 06:59 06:59 06:59 Intake Total 300 710 Output Total 0 Balance 300 710 Result Diagrams: 02/25/19 04:42 02/25/19 04:42 Hospitalist ROS - Review of Systems All other systems reviewed; all pertinent +/- noted in HPI/Subj - Medication Medications: Active Medications Generic Name Dose Route Start Last Admin Trade Name Freq PRN Reason Stop Dose Admin Acetaminophen 1,000 mg 02/19/19 17:14 02/21/19 05:15 Tylenol PO 1,000 mg Q6H PRN Administration Moderate to Severe Pain (6-10) Hydrocodone Bitart/Acetaminophen 1 tab 02/20/19 13:22 02/24/19 20:05 [place] 10/325 PO 1 tab Q4H PRN Administration Moderate Pain (4-6) Alprazolam 0.25 mg 02/19/19 14:14 02/24/19 20:04 Xanax PO 0.25 mg BIDPRN PRN Administration Anxiety Amlodipine Besylate 10 mg 02/20/19 09:00 02/25/19 09:03 Norvasc PO Not Given DAILY BERNY Calcitriol 0.25 mcg 02/20/19 09:00 02/25/19 09:03 Rocaltrol PO 0.25 mcg DAILY BERNY Administration Calcium Carbonate 1,000 mg 02/19/19 17:00 02/25/19 13:16 Tums PO 1,000 mg TID-WM BERNY Administration Cholecalciferol 5,000 units 02/20/19 09:00 02/25/19 09:03 Vitamin D3 PO 5,000 units DAILY BERNY Administration Duloxetine HCl 60 mg 02/19/19 21:00 02/24/19 20:04 Cymbalta PO 60 mg HS BERNY Administration Ferrous Sulfate 325 mg 02/19/19 17:00 02/25/19 09:03 Feosol PO 325 mg BID-WM BERNY Administration Gabapentin 300 mg 02/20/19 15:00 02/25/19 09:04 Neurontin PO 300 mg TID BERNY Administration Heparin Sodium (Porcine) 5,000 units 02/23/19 21:00 02/25/19 09:04 Heparin SC 5,000 units BID BERNY Administration Hydralazine HCl 50 mg 02/19/19 15:00 02/25/19 09:04 Apresoline PO Not Given TID BERNY Insulin Glargine 8 units/ 0.08 mls @ 0 mls/hr 02/20/19 09:00 02/25/19 13:15 Miscellaneous Medication SC Not Given QAM [facility] Losartan Potassium 100 mg 02/20/19 09:00 02/25/19 09:04 Cozaar PO Not Given DAILY BERNY Multivitamins 1 tab 02/20/19 09:00 02/25/19 09:04 Theragran PO 1 tab DAILY BERNY Administration Pantoprazole Sodium 40 mg 02/20/19 09:00 02/25/19 09:04 Protonix PO 40 mg DAILY BERNY Administration Polyethylene Glycol 17 gm 02/21/19 09:00 02/25/19 09:08 Miralax PO Not Given DAILY BERNY Risperidone 1 mg 02/19/19 21:00 02/24/19 20:04 Risperidone PO 1 mg HS BERNY Administration Saccharomyces Boulardii 250 mg 02/20/19 09:00 02/25/19 09:04 Florastor PO 250 mg DAILY BERNY Administration Sevelamer Carbonate 2,400 mg 02/19/19 17:00 02/25/19 13:15 Renvela PO 2,400 mg TID-WM BERNY Administration Thyroid 30 mg 02/20/19 06:00 02/25/19 05:13 [place] Thyroid PO 30 mg 0600 BERNY Administration - Exam Eye: anicteric sclera ENT: normocephalic atraumatic, moist mucosa Neck: supple, symmetric, no lymphadenopathy Heart: no murmur, no gallops, no rubs Respiratory: CTAB, no wheezes, no rales, no ronchi Gastrointestinal: soft, non-tender, non-distended, no guarding, no rigidity Extremities: 1+ LE edema Skin: no lesions, no rashes Neurological: cranial nerve grossly intact, no focal deficits Musculoskeletal: generalized weakness Psychiatric: oriented to person, oriented to place, flat affect Hosp A/P (1) Cellulitis of foot, left Code(s): L03.116 - CELLULITIS OF LEFT LOWER LIMB Status: Acute (2) Stasis ulcer due to type 2 diabetes mellitus Code(s): E11.59 - TYPE 2 DIABETES MELLITUS WITH OTH CIRCULATORY COMPLICATIONS; I87.2 - VENOUS INSUFFICIENCY (CHRONIC) (PERIPHERAL) Status: Acute (3) Charcot's joint of foot Code(s): M14.679 - CHARCOT'S JOINT, UNSPECIFIED ANKLE AND FOOT Status: Chronic Qualifiers: Laterality: right Qualified Code(s): M14.671 - Charcot's joint, right ankle and foot (4) Diabetes Code(s): E11.9 - TYPE 2 DIABETES MELLITUS WITHOUT COMPLICATIONS Status: Chronic Qualifiers: Diabetes mellitus type: type 2 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 insulin use: with intermodal owner operator truck driver use Diabetes mellitus complication status: with neurologic complications Diabetes mellitus complication detail: with polyneuropathy Qualified Code(s): E11.42 - Type 2 diabetes mellitus with diabetic polyneuropathy; Z79.4 - remote computer terminal operator (current) use of insulin (5) Dyslipidemia Code(s): E78.5 - HYPERLIPIDEMIA, UNSPECIFIED Status: Chronic (6) Hypertension Code(s): I10 - ESSENTIAL (PRIMARY) HYPERTENSION Status: Chronic Qualifiers: Hypertension type: essential hypertension Qualified Code(s): I10 - Essential (primary) hypertension (7) Osteomyelitis Code(s): M86.9 - OSTEOMYELITIS, UNSPECIFIED Status: Acute - Plan Plan: medical/surgical unit, was planning for D/c though clinically worse today general surgery consultation, recommendations appreciated nephrology consultation, recommendations appreciated Add blood cultures Continue IV ABX CXR added Incentive spirometry S/p left leg below the knee amputation on 02/23/19 hemodialysis per nephrology Saturday, , Saturday long and short acting insulin for glucose control blood pressure control continue home medications as able replace electrolytes as needed
--- NOTE | 2019-02-25 15:06 | RAD ---
Exam: Chest one view: HISTORY: Shortness of breath COMPARISON: 02/21/2019 FINDINGS: Cardiomegaly with bilateral vascular congestion and bilateral pleural effusions larger on the right s lv showing little change from prior 02/21/2019 study. No new confluent process. IMPRESSION: Overall stable cardiomegaly, vascular congestion, and pleural effusions without other acute process.
[2019-02-25] MEDS: Vancomycin HCl 1 GM in Premix Bag 1 BAG IVPB SCH (16:22)
[2019-02-25] MEDS: ALPRAZolam 0.25 MG TAB PO PRN (20:29)
[2019-02-25] MEDS: DULoxetine 60 MG CAP PO SCH (20:29)
[2019-02-25] MEDS: risperiDONE 1 MG TAB PO SCH (20:29)
[2019-02-25] MEDS: Acetaminophen 500 MG TAB PO PRN (20:30)
[2019-02-25] MEDS: traMADol HCl 50 MG TAB PO PRN (20:32)
[2019-02-26] MEDS: Vancomycin HCl 1 GM in Premix Bag 1 BAG IVPB SCH (02:27)
[2019-02-26] MEDS: Piperacillin/Tazobactam 2.25 GM in Sodium Chloride 0.9% 100 ML IVPB SCH ×4 (05:06→23:51)
[2019-02-26] MEDS: Thyroid 30 MG TAB PO SCH (05:07)
[2019-02-26 06:21] LABS: #Basophils 0.1 thou/uL (0.0-0.2); #Eosinphils 0.5 thou/uL (0.0-0.7); #Lymphocytes 1.9 thou/uL (1.20-3.40); #Monocytes 1.1 thou/uL (0.11-0.59); #Neutrophils 11.8 thou/uL (1.40-6.50); %Basophils 0.7 % (0.0-1.0); %Lymphocytes 12.3 % (21.0-51.0); %Monocytes 6.9 % (0.0-10.0); %Neutrophils 77.1 % (42.0-75.0); Hemoglobin 7.5 g/dL (14.0-18.0); Mean Corpuscular HGB CONC 31.6 g/dL (32.0-36.0); Mean Corpuscular Hemoglobin 30.8 pg (27.0-31.0); Mean Corpuscular Volume 97.6 fL (78.0-98.0); Mean Platelet Volume 7.7 fL (7.4-10.4); Platelet Count 224 thou/uL (130-400); RBC Distribution Width 15.8 % (11.5-14.5); Red Blood Cell (RBC) Count 2.43 mill/uL (4.70-6.10); White Blood Cell (WBC) Count 15.4 thou/uL (4.8-10.8)
[2019-02-26 06:43] LABS: Anion Gap 18 mmol/L (10-20); BUN (Urea Nitrogen) 45 mg/dL (8.4-25.7); Calc. Creatinine Clearance 15 mL/min (70-130); Calcium 8.4 mg/dL (7.8-10.44); Carbon Dioxide 25 mmol/L (22-29); Chloride 97 mmol/L (98-107); Estimated GFR-MDRD 6; Glucose 102 mg/dL (70-105); Potassium 4.4 mmol/L (3.5-5.1); Sodium 136 mmol/L (136-145)
[2019-02-26] MEDS ORDERED: Albumin 25% 25 GM/100 ML BOT IVPB SCH (08:15)
--- NOTE | 2019-02-26 09:23 | PRG ---
DATE OF SERVICE: 02/26/2019 SUBJECTIVE: Mr. Ferrara is a 53-year-old white male with ESRD and was admitted for left foot infection. He has undergone a left BKA. We are following him up for his maintenance hemodialysis. He is undergoing dialysis today. I did note the BP was in the 90 systolic. I have given him an albumin infusion, so I can attempt to max out fluid removal. His chest x-ray still shows CHF. OBJECTIVE: VITAL SIGNS: Blood pressure is currently at 101/70, heart rate 69, respiratory rate 18, temperature 98.6, and pulse ox 100%. GENERAL: The patient is sleeping, arousable, comfortable, not in distress. SKIN: Adequate turgor. HEENT: He has a slightly pale conjunctivae. Anicteric sclerae. NECK: No neck mass. No carotid bruits. No JVD. CHEST: No deformities. LUNGS: Decreased breath sounds. HEART: Normal sinus rhythm. No murmurs. No gallops. No rubs. ABDOMEN: Globular, soft, nontender. No masses. EXTREMITIES: Status post bilateral BKA. MEDICATIONS: Medications of February 26, 2019, were reviewed. LABORATORY DATA: Laboratories of February 26, 2019; white count 15.4, hemoglobin 7.5. Sodium 136, potassium 4.4, chloride 97, carbon dioxide 25, BUN 45, creatinine 9.21, glucose 102, and calcium 8.4. ASSESSMENT AND PLAN: 1. Sleepiness-we will discontinue gabapentin. 2. Hypotension. Discontinue amlodipine and hydralazine. 3. Anemia. Continuing weekly Epogen regimen with this patient. 4. End-stage renal disease, stable. We will continue 3 times a week hemodialysis with this patient. Attempt to remove fluid as tolerated by the patient. 5. Infected left foot-the patient is status post left below-knee amputation. 6. Continue supportive care. We will recheck basic metabolic panel and CBC in a.m. Job ID: [id number]
[2019-02-26] MEDS: Sevelamer Carbonate 800 MG TAB PO SCH ×3 (12:26→17:02)
[2019-02-26] MEDS: Calcitriol 0.25 MCG CAP PO SCH ×2 (12:27→12:32)
[2019-02-26] MEDS: Saccharomyces boulardii 250 MG CAP PO SCH (12:27)
[2019-02-26] MEDS: Calcium Carbonate 500 MG ChewTAB PO SCH ×3 (12:29→17:02)
[2019-02-26] MEDS: Insulin Glargine 8 UNITS in Pre-Filled Syringe 1 EACH SC SCH (12:29)
[2019-02-26] MEDS: Losartan 25 MG TAB PO SCH (12:29)
[2019-02-26] MEDS: Ferrous Sulfate 325 MG TAB PO SCH ×2 (12:30→17:02)
[2019-02-26] MEDS: Heparin 5,000 UNITS/ML VIAL SC SCH ×2 (12:31→21:02)
[2019-02-26] MEDS: Multivit, Therapeutic 1 TAB PO SCH (12:31)
[2019-02-26] MEDS: Polyethylene Glycol 3350 17 GM Packet PO SCH (12:32)
[2019-02-26] MEDS ORDERED: Vancomycin HCl 1.25 GM in Sodium Chloride 0.9% 250 ML 250 ML IVPB SCH (14:30)
[2019-02-26] MEDS ORDERED: HOLD VANCOMYCIN FOR LEVEL >20 FS SCH (14:30)
[2019-02-26] MEDS ORDERED: Vancomycin Sliding Scale 1 EACH FS ONE (14:30)
[2019-02-26] MEDS ORDERED: Vancomycin HCl 1.5 GM in Sodium Chloride 0.9% 250 ML 300 ML IVPB SCH (14:30)
[2019-02-26] MEDS ORDERED: Vancomycin HCl 1 GM in Premix Bag 1 BAG IVPB SCH (14:30)
[2019-02-26] MEDS ORDERED: Vancomycin HCl 750 MG in Sodium Chloride 0.9% 250 ML 250 ML IVPB SCH (14:30)
[2019-02-26 15:35] LABS: Vancomycin, Random 30.4 ug/mL (See Comment)
--- NOTE | 2019-02-26 16:30 | PDOC.HOSPP ---
- Subjective Subjective: Seen and examined. Somnolent this afternoon after dialysis. Stopping medications that can worsen somnolence, particularly gabapentin. Patient remains on IV antibiotics, WBC count remains elevated at 15,000. - Objective Vital Signs & Weight: Vital Signs (12 hours) Temp Pulse Resp BP Pulse Ox 02/26/19 12:07 97.4 F L 70 20 119/74 95 02/26/19 04:58 98.6 F 69 18 99/64 100 Weight Admit Weight 244 lb 6 oz Weight 244 lb 6 oz I&O: 02/25/19 02/26/19 02/27/19 06:59 06:59 06:59 Intake Total 710 1650 Balance 710 1650 Result Diagrams: 02/26/19 05:54 02/26/19 05:54 Additional Labs: Accuchecks 02/26/19 12:09 POC Glucose 93 Hospitalist ROS - Review of Systems All other systems reviewed; all pertinent +/- noted in HPI/Subj - Medication Medications: Active Medications Generic Name Dose Route Start Last Admin Trade Name Freq PRN Reason Stop Dose Admin Acetaminophen 1,000 mg 02/19/19 17:14 02/25/19 20:30 Tylenol PO 1,000 mg Q6H PRN Administration Moderate to Severe Pain (6-10) Hydrocodone Bitart/Acetaminophen 1 tab 02/20/19 13:22 02/24/19 20:05 [place] 10/325 PO 1 tab Q4H PRN Administration Moderate Pain (4-6) Alprazolam 0.25 mg 02/19/19 14:14 02/25/19 20:29 Xanax PO 0.25 mg BIDPRN PRN Administration Anxiety Calcitriol 0.25 mcg 02/20/19 09:00 02/26/19 12:32 Rocaltrol PO 0.25 mcg DAILY BERNY Administration Calcium Carbonate 1,000 mg 02/19/19 17:00 02/26/19 12:52 Tums PO Not Given TID-WM BERNY Cholecalciferol 5,000 units 02/20/19 09:00 02/26/19 12:32 Vitamin D3 PO Not Given DAILY BERNY Duloxetine HCl 60 mg 02/19/19 21:00 02/25/19 20:29 Cymbalta PO 60 mg HS BERNY Administration Ferrous Sulfate 325 mg 02/19/19 17:00 02/26/19 12:30 Feosol PO 325 mg BID-WM BERNY Administration Heparin Sodium (Porcine) 5,000 units 02/23/19 21:00 02/26/19 12:31 Heparin SC 5,000 units BID BERNY Administration Insulin Glargine 8 units/ 0.08 mls @ 0 mls/hr 02/20/19 09:00 02/26/19 12:29 Miscellaneous Medication SC Not Given QAM BERNY Piperacillin Sod/Tazobactam 100 mls @ 200 mls/hr 02/25/19 18:00 02/26/19 12: 52 Sod 2.25 gm/ Sodium Chloride IVPB 100 mls Q6HR BERNY Administration Losartan Potassium 100 mg 02/20/19 09:00 02/26/19 12:29 Cozaar PO Not Given DAILY BERNY Multivitamins 1 tab 02/20/19 09:00 02/26/19 12:31 Theragran PO 1 tab DAILY BERNY Administration Pantoprazole Sodium 40 mg 02/20/19 09:00 02/26/19 12:31 Protonix PO 40 mg DAILY BERNY Administration Polyethylene Glycol 17 gm 02/21/19 09:00 02/26/19 12:32 Miralax PO 17 gm DAILY BERNY Administration Risperidone 1 mg 02/19/19 21:00 02/25/19 20:29 Risperidone PO 1 mg HS BERNY Administration Saccharomyces Boulardii 250 mg 02/20/19 09:00 02/26/19 12:27 Florastor PO 250 mg DAILY BERNY Administration Sevelamer Carbonate 2,400 mg 02/19/19 17:00 02/26/19 12:52 Renvela PO Not Given TID-WM BERNY Thyroid 30 mg 02/20/19 06:00 02/26/19 05:07 [place] Thyroid PO 30 mg 0600 EBRNY Administration Tramadol HCl 50 mg 02/23/19 12:18 02/25/19 20:32 Ultram PO 50 mg Q4H PRN Administration Mild Pain (1-3) - Exam General Appearance: NAD, awake alert Eye: PERRL ENT: normocephalic atraumatic, moist mucosa Neck: supple, symmetric, no lymphadenopathy Heart: no murmur, no gallops, no rubs Respiratory: CTAB, no wheezes, no rales, no ronchi Gastrointestinal: soft, non-tender, no guarding, no rigidity Extremities: no edema Skin: no lesions, no rashes Neurological: cranial nerve grossly intact, no focal deficits Musculoskeletal: generalized weakness Psychiatric: oriented to person, oriented to place, flat affect, somnolent Hosp A/P (1) Cellulitis of foot, left Code(s): L03.116 - CELLULITIS OF LEFT LOWER LIMB Status: Acute (2) Stasis ulcer due to type 2 diabetes mellitus Code(s): E11.59 - TYPE 2 DIABETES MELLITUS WITH OTH CIRCULATORY COMPLICATIONS; I87.2 - VENOUS INSUFFICIENCY (CHRONIC) (PERIPHERAL) Status: Acute (3) Charcot's joint of foot Code(s): M14.679 - CHARCOT'S JOINT, UNSPECIFIED ANKLE AND FOOT Status: Chronic Qualifiers: Laterality: right Qualified Code(s): M14.671 - Charcot's joint, right ankle and foot (4) Diabetes Code(s): E11.9 - TYPE 2 DIABETES MELLITUS WITHOUT COMPLICATIONS Status: Chronic Qualifiers: Diabetes mellitus type: type 2 Diabetes mellitus fpc insulin use: with fpc use Diabetes mellitus complication status: with neurologic complications Diabetes mellitus complication detail: with polyneuropathy Qualified Code(s): E11.42 - Type 2 diabetes mellitus with diabetic polyneuropathy; Z79.4 - intermediate (current) use of insulin (5) Dyslipidemia Code(s): E78.5 - HYPERLIPIDEMIA, UNSPECIFIED Status: Chronic (6) Hypertension Code(s): I10 - ESSENTIAL (PRIMARY) HYPERTENSION Status: Chronic Qualifiers: Hypertension type: essential hypertension Qualified Code(s): I10 - Essential (primary) hypertension (7) Osteomyelitis Code(s): M86.9 - OSTEOMYELITIS, UNSPECIFIED Status: Acute - Plan Plan: medical/surgical unit general surgery consultation, recommendations appreciated nephrology consultation, recommendations appreciated Repeat blood cultures, no growth to date Continue IV ABX CXR without focal PNA Incentive spirometry S/p left leg below the knee amputation on 02/23/19 hemodialysis per nephrology Saturday, , Saturday long and short acting insulin for glucose control blood pressure control continue home medications as able replace electrolytes as needed Somnolence may be medication related to Gabapentin use
[2019-02-26] MEDS: risperiDONE 1 MG TAB PO SCH (21:02)
[2019-02-26] MEDS: DULoxetine 60 MG CAP PO SCH (21:02)
[2019-02-27] MEDS: Piperacillin/Tazobactam 2.25 GM in Sodium Chloride 0.9% 100 ML IVPB SCH ×4 (05:37→23:09)
[2019-02-27] MEDS: Thyroid 30 MG TAB PO SCH (05:40)
[2019-02-27 05:49] LABS: #Basophils 0.1 thou/uL (0.0-0.2); #Eosinphils 0.3 thou/uL (0.0-0.7); #Lymphocytes 1.5 thou/uL (1.20-3.40); #Monocytes 1.1 thou/uL (0.11-0.59); #Neutrophils 13.3 thou/uL (1.40-6.50); %Basophils 0.4 % (0.0-1.0); %Eosinophils 2.1 % (0.0-10.0); %Lymphocytes 9.1 % (21.0-51.0); %Monocytes 6.8 % (0.0-10.0); %Neutrophils 81.6 % (42.0-75.0); Hemoglobin 7.4 g/dL (14.0-18.0); Mean Corpuscular HGB CONC 31.4 g/dL (32.0-36.0); Mean Corpuscular Hemoglobin 31.1 pg (27.0-31.0); Mean Corpuscular Volume 99.1 fL (78.0-98.0); Mean Platelet Volume 7.5 fL (7.4-10.4); Platelet Count 261 thou/uL (130-400); RBC Distribution Width 15.9 % (11.5-14.5); Red Blood Cell (RBC) Count 2.39 mill/uL (4.70-6.10); White Blood Cell (WBC) Count 16.3 thou/uL (4.8-10.8)
[2019-02-27 06:11] LABS: Anion Gap 16 mmol/L (10-20); BUN (Urea Nitrogen) 28 mg/dL (8.4-25.7); Calc. Creatinine Clearance 20 mL/min (70-130); Calcium 8.8 mg/dL (7.8-10.44); Carbon Dioxide 28 mmol/L (22-29); Chloride 98 mmol/L (98-107); Estimated GFR-MDRD 9; Glucose 106 mg/dL (70-105); Potassium 4.5 mmol/L (3.5-5.1); Sodium 137 mmol/L (136-145)
--- NOTE | 2019-02-27 07:39 | PRG ---
DATE OF SERVICE: 02/27/2019 SUBJECTIVE: Zacarias Ferrara's gabapentin has been held. He is more alert this morning. He is communicative. He states he is having very little pain. OBJECTIVE: VITAL SIGNS: Temperature 98.8 degrees, blood pressure 104/68. SKIN: He has excoriated skin on the left knee with some ecchymosis. His surgical wound looks good. There are some postoperative changes, but no evidence of infection or problems. Hemoglobin 7.4. Basic metabolic profile normal. ASSESSMENT/PLAN: The patient doing well. He is anemic. Would give him 1 unit of blood since his blood pressure is a little low. Could give that with dialysis. At this point, I will see the patient in my office in 2 weeks for staple removal. I will see him as needed this hospitalization. The patient is ready to be transferred to the snf after dialysis today or he can go today and have dialysis tomorrow per Nephrology. Job ID: [id number]
[2019-02-27] MEDS: Saccharomyces boulardii 250 MG CAP PO SCH (08:58)
[2019-02-27] MEDS: Multivit, Therapeutic 1 TAB PO SCH (08:58)
[2019-02-27] MEDS: Ferrous Sulfate 325 MG TAB PO SCH ×2 (08:58→17:26)
[2019-02-27] MEDS: Calcium Carbonate 500 MG ChewTAB PO SCH ×3 (08:58→17:26)
[2019-02-27] MEDS: Calcitriol 0.25 MCG CAP PO SCH (08:58)
[2019-02-27] MEDS: Sevelamer Carbonate 800 MG TAB PO SCH ×3 (08:58→17:26)
[2019-02-27] MEDS: Polyethylene Glycol 3350 17 GM Packet PO SCH (08:59)
[2019-02-27] MEDS: Heparin 5,000 UNITS/ML VIAL SC SCH ×2 (08:59→20:34)
[2019-02-27] MEDS: Insulin Glargine 8 UNITS in Pre-Filled Syringe 1 EACH SC SCH (08:59)
[2019-02-27] MEDS: Losartan 25 MG TAB PO SCH (08:59)
[2019-02-27] MEDS ORDERED: Losartan 25 MG TAB PO SCH ×2 (09:34→09:45)
--- NOTE | 2019-02-27 10:00 | PRG ---
DATE OF SERVICE: 02/27/2019 SUBJECTIVE: Mr. Ferrara is a 53-year-old white male with ESRD and currently on maintenance hemodialysis. He was admitted for left foot infection. He underwent a left foot amputation as well as a left BKA. He is doing well. He was quite sleepy in the last few days. For that reason, his gabapentin has been discontinued. He is more awake this morning. No complaints of chest pain or shortness of breath. OBJECTIVE: VITAL SIGNS: Blood pressure is 123/68, heart rate 70, respiratory rate 18, temperature 98.5, and pulse ox 96%. GENERAL: The patient is awake and comfortable, not in distress. SKIN: Adequate turgor. HEENT: He has pale conjunctivae. Anicteric sclerae. NECK: No neck mass. No carotid bruits. No JVD. CHEST: No deformities. LUNGS: Clear breath sounds. HEART: Normal sinus rhythm. No murmur. No gallops. No rubs. ABDOMEN: Globular, soft, and nontender. No masses. EXTREMITIES: Bilateral BKA. NEUROLOGIC: Awake, slightly confused, moving all extremities. MEDICATIONS: Medications of February 27, 2019, were reviewed. LABORATORY DATA: Laboratories of February 27, 2019; white count 16.3, hemoglobin 7.4. Sodium 137, potassium 4.5, chloride 98, carbon dioxide 28 , BUN 28, creatinine 6.67, and calcium 8.8. ASSESSMENT AND PLAN: 1. End-stage renal disease, stable. We will continue current maintenance hemodialysis of Saturday, , and Saturday. Again, fluid removal as tolerated. 2. Hypotension, clinically much improved. Adjustment of BP medications was done. My bias is to decrease losartan from 100 to 50 mg tablet once a day. 3. Anemia, continuing weekly Epogen. 4. Status post left below-knee amputation, stable. Surgery is following. 5. Agree with current management. Job ID: [id number]
[2019-02-27] MEDS ORDERED: Heparin 10,000 UNITS/1 ML VIAL SC PRN (11:08)
[2019-02-27] MEDS ORDERED: Triple Antibiotic Ointment 15 GM TUBE TOP PRN (12:09)
[2019-02-27] MEDS ORDERED: Triple Antibiotic Ointment 30 GM TUBE TOP PRN (12:50)
--- NOTE | 2019-02-27 15:31 | PDOC.HOSPP ---
- Subjective Subjective: Seen and examined. Patient knows self, hospital by name, state, city, year, and season. He tells me he feels confused and slow to come up with answeres to questions. Gabapentin toxicity considered, this has been discontinued. BP has been erratic with highs and lows. WBC trends up to 16k. Question is which ABX would be indicated per ID. All questions answered in detail, patient happy with plan of care. Discussed case with RN. - Objective Vital Signs & Weight: Vital Signs (12 hours) Temp Pulse Resp BP BP Pulse Ox 02/27/19 11:00 97.8 F 95 20 176/85 H 98 02/27/19 08:00 96 02/27/19 07:47 98.5 F 78 18 123/68 96 02/27/19 05:00 98.8 F 78 20 104/68 91 L Weight Admit Weight 244 lb 6 oz Weight 244 lb 6 oz I&O: 02/26/19 02/27/19 02/28/19 06:59 06:59 06:59 Intake Total 1650 1140 320 Balance 1650 1140 320 Result Diagrams: 02/27/19 05:39 02/27/19 05:39 Additional Labs: Accuchecks 02/27/19 02/26/19 11:39 16:32 POC Glucose 108 95 Radiology Reviewed by me: Yes Hospitalist ROS - Review of Systems All other systems reviewed; all pertinent +/- noted in HPI/Subj - Medication Medications: Active Medications Generic Name Dose Route Start Last Admin Trade Name Freq PRN Reason Stop Dose Admin Acetaminophen 1,000 mg 02/19/19 17:14 02/25/19 20:30 Tylenol PO 1,000 mg Q6H PRN Administration Moderate to Severe Pain (6-10) Hydrocodone Bitart/Acetaminophen 1 tab 02/20/19 13:22 02/24/19 20:05 [place] 10/325 PO 1 tab Q4H PRN Administration Moderate Pain (4-6) Alprazolam 0.25 mg 02/19/19 14:14 02/25/19 20:29 Xanax PO 0.25 mg BIDPRN PRN Administration Anxiety Calcitriol 0.25 mcg 02/20/19 09:00 02/27/19 08:58 Rocaltrol PO 0.25 mcg DAILY BERNY Administration Calcium Carbonate 1,000 mg 02/19/19 17:00 02/27/19 11:56 Tums PO 1,000 mg TID-WM BERNY Administration Cholecalciferol 5,000 units 02/20/19 09:00 02/27/19 08:58 Vitamin D3 PO 5,000 units DAILY BERNY Administration Duloxetine HCl 60 mg 02/19/19 21:00 02/26/19 21:02 Cymbalta PO 60 mg HS BERNY Administration Ferrous Sulfate 325 mg 02/19/19 17:00 02/27/19 08:58 Feosol PO 325 mg BID-WM BERNY Administration Heparin Sodium (Porcine) 5,000 units 02/23/19 21:00 02/27/19 08:59 Heparin SC 5,000 units BID BERNY Administration Heparin Sodium (Porcine) 0 units 02/27/19 11:08 02/27/19 14:53 Heparin 10,000 Units/1 Ml Vial SC 2.4 units PRN PRN Administration DIRECTED Insulin Glargine 8 units/ 0.08 mls @ 0 mls/hr 02/20/19 09:00 02/27/19 08:59 Miscellaneous Medication SC Not Given QAM BERNY Piperacillin Sod/Tazobactam 100 mls @ 200 mls/hr 02/25/19 18:00 02/27/19 11: 56 Sod 2.25 gm/ Sodium Chloride IVPB 100 mls Q6HR BERNY Administration Multivitamins 1 tab 02/20/19 09:00 02/27/19 08:58 Theragran PO 1 tab DAILY BERNY Administration Neomycin/Polymyxin/Bacitracin 0 gm 02/27/19 12:50 02/27/19 14:52 Triple Antibiotic Ointment TOP 1 applic PRN PRN Administration DRESSING CHANGES Pantoprazole Sodium 40 mg 02/20/19 09:00 02/27/19 08:58 Protonix PO 40 mg DAILY BERNY Administration Polyethylene Glycol 17 gm 02/21/19 09:00 02/27/19 08:59 Miralax PO Not Given DAILY BERNY Risperidone 1 mg 02/19/19 21:00 02/26/19 21:02 Risperidone PO 1 mg HS BERNY Administration Saccharomyces Boulardii 250 mg 02/20/19 09:00 02/27/19 08:58 Florastor PO 250 mg DAILY BERNY Administration Sevelamer Carbonate 2,400 mg 02/19/19 17:00 02/27/19 11:56 Renvela PO Not Given TID-WM BERNY Thyroid 30 mg 02/20/19 06:00 02/27/19 05:40 [place] Thyroid PO 30 mg 0600 BERNY Administration Tramadol HCl 50 mg 02/23/19 12:18 02/25/19 20:32 Ultram PO 50 mg Q4H PRN Administration Mild Pain (1-3) - Exam General Appearance: NAD, awake alert Eye: anicteric sclera ENT: no oropharyngeal lesions, moist mucosa Neck: symmetric, no lymphadenopathy Heart: RRR, no murmur, no gallops, no rubs Respiratory: CTAB, no wheezes, no rales, no ronchi Gastrointestinal: soft, non-tender, non-distended, no bruit, no guarding, no rigidity Extremities: 1+ LE edema Skin: no lesions, no rashes Neurological: cranial nerve grossly intact, no focal deficits Musculoskeletal: generalized weakness, diffuse muscle atrophy Psychiatric: A&O x 3, flat affect Hosp A/P (1) Cellulitis of foot, left Code(s): L03.116 - CELLULITIS OF LEFT LOWER LIMB Status: Acute (2) Stasis ulcer due to type 2 diabetes mellitus Code(s): E11.59 - TYPE 2 DIABETES MELLITUS WITH OTH CIRCULATORY COMPLICATIONS; I87.2 - VENOUS INSUFFICIENCY (CHRONIC) (PERIPHERAL) Status: Acute (3) Charcot's joint of foot Code(s): M14.679 - CHARCOT'S JOINT, UNSPECIFIED ANKLE AND FOOT Status: Chronic Qualifiers: Laterality: right Qualified Code(s): M14.671 - Charcot's joint, right ankle and foot (4) Diabetes Code(s): E11.9 - TYPE 2 DIABETES MELLITUS WITHOUT COMPLICATIONS Status: Chronic Qualifiers: Diabetes mellitus type: type 2 Diabetes mellitus penitentiary insulin use: with intermodal dispatcher use Diabetes mellitus complication status: with neurologic complications Diabetes mellitus complication detail: with polyneuropathy Qualified Code(s): E11.42 - Type 2 diabetes mellitus with diabetic polyneuropathy; Z79.4 - termite technician (current) use of insulin (5) Dyslipidemia Code(s): E78.5 - HYPERLIPIDEMIA, UNSPECIFIED Status: Chronic (6) Hypertension Code(s): I10 - ESSENTIAL (PRIMARY) HYPERTENSION Status: Chronic Qualifiers: Hypertension type: essential hypertension Qualified Code(s): I10 - Essential (primary) hypertension (7) Osteomyelitis Code(s): M86.9 - OSTEOMYELITIS, UNSPECIFIED Status: Acute - Plan Plan: medical/surgical unit general surgery consultation, recommendations appreciated nephrology consultation, recommendations appreciated Infectious disease consultation, recommendations appreciated Wound cultures with mixed harsha - though this infected tissue should have all been cut out Repeat blood cultures, no growth to date Continue IV ABX, WBC trends up CXR without focal PNA Incentive spirometry S/p left leg below the knee amputation on 02/23/19 hemodialysis per nephrology Saturday, , Saturday long and short acting insulin for glucose control blood pressure control continue home medications as able replace electrolytes as needed Somnolence may be medication related to Gabapentin use Alert and oriented x4 though he feels like his cognition is slowed
[2019-02-27] MEDS: DULoxetine 60 MG CAP PO SCH (20:34)
[2019-02-27] MEDS: risperiDONE 1 MG TAB PO SCH (20:34)
[2019-02-28] MEDS: Piperacillin/Tazobactam 2.25 GM in Sodium Chloride 0.9% 100 ML IVPB SCH ×3 (06:01→17:49)
[2019-02-28] MEDS: Thyroid 30 MG TAB PO SCH (06:02)
[2019-02-28] MEDS: Calcium Carbonate 500 MG ChewTAB PO SCH ×3 (08:00→16:16)
[2019-02-28] MEDS: Sevelamer Carbonate 800 MG TAB PO SCH ×3 (08:00→16:17)
[2019-02-28 08:35] LABS: Vancomycin, Random 23.6 ug/mL (See Comment)
[2019-02-28] MEDS ORDERED: EPOETIN ALFA-EPBX (ESRD) 4,000 UNIT/ML VIAL SC SCH (09:00)
[2019-02-28] MEDS: Insulin Glargine 8 UNITS in Pre-Filled Syringe 1 EACH SC SCH (09:00)
[2019-02-28] MEDS ORDERED: Losartan 25 MG TAB PO SCH (09:00)
--- NOTE | 2019-02-28 09:42 | PRG ---
DATE OF SERVICE: 02/28/2019 SERVICE: Nephrology. SUBJECTIVE: A 53-year-old male patient with known history of diabetes complicated with neuropathy, peripheral artery disease, status post prior right BKA, admitted with left foot gangrene. The patient is status post a BKA on the left. Nephrology is seeing the patient for end-stage disease management. The patient was seen by dialysis and he is doing pretty well. Denied nausea, vomiting, or abdominal pain. Denied chest pain or shortness of breath. OBJECTIVE: VITAL SIGNS: Temperature 97.8, pulse 69, respiratory rate 14, SpO2 94% on room air, blood pressure is 163/83. GENERAL: Male patient in no obvious distress. Afebrile. Anicteric. Acyanotic. HEENT: Normocephalic, atraumatic. Oral mucosa is moist. CARDIOVASCULAR: Regular rhythm and rate with normal heart sounds one and two. RESPIRATORY: Fair air entry bilaterally with no obvious crackle or rhonchi or use of accessory muscles. GASTROINTESTINAL: Obese, soft, nontender, nondistended with normal bowel sounds. EXTREMITIES: Bilateral BKA noted. Left upper arm AV fistula noted as well as right IJ tunneled dialysis catheter. DIAGNOSTIC DATA: There is no labs today. ASSESSMENT AND PLAN: 1. End-stage renal disease: Stable: We will continue maintenance hemodialysis today in line with his regular schedule of TTS. UF as tolerated will be done. 2. Hypertension: Blood pressure is better. The patient had hypotension, requiring decrease in usual antihypertensives. We will monitor with dialysis and continue antihypertensives as tolerated. 3. Anemia in chronic kidney disease: We will continue Epogen. 4. Status post recent left below-knee amputation on the left. Treatment as per Surgery. 5. We will monitor electrolytes and correct as needed. Job ID: [id number]
[2019-02-28 09:58] LABS: #Basophils 0.1 thou/uL (0.0-0.2); #Eosinphils 0.4 thou/uL (0.0-0.7); #Lymphocytes 1.2 thou/uL (1.20-3.40); #Monocytes 1.1 thou/uL (0.11-0.59); %Basophils 0.6 % (0.0-1.0); %Eosinophils 3.2 % (0.0-10.0); %Lymphocytes 9.2 % (21.0-51.0); %Monocytes 8.5 % (0.0-10.0); %Neutrophils 78.5 % (42.0-75.0); Hemoglobin 8.7 g/dL (14.0-18.0); Mean Corpuscular HGB CONC 32.6 g/dL (32.0-36.0); Mean Corpuscular Hemoglobin 31.4 pg (27.0-31.0); Mean Corpuscular Volume 96.3 fL (78.0-98.0); Mean Platelet Volume 7.6 fL (7.4-10.4); Platelet Count 292 thou/uL (130-400); RBC Distribution Width 16.4 % (11.5-14.5); Red Blood Cell (RBC) Count 2.79 mill/uL (4.70-6.10); White Blood Cell (WBC) Count 12.8 thou/uL (4.8-10.8)
[2019-02-28 10:18] LABS: Anion Gap 17 mmol/L (10-20); BUN (Urea Nitrogen) 17 mg/dL (8.4-25.7); Calc. Creatinine Clearance 32 mL/min (70-130); Calcium 8.8 mg/dL (7.8-10.44); Carbon Dioxide 27 mmol/L (22-29); Chloride 98 mmol/L (98-107); Estimated GFR-MDRD 15; Glucose 84 mg/dL (70-105); Potassium 3.5 mmol/L (3.5-5.1); Sodium 138 mmol/L (136-145)
[2019-02-28] MEDS: Calcitriol 0.25 MCG CAP PO SCH (12:23)
[2019-02-28] MEDS: Saccharomyces boulardii 250 MG CAP PO SCH (12:26)
[2019-02-28] MEDS: Multivit, Therapeutic 1 TAB PO SCH (12:27)
[2019-02-28] MEDS: Heparin 5,000 UNITS/ML VIAL SC SCH ×2 (12:27→20:29)
[2019-02-28] MEDS: Ferrous Sulfate 325 MG TAB PO SCH ×2 (12:27→16:16)
[2019-02-28] MEDS: Polyethylene Glycol 3350 17 GM Packet PO SCH (12:30)
--- NOTE | 2019-02-28 15:37 | PDOC.HOSPP ---
- Subjective Subjective: Patient tolerating HD. Persistent low blood pressure resulting in adjusting of blood pressure medications. No nausea or vomiting. Doing better today. - Objective Vital Signs & Weight: Vital Signs (12 hours) Temp Pulse Resp BP BP Pulse Ox 02/28/19 12:19 97.4 F L 78 18 153/82 H 94 L 02/28/19 12:15 94 L 02/28/19 05:54 97.8 F 69 14 163/83 H 94 L Weight Admit Weight 244 lb 6 oz Weight 244 lb 6 oz I&O: 02/27/19 02/28/19 03/01/19 06:59 06:59 05:59 Intake Total 1140 1000 Balance 1140 1000 Result Diagrams: 02/28/19 09:05 02/28/19 09:05 Additional Labs: Accuchecks 02/27/19 16:31 POC Glucose 101 Radiology Reviewed by me: Yes Hospitalist ROS - Review of Systems All other systems reviewed; all pertinent +/- noted in HPI/Subj - Medication Medications: Active Medications Generic Name Dose Route Start Last Admin Trade Name Freq PRN Reason Stop Dose Admin Acetaminophen 1,000 mg 02/19/19 17:14 02/25/19 20:30 Tylenol PO 1,000 mg Q6H PRN Administration Moderate to Severe Pain (6-10) Hydrocodone Bitart/Acetaminophen 1 tab 02/20/19 13:22 02/24/19 20:05 [place] 10/325 PO 1 tab Q4H PRN Administration Moderate Pain (4-6) Alprazolam 0.25 mg 02/19/19 14:14 02/25/19 20:29 Xanax PO 0.25 mg BIDPRN PRN Administration Anxiety Calcitriol 0.25 mcg 02/20/19 09:00 02/28/19 12:23 Rocaltrol PO 0.25 mcg DAILY BERNY Administration Calcium Carbonate 1,000 mg 02/19/19 17:00 02/28/19 12:26 Tums PO 1,000 mg TID-WM BERNY Administration Cholecalciferol 5,000 units 02/20/19 09:00 02/28/19 12:24 Vitamin D3 PO 5,000 units DAILY BERNY Administration Duloxetine HCl 60 mg 02/19/19 21:00 02/27/19 20:34 Cymbalta PO 60 mg HS BERNY Administration Ferrous Sulfate 325 mg 02/19/19 17:00 02/28/19 12:27 Feosol PO 325 mg BID-WM BERNY Administration Heparin Sodium (Porcine) 5,000 units 02/23/19 21:00 02/28/19 12:27 Heparin SC Not Given BID BERNY Heparin Sodium (Porcine) 0 units 02/27/19 11:08 02/27/19 14:53 Heparin 10,000 Units/1 Ml Vial SC 2.4 units PRN PRN Administration DIRECTED Insulin Glargine 8 units/ 0.08 mls @ 0 mls/hr 02/20/19 09:00 02/28/19 09:00 Miscellaneous Medication SC Not Given QAM BERNY Piperacillin Sod/Tazobactam 100 mls @ 200 mls/hr 02/25/19 18:00 02/28/19 12: 23 Sod 2.25 gm/ Sodium Chloride IVPB 100 mls Q6HR BERNY Administration Multivitamins 1 tab 02/20/19 09:00 02/28/19 12:27 Theragran PO 1 tab DAILY BERNY Administration Neomycin/Polymyxin/Bacitracin 0 gm 02/27/19 12:50 02/27/19 14:52 Triple Antibiotic Ointment TOP 1 applic PRN PRN Administration DRESSING CHANGES Pantoprazole Sodium 40 mg 02/20/19 09:00 02/28/19 12:26 Protonix PO 40 mg DAILY BERNY Administration Polyethylene Glycol 17 gm 02/21/19 09:00 02/28/19 12:30 Miralax PO Not Given DAILY BERNY Risperidone 1 mg 02/19/19 21:00 02/27/19 20:34 Risperidone PO 1 mg HS BERNY Administration Saccharomyces Boulardii 250 mg 02/20/19 09:00 02/28/19 12:26 Florastor PO 250 mg DAILY BERNY Administration Sevelamer Carbonate 2,400 mg 02/19/19 17:00 02/28/19 12:23 Renvela PO Not Given TID-WM BERNY Sodium Chloride 10 ml 02/27/19 21:00 02/28/19 12:30 Flush - Normal Saline IVF 10 ml Q12HR BERNY Administration Thyroid 30 mg 02/20/19 06:00 02/28/19 06:02 [place] Thyroid PO 30 mg 0600 BERNY Administration Tramadol HCl 50 mg 02/23/19 12:18 02/25/19 20:32 Ultram PO 50 mg Q4H PRN Administration Mild Pain (1-3) - Exam General Appearance: NAD Eye: PERRL, anicteric sclera ENT: normocephalic atraumatic, moist mucosa Neck: supple, symmetric, no JVD Heart: no murmur, no gallops, no rubs Respiratory: CTAB, no wheezes, no rales, no tachypnea Gastrointestinal: soft, non-tender, non-distended, no guarding, no rigidity Extremities: no clubbing, no edema Extremities - other findings: Bilateral AKA. Dressing in tact Skin: no rashes Neurological: cranial nerve grossly intact, no focal deficits Musculoskeletal: generalized weakness Psychiatric: normal affect, A&O x 3 Hosp A/P (1) Cellulitis of foot, left Code(s): L03.116 - CELLULITIS OF LEFT LOWER LIMB Status: Acute (2) Stasis ulcer due to type 2 diabetes mellitus Code(s): E11.59 - TYPE 2 DIABETES MELLITUS WITH OTH CIRCULATORY COMPLICATIONS; I87.2 - VENOUS INSUFFICIENCY (CHRONIC) (PERIPHERAL) Status: Acute (3) Charcot's joint of foot Code(s): M14.679 - CHARCOT'S JOINT, UNSPECIFIED ANKLE AND FOOT Status: Chronic Qualifiers: Laterality: right Qualified Code(s): M14.671 - Charcot's joint, right ankle and foot (4) Diabetes Code(s): E11.9 - TYPE 2 DIABETES MELLITUS WITHOUT COMPLICATIONS Status: Chronic Qualifiers: Diabetes mellitus type: type 2 Diabetes mellitus terminal worker insulin use: with terminal worker use Diabetes mellitus complication status: with neurologic complications Diabetes mellitus complication detail: with polyneuropathy Qualified Code(s): E11.42 - Type 2 diabetes mellitus with diabetic polyneuropathy; Z79.4 - FPC (current) use of insulin (5) Dyslipidemia Code(s): E78.5 - HYPERLIPIDEMIA, UNSPECIFIED Status: Chronic (6) Hypertension Code(s): I10 - ESSENTIAL (PRIMARY) HYPERTENSION Status: Chronic Qualifiers: Hypertension type: essential hypertension Qualified Code(s): I10 - Essential (primary) hypertension (7) Osteomyelitis Code(s): M86.9 - OSTEOMYELITIS, UNSPECIFIED Status: Acute - Plan Plan: medical/surgical unit general surgery consultation, recommendations appreciated nephrology consultation, recommendations appreciated Infectious disease consultation, recommendations appreciated Wound cultures with mixed harsha - though this infected tissue should have all been cut out Repeat blood cultures, no growth to date Continue IV ABX, WBC now trends down CXR without focal PNA Incentive spirometry S/p left leg below the knee amputation on 02/23/19 hemodialysis per nephrology Saturday, , Saturday long and short acting insulin for glucose control blood pressure control continue home medications as able replace electrolytes as needed Somnolence may be medication related to Gabapentin use Alert and oriented x4 though he feels like his cognition is slowed
[2019-02-28] MEDS: DULoxetine 60 MG CAP PO SCH (20:29)
[2019-02-28] MEDS: risperiDONE 1 MG TAB PO SCH (20:29)
[2019-02-28] MEDS: traMADol HCl 50 MG TAB PO PRN (20:29)
[2019-03-01] MEDS: Piperacillin/Tazobactam 2.25 GM in Sodium Chloride 0.9% 100 ML IVPB SCH ×5 (00:05→23:03)
[2019-03-01] MEDS: Thyroid 30 MG TAB PO SCH (05:35)
[2019-03-01] MEDS: Calcium Carbonate 500 MG ChewTAB PO SCH ×3 (08:52→17:16)
[2019-03-01] MEDS: Sevelamer Carbonate 800 MG TAB PO SCH ×3 (08:53→17:17)
[2019-03-01] MEDS: Ferrous Sulfate 325 MG TAB PO SCH ×2 (08:53→17:17)
[2019-03-01] MEDS: Saccharomyces boulardii 250 MG CAP PO SCH (08:54)
[2019-03-01] MEDS: Calcitriol 0.25 MCG CAP PO SCH (08:54)
[2019-03-01] MEDS: Polyethylene Glycol 3350 17 GM Packet PO SCH (08:54)
[2019-03-01] MEDS: Multivit, Therapeutic 1 TAB PO SCH (08:54)
[2019-03-01] MEDS: Heparin 5,000 UNITS/ML VIAL SC SCH ×2 (08:55→20:28)
[2019-03-01] MEDS: Insulin Glargine 8 UNITS in Pre-Filled Syringe 1 EACH SC SCH (08:55)
--- NOTE | 2019-03-01 12:29 | PDOC.HOSPP ---
- Subjective Subjective: Seen and examined. Alert and oriented. More quick to respond to questions. Gabapentin wearing off of his since system and infectious picture is improving. Patient develops diarrhea, sample sent for C. diff. Infectious disease re- consulted for antibiotic adjustment as needed. Patient being evaluated by wound care who states that he has an opening of a new blister. I reached out to update surgery for recommendations of wound care. - Objective Vital Signs & Weight: Vital Signs (12 hours) Temp Pulse Resp BP Pulse Ox 03/01/19 08:00 97.6 F 69 17 138/79 97 03/01/19 07:46 97 03/01/19 07:45 97.6 F 69 14 138/79 97 Weight Admit Weight 244 lb 6 oz Weight 244 lb 6 oz I&O: 02/28/19 03/01/19 03/02/19 07:59 06:59 06:59 Intake Total Output Total Balance Result Diagrams: 02/28/19 09:05 02/28/19 09:05 Radiology Reviewed by me: Yes Hospitalist ROS - Review of Systems All other systems reviewed; all pertinent +/- noted in HPI/Subj - Medication Medications: Active Medications Generic Name Dose Route Start Last Admin Trade Name Freq PRN Reason Stop Dose Admin Acetaminophen 1,000 mg 02/19/19 17:14 02/25/19 20:30 Tylenol PO 1,000 mg Q6H PRN Administration Moderate to Severe Pain (6-10) Hydrocodone Bitart/Acetaminophen 1 tab 02/20/19 13:22 02/24/19 20:05 [place] 10/325 PO 1 tab Q4H PRN Administration Moderate Pain (4-6) Alprazolam 0.25 mg 02/19/19 14:14 02/25/19 20:29 Xanax PO 0.25 mg BIDPRN PRN Administration Anxiety Calcitriol 0.25 mcg 02/20/19 09:00 03/01/19 08:54 Rocaltrol PO 0.25 mcg DAILY BERNY Administration Calcium Carbonate 1,000 mg 02/19/19 17:00 03/01/19 12:03 Tums PO 1,000 mg TID-WM BERNY Administration Cholecalciferol 5,000 units 02/20/19 09:00 03/01/19 08:53 Vitamin D3 PO 5,000 units DAILY BERNY Administration Duloxetine HCl 60 mg 02/19/19 21:00 02/28/19 20:29 Cymbalta PO 60 mg HS BERNY Administration Epoetin Ashvin-epbx 7,500 unit 02/28/19 09:00 02/28/19 16:16 Retacrit SC 7,500 unit Q7D BERNY Administration Ferrous Sulfate 325 mg 02/19/19 17:00 03/01/19 08:53 Feosol PO 325 mg BID-WM BERNY Administration Heparin Sodium (Porcine) 5,000 units 02/23/19 21:00 03/01/19 08:55 Heparin SC 5,000 units BID BERNY Administration Heparin Sodium (Porcine) 0 units 02/27/19 11:08 02/27/19 14:53 Heparin 10,000 Units/1 Ml Vial SC 2.4 units PRN PRN Administration DIRECTED Insulin Glargine 8 units/ 0.08 mls @ 0 mls/hr 02/20/19 09:00 03/01/19 08:55 Miscellaneous Medication SC 0.08 mls QAM BERNY Administration Piperacillin Sod/Tazobactam 100 mls @ 200 mls/hr 02/25/19 18:00 03/01/19 12: 03 Sod 2.25 gm/ Sodium Chloride IVPB 100 mls Q6HR BERNY Administration Multivitamins 1 tab 02/20/19 09:00 03/01/19 08:54 Theragran PO 1 tab DAILY BERNY Administration Neomycin/Polymyxin/Bacitracin 0 gm 02/27/19 12:50 02/27/19 14:52 Triple Antibiotic Ointment TOP 1 applic PRN PRN Administration DRESSING CHANGES Pantoprazole Sodium 40 mg 02/20/19 09:00 03/01/19 08:54 Protonix PO 40 mg DAILY BERNY Administration Polyethylene Glycol 17 gm 02/21/19 09:00 03/01/19 08:54 Miralax PO Not Given DAILY BERNY Risperidone 1 mg 02/19/19 21:00 02/28/19 20:29 Risperidone PO 1 mg HS BERNY Administration Saccharomyces Boulardii 250 mg 02/20/19 09:00 03/01/19 08:54 Florastor PO 250 mg DAILY BERNY Administration Sevelamer Carbonate 2,400 mg 02/19/19 17:00 03/01/19 12:03 Renvela PO 2,400 mg TID- BERNY Administration Sodium Chloride 10 ml 02/27/19 21:00 03/01/19 08:55 Flush - Normal Saline IVF 10 ml Q12HR BERNY Administration Sodium Chloride 10 ml 02/27/19 09:43 03/01/19 12:06 Flush - Normal Saline IVF 10 ml PRN PRN Administration Saline Flush Thyroid 30 mg 02/20/19 06:00 03/01/19 05:35 [place] Thyroid PO 30 mg 0600 BERNY Administration Tramadol HCl 50 mg 02/23/19 12:18 02/28/19 20:29 Ultram PO 50 mg Q4H PRN Administration Mild Pain (1-3) - Exam General Appearance: NAD, awake alert Eye: anicteric sclera ENT: moist mucosa Neck: supple, symmetric, no JVD Heart: RRR, no murmur, no gallops Respiratory: CTAB, no wheezes, no ronchi, normal chest expansion Respiratory - other findings: No rales Gastrointestinal: soft, non-tender, no guarding, no rigidity Extremities: 1+ LE edema Extremities - other findings: Bilateral amputations. Wound dressings intact Skin: no rashes Skin - other findings: See wound care pictures for details Neurological: cranial nerve grossly intact, normal sensation to touch, no focal deficits Musculoskeletal: generalized weakness Psychiatric: normal affect, A&O x 3 Hosp A/P (1) Cellulitis of foot, left Code(s): L03.116 - CELLULITIS OF LEFT LOWER LIMB Status: Acute (2) Stasis ulcer due to type 2 diabetes mellitus Code(s): E11.59 - TYPE 2 DIABETES MELLITUS WITH OTH CIRCULATORY COMPLICATIONS; I87.2 - VENOUS INSUFFICIENCY (CHRONIC) (PERIPHERAL) Status: Acute (3) Charcot's joint of foot Code(s): M14.679 - CHARCOT'S JOINT, UNSPECIFIED ANKLE AND FOOT Status: Chronic Qualifiers: Laterality: right Qualified Code(s): M14.671 - Charcot's joint, right ankle and foot (4) Diabetes Code(s): E11.9 - TYPE 2 DIABETES MELLITUS WITHOUT COMPLICATIONS Status: Chronic Qualifiers: Diabetes mellitus type: type 2 Diabetes mellitus long-term insulin use: with meterman use Diabetes mellitus complication status: with neurologic complications Diabetes mellitus complication detail: with polyneuropathy Qualified Code(s): E11.42 - Type 2 diabetes mellitus with diabetic polyneuropathy; 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 (5) Dyslipidemia Code(s): E78.5 - HYPERLIPIDEMIA, UNSPECIFIED Status: Chronic (6) Hypertension Code(s): I10 - ESSENTIAL (PRIMARY) HYPERTENSION Status: Chronic Qualifiers: Hypertension type: essential hypertension Qualified Code(s): I10 - Essential (primary) hypertension (7) Osteomyelitis Code(s): M86.9 - OSTEOMYELITIS, UNSPECIFIED Status: Acute - Plan Plan: medical/surgical unit general surgery consultation, recommendations appreciated nephrology consultation, recommendations appreciated Infectious disease consultation, recommendations appreciated Wound care consultation, recommendations appreciated Wound cultures with mixed harsha - though this infected tissue should have all been cut out Repeat blood cultures, no growth to date Continue IV ABX, WBC now trends down CXR without focal PNA Incentive spirometry S/p left leg below the knee amputation on 02/23/19 hemodialysis per nephrology Saturday, , Saturday long and short acting insulin for glucose control blood pressure control continue home medications as able replace electrolytes as needed Somnolence may be medication related to Gabapentin use Alert and oriented x4 though he feels like his cognition is slowed
--- NOTE | 2019-03-01 14:26 | CON ---
DATE OF CONSULTATION: 03/01/2019 REASON FOR CONSULTATION: For evaluation of antimicrobial therapy need following left BKA. HISTORY OF PRESENT ILLNESS: A 53-year-old, who is familiar to me from prior visits. Last time, I saw him was in October this year, when he presented with a history of type 2 diabetes, neuropathy, and retinopathy, hypertension, Charcot arthropathy, and prior right-sided BKA. He had also end-stage renal disease and was on hemodialysis with an AV fistula left upper extremity. At this time, he presented with a necrotic ulcer in the left heel and he underwent a left BKA amputation. On February 27, there was an area of injury to the left anterior knee, which apparently was not present on admission. This may have been acquired during or following the operative procedure due to fall or other traumatic event. Other than that, the patient is awake and alert. He denies any headaches. No sore throat, odynophagia, or dysphagia. No dyspnea or chest pain. No abdominal pain. He does not have urine output. He has had no diarrhea. 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 PAST SURGICAL HISTORY: Includes the above procedures. He also had a peritoneal dialysis catheter placement and removal. ALLERGIES: METFORMIN AND CEPHALOSPORIN. FAMILY HISTORY: Type 2 diabetes. SOCIAL HISTORY: He is currently in a [place] [facility] here in [facility]. His family is in [place]. Never smoker. 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 MEDICATIONS: 1. Tylenol. 2. [place]. 3. Xanax. 4. Rocaltrol. 5. Tums. 6. Vitamin D. 7. Dextrose. 8. Cymbalta. 9. Colace. 10. Epoetin. 11. Feosol. 12. Glucagon. 13. Heparin. 14. Insulin. 15. Multivitamins. 16. Zosyn. 17. Vancomycin. PHYSICAL EXAMINATION: VITAL SIGNS: Essentially normal. He had a one temperature of 99.9 during the hospital stay. Other vital signs are normal. SKIN: Shows the area of a BKA amputation with normal appearance, he also has a little bit of erythema in the perianal region with a little bit of maceration. The left anterior knee skin area with bruising and a shallow ulceration right over the prepatellar region, but no erythema/cellulitis noted. The patient has a functioning AV fistula left upper extremity. He does not have Glover catheterization. No lymphadenopathy. HEENT: Somewhat balding area in the occipital and frontal parietal regions. Ocular movements conjugate. Conjunctivae are somewhat pale. Oral cavity with a few missing teeth with periodontitis and gum disease. NECK: Supple. No jugular vein distention or carotid bruits. No thyromegaly. LUNGS: Symmetric clear breath sounds. HEART: S1 and S2. Regular rate. Diminished heart sounds. No S3 or S4 noted. No murmurs noted. ABDOMEN: Fairly normal. The abdomen is a bit protuberant, but not tender. No ascites noted. No organomegaly or bladder distention. EXTREMITIES: He is able to move extremities with limitations, he is diffusely weak. He is oriented, follows commands, appears depressed. LABORATORY DATA: White cell count is at 12.8, hemoglobin 8.7, and platelets 292, this is from yesterday. Creatinine is at 4.27. Other electrolytes are within normal limits. Bilirubin 0.8, AST and ALT within normal limits, alkaline phosphatase was 86, albumin 3.1, and globulin 4.1. Microbiology with polymicrobial harsha including Enterococcus, gram-negative rods, and multiple anaerobes from the heel swab as expected. Blood cultures x4 samples have been negative. IMAGING STUDIES: Include a chest x-ray with a tunneled hemodialysis catheter in the right IJ position. He has some areas of infiltrates in the right lower lobe could be atelectasis or an early area of pneumonitis. This is from February 25. Small bilateral pleural effusions. This is unchanged from prior evaluations. There is cardiomegaly and vascular congestion as well. There is more likely to reflect pulmonary venous hypertension from cardiomyopathy and end-stage renal disease rather than pneumonia. The patient had an AV shunt angiogram, which showed widely patent left upper extremity fistula. DISCUSSION: The patient had a left BKA, which is way above the area of infection. Since he was not bacteremic, I would recommend discontinuation of antimicrobial therapy for this indication. The area in the left anterior knee skin region needs to be treated with the usual wound care management, since he has diabetes, end-stage renal disease, and peripheral vascular disease at risk for infectious complications in the future, but they do not appear to be present at this time, so I would not recommend antimicrobial therapy for this indication either. It seems like they were having issues with the dialysis effectiveness of the AV fistula and have therefore kept the tunneled catheter in the right IJ position. Job ID: [id number]
--- NOTE | 2019-03-01 15:12 | PRG ---
DATE OF SERVICE: 03/01/2019 SERVICE: Nephrology. SUBJECTIVE: A 53-year-old patient with known history of end-stage renal disease on hemodialysis and peripheral artery disease status post right BKA, admitted due to left foot gangrene. The patient is status post BKA on the left. Nephrology is following the patient for end-stage renal disease management. No new problem. Denied shortness of breath, nausea, vomiting, or change in bowel habit. OBJECTIVE: VITAL SIGNS: Temperature 97.6, pulse 69, respiratory rate 17, SpO2 of 97 on 1 L nasal cannula, and blood pressure is 138/79. GENERAL: Comfortable male, in no distress. HEENT: Normocephalic and atraumatic. Oral mucosa is moist. NECK: No JVD appreciated. CARDIOVASCULAR: Regular rhythm and rate with normal heart sounds one and two. RESPIRATORY: Fair air entry bilaterally with no obvious crackle or rhonchi or use of accessory muscles. GI: Abdomen is obese, soft, nontender, and nondistended with normal bowel sounds. EXTREMITIES: Bilateral BKA noted. No edema appreciated. 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 ASSESSMENT AND PLAN: 1. End-stage renal disease on maintenance hemodialysis on Saturday, , and Saturday. Last dialysis was yesterday February 28, 2019. Volume status and blood pressure are acceptable. We will continue hemodialysis, TTS. 2. Hypertension: Control is acceptable. 3. Status post bilateral below knee amputation. Restorative therapy as per primary attending. We will continue to follow along with you. We will get renal function test in the morning. Job ID: [id number]
[2019-03-01] MEDS: DULoxetine 60 MG CAP PO SCH (20:28)
[2019-03-01] MEDS: risperiDONE 1 MG TAB PO SCH (20:28)
--- NOTE | 2019-03-01 22:44 | PRG ---
DATE OF SERVICE: 03/01/2019 Zacarias Ferrara is doing well. He has an eschar over his left nee. This has been present for several days. The etiology of this is uncertain. Inspection reveals that there is an eschar, but there is no infection. No evidence of purulence and no indication for debridement. We would recommend washing this daily with soap and water, apply antibiotic ointment and Telfa. His stump wound looks good. The patient is stable. He is 6 days postop. Would. He is ready for discharge home at any time. I will see in my office in the next 2 to 3 weeks. I will see him as needed in this hospitalization. Job ID: [id number]
[2019-03-02] MEDS: Piperacillin/Tazobactam 2.25 GM in Sodium Chloride 0.9% 100 ML IVPB SCH (05:29)
[2019-03-02] MEDS: Thyroid 30 MG TAB PO SCH (05:30)
[2019-03-02 06:03] LABS: Albumin 2.8 g/dL (3.5-5.0); Anion Gap 16 mmol/L (10-20); BUN (Urea Nitrogen) 26 mg/dL (8.4-25.7); BUN/Creatinine Ratio 4.02; Calc. Creatinine Clearance 21 mL/min (70-130); Calcium 9.1 mg/dL (7.8-10.44); Carbon Dioxide 24 mmol/L (22-29); Chloride 96 mmol/L (98-107); Estimated GFR-MDRD 9; Glucose 80 mg/dL (70-105); Phosphorus 3.3 mg/dL (2.3-4.7); Potassium 4.3 mmol/L (3.5-5.1); Sodium 132 mmol/L (136-145)
[2019-03-02] MEDS: Ferrous Sulfate 325 MG TAB PO SCH (08:35)
[2019-03-02] MEDS: Heparin 5,000 UNITS/ML VIAL SC SCH (08:35)
[2019-03-02] MEDS: Calcium Carbonate 500 MG ChewTAB PO SCH ×2 (08:35→12:43)
[2019-03-02] MEDS: Saccharomyces boulardii 250 MG CAP PO SCH (08:35)
[2019-03-02] MEDS: Calcitriol 0.25 MCG CAP PO SCH (08:35)
[2019-03-02] MEDS: Multivit, Therapeutic 1 TAB PO SCH (08:35)
[2019-03-02] MEDS: Sevelamer Carbonate 800 MG TAB PO SCH ×2 (08:40→12:43)
[2019-03-02] MEDS: traMADol HCl 50 MG TAB PO PRN (08:40)
[2019-03-02] MEDS ORDERED: Losartan 25 MG TAB PO SCH (09:00)
--- NOTE | 2019-03-02 09:16 | PRG ---
DATE OF SERVICE: 03/02/2019 SUBJECTIVE: Mr. Ferrara is a 53-year-old white male with known history of ESRD. He recently underwent left foot infection with left BKA due to necrotizing left foot infection. No complaints today. No chest pain or shortness of breath. OBJECTIVE: VITAL SIGNS: Blood pressure 182/84, heart rate 72, respiratory rate 20, temperature 97.7, and pulse ox 95%. GENERAL: Noted to be awake, alert, comfortable, not in distress. SKIN: Adequate turgor. HEENT: He has pinkish conjunctivae. Anicteric sclerae. No neck mass. No carotid bruits. No JVD. CHEST: No deformities. LUNGS: Clear breath sounds. HEART: Normal sinus rhythm. No murmur. No gallops. No rubs. ABDOMEN: Globular, soft, nontender. No masses. EXTREMITIES: Status post bilateral BKA. MEDICATIONS: Medications of March 02, 2019, were reviewed. LABORATORY DATA: Laboratories of February 28, 2019, white count 12.8, hemoglobin 8.7. On March 02, 2019, sodium 132, potassium 4.3, chloride 96, carbon dioxide 24, BUN 26, creatinine 6.47, glucose 80, phosphorus 3.3, albumin is 2.8. ASSESSMENT AND PLAN: 1. End-stage renal disease, stable. We will continue current hemodialysis regimen. Fluid removal only as tolerated. 2. Hypotension, resolved. Due to the history of decreased ejection fraction, consider restarting the patient on losartan 25 mg tablet at bedtime. 3. Anemia. Continuing weekly Epogen at 7500 units subcu every week. 4. Status post left below knee amputation, doing well. Surgery is following. 5. Agree with current management. Job ID: [id number]
[2019-03-02] MEDS: Insulin Glargine 8 UNITS in Pre-Filled Syringe 1 EACH SC SCH (09:32)
[2019-03-02] MEDS: Polyethylene Glycol 3350 17 GM Packet PO SCH (09:32)
[2019-03-02] MEDS ORDERED: cloNIDine 0.1 MG TAB PO PRN (11:29)
[2019-03-02 14:22] VITALS: BP 163/84
[2019-03-02 14:25] VITALS: TEMP 97.8
--- NOTE | 2019-03-03 03:22 | DIS ---
DATE OF ADMISSION: 02/19/2019 DATE OF DISCHARGE: 03/02/2019 REASON FOR HOSPITALIZATION: Diabetic foot wound. SIGNIFICANT FINDINGS: The patient found to have significant diabetic foot wound that required amputation. PROCEDURES PERFORMED AND TREATMENTS RENDERED: The patient was admitted to medical unit and had maximum medical therapy including evaluation and treatment by General Surgery, Nephrology, and Infectious Disease specialist-please see full history and physical, consultation notes and progress notes for full details on hospital course. The patient underwent operation on 02/23/[address] Singh-please see full operative report for details-the patient underwent left [id number] amputation. The patient tolerated this procedure well without intraoperative complications. The patient had appropriate wound care and antibiotic adjustment afterwards. Antibiotics were adjusted by Infectious Disease specialist and recommended to stop all antibiotics. The patient recommended safe for discharge by all specialists on 03/02/2019. SPECIFIC INSTRUCTIONS FOR THE PATIENT/FAMILY: 1. The patient is recommended to take all medications as directed, to be re-evaluated by admitting physician at [facility] facility. 2. The patient is recommended to follow up with General Surgery in the outpatient clinic in the next 1 to 2 weeks. 3. The patient is recommended to follow up with Nephrology in the outpatient clinic in the next 1 to 2 days and continue hemodialysis as previously was being done. 4. The patient is recommended to return to acute care hospital immediately if signs or symptoms return, worsen, or any other new symptoms occur. DISCHARGE MEDICATIONS: 1. Acetaminophen 1000 mg q.6 hours p.r.n. pain or fever. 2. Calcitriol 0.25 mcg one tablet p.o. daily. 3. Calcium carbonate Tums 1000 mg one tablet p.o. t.i.d. p.r.n. upset stomach. 4. Vitamin D3 of 5000 units p.o. daily. 5. Clonidine 0.1 mg p.o. q.4 hours p.r.n. blood pressure greater than 180/100. 6. Docusate 100 mg one tablet p.o. b.i.d. p.r.n. constipation. 7. Cymbalta 60 mg one tablet p.o. at bedtime. 8. Epoetin giancarlo 7500 units subcutaneous injection q.7 days. 9. Ferrous sulfate 325 mg one tablet p.o. b.i.d. 10. Heparin subcutaneous injection 5000 units b.i.d. 11. Insulin glargine 8 units subcutaneous injection q.a.m. daily. 12. Insulin lispro (Humalog) sliding scale coverage with meals and at night. 13. Losartan 25 mg one tablet p.o. daily. 14. Multivitamin one tablet p.o. daily. 15. Triple antibiotic ointment topical to wounds daily per wound care. 16. Zofran 4 mg one tablet p.o. q.6 hours p.r.n. nausea and vomiting. 17. Protonix 40 mg one tablet p.o. daily. 18. MiraLAX 17 g one tablet p.o. daily p.r.n. constipation. 19. Risperidone 1 mg one tablet p.o. at bedtime. 20. Saccharomyces boulardii 250 mg one tablet p.o. daily. 21. Renvela 2400 mg one tablet p.o. t.i.d. 22. [place] Thyroid 30 mg one tablet p.o. q.a.m. 23. Tramadol 50 mg q.4 hours p.r.n. pain. 24. Ambien 5 mg one tablet p.o. at bedtime p.r.n. insomnia. HOSPITAL COURSE: Mr. Ferrara is a pleasant 53-year-old gentleman, who presents to [facility] on 02/19/2019 with worsening leg wound, patient was taken to the operating room by Dr. Singh on 02/20/2019-please see full operative report for details. The patient tolerated the operation well without complications. Initial operation was exploration of the left heel appreciating a full-thickness necrosis to the calcaneus with a very large wound with foul smelling and wet gangrene requiring guillotine amputation of the left leg above the ankle with plans to return to the operating room next week for a formal dsjev-xvf-fwsg amputation. The patient was admitted to medical unit, had appropriate antibiotics in this time, and maximum medical therapy. The patient was taken back to the operating room on 02/23/2019 for formal left-sided leg lsrzl-ycn-psoj amputation-please see full operative report for details-the patient tolerated the procedure well without intraoperative complications. The patient had antibiotics adjusted appropriately. The patient was seen and evaluated by Nephrology and had appropriate hemodialysis throughout his hospitalization. The patient tolerated dialysis overall quite well without severe complications. The patient's blood pressure was erratic and several days he would have low blood pressure requiring missing doses of blood pressure medications and on some days, his blood pressure would be very high and he would need extra doses of IV medications to control his blood pressure. Blood pressure adjustments were done appropriately per dub room engineer. The patient recommended safe for discharge by all specialists on 03/02/2019. Infectious Disease specialist recommending no antibiotics as infected tissue has all been cut out. The patient recommended safe for discharge to [facility] facility, where he is a chronic resident. The patient is recommended to follow up with General Surgery in the outpatient clinic in the next 1 to 2 weeks for wound check. The patient is recommended to have daily wound care at [facility] facility. The patient is recommended to have hemodialysis coordinated by dub room engineer in [facility] facility. The patient is recommended to return to acute care hospital immediately if signs or symptoms return, worsen, or any other new symptoms occur. Greater than 35 minutes spent coordinating care and discharge process for this patient. Job ID: [id number]
== END 2019-03-02 15:37 | DRG 239 ==
LOC: ERS 09:06 → T4-A 12:42
PROVIDERS: ADMIT Internal Medicine; ATTEND Internal Medicine
PROC: 5A1D70Z Performance of Urinary Filtration, Intermittent, Less than 6 Hours Per Day (ICD-10-PCS; 2019-02-19)
PROC: B51WYZZ Fluoroscopy of Dialysis Shunt/Fistula using Other Contrast (ICD-10-PCS; 2019-02-19)
PROC: 0Y6N0Z0 Detachment at Left Foot, Complete, Open Approach (ICD-10-PCS; principal; 2019-02-20)
PROC: 0Y6J0Z1 Detachment at Left Lower Leg, High, Open Approach (ICD-10-PCS; 2019-02-23)
PROC: 30233N1 Transfusion of Nonautologous Red Blood Cells into Peripheral Vein, Percutaneous Approach (ICD-10-PCS; 2019-02-27)
DX: E11.52 Type 2 diabetes mellitus with diabetic peripheral angiopathy with gangrene (principal); N18.6 End stage renal disease; I96 Gangrene, not elsewhere classified; L97.424 Non-pressure chronic ulcer of left heel and midfoot with necrosis of bone; L03.116 Cellulitis of left lower limb; M86.172 Other acute osteomyelitis, left ankle and foot; J98.11 Atelectasis; E11.621 Type 2 diabetes mellitus with foot ulcer; E11.319 Type 2 diabetes mellitus with unspecified diabetic retinopathy without macular edema; E11.65 Type 2 diabetes mellitus with hyperglycemia; E11.22 Type 2 diabetes mellitus with diabetic chronic kidney disease; E11.42 Type 2 diabetes mellitus with diabetic polyneuropathy; F32.9 Major depressive disorder, single episode, unspecified; F41.9 Anxiety disorder, unspecified; I10 Essential (primary) hypertension; D63.1 Anemia in chronic kidney disease; E11.59 Type 2 diabetes mellitus with other circulatory complications; E78.5 Hyperlipidemia, unspecified; I25.10 Atherosclerotic heart disease of native coronary artery without angina pectoris; K21.9 Gastro-esophageal reflux disease without esophagitis; E11.43 Type 2 diabetes mellitus with diabetic autonomic (poly)neuropathy; K31.84 Gastroparesis; E11.69 Type 2 diabetes mellitus with other specified complication; I95.9 Hypotension, unspecified; R40.0 Somnolence; S89.92XA Unspecified injury of left lower leg, initial encounter; X58.XXXA Exposure to other specified factors, initial encounter; Y92.239 Unspecified place in hospital as the place of occurrence of the external cause; T42.6X5A Adverse effect of other antiepileptic and sedative-hypnotic drugs, initial encounter; Z74.01 Bed confinement status; Z79.4 Long term (current) use of insulin; Z89.511 Acquired absence of right leg below knee; Z99.2 Dependence on renal dialysis; Z88.1 Allergy status to other antibiotic agents; Z88.8 Allergy status to other drugs, medicaments and biological substances; Z79.899 Other long term (current) drug therapy; E11.610 Type 2 diabetes mellitus with diabetic neuropathic arthropathy; E29.1 Testicular hypofunction
CPT/HCPCS: 36415; 36416; 36430; 36901; 71045; 80048; 80053; 80069; 80202; 82947; 83605; 85025; 86850; 86900; 86901; 87040; 87070; 87077; 87186; 87205; 87324; 87449; 88307; 88311; 90935; 93005; 93010; 96365; 96367; 96375; G0257; J0670; J1644; J1650; J1815; J2250; J2370; J2405; J2543; J2704; J2765; J3010; J3370; J3490; P9016; P9047; Q5105

== ENCOUNTER 2019-03-17 12:05 | Emergency (ER) | payer BC ==
--- NOTE | 2019-03-17 13:34 | RAD ---
RADIOGRAPH CHEST 1 VIEW: DATE: 03/17/2019 TIME: 1:19 PM HISTORY: 53-year-old male with dyspnea COMPARISON: 02/25/2019 FINDINGS: Magnification of cardiac shadow. Widened mediastinum. Greater degree of haziness in the central aspec ts of both lungs, and encroaching upon right upper and lower lung zones. Right pleural effusion. Right IJ double lumen hemodialysis catheter with distal tip deep in right atrium. No pneumothorax. IMPRESSION: 1) right pleural effusion, stable. 2) probable mild pulmonary interstitial edema.
[2019-03-17] MEDS ORDERED: Clindamycin/D5W 900 mg/50 ml Premix Bag ONE (13:48)
[2019-03-17 13:56] LABS: #Basophils 0.1 thou/uL (0.0-0.2); #Eosinphils 0.4 thou/uL (0.0-0.7); #Lymphocytes 1.4 thou/uL (1.20-3.40); #Monocytes 0.9 thou/uL (0.11-0.59); #Neutrophils 10.1 thou/uL (1.40-6.50); %Basophils 0.7 % (0.0-1.0); %Eosinophils 3.1 % (0.0-10.0); %Monocytes 6.7 % (0.0-10.0); %Neutrophils 78.6 % (42.0-75.0); Hemoglobin 12.2 g/dL (14.0-18.0); Mean Corpuscular HGB CONC 31.9 g/dL (32.0-36.0); Mean Corpuscular Hemoglobin 31.1 pg (27.0-31.0); Mean Corpuscular Volume 97.7 fL (78.0-98.0); Mean Platelet Volume 7.2 fL (7.4-10.4); Platelet Count 244 thou/uL (130-400); RBC Distribution Width 17.1 % (11.5-14.5); Red Blood Cell (RBC) Count 3.93 mill/uL (4.70-6.10); White Blood Cell (WBC) Count 12.8 thou/uL (4.8-10.8)
--- NOTE | 2019-03-17 14:06 | RAD ---
LEFT LEG TWO VIEWS: HISTORY: Left leg pain. FINDINGS: There are postop changes of below the knee amputation in good position and alignment. Surgical staple s are seen. There are vascular calcifications. No fracture, dislocation or bony destruction is identi fied at the left knee. No periosteal reaction or bony destruction is identified. POS: OFF
[2019-03-17 14:21] LABS: ALT (SGPT) 9 U/L (8-55); AST (SGOT) 11 U/L (5-34); Albumin 2.7 g/dL (3.5-5.0); Alkaline Phosphatase 84 U/L (40-110); Anion Gap 15 mmol/L (10-20); BUN (Urea Nitrogen) 60 mg/dL (8.4-25.7); Bilirubin, Total 0.5 mg/dL (0.2-1.2); CK (CPK) 24 U/L (30-200); Calc. Creatinine Clearance 0 mL/min (70-130); Calcium 9.1 mg/dL (7.8-10.44); Carbon Dioxide 28 mmol/L (22-29); Chloride 95 mmol/L (98-107); Estimated GFR-MDRD 7; Globulin 3.8 g/dL (2.4-3.5); Glucose 87 mg/dL (70-105); Lipase 17 U/L (8-78); Potassium 4.7 mmol/L (3.5-5.1); Protein, Total 6.5 g/dL (6.0-8.3); Sodium 133 mmol/L (136-145)
[2019-03-17 14:44] LABS: CKMB 4.9 ng/mL (0-6.6)
[2019-03-17] MEDS ORDERED: Acetaminophen 500 MG TAB ONE (16:00)
--- NOTE | 2019-03-17 16:06 | PRG ---
DATE OF SERVICE: 03/17/2019 SUBJECTIVE: A 53-year-old white male, end-stage renal disease, had a guillotine amputation above the ankle, then subsequently left znbev-gvw-xomy amputation on 02/23/2019. He was discharged discharge to [facility], where they gave instructions to follow up with me in 2 weeks. He has now been almost 3 weeks in the assisted at [facility] emergency room with concerns about his lateral left BKA stump. Roxana are still present. He has had breakdown of the skin. He presented with gangrene of the left foot, end-stage renal disease, diabetes mellitus. He states they have been cleaning the wound, however, on inspection, he is noted to have necrotic skin edges at the lateral left stump. At the bedside, this was debrided sharply and underneath tissues were fairly healthy and bleeding and normal saline wet-to-dry dressings applied. He does not need to be admitted. He will return to [facility] with wound care instructions and will follow up in my office in a week and a half. Job ID: [id number]
--- NOTE | 2019-03-18 08:12 | OP ---
DATE OF PROCEDURE: 03/17/2019 PREOPERATIVE DIAGNOSIS: Left fmnqe-zlf-uelc amputation stump status post guillotine amputation and subsequent 02/23/2019 formal below-knee amputation. POSTOPERATIVE DIAGNOSIS: Left upcyc-wpr-xodr amputation stump status post guillotine amputation and subsequent 02/23/2019 formal below-knee amputation with skin breakdown, left lateral, due to wound problems. PROCEDURE PERFORMED: Bedside debridement in the emergency room of necrotic skin and subcutaneous tissue, underlying tissue healthy. No evidence of infection. DESCRIPTION OF PROCEDURE: With the patient at bedside in the emergency room, the area was prepared with alcohol and eschar debrided sharply, necrotic subcutaneous tissue debrided sharply. There was healthy underlying tissue. Normal saline, wet-to-dry dressing applied. Of note is the patient has an eschar over his leg, knee area and this is healing. There was no evidence of infection. Job ID: [id number]
== END 2019-03-17 18:46 ==
LOC: ERS 12:05
DX: T87.81 Dehiscence of amputation stump (principal); I10 Essential (primary) hypertension; E11.319 Type 2 diabetes mellitus with unspecified diabetic retinopathy without macular edema; F32.9 Major depressive disorder, single episode, unspecified; F41.9 Anxiety disorder, unspecified; Z79.899 Other long term (current) drug therapy; Z79.4 Long term (current) use of insulin
CPT/HCPCS: 36415; 71045; 80053; 82550; 82553; 83605; 83690; 83880; 84484; 85025; 87040; 87070; 87077; 87186; 87205; 93005; 96365; 96366; 96367; J1956; J3370; J3490

== ENCOUNTER 2019-06-06 16:10 | Observation (INO) | payer BC ==
[~2019-06-06 16:10] MED LIST changes: +Heparin 10,000 UNITS/ 10 ML VIAL ONE; -ISOVUE-370 76%-LOCM 1 ML ONE
[2019-06-06 17:34] LABS: #Basophils 0.1 thou/uL (0.0-0.2); #Eosinphils 0.2 thou/uL (0.0-0.7); #Lymphocytes 0.9 thou/uL (1.20-3.40); #Monocytes 0.8 thou/uL (0.11-0.59); #Neutrophils 6.5 thou/uL (1.40-6.50); %Basophils 1.3 % (0.0-1.0); %Eosinophils 2.2 % (0.0-10.0); %Monocytes 9.1 % (0.0-10.0); %Neutrophils 77.4 % (42.0-75.0); Hemoglobin 11.5 g/dL (14.0-18.0); Mean Corpuscular HGB CONC 31.6 g/dL (32.0-36.0); Mean Corpuscular Hemoglobin 31.7 pg (27.0-31.0); Mean Platelet Volume 8.1 fL (7.4-10.4); Platelet Count 249 thou/uL (130-400); RBC Distribution Width 15.4 % (11.5-14.5); Red Blood Cell (RBC) Count 3.61 mill/uL (4.70-6.10); White Blood Cell (WBC) Count 8.5 thou/uL (4.8-10.8)
--- NOTE | 2019-06-06 17:40 | RAD ---
CHEST ONE VIEW: 06/06/19 Shortness of breath. COMPARISON: 05/15/19 exam. Heart size is enlarged. Pulmonary vessels are engorged. Increased density in the bases are compatible with effusions. IMPRESSION: Cardiomegaly with pulmonary edema changes. POS: BEBE
[2019-06-06 17:41] LABS: INR-International Normal Ratio 1.2; PTT 34.2 SEC (22.9-36.1); Prothrombin Time 14.7 SEC (12.0-14.7)
[2019-06-06 18:10] LABS: ALT (SGPT) 19 U/L (8-55); AST (SGOT) 31 U/L (5-34); Alkaline Phosphatase 105 U/L (40-110); Anion Gap 18 mmol/L (10-20); BUN (Urea Nitrogen) 62 mg/dL (8.4-25.7); Bilirubin, Total 0.6 mg/dL (0.2-1.2); Calc. Creatinine Clearance 0 mL/min (70-130); Calcium 8.8 mg/dL (7.8-10.44); Carbon Dioxide 22 mmol/L (22-29); Chloride 103 mmol/L (98-107); Estimated GFR-MDRD 8; Globulin 4.6 g/dL (2.4-3.5); Glucose 79 mg/dL (70-105); Potassium 5.9 mmol/L (3.5-5.1); Protein, Total 7.6 g/dL (6.0-8.3); Sodium 137 mmol/L (136-145)
[2019-06-06 18:22] LABS: CKMB 13.4 ng/mL (0-6.6)
--- NOTE | 2019-06-06 20:01 | CON ---
DATE OF CONSULTATION: 06/06/2019 SERVICE: Nephrology. REASON FOR CONSULTATION: End-stage renal disease management and hyperkalemia. REQUESTING PHYSICIAN: Dr. De Santiago. HISTORY OF PRESENT ILLNESS: A 54-year-old male with known history of end-stage renal disease on hemodialysis, peripheral artery disease status post bilateral BKA, morbid obesity as well as ascites requiring paracentesis, who was brought in from the sn[facility] after a syncopal episode as well as mental status change. The patient reportedly went for dialysis today, but had to stop it earlier due to diarrheal illness with some accidents. While back in the snf, while he has been cleaned, he reportedly was altered and soon passed out, and was subsequently brought to the hospital. Of note, the patient had a similar presentation earlier on in April when he developed mental status change during dialysis and was found to have markedly elevated ammonia as well as ascites that required paracenteses. However, ascitic fluid analysis was not consistent with transudates and portal hypertension. The patient denied headache, but admitted to shortness of breath. He also denied chest pain, but denied fever, chills, rigor, hematemesis, hematochezia, or fever. The patient seems to be back to baseline and is conversational. Initial vitals on presentation to the ER were unremarkable with blood pressure of 145/88, pulse of 69, respiratory rate of 22, SpO2 of 100% on nonrebreather. Of note, he was noted to be unresponsive by EMS with oxygen in low 80s and was started on nasal cannula, which improved to 92. OBJECTIVE: VITAL SIGNS: Current vitals show BP 192/104, pulse 70, respiratory rate 25, and SpO2 of 96% on 4 L nasal cannula. GENERAL: Obese male, in no obvious distress. Afebrile, anicteric, acyanotic. HEENT: Normocephalic, atraumatic. Oral mucosa is moist. NECK: Supple with no JVD. CARDIOVASCULAR: Regular rhythm and rate with normal heart sounds 1 and 2. RESPIRATORY: Fair air entry bilaterally with no obvious crackle or rhonchi. Air entry, however, is decreased at both bases. GI: Obese and enlarged. Diffusely nontender with normal bowel sounds. EXTREMITIES: Bilateral BKA noted. No edema appreciated. SANITATION DIRECTOR: Conscious and alert, oriented x3 with appropriate mental status. DIAGNOSTIC DATA: CBC showed WBC count of 8.5, hemoglobin of 11.5, and platelets of 249. Coagulation panel was unremarkable with PT of 14.7, INR of 1.2, and PTT of 34.2. CMP showed sodium 137, potassium 5.9, chloride 103, CO2 of 22, BUN 62, creatinine 7.18, glucose 79, calcium 8.8, total bilirubin 0.6, AST 31, ALT 19, alkaline phosphatase 105, total protein 7.6, albumin 3.0. Initial troponin is 0.040. CK-MB is elevated at 13.4. Ammonia level is 22. Chest x-ray showed cardiomegaly with pulmonary edema changes. Increased density in the bases consistent with effusion also were noted. ASSESSMENT: 1. End-stage renal disease, on hemodialysis. 2. Hyperkalemia: Due to end-stage renal disease. 3. Acute mental status change: Etiology is unclear. 4. Syncopal episode. 5. Chronic diarrhea with incontinence. 6. Morbid obesity. 7. Recurrent ascites. 8. Transient hypoxia. 9. Fluid overload. PLAN: 1. We would plan to dialyze the patient tonight with 2K bath due to hyperkalemia and fluid overload. 2. Evaluation of syncope and collapse as well as mental status change as per primary attending. 3. The patient may need paracentesis during this admission. 4. We will monitor blood pressure and adjust antihypertensives to get adequate BP control. 5. Further treatment to follow depending on hospital course. We will follow along with you. Job ID: [id number]
[2019-06-06 20:40] LABS: Troponin I 0.026 ng/mL (< 0.028)
[2019-06-06] MEDS ORDERED: Ondansetron ODT 4 MG TAB SL PRN (21:25)
[2019-06-06] MEDS ORDERED: Ondansetron PF 4 MG/2 ML Vial IVP PRN (21:25)
[2019-06-06] MEDS ORDERED: Acetaminophen 325 MG TAB PO PRN (21:25)
[2019-06-06 22:50] LABS: CKMB 14.6 ng/mL (0-6.6)
[2019-06-06 23:53] LABS: Troponin I 0.049 ng/mL (< 0.028)
[2019-06-07] MEDS ORDERED: Magnesium Citrate 300 ML BOT PO PRN (00:18)
[2019-06-07] MEDS ORDERED: ALPRAZolam 0.25 MG TAB PO PRN (00:18)
[2019-06-07] MEDS ORDERED: traZODone HCl 50 MG TAB PO PRN (00:18)
[2019-06-07] MEDS ORDERED: Docusate 100 MG CAP PO PRN (00:18)
[2019-06-07] MEDS ORDERED: Heparin 25,000 units/D5W 500 ML IVPB SCH (00:30)
[2019-06-07] MEDS ORDERED: Heparin 10,000 UNITS/ 10 ML VIAL SLOW IVP SCH (00:30)
[2019-06-07 00:49] LABS: Hemoglobin 11.2 g/dL (14.0-18.0); Platelet Count 246 thou/uL (130-400)
[2019-06-07] MEDS ORDERED: Aspirin 325 mg Enteric Coated Tablet PO SCH (01:00)
[2019-06-07] MEDS: cloNIDine 0.1 MG TAB PO PRN ×2 (02:13→23:31)
--- NOTE | 2019-06-07 04:58 | HP ---
CHIEF COMPLAINT: Syncope. HISTORY OF PRESENT ILLNESS: The patient is a 54-year-old male with a history of peripheral vascular disease, status post amputation; diabetes; end-stage renal disease, on dialysis; who presents to the hospital with syncopal episode. The patient stated that he was getting cleaned up for his diarrhea and next thing he remembers he had 4 people around him trying to wake him up. The patient does not recall any prodromal symptoms of his syncopal episode. The patient did go to dialysis today. The patient states that he has diarrhea, is not new. It has been going on for many, many years. The patient denies any recent fevers or chills, any nausea, vomiting, or diarrhea. Last admission, he had a markedly elevated ammonia level. He also has a history of ascites, however, unknown clear etiology. He has been evaluated by GI with no specific relations to his significant ascites. The patient denies any fevers or chills, any chest pain or chest tightness, any shortness of breath. REVIEW OF SYSTEMS: All negative except for the ones mentioned above in the HPI. PAST MEDICAL HISTORY: He has a history of end-stage renal disease, dialysis; hyperkalemia. He has a history of peripheral vascular disease, bilateral pmiue-jem-oabe amputation. He has had obesity and ascites. PAST SURGICAL HISTORY: He has had bilateral psovi-pea-lijm amputation, left forearm fistula and he has a dialysis catheter. ALLERGIES: HE HAS ALLERGIC TO KEFLEX, LISINOPRIL, AND METFORMIN. MEDICATIONS: Per last admit were as of the following; clonidine 0.1 q.4 hours p.r.n. for blood pressure greater than 180, Cymbalta 60 mg daily, ferrous sulfate 325 one p.o. b.i.d., insulin 8 units q.a.m., losartan 25 mg daily, multivitamin one p.o. daily, Zofran 4 mg q.6 hours p.r.n., Protonix 40 mg daily, MiraLAX 17 g daily, risperidone 1 g p.o. daily, Florastor 250 mg p.o. daily, Renvela 2400 mg p.o. t.i.d., [place] Thyroid 30 mg p.o. q.a.m., tramadol 50 mg q.4 hours p.r.n., Ambien 5 mg p.o. daily. FAMILY HISTORY: No history of heart disease or stroke. PHYSICAL EXAMINATION: VITAL SIGNS: Temperature of 97.6, heart rate 70, blood pressure 174/88, respirations 18, saturation 95% on room air. GENERAL: The patient is awake, alert, and oriented x3. Does not appear in distress. HEENT: Normocephalic, atraumatic. No lymphadenopathy noted. Pupils equal and reactive to light. CARDIOVASCULAR: S1 and S2 present. No murmurs, rubs, or gallops. LUNGS: Clear to auscultation. No rhonchi or wheezes noted. ABDOMEN: Soft, nontender. Bowel sounds are present x2. EXTREMITIES: He does have bilateral knee amputation. He does have some sores which do not appear to be infected. He does have some redness around his left stump area. SKIN: As I mentioned, he does have some erythema to his left stump and he has a wound to his left knee. LABORATORY RESULTS: WBCs of 8.5, hemoglobin of 11.5, hematocrit of 36.2, platelets of 249. Chemistry; sodium of 137, potassium 5.9, BUN of 62, creatinine of 7.18. His x-ray, he had an x-ray which did not indicate any acute abnormalities, just indicated cardiomegaly with some congestion. ASSESSMENT AND PLAN: The patient is a 54-year-old male who presents to the hospital with syncope. 1. Syncope. The patient has multiple risk factors for cardiac reasons for syncope. It is possible that it could be secondary to orthostatic, however, unable to really stay. The patient states that he has had a cardiac cath a long time ago. He denies any chest pain or shortness of breath; however, he does have mild elevated indeterminate range troponins and also elevated CK-MB. I will continue the patient on aspirin and statin. I will consult Cardiology. He has recently had an echocardiogram which was done in April of this year, which indicated an EF of 50% to 55% and left atrium was moderately to severely dilated. He does need a cardiac workup in regard to his syncope since this is the second time he had a syncopal episode. Last time when he was here, he did have carotid Dopplers which did not show any stenosis. 2. End-stage renal disease, on dialysis. The patient got dialyzed last night. 3. Hyperkalemia. We will continue to monitor. 4. Diabetes. We will continue checking his blood sugars before breakfast and at bedtime and continue his home dose of insulin. 5. Deep venous thrombosis prophylaxis. We will put patient on SCDs and subcu heparin. Job ID: [id number]
[2019-06-07] MEDS: Levothyroxine Sodium 100 MCG TAB PO SCH (06:30)
[2019-06-07 08:20] LABS: Cardiac Risk 2.5 (Less than 4.5)
[2019-06-07] MEDS ORDERED: Sodium Chloride 0.9% 250 ML 250 ML IVPB SCH (08:45)
--- NOTE | 2019-06-07 08:57 | PDOC.HOSPP ---
- Subjective Encounter Date: 06/07/19 Encounter Time: 08:54 Subjective: Mr. Ferrara was seen today in follow-up of syncope. He - Objective Vital Signs & Weight: Vital Signs (12 hours) Temp Pulse Resp BP BP BP Pulse Ox 06/07/19 08:09 98.1 F 65 27 H 121/70 95 06/07/19 04:05 98.3 F 70 18 126/67 94 L 06/07/19 04:00 72 06/07/19 02:13 174/88 H 06/07/19 00:27 179/84 H Weight Weight 241 lb I&O: 06/06/19 06/07/19 06/08/19 06:59 06:59 06:59 Intake Total 480 Output Total 3500 Balance -3020 Result Diagrams: 06/07/19 00:41 06/06/19 17:24 Additional Labs: Accuchecks 06/07/19 05:24 POC Glucose 80 Hospitalist ROS - Medication Medications: Active Medications Generic Name Dose Route Start Last Admin Trade Name Lincolnq PRN Reason Stop Dose Admin Clonidine 0.1 mg 06/07/19 00:18 06/07/19 02:13 Catapres PO 0.1 mg Q4H PRN Administration Hypertension Levothyroxine Sodium 100 mcg 06/07/19 06:00 06/07/19 06:30 Synthroid PO 100 mcg 0600 BERNY Administration - Exam General Appearance: NAD Heart: RRR, no murmur, no gallops, no rubs, normal peripheral pulses Respiratory: CTAB, no wheezes, no rales, no ronchi, normal chest expansion Gastrointestinal: distended (Tense, non-tender, bowel sounds are present) Extremities: no cyanosis, no clubbing (trace edema of the stump, bilateral AKA's ), 1+ LE edema Hosp A/P (1) Acute respiratory failure with hypoxia Code(s): J96.01 - ACUTE RESPIRATORY FAILURE WITH HYPOXIA Status: Resolved (2) Diabetes mellitus type 2 in obese Code(s): E11.69 - TYPE 2 DIABETES MELLITUS WITH OTHER SPECIFIED COMPLICATION; E66.9 - OBESITY, UNSPECIFIED Status: Acute (3) Syncope Code(s): R55 - SYNCOPE AND COLLAPSE Status: Acute (4) ESRD on hemodialysis Code(s): N18.6 - END STAGE RENAL DISEASE; Z99.2 - DEPENDENCE ON RENAL DIALYSIS Status: Chronic (5) Hypertension Code(s): I10 - ESSENTIAL (PRIMARY) HYPERTENSION Status: Chronic Qualifiers: Hypertension type: essential hypertension Qualified Code(s): I10 - Essential (primary) hypertension - Plan * Acute on chronic hypoxic respiratory failure- this is likely complicated by ascites. * Will plan for urgent paracentesis- and send fluid for cell count and differential * ESRD- continue dialysis as per Nephrology * Syncope- agree with Cardiology evaluation * HTN - blood pressure is a bit labile * DM- blood glucose is stable
[2019-06-07] MEDS: Sevelamer Carbonate 800 MG TAB PO SCH ×3 (09:01→17:17)
[2019-06-07] MEDS: Folic Acid 1 MG TAB PO SCH (09:01)
[2019-06-07] MEDS: Aspirin 325 mg Enteric Coated Tablet PO SCH (09:01)
[2019-06-07] MEDS: Escitalopram Oxalate 10 mg Tablet PO SCH (09:01)
[2019-06-07] MEDS: Multivit, Therapeutic 1 TAB PO SCH (09:02)
[2019-06-07] MEDS: Lactinex Tablet PO SCH (09:04)
[2019-06-07] MEDS ORDERED: Lidocaine 1% PF 5 ML VIAL ONE (09:45)
[2019-06-07] MEDS ORDERED: Sodium Bicarbonate 2.5 MEQ/5 ML VIAL ONE (09:45)
--- NOTE | 2019-06-07 10:45 | ULT ---
ULTRASOUND GUIDED PARACENTESIS: HISTORY: Recurrent ascites with shortness of breath. Request was made for emergent paracentesis. PROCEDURE INDIVIDUAL DETAIL: After informed consent was obtained the patient was prepped and draped in the normal sterile fashion. Local anesthesia was obtained with 1% Xylocaine mixed with sodium bicarbonate. A [address] was inserted into the largest fluid collection, which was in the right lower quadrant of the abdo men and 6 L of typical straw-colored fluid was obtained. There is still moderate ascites present but, as the patient had only one previous paracentesis with 5 L, we stopped at this point. The patient to lerated the procedure well. There were no immediate complications. IMPRESSION: Ultrasound guided paracentesis of 6 L of fluid. POS: LISSETH
--- NOTE | 2019-06-07 11:14 | PRG ---
DATE OF SERVICE: 06/07/2019 SERVICE: Nephrology. SUBJECTIVE: A 54-year-old male patient with known history of complicated diabetes associated with peripheral artery disease, status post bilateral BKA, diabetic nephropathy, on hemodialysis, admitted due to acute altered mental status and syncopal episode. The patient was found to have hyperkalemia and subsequently had hemodialysis last night. He was well until earlier this morning when he reportedly was found to be hypotensive and hypoxic. Happen to be around and blood pressure was in 80s. The patient was treated with repositioning Trendelenburg. Spontaneously blood pressure came up to 120/70s just as we started fluid bolus. The patient only got about 20 mL before. Blood pressure has bumped up. During the episode, the patient denied chest pain or shortness of breath. He also denied nausea, vomiting, or fever. OBJECTIVE: VITAL SIGNS: Temperature 98.1, pulse 65, respiratory rate 27, SpO2 of 95% on 5 L nasal cannula, and blood pressure 121/70. GENERAL: Obese male, in no obvious distress. Afebrile. Anicteric. Acyanotic. HEENT: Normocephalic, atraumatic. Oral mucosa is mildly dry. NECK: Supple with no JVD. CARDIOVASCULAR: Regular rhythm and rate with normal heart sounds 1 and 2. RESPIRATORY: Fair air entry bilaterally with few bibasilar crackles and some transmitted breath sounds. Gastrointestinal: Morbidly obese, enlarged with no tenderness. Bowel sound is normoactive. EXTREMITIES: Bilateral BKA noted. No obvious edema of the legs appreciated. CENTRAL NERVOUS SYSTEM: Conscious, alert, oriented x3 with appropriate mental status. Cranial nerves are grossly intact. DIAGNOSTIC DATA: CBC showed hemoglobin of 11.2 and platelet of 246. ASSESSMENT: 1. Transient hypotension: Etiology is unclear. This seems to be related to autonomic dysfunction. The patient has had similar episodes of syncope both in dialysis and out of dialysis. 2. End-stage renal disease, on hemodialysis: The patient was dialyzed yesterday. 3. Hyperkalemia: Treated with hemodialysis. 4. Recurrent ascites: The patient has abdominal enlargement. This may be contributing to shortness of breath and is significantly distended and impinging on the chest cavity. PLAN: 1. We will give 250 mL of normal saline bolus. 2. We will get repeat BMP. 3. We will plan on continuing outpatient dialysis schedule of Saturday, , and Saturday on this patient. 4. Recommend paracenteses. 5. Further treatment to follow depending on hospital course. Job ID: [id number]
[2019-06-07 12:08] LABS: RBC Count-Automated (BF) 133 /cumm; WBC/Nucleated-Auto (BF) 365 uL
[2019-06-07 12:15] LABS: Albumin 2.2 g/dL (3.5-5.0); BUN (Urea Nitrogen) 50 mg/dL (8.4-25.7); Calc. Creatinine Clearance 21 mL/min (70-130); Calcium 7.6 mg/dL (7.8-10.44); Carbon Dioxide 26 mmol/L (22-29); Chloride 105 mmol/L (98-107); Estimated GFR-MDRD 9; Glucose 68 mg/dL (70-105); Phosphorus 4.4 mg/dL (2.3-4.7); Potassium 5.2 mmol/L (3.5-5.1); Sodium 139 mmol/L (136-145)
[2019-06-07 12:21] LABS: Anion Gap 13 mmol/L (10-20)
[2019-06-07 12:27] LABS: BF Color Yellow; Body Fluid Source Ascites Body Fluid; Clarity Clear (Clear); Tube # EDTA
[2019-06-07 12:30] LABS: BF Segmented Neutrophils 2 %; Cell Count Non Hematic 81 %; Lymphocytes 14 %
[2019-06-07 13:27] LABS: CKMB 9.1 ng/mL (0-6.6)
--- NOTE | 2019-06-07 13:32 | CON ---
DATE OF CONSULTATION: 06/07/2019 REASON FOR CONSULTATION: Syncope. PRIMARY ENTERPRISE DATA ARCHITECT: None. HISTORY OF PRESENT ILLNESS: Mr. Ferrara is an unfortunate 54-year-old gentleman with past history of end-stage renal disease, bilateral BKA in addition to ascites of unknown reason, who recently presented with syncope. He has had 2 episodes in the last several months. He states he has no recollection. He does dialyze and has regularly. He also states he has chronic diarrhea, having 3 to 4 loose stools per day. He recently had a 5 L of ascitic fluid removed yesterday. No chest pain, pressure, or shortness of breath. No previous history of underlying coronary artery disease. PAST MEDICAL HISTORY: End-stage renal disease, diabetes mellitus, hypothyroidism, PVD, hypertension, diabetic gastroparesis, PD catheter, and hemodialysis placement. ALLERGIES: NONSTEROIDALS. FAMILY HISTORY: Negative for CAD. 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. REVIEW OF SYSTEMS: A 10-point review of systems is reviewed as above, otherwise negative. PHYSICAL EXAMINATION: GENERAL: Patient is a pleasant male, who is in no acute distress. The patient appears their stated age. He does appear disheveled. VITAL SIGNS: Blood pressure 159/88, pulse 65, and temperature 98.3. NEUROLOGIC: The patient is alert and oriented x3 with no focal neurologic deficits. HEENT: Sclerae without icterus. Mouth has moist mucous membranes with normal pallor. NECK: No JVD. Carotid upstroke brisk. No bruits bilaterally. LUNGS: Clear to auscultation with unlabored respirations. BACK: No scoliosis or kyphosis. CARDIAC: Regular rate and rhythm with normal S1 and S2. No S3 or S4 noted. No significant rubs, murmurs, thrills, or gallops noted throughout the precordium. PMI is not displaced. There is no parasternal heave. ABDOMEN: Soft, nontender, nondistended. No peritoneal signs present. No hepatosplenomegaly. No abnormal striae. EXTREMITIES: Bilateral BKA. SKIN: No gross abnormalities. LABORATORY DATA: CK-MB of 14.6, troponin 0.04. Creatinine 6.33, potassium 5.2 with a recent potassium of 5.9. Hemoglobin 11.2. IMPRESSION: 1. Syncope. 2. End-stage renal disease. 3. Ascites of unknown etiology. 4. Gastroparesis. RECOMMENDATIONS: Mr. Ferrara has multiple comorbidities. His syncope can be multifactorial. He is on dialysis and may also have volume contraction from diarrhea. No significant dysrhythmias present on telemetry monitoring. He has not had a previous cardiac ischemic workup and has increased risk given history of PVD and end-stage renal disease and longstanding diabetes. We will proceed with a noninvasive stress study today. His last LVEF was felt to be normal and would not recommend repeating the ultrasound. Echo was done on 05/14/2019 with LVEF of 50% to 55%. Job ID: [id number]
[2019-06-07] MEDS: risperiDONE 1 MG TAB PO SCH (20:20)
[2019-06-07] MEDS: Melatonin 3 MG TAB PO SCH (20:20)
[2019-06-07] MEDS: Atorvastatin Calcium 40 MG TAB PO SCH (20:20)
[2019-06-08] MEDS: cloNIDine 0.1 MG TAB PO PRN ×3 (03:23→20:43)
[2019-06-08 05:17] LABS: Albumin 2.6 g/dL (3.5-5.0); Anion Gap 15 mmol/L (10-20); BUN (Urea Nitrogen) 58 mg/dL (8.4-25.7); BUN/Creatinine Ratio 8.32; Calc. Creatinine Clearance 19 mL/min (70-130); Calcium 8.4 mg/dL (7.8-10.44); Carbon Dioxide 26 mmol/L (22-29); Chloride 101 mmol/L (98-107); Estimated GFR-MDRD 8; Glucose 73 mg/dL (70-105); Phosphorus 5.7 mg/dL (2.3-4.7); Potassium 5.7 mmol/L (3.5-5.1); Sodium 136 mmol/L (136-145)
[2019-06-08] MEDS: Levothyroxine Sodium 100 MCG TAB PO SCH (06:06)
[2019-06-08] MEDS ORDERED: Losartan 25 MG TAB PO SCH ×2 (06:15→09:00)
--- NOTE | 2019-06-08 07:19 | PDOC.CPN ---
- Subjective Date: 06/08/19 Time: 07:18 - Objective Allergies/Adverse Reactions: Allergies Allergy/AdvReac Type Severity Reaction Status Date / Time metformin Allergy Intermediate Verified 01/13/19 16:26 cephalexin [From Keflex] Allergy Verified 01/13/19 16:26 lisinopril Allergy Verified 01/13/19 16:26 Visit Medications: Current Medications Acidophilus (Floranex) 2 tab PO DAILY COUNTS INCLUDE 234 BEDS AT THE [facility] Last Admin: 06/07/19 09:04 Dose: 2 tab Alprazolam (Xanax) 0.25 mg PO BIDPRN PRN PRN Reason: Anxiety Aspirin (Ecotrin) 325 mg PO DAILY COUNTS INCLUDE 234 BEDS AT THE [facility] Last Admin: 06/07/19 09:01 Dose: Not Given Atorvastatin Calcium (Lipitor) 40 mg PO HS COUNTS INCLUDE 234 BEDS AT THE [facility] Last Admin: 06/07/19 20:20 Dose: 40 mg Clonidine (Catapres) 0.1 mg PO Q4H PRN PRN Reason: Hypertension Last Admin: 06/08/19 03:23 Dose: 0.1 mg Docusate Sodium (Colace) 100 mg PO DAILY PRN PRN Reason: Constipation Escitalopram Oxalate (Lexapro) 10 mg PO DAILY COUNTS INCLUDE 234 BEDS AT THE [facility] Last Admin: 06/07/19 09:01 Dose: 10 mg Folic Acid (Folvite) 1 mg PO DAILY COUNTS INCLUDE 234 BEDS AT THE [facility] Last Admin: 06/07/19 09:01 Dose: 1 mg Levothyroxine Sodium (Synthroid) 100 mcg PO 0600 COUNTS INCLUDE 234 BEDS AT THE [facility] Last Admin: 06/08/19 06:06 Dose: 100 mcg Losartan Potassium (Cozaar) 100 mg PO [id number]@0900 COUNTS INCLUDE 234 BEDS AT THE [facility] Last Admin: 06/08/19 06:06 Dose: 100 mg Losartan Potassium (Cozaar) 100 mg PO NOW COUNTS INCLUDE 234 BEDS AT THE [facility] Stop: 06/08/19 08:15 Last Admin: 06/08/19 06:07 Dose: 100 mg Magnesium Citrate (Citrate Of Magnesia 300 Ml Bot) 300 ml PO DAILYPRN PRN PRN Reason: CONSTIPATION Melatonin (Melatonin) 3 mg PO [facility] Last Admin: 06/07/19 20:20 Dose: 3 mg Multivitamins (Theragran) 1 tab PO DAILY COUNTS INCLUDE 234 BEDS AT THE [facility] Last Admin: 06/07/19 09:02 Dose: 1 tab Risperidone (Risperidone) 1 mg PO HS COUNTS INCLUDE 234 BEDS AT THE [facility] Last Admin: 06/07/19 20:20 Dose: 1 mg Sevelamer Carbonate (Renvela) 800 mg PO TID-WM COUNTS INCLUDE 234 BEDS AT THE [facility] Last Admin: 06/07/19 17:17 Dose: 800 mg Sodium Chloride (Flush - Normal Saline) 10 ml IVF Q12HR COUNTS INCLUDE 234 BEDS AT THE [facility] Last Admin: 06/07/19 22:15 Dose: 10 ml Sodium Chloride (Flush - Normal Saline) 10 ml IVF PRN PRN PRN Reason: Saline Flush Trazodone HCl (Desyrel) 50 mg PO QPM PRN PRN Reason: Insomnia Vital Signs & Weight: Vital Signs Temp Pulse Resp BP BP BP Pulse Ox 06/08/19 05:49 194/89 H 06/08/19 03:23 198/93 H 06/08/19 03:14 98.1 F 65 18 198/93 H 95 06/07/19 23:59 67 208/100 H 06/07/19 23:31 208/100 H 06/07/19 23:00 67 208/100 H 06/07/19 19:54 98.2 F 67 20 199/94 H 98 Weight 241 lb - Physical Exam General: other (disheveled) Neck: no masses, no bruit Cardiac: no murmur, regular rate, regular rhythm Lungs: normal exam - Labs Result Diagrams: 06/07/19 00:41 06/08/19 04:20 Troponin/CKMB CK-MB (CK-2) 9.1 ng/mL (0-6.6) H* 06/07/19 12:01 Troponin I 0.029 ng/mL (< 0.028) H 06/07/19 12:01 - Assessment/Plan Assessment/Plan: Syncope ESRD HTN Ascites EF normal on most recent exam with normal right sided pressures I doubt his ascites is secondary to passive congestion from CV standpoint CL pending syncope type symptoms appear vague but pt at increase risk of CAD given ESRD, HTN and PAD
[2019-06-08] MEDS: Sevelamer Carbonate 800 MG TAB PO SCH ×3 (08:57→16:44)
[2019-06-08] MEDS: Amlodipine 5 MG TAB PO SCH (08:57)
[2019-06-08] MEDS: Lactinex Tablet PO SCH (08:58)
[2019-06-08] MEDS: Folic Acid 1 MG TAB PO SCH (08:58)
[2019-06-08] MEDS: Multivit, Therapeutic 1 TAB PO SCH (08:58)
[2019-06-08] MEDS: Aspirin 325 mg Enteric Coated Tablet PO SCH (08:58)
[2019-06-08] MEDS: Escitalopram Oxalate 10 mg Tablet PO SCH (08:58)
--- NOTE | 2019-06-08 09:09 | PRG ---
DATE OF SERVICE: 06/08/2019 SUBJECTIVE: Mr. Ferrara is a 54-year-old white male with known history of ESRD, currently on hemodialysis, was initially admitted due to complaints of shortness of breath. He also was found to have significant ascites. He underwent large volume paracentesis and after the said procedure, his breathing became much better. About 6 L of ascites was removed. This morning, he is feeling better. No chest pain or shortness of breath. OBJECTIVE: VITAL SIGNS: Blood pressure is 188/86, heart rate 68, respiratory rate 26, temperature 97.9, pulse ox 98%. GENERAL: Awake, alert, supine, comfortable, not in overt distress. SKIN: Adequate turgor. HEENT: Pinkish conjunctivae. Anicteric sclerae. No neck mass. No carotid bruits. No JVD. CHEST: No deformities. LUNGS: Clear breath sounds. No wheezing. No crackles. HEART: Normal sinus rhythm. No murmurs, no gallops or rubs. ABDOMEN: Globular, soft, nontender. No masses. Positive for ascites. EXTREMITIES: The patient is status post bilateral BKA. MEDICATIONS: Medications of June 08, 2019, was reviewed. LABORATORY DATA: Laboratories of June 07, 2019; hemoglobin 11.2. June 08, 2019; sodium 136, potassium 5.7, chloride 101, carbon dioxide 26, BUN 58, creatinine 6.97, phosphorus is 5.7, albumin 2.6. ASSESSMENT AND PLAN: 1. ESRD, stable. We will continue current hemodialysis regimen of Saturday, , and Saturday. Fluid removal only as tolerated. 2. Ascites-status post 6 L paracentesis made. He is feeling much better after the said dialysis. 3. Hypertension, continue current BP medications. 4. Hyperphosphatemia, continue sevelamer 800 mg p.o. t.i.d. with meals. 5. Agree with current management. Job ID: [id number]
--- NOTE | 2019-06-08 11:21 | NM ---
EXAM: CARDIAC SPECT HISTORY: Syncope, peripheral vascular disease, end-stage renal disease, hypertension, diabetes TECHNIQUE: A myocardial perfusion scan was performed using the single isotope 2 day protocol with timoteo hnetium 99m sestamibi. [30 mCi] was injected intravenously for the rest exam followed by 30 mCi for the stress study. Pharmacologic stress with Lexiscan was monitored and interpreted by Dr. Funez FINDINGS: Homogeneous tracer distribution is seen in the myocardial segments on stress and rest image s without fixed or reversible defects. Gated SPECT LVEF: 57% Wall motion exam: Normal IMPRESSION: Normal myocardial perfusion scan
--- NOTE | 2019-06-08 12:54 | PDOC.HOSPP ---
- Subjective Encounter Date: 06/08/19 Encounter Time: 12:51 Subjective: Mr. Ferrara was seen today in follow-up of syncope. He does not have any complaints. He says he would like to " head home". - Objective Vital Signs & Weight: Vital Signs (12 hours) Temp Pulse Resp BP BP BP Pulse Ox 06/08/19 11:31 97.8 F 62 28 H 164/78 H 98 06/08/19 08:07 97.9 F 68 26 H 188/86 H 98 06/08/19 05:49 194/89 H 06/08/19 03:23 198/93 H 06/08/19 03:14 98.1 F 65 18 198/93 H 95 Weight Weight 241 lb I&O: 06/07/19 06/08/19 06/09/19 06:59 06:59 06:59 Intake Total 480 960 Output Total 3500 6000 Balance -2620 -2997 Result Diagrams: 06/07/19 00:41 06/08/19 04:20 Additional Labs: Accuchecks 06/08/19 06/08/19 06/07/19 11:42 05:40 20:12 POC Glucose 90 78 92 06/07/19 17:03 POC Glucose 170 H Hospitalist ROS - Medication Medications: Active Medications Generic Name Dose Route Start Last Admin Trade Name Freq PRN Reason Stop Dose Admin Acidophilus 2 tab 06/07/19 09:00 06/08/19 08:58 Floranex PO 2 tab DAILY BERNY Administration Amlodipine Besylate 5 mg 06/08/19 09:00 06/08/19 08:57 Norvasc PO 5 mg DAILY BERNY Administration Aspirin 325 mg 06/07/19 09:00 06/08/19 08:58 Ecotrin PO 325 mg DAILY BERNY Administration Atorvastatin Calcium 40 mg 06/07/19 21:00 06/07/19 20:20 Lipitor PO 40 mg HS BERNY Administration Clonidine 0.1 mg 06/07/19 00:18 06/08/19 03:23 Catapres PO 0.1 mg Q4H PRN Administration Hypertension Escitalopram Oxalate 10 mg 06/07/19 09:00 06/08/19 08:58 Lexapro PO 10 mg DAILY BERNY Administration Folic Acid 1 mg 06/07/19 09:00 06/08/19 08:58 Folvite PO 1 mg DAILY BERNY Administration Levothyroxine Sodium 100 mcg 06/07/19 06:00 06/08/19 06:06 Synthroid PO 100 mcg 0600 BERNY Administration Losartan Potassium 100 mg 06/10/19 09:00 06/08/19 06:06 Cozaar PO 100 mg SuMoWeFr@0900 BERNY Administration Melatonin 3 mg 06/07/19 21:00 06/07/19 20:20 Melatonin PO 3 mg HS BERNY Administration Multivitamins 1 tab 06/07/19 09:00 06/08/19 08:58 Theragran PO 1 tab DAILY BERNY Administration Risperidone 1 mg 06/07/19 21:00 06/07/19 20:20 Risperidone PO 1 mg HS BERNY Administration Sevelamer Carbonate 800 mg 06/07/19 08:00 06/08/19 11:34 Renvela PO 800 mg TID-WM BERNY Administration Sodium Chloride 10 ml 06/07/19 09:00 06/08/19 09:03 Flush - Normal Saline IVF 10 ml Q12HR BERNY Administration - Exam Eye: PERRL Heart: RRR, no murmur, no gallops, no rubs, normal peripheral pulses Respiratory: CTAB (with the exception of coarse breath sounds) Gastrointestinal: soft, non-distended, normal bowel sounds, distended Extremities: 1+ LE edema Hosp A/P (1) Acute respiratory failure with hypoxia Code(s): J96.01 - ACUTE RESPIRATORY FAILURE WITH HYPOXIA Status: Resolved (2) Diabetes mellitus type 2 in obese Code(s): E11.69 - TYPE 2 DIABETES MELLITUS WITH OTHER SPECIFIED COMPLICATION; E66.9 - OBESITY, UNSPECIFIED Status: Acute (3) Syncope Code(s): R55 - SYNCOPE AND COLLAPSE Status: Acute (4) ESRD on hemodialysis Code(s): N18.6 - END STAGE RENAL DISEASE; Z99.2 - DEPENDENCE ON RENAL DIALYSIS Status: Chronic (5) Hypertension Code(s): I10 - ESSENTIAL (PRIMARY) HYPERTENSION Status: Chronic Qualifiers: Hypertension type: essential hypertension Qualified Code(s): I10 - Essential (primary) hypertension - Plan * Syncope- stress test findings noted * Await further recommendations from Cardiology * ESRD- stable * HTN- blood pressure is elevated- will add Amlodipine * DM- blood glucose is stable
[2019-06-08 13:47] VITALS: BMI 34.5
[2019-06-08] MEDS ORDERED: Regadenoson 0.4 MG/5 ML SYRINGE ONE (15:20)
[2019-06-08] MEDS: Melatonin 3 MG TAB PO SCH (20:43)
[2019-06-08] MEDS: risperiDONE 1 MG TAB PO SCH (20:43)
[2019-06-08] MEDS: Atorvastatin Calcium 40 MG TAB PO SCH (20:43)
[2019-06-09 00:34] LABS: Hemoglobin 11.2 g/dL (14.0-18.0); Platelet Count 258 thou/uL (130-400)
[2019-06-09] MEDS: Levothyroxine Sodium 100 MCG TAB PO SCH (05:49)
--- NOTE | 2019-06-09 08:56 | PRG ---
DATE OF SERVICE: 06/09/2019 SUBJECTIVE: Mr. Ferrara is a 54-year-old white male with ESRD. Admitted for abdominal fullness. He also complained of some mild shortness of breath at that time. He underwent a 6 L volume paracentesis. Since the paracentesis, he is doing well. This morning, he voices no new complaints. No chest pain or shortness of breath. OBJECTIVE: VITAL SIGNS: Blood pressure 171/82, heart rate 54, respiratory rate 20, temperature 97.8, pulse ox 92%. GENERAL: Awake, alert, supine, comfortable, not in overt distress. SKIN: Adequate turgor. HEENT: He has slightly pale conjunctivae. Anicteric sclerae. NECK: No neck mass. No carotid bruits. No JVD. CHEST: No deformities. LUNGS: Clear breath sounds. HEART: Normal sinus rhythm. No murmurs, gallops, or rubs. ABDOMEN: Globular, soft, nontender. No masses. Positive for mild ascites. EXTREMITIES: No edema, no deformities. MEDICATIONS: Medications of June 09, 2019, reviewed. LABORATORY DATA: Laboratories of June 09, 2019, hemoglobin 11.2. June 08, 2019, sodium 136, potassium 5.7, chloride 101, carbon dioxide 26, BUN 58, creatinine 6.97, phosphorus 5.7, albumin 2.6. ASSESSMENT AND PLAN: 1. Endstage renal disease. The patient will be scheduled for hemodialysis today. Fluid removal as tolerated by the patient. 2. Ascites, much improved. The patient's symptoms results are resolved with paracentesis of 6 L. 3. Agree with current management. Job ID: [id number]
[2019-06-09] MEDS ORDERED: Amlodipine 5 MG TAB PO SCH (09:00)
[2019-06-09] MEDS: Multivit, Therapeutic 1 TAB PO SCH (09:33)
[2019-06-09] MEDS: Aspirin 325 mg Enteric Coated Tablet PO SCH (09:33)
[2019-06-09] MEDS: Folic Acid 1 MG TAB PO SCH (09:33)
[2019-06-09] MEDS: Sevelamer Carbonate 800 MG TAB PO SCH ×2 (09:33→13:14)
[2019-06-09] MEDS: Escitalopram Oxalate 10 mg Tablet PO SCH (09:33)
[2019-06-09] MEDS: Lactinex Tablet PO SCH (09:33)
[2019-06-09 12:27] VITALS: BP 176/80; TEMP 98
[2019-06-09] MEDS: Amlodipine 5 MG TAB PO SCH (13:14)
--- NOTE | 2019-06-10 02:59 | DIS ---
DATE OF ADMISSION: 06/06/2019 DATE OF DISCHARGE: 06/09/2019 DISCHARGE DISPOSITION: Home. DISCHARGE DIAGNOSES: 1. Syncope. 2. End-stage renal disease, on peritoneal dialysis. 3. Peripheral vascular disease. 4. History of recurrent ascites. 5. Hypertension. DISCHARGE MEDICATIONS: The patient was started on; 1. Amlodipine 10 mg daily. 2. Renvela 800 mg t.i.d. 3. Risperdal 1 mg p.o. at bedtime. 4. Protonix 40 mg daily. 5. Levothyroxine 100 mcg p.o. daily. 6. Lantus insulin 8 units subcu daily. 7. Folic acid 1 mg daily. 8. Clonidine 0.1 mg q.4 hours as needed. 9. Lipitor 40 mg at bedtime. 10. Aspirin 325 mg daily. 11. Tylenol 1000 mg q.6 as needed. 12. Trazodone 50 mg q.p.m. 13. Multivitamin once a day. 14. Losartan 100 mg on Saturday, Saturday, and Saturday. 15. Imodium 2 mg as directed. 16. 2 mg daily. 17. Lexapro 10 mg daily. 18. Colace 100 mg daily. 19. Vitamin D3 5000 units daily. 20. Alprazolam 0.25 mg twice daily. 21. Tylenol 650 mg q.6 as needed. PROCEDURES DONE DURING ADMISSION: The patient had a nuclear stress test showing normal perfusion scan. The EF was estimated at 57%. There was normal wall motion. The patient had a large volume paracentesis with removal of 6 L of fluid. CODE STATUS: Full code. ALLERGIES: METFORMIN, CEPHALEXIN AND LISINOPRIL. HOSPITAL COURSE: Mr. Ferrara is a pleasant 54-year-old gentleman, who presented to the emergency room after having a syncopal episode, the full details of which are outlined in the history and physical. He was placed in the hospital and ruled out. Given multiple risk factors for coronary artery disease, Cardiology was consulted and the patient underwent a noninvasive test to rule out ischemia, this was negative. Therefore, an event monitor will be placed prior to discharge and this will be followed up with Cardiology in the outpatient setting. The patient also has a history of recurrent ascites and he had a large volume paracentesis done during the hospital stay. He tolerated the procedure well and was subsequently discharged home. He is to have close outpatient followup with his primary care physician in approximately 1 week. Job ID: [id number]
[2019-06-10] MEDS ORDERED: Losartan 25 MG TAB PO SCH (09:00)
--- NOTE | 2019-06-13 14:08 | EKG ---
Test Reason : Blood Pressure : / mmHG Vent. Rate : 069 BPM Atrial Rate : 069 BPM P-R Int : 152 ms QRS Dur : 094 ms QT Int : 428 ms P-R-T Axes : 008 -18 050 degrees QTc Int : 458 ms Normal sinus rhythm Low voltage QRS Septal infarct , age undetermined Abnormal ECG Confirmed by MYLES JO DO ([id number]), order editor DIPTI HARDING ([id number]) on 06/13/2019 2:08:01 PM Referred By: Confirmed By:MYLES JO DO
== END 2019-06-09 13:03 ==
LOC: ERS 16:10 → 2NO 21:22
PROVIDERS: ADMIT Internal Medicine; ATTEND Internal Medicine
PROC: 0W9G3ZZ Drainage of Peritoneal Cavity, Percutaneous Approach (ICD-10-PCS; principal; 2019-06-07)
DX: R18.8 Other ascites (principal); R55 Syncope and collapse; E11.51 Type 2 diabetes mellitus with diabetic peripheral angiopathy without gangrene; I12.0 Hypertensive chronic kidney disease with stage 5 chronic kidney disease or end stage renal disease; E11.22 Type 2 diabetes mellitus with diabetic chronic kidney disease; N18.6 End stage renal disease; E87.5 Hyperkalemia; E87.70 Fluid overload, unspecified; R41.82 Altered mental status, unspecified; K52.9 Noninfective gastroenteritis and colitis, unspecified; J96.21 Acute and chronic respiratory failure with hypoxia; E11.21 Type 2 diabetes mellitus with diabetic nephropathy; I95.89 Other hypotension; E11.43 Type 2 diabetes mellitus with diabetic autonomic (poly)neuropathy; K31.84 Gastroparesis; E83.39 Other disorders of phosphorus metabolism; E66.01 Morbid (severe) obesity due to excess calories; Z68.34 Body mass index [BMI] 34.0-34.9, adult; Z79.4 Long term (current) use of insulin; Z79.82 Long term (current) use of aspirin; Z79.899 Other long term (current) drug therapy; Z88.1 Allergy status to other antibiotic agents; Z88.8 Allergy status to other drugs, medicaments and biological substances; Z99.2 Dependence on renal dialysis; Z89.511 Acquired absence of right leg below knee; Z89.512 Acquired absence of left leg below knee
CPT/HCPCS: 36415; 36416; 49083; 71045; 78452; 80053; 80061; 80069; 82140; 82553; 84484; 85014; 85018; 85025; 85049; 85060; 85610; 85730; 87070; 87205; 89051; 90935; 93005; 93010; 93017; A9500; G0257; G0378; J1644; J2001; J2785; J7050